=== PATIENT | male | born 1935 | race Caucasian/White ===

== ENCOUNTER 2016-09-16 12:22 | Inpatient (IN) | payer MEDICARE, OTHER ==
[2016-09-16 13:32] LABS: ABSOLUTE EOSINOPHILS # (AUTO) 0.1 10^3/uL (0.0-0.6); ABSOLUTE LYMPHOCYTES (AUTO) 1.2 10^3/uL (0.5-4.7); ABSOLUTE MONOCYTES (AUTO) 0.4 10^3/uL (0.1-1.4); ABSOLUTE NEUT (AUTO) 3.8 10^3/uL (1.7-8.2); BASOPHILS % (AUTO) 0.5 % (0-2); HEMATOCRIT 35.5 % (37.9-51.0); HEMOGLOBIN 11.7 g/dL (13.5-17.0); HGB HCT DIFFERENCE -0.4; LYMPHOCYTES % (AUTO) 21.6 % (13-45); MEAN CORPUSCULAR HEMOGLOBIN 30.5 pg (27.0-33.4); MEAN CORPUSCULAR HGB CONC 32.9 g/dL (32.0-36.0); MEAN CORPUSCULAR VOLUME 93 fl (80-97); MONOCYTES % (AUTO) 8.1 % (3-13); RED BLOOD COUNT 3.82 10^6/uL (4.35-5.55); RED CELL DISTRIBUTION WIDTH 14.8 % (11.5-14.0); SEGMENTED NEUTROPHILS % (AUTO) 67.8 % (42-78); WHITE BLOOD COUNT 5.6 10^3/uL (4.0-10.5)
[2016-09-16 13:44] LABS: PROTHROMBIN TIME 33.2 SEC (11.4-15.4)
[2016-09-16 13:53] LABS: ANION GAP 10 (5-19); BLOOD UREA NITROGEN 33 mg/dL (7-20); CALCIUM 9.7 mg/dL (8.4-10.2); CARBON DIOXIDE 32 mmol/L (22-30); CHLORIDE 98 mmol/L (98-107); CREATININE RESULT 1.58 mg/dL (0.52-1.25); GLUCOSE 176 mg/dL (75-110); SODIUM 139.5 mmol/L (137-145)
[2016-09-16] MEDS ORDERED: INSULIN ASPART 100 UNIT SQ PRN (15:35)
[2016-09-16] MEDS ORDERED: DEXTROSE 50%-WATER SYRINGE 12.5 GM/25 ML DOSE IV PRN (16:23)
[2016-09-16] MEDS ORDERED: DEXTROSE 50%-WATER SYRINGE 25 GM/50 ML DOSE IV PRN (16:23)
[2016-09-16] MEDS ORDERED: GLUCAGON,HUMAN RECOMB 1 MG INJ IM PRN ×2 (16:23→17:25)
[2016-09-16] MEDS ORDERED: DEXTROSE 40% GEL 15 GM TUBE PO PRN ×3 (16:23→17:25)
[2016-09-16] MEDS ORDERED: DEXTROSE 40% GEL 15 GM TUBE X 2 PO PRN (16:23)
[2016-09-16] MEDS ORDERED: ASPIRIN 81 MG TABLET, CHEWABLE PO ONE (17:00)
[2016-09-16] MEDS ORDERED: DEXTROSE 50%-WATER 25 GM/50 ML DISP.SYRIN IV PRN ×2 (17:25)
[2016-09-16] MEDS: ERTAPENEM SODIUM 1 GM in NORMAL SALINE 50 ML IV SCH (17:30)
--- NOTE | 2016-09-16 17:35 | PDOC H&P ---
History of Present Illness Admission Date/PCP: 09/16/16 12:22 Chela Trent Patient complains of: leg celluitis History of Present Illness: MARY MANDUJANO is a 81 year old male pt came today with c/o bilt leg swelling and pain pt was given clidamycin and also see foot doctor but still not work and foot doctor s/o put in hospital pt also have chronic chf/ckd/htn and dvt pt is on coumadin inr is 3 pt denied any fever no cp no sob Past Medical History Cardiac Medical History: Reports: Congestive Heart Failure, Coronary Artery Disease, DVT, Myocardial Infarction - 1995, Hyperlipidema, Hypertension, Pulmonary Embolism Pulmonary Medical History: Denies: Asthma, Tuberculosis Neurological Medical History: Denies: Seizures Endocrine Medical History: Reports: Diabetes Mellitus Type 2 Renal/ Medical History: Reports: Chronic Kidney Disease GI Medical History: Denies: Hepatitis Psychiatric Medical History: Reports: Depression Hematology: Denies: Anemia, Sickle Cell Disease Past Surgical History Past Surgical History: Reports: Coronary Artery Bypass Graft, Pacemaker - upper left chest Social History Smoking Status: Never Smoker Frequency of Alcohol Use: None Hx Recreational Drug Use: No Hx Prescription Drug Abuse: No Family History Family History: Reviewed & Not Pertinent Parental Family History Reviewed: Yes Children Family History Reviewed: Yes Sibling(s) Family History Reviewed.: Yes Medication/Allergy Home Medications: Allopurinol [Zyloprim 300 mg Tablet] 100 mg PO DAILY 11/05/11 Aspirin [Aspirin 81 mg Chewable Tablet] 81 mg PO DAILY 11/05/11 Docusate Sodium [Colace 100 mg Capsule] 200 mg PO QHS 11/05/11 Insulin Aspart [Novolog] 100 unit SQ PRN PRN 11/05/11 Levothyroxine Sodium [Synthroid 0.025 mg Tablet] 50 mcg PO DAILY 11/05/11 Metoprolol Succinate [Toprol Xl 25 mg Tab.sr] 100 mg PO DAILY 11/05/11 [place]-3/Dha/Epa/Fish Oil [Fish Oil Dr 500 mg Softgel] 1,000 mg PO BID 11/05/11 Omeprazole [Prilosec 20 mg Capsule] 20 mg PO DAILY 11/05/11 Sertraline HCl [Zoloft 50 mg Tablet] 50 mg PO DAILY 11/05/11 Simvastatin [Zocor 20 mg Tablet] 20 mg PO QHS 11/05/11 Sitagliptin Phosphate [Januvia 50 mg Tablet] 50 mg PO DAILY 11/05/11 Cetirizine HCl [Zyrtec 10 mg Chewable Tab] 10 mg PO QHS 10/12/12 Amiodarone HCl 100 mg PO DAILY 09/16/16 Fenofibrate Nanocrystallized [Tricor 145 mg Tablet] 145 mg PO DAILY 09/16/16 Furosemide [Lasix 20 mg Tablet] 80 mg PO BID 09/16/16 Insulin Glargine,Hum.rec.anlog [Lantus Solostar] 30 unit SQ BID 09/16/16 Losartan Potassium 50 mg PO DAILY 09/16/16 Warfarin Sodium [Coumadin] 4 mg PO QHS 09/16/16 Allergies/Adverse Reactions: No Known Allergies Allergy (Verified 09/30/14 12:05) Review of Systems Constitutional: ABSENT: chills, fever(s), headache(s), weight gain, weight loss Eyes: ABSENT: visual disturbances Ears: ABSENT: hearing changes Cardiovascular: ABSENT: chest pain, dyspnea on exertion, edema, orthropnea, palpitations Respiratory: ABSENT: cough, hemoptysis Gastrointestinal: ABSENT: abdominal pain, constipation, diarrhea, hematemesis, hematochezia, nausea, vomiting Genitourinary: ABSENT: dysuria, hematuria Musculoskeletal: ABSENT: joint swelling Integumentary: ABSENT: rash, wounds Neurological: ABSENT: abnormal gait, abnormal speech, confusion, dizziness, focal weakness, syncope Psychiatric: ABSENT: anxiety, depression, homidical ideation, suicidal ideation Endocrine: ABSENT: cold intolerance, heat intolerance, menstrual abnormalities, polydipsia, polyuria Hematologic/Lymphatic: ABSENT: easy bleeding, easy bruising, lymphadenopathy Physical Exam Vital Signs: Temp Pulse Resp BP Pulse Ox 97.8 F 64 19 133/54 H 97 09/16/16 15:34 09/16/16 15:34 09/16/16 15:34 09/16/16 15:34 09/16/16 15:34 Intake & Output 09/15/16 09/16/16 09/17/16 06:59 06:59 06:59 Weight 117.6 kg General appearance: PRESENT: no acute distress Head exam: PRESENT: normocephalic Eye exam: PRESENT: PERRLA Mouth exam: PRESENT: neck supple Neck exam: ABSENT: carotid bruit, full ROM, JVD, lymphadenopathy, meningismus, tenderness, thyromegaly, tracheal deviation, tracheostomy, other Respiratory exam: ABSENT: accessory muscle use, chest wall tenderness, clear to auscultation kavitha, crackles, decreased breath sounds, prolonged expiratory phas, rales, retraction, rhonchi, stridor, symmetrical, tachypnea, unlabored, wheezes , other Cardiovascular exam: PRESENT: +S1, +S2 GI/Abdominal exam: PRESENT: normal bowel sounds, soft. ABSENT: tenderness Extremities exam: PRESENT: pedal edema Additional comments: redness both leg Neurological exam: PRESENT: alert, awake, oriented to person, oriented to place , oriented to time, oriented to situation Psychiatric exam: PRESENT: normal mood Skin exam: PRESENT: normal color Results Laboratory Results: 09/16/16 13:15 09/16/16 13:15 09/16/16 09/16/16 13:15 13:15 WBC 5.6 RBC 3.82 L Hgb 11.7 L Hct 35.5 L MCV 93 MCH 30.5 MCHC 32.9 RDW 14.8 H Plt Count 292 Seg Neutrophils % 67.8 Lymphocytes % 21.6 Monocytes % 8.1 Eosinophils % 2.0 Basophils % 0.5 Absolute Neutrophils 3.8 Absolute Lymphocytes 1.2 Absolute Monocytes 0.4 Absolute Eosinophils 0.1 Absolute Basophils 0.0 Sodium 139.5 Potassium 4.0 Chloride 98 Carbon Dioxide 32 H Anion Gap 10 BUN 33 H Creatinine 1.58 H Est GFR ( Amer) 51 L Est GFR (Non-Af Amer) 42 L Glucose 176 H Calcium 9.7 Assessment & Plan - Diagnosis (1) Bilateral lower leg cellulitis Is this a current diagnosis for this admission?: YesPlan: pt failu out pt rx will start iv antibiotics (2) CHF (congestive heart failure) Qualifiers: Congestive heart failure type: combined Is this a current diagnosis for this admission?: YesPlan: cont lasix (3) CKD (chronic kidney disease) Qualifiers: Chronic kidney disease stage: stage 3 (moderate) Qualified Code(s): N18.3 - Chronic kidney disease, stage 3 (moderate) Is this a current diagnosis for this admission?: YesPlan: cont curr med (4) Hypertension Qualifiers: Hypertension type: essential hypertension Qualified Code(s): I10 - Essential (primary) hypertension Is this a current diagnosis for this admission?: YesPlan: stable (5) Pacemaker Is this a current diagnosis for this admission?: YesPlan: pt see [facility] (6) DVT (deep venous thrombosis) Qualifiers: Chronicity: unspecified Is this a current diagnosis for this admission?: YesPlan: on emt intermediate coumadin (7) Orthostatic hypotension Is this a current diagnosis for this admission?: YesPlan: fall precution (8) CAD (coronary artery disease) Qualifiers: Coronary Disease-Associated Artery/Lesion type: unspecified vessel or lesion type Is this a current diagnosis for this admission?: YesPlan: stable (9) Venous (peripheral) insufficiency Is this a current diagnosis for this admission?: YesPlan: will get doppler study - Time Time Spent: 30 to 50 Minutes Medications reviewed and adjusted accordingly: Yes Anticipated discharge: Home - Inpatient Certification Medical Necessity: Failure to Improve With Outpatient Therapy, Need Close Monitoring Due to Risk of Patient Decompensation, Need for IV Antibiotics Post Hospital Care: D/C Sap Hana Developer Documentation - Plan Summary Plan Summary: d/w pt and and agree above in pt iv medication and further doppler study
[2016-09-16] MEDS: OMEGA-3 ACID ETHYL ESTERS 1 GM CAPSULE PO SCH (17:41)
[2016-09-16] MEDS: FUROSEMIDE 80 MG TABLET PO SCH (17:41)
[2016-09-16] MEDS: OXYCODONE HCL IR 5 MG TABLET PO SCH (17:44)
[2016-09-16] MEDS: INSULIN LISPRO 100 UNIT/ML 3 ML VIAL SUBCUT PRN ×2 (17:48→21:33)
[2016-09-16] MEDS ORDERED: OMEGA PO SCH (18:00)
[2016-09-16] MEDS ORDERED: EPA PO SCH (18:00)
[2016-09-16] MEDS ORDERED: FUROSEMIDE 20 MG TABLET PO SCH (18:00)
[2016-09-16] MEDS ORDERED: DHA PO SCH (18:00)
[2016-09-16] MEDS ORDERED: FISH OIL PO SCH (18:00)
[2016-09-16] MEDS ORDERED: INSULIN GLARGINE,HUM.REC.ANLOG 300 UNIT/3 ML INSULN.PEN SUBCUT SCH ×2 (18:00)
[2016-09-16] MEDS ORDERED: LEVOTHYROXINE SODIUM 0.05 MG TABLET PO ONE (18:00)
[2016-09-16] MEDS: DOCUSATE SODIUM 100 MG CAPSULE PO SCH (21:22)
[2016-09-16] MEDS: SIMVASTATIN 10 MG TABLET PO SCH (21:22)
[2016-09-16] MEDS: CETIRIZINE 10 MG TABLET PO SCH (21:23)
[2016-09-16] MEDS: INSULIN GLARGINE,HUM.REC.ANLOG 300 UNIT/3 ML INSULN.PEN SUBCUT SCH (21:33)
[2016-09-16] MEDS ORDERED: WARFARIN SODIUM 4 MG PO SCH (22:00)
[2016-09-16] MEDS ORDERED: WARFARIN SODIUM 4 MG TABLET PO SCH (22:00)
[2016-09-16] MEDS ORDERED: (PENDING PHARMACY ID) (Cetirizine Hcl [Zyrtec 10 Mg Chewable Tab] 10 MG) PO SCH (22:00)
[2016-09-17 05:29] LABS: HEMATOCRIT 35.6 % (37.9-51.0); HEMOGLOBIN 11.8 g/dL (13.5-17.0); HGB HCT DIFFERENCE -0.2; MEAN CORPUSCULAR HEMOGLOBIN 30.5 pg (27.0-33.4); MEAN CORPUSCULAR HGB CONC 33.2 g/dL (32.0-36.0); MEAN CORPUSCULAR VOLUME 92 fl (80-97); RED BLOOD COUNT 3.88 10^6/uL (4.35-5.55); RED CELL DISTRIBUTION WIDTH 14.9 % (11.5-14.0); WHITE BLOOD COUNT 5.7 10^3/uL (4.0-10.5)
[2016-09-17] MEDS: LANSOPRAZOLE 15 MG TAB.RAP.DR PO SCH (05:44)
[2016-09-17 05:51] LABS: ANION GAP 18 (5-19); BLOOD UREA NITROGEN 34 mg/dL (7-20); CARBON DIOXIDE 25 mmol/L (22-30); CHLORIDE 98 mmol/L (98-107); CREATININE RESULT 1.51 mg/dL (0.52-1.25); GLUCOSE 182 mg/dL (75-110); POTASSIUM 4.2 mmol/L (3.6-5.0); SODIUM 140.8 mmol/L (137-145)
[2016-09-17] MEDS: INSULIN LISPRO 100 UNIT/ML 3 ML VIAL SUBCUT PRN ×4 (07:39→22:55)
[2016-09-17] MEDS: POLYETHYLENE GLYCOL 3350 POWDER 17 GM/1 PACKET PO SCH (07:41)
[2016-09-17] MEDS: OXYCODONE HCL IR 5 MG TABLET PO SCH ×3 (07:41→17:22)
--- NOTE | 2016-09-17 07:47 | PDOC PROGRESS REPORT ---
Subjective Progress Note for:: 09/17/16 Subjective:: pt is doing well no fever nocp doppler study still pending Physical Exam Vital Signs: Temp Pulse Resp BP Pulse Ox 97.8 F 60 20 145/56 H 95 09/17/16 03:50 09/17/16 07:00 09/17/16 03:50 09/17/16 03:50 09/17/16 03:50 Intake & Output 09/16/16 09/17/16 09/18/16 06:59 06:59 06:59 Intake Total 768 Output Total 1801 Balance -1033 Weight 117.5 kg General appearance: PRESENT: no acute distress Head exam: PRESENT: normocephalic Eye exam: PRESENT: PERRLA Mouth exam: PRESENT: neck supple Respiratory exam: PRESENT: clear to auscultation kavitha Cardiovascular exam: PRESENT: +S1, +S2 GI/Abdominal exam: PRESENT: normal bowel sounds, soft. ABSENT: tenderness Extremities exam: PRESENT: pedal edema Additional comments: mild redness on both leg' Neurological exam: PRESENT: alert, awake, oriented to person, oriented to place Skin exam: PRESENT: normal color Results Laboratory Results: 09/17/16 04:23 09/17/16 04:23 09/16/16 09/16/16 09/17/16 13:15 13:15 04:23 WBC 5.6 5.7 RBC 3.82 L 3.88 L Hgb 11.7 L 11.8 L Hct 35.5 L 35.6 L MCV 93 92 MCH 30.5 30.5 MCHC 32.9 33.2 RDW 14.8 H 14.9 H Plt Count 292 214 Seg Neutrophils % 67.8 Lymphocytes % 21.6 Monocytes % 8.1 Eosinophils % 2.0 Basophils % 0.5 Absolute Neutrophils 3.8 Absolute Lymphocytes 1.2 Absolute Monocytes 0.4 Absolute Eosinophils 0.1 Absolute Basophils 0.0 Sodium 139.5 Potassium 4.0 Chloride 98 Carbon Dioxide 32 H Anion Gap 10 BUN 33 H Creatinine 1.58 H Est GFR ( Amer) 51 L Est GFR (Non-Af Amer) 42 L Glucose 176 H Calcium 9.7 09/17/16 04:23 WBC RBC Hgb Hct MCV MCH MCHC RDW Plt Count Seg Neutrophils % Lymphocytes % Monocytes % Eosinophils % Basophils % Absolute Neutrophils Absolute Lymphocytes Absolute Monocytes Absolute Eosinophils Absolute Basophils Sodium 140.8 Potassium 4.2 Chloride 98 Carbon Dioxide 25 Anion Gap 18 BUN 34 H Creatinine 1.51 H Est GFR ( Amer) 54 L Est GFR (Non-Af Amer) 45 L Glucose 182 H Calcium 10.0 Assessment & Plan - Diagnosis (1) Bilateral lower leg cellulitis Is this a current diagnosis for this admission?: YesPlan: pt failu out pt rx will start iv antibiotics (2) CHF (congestive heart failure) Qualifiers: Congestive heart failure type: combined Is this a current diagnosis for this admission?: YesPlan: cont lasix (3) CKD (chronic kidney disease) Qualifiers: Chronic kidney disease stage: stage 3 (moderate) Qualified Code(s): N18.3 - Chronic kidney disease, stage 3 (moderate) Is this a current diagnosis for this admission?: YesPlan: cont curr med (4) Hypertension Qualifiers: Hypertension type: essential hypertension Qualified Code(s): I10 - Essential (primary) hypertension Is this a current diagnosis for this admission?: YesPlan: stable (5) Pacemaker Is this a current diagnosis for this admission?: YesPlan: pt see [facility] (6) DVT (deep venous thrombosis) Qualifiers: Chronicity: unspecified Is this a current diagnosis for this admission?: YesPlan: on senior living coumadin (7) Orthostatic hypotension Is this a current diagnosis for this admission?: YesPlan: fall precution (8) CAD (coronary artery disease) Qualifiers: Coronary Disease-Associated Artery/Lesion type: unspecified vessel or lesion type Is this a current diagnosis for this admission?: YesPlan: stable (9) Venous (peripheral) insufficiency Is this a current diagnosis for this admission?: Yes - Time Time Spent with patient: 15-24 minutes Medications reviewed and adjusted accordingly: Yes Anticipated discharge: Home Within: within 24 hours - Inpatient Certification Medical Necessity: Need for IV Antibiotics - Plan Summary Plan Summary: cont iv invanz
[2016-09-17] MEDS ORDERED: WARFARIN SODIUM 4 MG TABLET PO SCH (08:00)
[2016-09-17] MEDS ORDERED: METOLAZONE 2.5 MG TABLET PO ONE (08:30)
[2016-09-17] MEDS: INSULIN GLARGINE,HUM.REC.ANLOG 300 UNIT/3 ML INSULN.PEN SUBCUT SCH ×2 (09:02→22:55)
[2016-09-17] MEDS: FLUTICASONE NASAL SPRAY 50 MCG/SPRY 120 SPRAY/16 GM NASL SCH (09:03)
[2016-09-17] MEDS: ASPIRIN 81 MG TABLET, CHEWABLE PO SCH (09:08)
[2016-09-17] MEDS: FUROSEMIDE 80 MG TABLET PO SCH ×2 (09:08→17:21)
[2016-09-17] MEDS: AMIODARONE HCL 200 MG TABLET PO SCH (09:08)
[2016-09-17] MEDS: SITAGLIPTIN PHOSPHATE 50 MG TABLET PO SCH (09:09)
[2016-09-17] MEDS: SERTRALINE HCL 50 MG TABLET PO SCH (09:09)
[2016-09-17] MEDS: ALLOPURINOL 100 MG TABLET PO SCH (09:09)
[2016-09-17] MEDS: FENOFIBRATE NANOCRYSTALLIZED 145 MG TABLET PO SCH (09:09)
[2016-09-17] MEDS: LOSARTAN POTASSIUM 50 MG TABLET PO SCH (09:09)
[2016-09-17] MEDS: LEVOTHYROXINE SODIUM 0.05 MG TABLET PO SCH (09:09)
[2016-09-17] MEDS: CHOLECALCIFEROL (D3) 1,000 UNIT TABLET PO SCH (09:10)
[2016-09-17] MEDS: OMEGA-3 ACID ETHYL ESTERS 1 GM CAPSULE PO SCH ×2 (09:10→17:21)
[2016-09-17] MEDS: METOPROLOL SUCCINATE 50 MG TAB.SR.24H PO SCH (09:10)
[2016-09-17] MEDS ORDERED: (PENDING PHARMACY ID) (Amiodarone Hcl [Amiodarone Hcl] 100 MG) PO SCH (10:00)
[2016-09-17] MEDS ORDERED: METOPROLOL SUCCINATE 25 MG TAB.SR.24H PO SCH (10:00)
[2016-09-17] MEDS ORDERED: LEVOTHYROXINE SODIUM 0.025 MG TABLET PO SCH (10:00)
[2016-09-17] MEDS ORDERED: ALLOPURINOL 300 MG TABLET PO SCH (10:00)
[2016-09-17] MEDS ORDERED: (PENDING PHARMACY ID) (Omeprazole [Prilosec 20 Mg Capsule] 20 MG) PO SCH (10:00)
--- NOTE | 2016-09-17 12:44 | Physician Advisory Note ---
Physician Advisor ProgressNote .: Pursuant to the plan for Dann Brown, I have reviewed the medical record for this patient. Physician Advisor Statement: Please consider documentin. "Chronic ____[systolic &/or diastolic] CHF, with mod pulm HTN" - so coders won't have to query you later to clarify whether it's chronic or acute on chronic, .... (They can't assume you mean chronic anymore, when you don't specify, thanks to the 2017 coding guideline changes.) - ECHO 08/2014 showed LV EF "low nl", LV diastolic fn "nl", (+)mild conc LVH, mild-mod MR, mod inf-septal hypokinesis, mod pulm HTN. Thanks for your help! CK
[2016-09-17] MEDS: ERTAPENEM SODIUM 1 GM in NORMAL SALINE 50 ML IV SCH (17:21)
--- NOTE | 2016-09-17 17:36 | XCELERA REPORT ---
[address] [address] Lower Extremity Arterial Evaluation Name: MARY MANDUJANO Age: 81 yrs Gender: Male : 1935 Patient Status: Inpatient Patient Location: [id number]\S\301\S\A Study Date: 09/16/2016 02:20 PM Procedure: A color flow and duplex scan of the lower extremity arteries was performed bilaterally with velocity and waveform anaylsis. Reason For Study: Dx:PAD Ordering Physician: DANA TUTTLE Performed By: Cheyv Torres Measurements and Calculations Right Left PLANT MAINTENANCE MECHANIC PSV 160.6 181.0 cm/sec Prox PFA PSV -147.3 -150.4 cm/sec Prox SFA PSV -137.9 cm/sec Dist SFA PSV -116.3 -128.1 cm/sec Prox Pop A PSV 66.4 78.6 cm/sec Dist ARI PSV 10.8 30.6 cm/sec Dist MOLD BREAKER PSV 42.6 -61.6 cm/sec Dc Pedis PSV 14.1 45.4 cm/sec Right Side Arterial Evaluation Normal velocity, biphasic flow are present, from the Common Femoral artery down to the infrageniculate arteries. Monophasic, reduced flow in the Dorsalis Pedis. The ankle-brachial index is 0.52. Non compressible in the Posterior Tibial artery. 0-19 % stenosis is noted at the Common Femoral artery. With sequential changes. Left Side Arterial Evaluation Normal velocity, waveform and triphasic flow are present, in the Common Femoral artery. Biphasic in the Deep Femoral. Monophasic otherwise to the infrageniculate vessels. The ankle-brachial index is 0.97. 50-99 % stenosis is noted at the Femoral artery. Interpretation Summary Moderate hemodynamically significant lesions in the right lower extremity only, on duplex imaging, at rest. Severe hemodynamically significant lesions in the left lower extremity only, on duplex imaging, at rest. : DANA TUTTLE > Hawk Geller
[2016-09-17] MEDS: WARFARIN SODIUM 3 MG TABLET PO SCH (21:12)
[2016-09-17] MEDS: DOCUSATE SODIUM 100 MG CAPSULE PO SCH (21:12)
[2016-09-17] MEDS: CETIRIZINE 10 MG TABLET PO SCH (21:13)
[2016-09-17] MEDS: SIMVASTATIN 10 MG TABLET PO SCH (21:13)
[2016-09-18] MEDS: LANSOPRAZOLE 15 MG TAB.RAP.DR PO SCH (05:36)
[2016-09-18 06:33] LABS: HEMATOCRIT 36.9 % (37.9-51.0); HEMOGLOBIN 12.4 g/dL (13.5-17.0); HGB HCT DIFFERENCE 0.3; MEAN CORPUSCULAR HEMOGLOBIN 30.9 pg (27.0-33.4); MEAN CORPUSCULAR HGB CONC 33.7 g/dL (32.0-36.0); MEAN CORPUSCULAR VOLUME 92 fl (80-97); RED BLOOD COUNT 4.02 10^6/uL (4.35-5.55); RED CELL DISTRIBUTION WIDTH 14.8 % (11.5-14.0); WHITE BLOOD COUNT 5.1 10^3/uL (4.0-10.5)
[2016-09-18 06:40] LABS: PROTHROMBIN TIME 32.9 SEC (11.4-15.4)
[2016-09-18 06:46] LABS: ANION GAP 12 (5-19); BLOOD UREA NITROGEN 38 mg/dL (7-20); CALCIUM 10.7 mg/dL (8.4-10.2); CARBON DIOXIDE 32 mmol/L (22-30); CHLORIDE 96 mmol/L (98-107); CREATININE RESULT 1.72 mg/dL (0.52-1.25); GLUCOSE 134 mg/dL (75-110); POTASSIUM 4.3 mmol/L (3.6-5.0); SODIUM 140.4 mmol/L (137-145)
[2016-09-18] MEDS: POLYETHYLENE GLYCOL 3350 POWDER 17 GM/1 PACKET PO SCH (11:32)
[2016-09-18] MEDS: FUROSEMIDE 80 MG TABLET PO SCH ×2 (11:33→18:14)
[2016-09-18] MEDS: OMEGA-3 ACID ETHYL ESTERS 1 GM CAPSULE PO SCH ×2 (11:33→18:14)
[2016-09-18] MEDS: CHOLECALCIFEROL (D3) 1,000 UNIT TABLET PO SCH (11:33)
[2016-09-18] MEDS: OXYCODONE HCL IR 5 MG TABLET PO SCH ×3 (11:34→18:14)
[2016-09-18] MEDS: FENOFIBRATE NANOCRYSTALLIZED 145 MG TABLET PO SCH (11:37)
[2016-09-18] MEDS: METOPROLOL SUCCINATE 50 MG TAB.SR.24H PO SCH (11:37)
[2016-09-18] MEDS: ASPIRIN 81 MG TABLET, CHEWABLE PO SCH (11:38)
[2016-09-18] MEDS: ALLOPURINOL 100 MG TABLET PO SCH (11:38)
[2016-09-18] MEDS: LOSARTAN POTASSIUM 50 MG TABLET PO SCH (11:38)
[2016-09-18] MEDS: SERTRALINE HCL 50 MG TABLET PO SCH (11:38)
[2016-09-18] MEDS: SITAGLIPTIN PHOSPHATE 50 MG TABLET PO SCH (11:38)
[2016-09-18] MEDS: LEVOTHYROXINE SODIUM 0.05 MG TABLET PO SCH (11:38)
[2016-09-18] MEDS: FLUTICASONE NASAL SPRAY 50 MCG/SPRY 120 SPRAY/16 GM NASL SCH (11:49)
[2016-09-18] MEDS: AMIODARONE HCL 200 MG TABLET PO SCH (11:50)
[2016-09-18] MEDS: INSULIN GLARGINE,HUM.REC.ANLOG 300 UNIT/3 ML INSULN.PEN SUBCUT SCH ×2 (11:51→22:21)
--- NOTE | 2016-09-18 12:59 | PDOC PROGRESS REPORT ---
Subjective Progress Note for:: 09/18/16 Subjective:: pt is doing well pt u/s shows pad pt denied any fever nocp no sob Physical Exam Vital Signs: Temp Pulse Resp BP Pulse Ox 98.3 F 58 L 16 138/62 H 97 09/18/16 11:45 09/18/16 11:45 09/18/16 11:45 09/18/16 11:45 09/18/16 11:45 Intake & Output 09/17/16 09/18/16 09/19/16 06:59 06:59 06:59 Intake Total 768 1383 Output Total 1801 2150 Balance -1033 -767 Weight 117.5 kg 116.1 kg General appearance: PRESENT: no acute distress Head exam: PRESENT: normocephalic Eye exam: PRESENT: PERRLA Mouth exam: PRESENT: neck supple Neck exam: ABSENT: JVD Respiratory exam: PRESENT: clear to auscultation kavitha Cardiovascular exam: PRESENT: +S1, +S2 GI/Abdominal exam: PRESENT: normal bowel sounds, soft. ABSENT: tenderness Extremities exam: PRESENT: pedal edema Additional comments: redness all improving Neurological exam: PRESENT: alert, awake, oriented to person, oriented to place , oriented to time Psychiatric exam: PRESENT: normal mood Skin exam: PRESENT: normal color Results Laboratory Results: 09/18/16 05:33 09/18/16 05:33 09/18/16 09/18/16 05:33 05:33 WBC 5.1 RBC 4.02 L Hgb 12.4 L Hct 36.9 L MCV 92 MCH 30.9 MCHC 33.7 RDW 14.8 H Plt Count 255 Sodium 140.4 Potassium 4.3 Chloride 96 L Carbon Dioxide 32 H Anion Gap 12 BUN 38 H Creatinine 1.72 H Est GFR ( Amer) 47 L Est GFR (Non-Af Amer) 38 L Glucose 134 H Calcium 10.7 H Assessment & Plan - Diagnosis (1) Bilateral lower leg cellulitis Is this a current diagnosis for this admission?: YesPlan: pt failu out pt rx will start iv antibiotics (2) CHF (congestive heart failure) Qualifiers: Congestive heart failure type: combined Is this a current diagnosis for this admission?: YesPlan: cont lasix (3) CKD (chronic kidney disease) Qualifiers: Chronic kidney disease stage: stage 3 (moderate) Qualified Code(s): N18.3 - Chronic kidney disease, stage 3 (moderate) Is this a current diagnosis for this admission?: YesPlan: stable (4) Hypertension Qualifiers: Hypertension type: essential hypertension Qualified Code(s): I10 - Essential (primary) hypertension Is this a current diagnosis for this admission?: YesPlan: cont curr med (5) Pacemaker Is this a current diagnosis for this admission?: YesPlan: stable (6) DVT (deep venous thrombosis) Qualifiers: Chronicity: unspecified Is this a current diagnosis for this admission?: YesPlan: on terminal computer operator coumadin (7) Orthostatic hypotension Is this a current diagnosis for this admission?: YesPlan: fall precution (8) CAD (coronary artery disease) Qualifiers: Coronary Disease-Associated Artery/Lesion type: unspecified vessel or lesion type Is this a current diagnosis for this admission?: YesPlan: stable (9) Venous (peripheral) insufficiency Is this a current diagnosis for this admission?: YesPlan: will get doppler study - Time Time Spent with patient: 15-24 minutes Medications reviewed and adjusted accordingly: Yes Anticipated discharge: Home Within: within 24 hours - Inpatient Certification Medical Necessity: Need for IV Antibiotics Post Hospital Care: D/C Project Buyer Documentation - Plan Summary Plan Summary: pt need f/u out pt vasculer sx pt seen in past will cont curr med if remain stable will d/c in am check mg level today
[2016-09-18] MEDS: ERTAPENEM SODIUM 1 GM in NORMAL SALINE 50 ML IV SCH (18:13)
[2016-09-18] MEDS: INSULIN LISPRO 100 UNIT/ML 3 ML VIAL SUBCUT PRN (22:21)
[2016-09-18] MEDS: DOCUSATE SODIUM 100 MG CAPSULE PO SCH (22:21)
[2016-09-18] MEDS: SIMVASTATIN 10 MG TABLET PO SCH (22:21)
[2016-09-18] MEDS: CETIRIZINE 10 MG TABLET PO SCH (22:22)
[2016-09-18] MEDS: WARFARIN SODIUM 3 MG TABLET PO SCH (22:22)
[2016-09-19] MEDS: LANSOPRAZOLE 15 MG TAB.RAP.DR PO SCH (06:21)
[2016-09-19 06:36] LABS: HEMATOCRIT 37.3 % (37.9-51.0); HEMOGLOBIN 12.4 g/dL (13.5-17.0); HGB HCT DIFFERENCE -0.1; MEAN CORPUSCULAR HEMOGLOBIN 30.7 pg (27.0-33.4); MEAN CORPUSCULAR HGB CONC 33.2 g/dL (32.0-36.0); MEAN CORPUSCULAR VOLUME 92 fl (80-97); RED BLOOD COUNT 4.04 10^6/uL (4.35-5.55); RED CELL DISTRIBUTION WIDTH 14.8 % (11.5-14.0); WHITE BLOOD COUNT 5.3 10^3/uL (4.0-10.5)
[2016-09-19 06:41] LABS: PROTHROMBIN TIME 29.8 SEC (11.4-15.4)
[2016-09-19 07:02] LABS: ANION GAP 14 (5-19); BLOOD UREA NITROGEN 47 mg/dL (7-20); CALCIUM 10.2 mg/dL (8.4-10.2); CARBON DIOXIDE 33 mmol/L (22-30); CHLORIDE 95 mmol/L (98-107); CREATININE RESULT 1.68 mg/dL (0.52-1.25); GLUCOSE 66 mg/dL (75-110); POTASSIUM 3.4 mmol/L (3.6-5.0); SODIUM 141.5 mmol/L (137-145)
--- NOTE | 2016-09-19 09:03 | DISCHARGE SUMMARY E ---
Discharge Summary NAME: MARY MANDUJANO : 1935 AGE: 81Y ADMITTED: 09/16/2016 DISCHARGED: 09/19/2016 ADMISSION DIAGNOSES: 1. Bilateral leg cellulitis. 2. Congestive heart failure with the combined systolic and diastolic. 3. Chronic kidney disease. 4. Hypertension. 5. Pacemaker. 6. Deep vein thrombosis. 7. Orthostatic hypotension. 8. Coronary artery disease. 9. Venous insufficiency. 10. Peripheral vascular disease. DISCHARGE DIAGNOSES: 1. Bilateral leg cellulitis is all improving. 2. Congestive heart failure, combined, currently is all stable. Continue on Lasix. 3. Chronic kidney disease stage 3, currently stable. 4. Hypertension. 5. Pacemaker. 6. Deep vein thrombosis on chronic Coumadin. Therapeutic INR. 7. Orthostatic hypotension with fall precautions. 8. Coronary artery disease, currently sees Dr. Carrizales in cardiology. 9. Venous insufficiency. 10. Peripheral vascular disease. Needs to follow as outpatient vascular surgeons. PROCEDURES: None. COMPLICATIONS: None. DIAGNOSTICS: Lower extremity ultrasound performed which shows moderate *------* lesions in the right lower extremity and the severe *------* on the left extremity. DISCHARGE MEDICATIONS: 1. Cozaar 50 mg daily. 2. Amiodarone 100 mg daily. 3. Coumadin 3 mg nightly. The patient have monitoring check INR on Thursday. 4. Zoloft 50 mg daily. 5. Allopurinol 100 mg daily. 6. Toprol-XL 100 mg p.o. daily. 7. Colace 200 mg nightly daily. 8. MiraLax 17 g daily. 9. Flonase 1 spray daily. 10. Januvia 50 mg daily. 11. TriCor 145 mg p.o. daily. 12. Zocor 20 mg daily. 13. Lantus 30 units twice a day. 14. Humalog sliding scale. 15. Lasix 80 mg twice a day. 16. Aspirin 81 mg daily. 17. OxyIR p.r.n. for the pain 5 mg. 18. Prevacid 15 mg daily. 19. Potassium 40 mEq daily. 20. Zyrtec 10 mg daily. 21. Levothyroxine 0.05 mg daily. 22. Vitamin D 2000 units daily. 23. Keflex 500 mg t.i.d. for 7 days. MICROBIOLOGY: Blood cultures, no growth. LABORATORY: WBC 5.3, hemoglobin 12.4, platelets 254,000. INR 2.69. Sodium 141, potassium 3.1 (we replaced the potassium), BUN 47, creatinine 1.68. PHYSICAL EXAMINATION: VITAL SIGNS: Blood pressure 125/57, temperature 97.7, pulse 62, respirations 16, O2 saturation 98% on room air. GENERAL: The patient is alert, awake, and oriented x3. There was no any acute distress. HEAD AND NECK: Normocephalic. PERRLA. LUNGS: There is no wheezing, no rales, and no rhonchi. HEART: S1 and S2 is present. ABDOMEN: Soft. Bowel sounds are present. EXTREMITIES: Some mild edema with redness is much improved. NEUROLOGIC: No focal weaknesses. HOSPITAL COURSE: This is an 81-year-old male who basically has significant medical problems came to the office complaining of some lower extremity cellulitis which was put on the clindamycin, was much improved but the foot doctor suggested maybe some IV antibiotics. At this point, decided to admit in the hospital for IV antibiotics. The patient as put on IV Invanz and the patient's swelling was also reduced by giving some extra dose of Zaroxolyn. The patient otherwise responds very well with that. The patient's swelling is all goes down and the patient have no breathing issues. The patient tele monitor all reviewed and all stable. The patient's magnesium level and potassium is all corrected. The patient otherwise remained stable throughout the hospitalization. Discussed with the regarding the patient's current conditions and discussed with the patient. FOLLOWUP: The patient needs to follow in office in 1 week. Recheck the chem-7, magnesium and reassess the patient. The patient will make arrangements to see outpatient to meet vascular surgeons for further evaluation about the peripheral vascular disease. TIME SPENT: More than 30 minutes spent examining the patient, reviewing the records. DICTATING PHYSICIAN: DANA TUTTLE M.D. [id number] Y#: [id number] ID: [id number] JOB#: [id number] ACCT: [id number] cc:DANA TUTTLE M.D. >
[2016-09-19 09:44] VITALS: BP 150/59
[2016-09-19] MEDS: LOSARTAN POTASSIUM 50 MG TABLET PO SCH (09:53)
[2016-09-19] MEDS: OMEGA-3 ACID ETHYL ESTERS 1 GM CAPSULE PO SCH (09:53)
[2016-09-19] MEDS: SITAGLIPTIN PHOSPHATE 50 MG TABLET PO SCH (09:55)
[2016-09-19] MEDS: OXYCODONE HCL IR 5 MG TABLET PO SCH (09:55)
[2016-09-19] MEDS: METOPROLOL SUCCINATE 50 MG TAB.SR.24H PO SCH (09:55)
[2016-09-19] MEDS: SERTRALINE HCL 50 MG TABLET PO SCH (09:55)
[2016-09-19] MEDS: FUROSEMIDE 80 MG TABLET PO SCH (09:56)
[2016-09-19] MEDS: FENOFIBRATE NANOCRYSTALLIZED 145 MG TABLET PO SCH (09:56)
[2016-09-19] MEDS: LEVOTHYROXINE SODIUM 0.05 MG TABLET PO SCH (09:56)
[2016-09-19] MEDS: CHOLECALCIFEROL (D3) 1,000 UNIT TABLET PO SCH (09:57)
[2016-09-19] MEDS: AMIODARONE HCL 200 MG TABLET PO SCH (09:57)
[2016-09-19] MEDS: ASPIRIN 81 MG TABLET, CHEWABLE PO SCH (09:57)
[2016-09-19] MEDS: ALLOPURINOL 100 MG TABLET PO SCH (09:57)
[2016-09-19] MEDS: FLUTICASONE NASAL SPRAY 50 MCG/SPRY 120 SPRAY/16 GM NASL SCH (09:58)
[2016-09-19] MEDS ORDERED: POTASSIUM CHLORIDE 10 MEQ TABLET.SA PO SCH (10:00)
[2016-09-19] MEDS: POLYETHYLENE GLYCOL 3350 POWDER 17 GM/1 PACKET PO SCH (10:14)
== END 2016-09-19 11:09 | disposition home or self-care (01) | DRG 603 ==
LOC: 3N 12:22 → 4W 09-18 00:10
PROVIDERS: ADMIT Family Medicine; ATTEND Family Medicine
DX: L03.116 Cellulitis of left lower limb (principal); I13.0 Hypertensive heart and chronic kidney disease with heart failure and stage 1 through stage 4 chronic kidney disease, or unspecified chronic kidney disease; I50.40 Unspecified combined systolic (congestive) and diastolic (congestive) heart failure; L03.115 Cellulitis of right lower limb; E11.22 Type 2 diabetes mellitus with diabetic chronic kidney disease; N18.3 Chronic kidney disease, stage 3 (moderate); I25.10 Atherosclerotic heart disease of native coronary artery without angina pectoris; E78.5 Hyperlipidemia, unspecified; F32.9 Major depressive disorder, single episode, unspecified; I95.1 Orthostatic hypotension; I87.2 Venous insufficiency (chronic) (peripheral); I25.2 Old myocardial infarction; Z95.1 Presence of aortocoronary bypass graft; Z95.0 Presence of cardiac pacemaker; Z79.01 Long term (current) use of anticoagulants; Z79.82 Long term (current) use of aspirin; Z79.4 Long term (current) use of insulin; Z79.899 Other long term (current) drug therapy; Z86.711 Personal history of pulmonary embolism; Z86.718 Personal history of other venous thrombosis and embolism
CPT/HCPCS: 36415; 80048; 82962; 83735; 85025; 85027; 85610; 87040; 93925; J1335; J1815; J3490

== ENCOUNTER → 2016-10-21 | Outpatient (CLI) | payer MEDICARE, OTHER | LOC: RAD 09:25 | PROVIDERS: ATTEND Physician Assistant | DX: N50.819 Testicular pain, unspecified (principal); I86.1 Scrotal varices | CPT/HCPCS: 76870 ==

== ENCOUNTER 2016-10-23 10:03 | Emergency (ER) | payer MEDICARE, OTHER ==
--- NOTE | 2016-10-23 10:16 | ER Document Report ---
ED Medical Screen (RME) - General Chief Complaint: Back Pain Stated Complaint: BACK PAIN Notes: patient is a 81 year old male who fell on thursday. patient is dependent on a walker at home and was reaching for a blanket when he fell and landed on his back. able to walk but 5/5 pain in lower back. no UI/SI, saddle anesthesia patient is on warfarin for h/o DVT's, on amio and metoprolol for ? a fib. h/o CAD I have greeted and performed a rapid initial assessment of this patient. A comprehensive ED assessment and evaluation of the patient, analysis of test results and completion of the medical decision making process will be conducted by additional ED providers. TRAVEL OUTSIDE OF THE [place] IN LAST 30 DAYS: No - Related Data Allergies/Adverse Reactions: No Known Allergies Allergy (Verified 10/23/16 10:11) Past Medical History - Past Medical History Cardiac Medical History: Reports: Hx Congestive Heart Failure, Hx Coronary Artery Disease, Hx DVT, Hx Heart Attack - 1995, Hx Hypercholesterolemia, Hx Hypertension, Hx Pulmonary Embolism Pulmonary Medical History: Denies: Hx Asthma, Hx Tuberculosis Neurological Medical History: Denies: Hx Cerebrovascular Accident, Hx Seizures Endocrine Medical History: Reports: Hx Diabetes Mellitus Type 2 GI Medical History: Denies: Hx Hepatitis, Hx Ulcer Psychiatric Medical History: Reports: Hx Depression Infectious Medical History: Denies: Hx Hepatitis Past Surgical History: Reports: Hx Cardiac Surgery - open heart, pacer/defib, Hx Coronary Artery Bypass Graft, Hx Open Heart Surgery - cabg x 3, Hx Pacemaker - upper left chest - Immunizations Hx Diphtheria, Pertussis, Tetanus Vaccination: Yes - not UTD
[2016-10-23 10:57] LABS: ABSOLUTE BASOPHILS # (AUTO) 0.1 10^3/uL (0.0-0.2); ABSOLUTE LYMPHOCYTES (AUTO) 1.1 10^3/uL (0.5-4.7); ABSOLUTE MONOCYTES (AUTO) 0.6 10^3/uL (0.1-1.4); ABSOLUTE NEUT (AUTO) 15.1 10^3/uL (1.7-8.2); BASOPHILS % (AUTO) 0.8 % (0-2); EOSINOPHILS % (AUTO) 0.1 % (0-6); HEMATOCRIT 35.6 % (37.9-51.0); HEMOGLOBIN 11.5 g/dL (13.5-17.0); HGB HCT DIFFERENCE -1.1; LYMPHOCYTES % (AUTO) 6.3 % (13-45); MEAN CORPUSCULAR HEMOGLOBIN 29.8 pg (27.0-33.4); MEAN CORPUSCULAR HGB CONC 32.3 g/dL (32.0-36.0); MEAN CORPUSCULAR VOLUME 92 fl (80-97); MONOCYTES % (AUTO) 3.5 % (3-13); RED BLOOD COUNT 3.86 10^6/uL (4.35-5.55); RED CELL DISTRIBUTION WIDTH 15.1 % (11.5-14.0); SEGMENTED NEUTROPHILS % (AUTO) 89.3 % (42-78); WHITE BLOOD COUNT 16.9 10^3/uL (4.0-10.5)
[2016-10-23 10:58] LABS: PROTHROMBIN TIME 21.8 SEC (11.4-15.4)
--- NOTE | 2016-10-23 11:00 | ER Document Report ---
ED General - General Chief Complaint: Back Pain Stated Complaint: BACK PAIN Time seen by provider: 10:45 Mode of Arrival: Ambulatory Information source: Patient Notes: 81-year-old male lost balance and fell all using a walker 3 days ago landing on his right back on a coffee table. He had no loss of consciousness and has had no confusion or change in mental status since the fall. He has continued to be ambulatory with a walker but has had increasing pain in the right low back and right mid back since then. Patient had a recent admission with left looks to be cellulitis which was treated with 3 days of IV antibiotics by Dr. Tuttle followed by oral antibiotics family reports he's finished those but more recently has also been on antibiotics or believe Keflex for UTI. They say they were told that his UTI may not respond to oral antibiotics and he may need admission for IV antibiotics but they're waiting results of a repeat culture sample submitted yesterday to the office. Patient reports no fever, chills, cough, shortness of breath worsened baseline, nausea, vomiting, hematemesis, hematochezia, melena, chest pain, or abdominal pain. He denies dysuria, urgency , or frequency. He is on anticoagulation for DVT taking 4 mg of Coumadin every night and says he has not had recent changes in that dosage. Family reports they think cellulitis in his left leg has come back as they noted increased redness there for the past 3 days. Physical Exam: General: Alert, appears uncomfortable HEENT: Normocephalic. Atraumatic. PERRLA. Extraocular movements intact. Oropharynx clear. Neck: Supple. Non-tender. No bony deformities palpated Respiratory: No respiratory distress. Clear and equal breath sounds bilaterally. Cardiovascular: Slightly irregular no murmur PMI not displaced Abdominal: Normal Inspection. Soft, non-tender. No distension. Normal Bowel Sounds. Back: Diffusely tender to palpation on the right to the mid and low back. No contusion is present no bony deformities palpated. He is not tender along the thoracic or lumbar spine in the midline. No deformity or step off. Pelvis stable and nontender to palpation Extremities: Moves all four extremities. Upper extremities: Normal inspection. Non-tender. Normal color. Normal ROM. Normal temperature. Lower extremities: 3+ pitting edema from mid thigh down bilaterally. Right erythema noted from mid thigh to toes on the left. 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 Normal Mood. Skin: Warm. Dry. Normal color. TRAVEL OUTSIDE OF THE [place] IN LAST 30 DAYS: No - Related Data Allergies/Adverse Reactions: No Known Allergies Allergy (Verified 10/23/16 10:11) Past Medical History - Social History Smoking Status: Never Smoker Chew tobacco use (# tins/day): No Frequency of alcohol use: None Drug Abuse: None Family History: Reviewed & Not Pertinent Patient has suicidal ideation: No Patient has homicidal ideation: No - Past Medical History Cardiac Medical History: Reports: Hx Congestive Heart Failure, Hx Coronary Artery Disease, Hx DVT, Hx Heart Attack - 1995, Hx Hypercholesterolemia, Hx Hypertension, Hx Pulmonary Embolism Pulmonary Medical History: Denies: Hx Asthma, Hx Tuberculosis Neurological Medical History: Denies: Hx Cerebrovascular Accident, Hx Seizures Endocrine Medical History: Reports: Hx Diabetes Mellitus Type 2 Renal/ Medical History: Denies: Hx Peritoneal Dialysis GI Medical History: Denies: Hx Hepatitis, Hx Ulcer Psychiatric Medical History: Reports: Hx Depression Infectious Medical History: Denies: Hx Hepatitis Past Surgical History: Reports: Hx Cardiac Surgery - open heart, pacer/defib, Hx Coronary Artery Bypass Graft, Hx Open Heart Surgery - cabg x 3, Hx Pacemaker - upper left chest - Immunizations Hx Diphtheria, Pertussis, Tetanus Vaccination: Yes - not UTD Hx Pneumococcal Vaccination: 11/07/11 Review of Systems - Review of Systems Constitutional: denies: Chills, Fever EENT: denies: Ear pain, Throat pain Cardiovascular: denies: Chest pain, Syncope Respiratory: Short of breath. denies: Cough Gastrointestinal: denies: Abdominal pain, Diarrhea, Nausea, Vomiting, Blood in vomit, Black stools, Rectal bleeding Genitourinary: denies: Burning, Dysuria, Hematuria Musculoskeletal: See HPI Skin: See HPI Neurological/Psychological: See HPI Physical Exam - Vital signs Vitals: Temp Pulse Resp BP Pulse Ox 97.7 F 55 L 20 125/48 L 92 10/23/16 10:15 10/23/16 10:15 10/23/16 10:15 10/23/16 10:15 10/23/16 10:15 Course - Re-evaluation Re-evalutation: 10/23/16 13:55 Reevaluation of patient shows him to have developed no new complaints during his stay in emergency department. Patient has been able to get up to bedside commode with assistance. Believe the 12th rib fracture as well as a transverse process fractures of L1 to through the source of his back pain fluid collection noted is probably a small hematoma. His INR is mildly subtherapeutic and his hemoglobin is stable compared to his last admission so don't believe that acute blood loss is a component of his presentation. Urinalysis does not show evidence UTI now. He does appear to have a recurrent cellulitis to his left lower extremity and I discussed this with patient's physician Dr. Tuttle. He requests the patient be discharged on clindamycin 600 mg every 8 hours and follow with him on October 27. Patient reports aortic has oxycodone at home for pain and we will provide additional medication prescription for pain control. Patient and are agreeable to discharge and outpatient follow-up - Vital Signs Vital signs: Temp Pulse Resp BP Pulse Ox 97.7 F 55 L 18 116/55 L 94 10/23/16 10:15 10/23/16 10:15 10/23/16 12:00 10/23/16 11:02 10/23/16 12:00 10/23/16 13:55 - Laboratory Result Diagrams: 10/23/16 10:39 10/23/16 10:39 Laboratory results interpreted by me: 10/23/16 10/23/16 10/23/16 10:39 10:39 10:39 WBC 16.9 H RBC 3.86 L Hgb 11.5 L Hct 35.6 L RDW 15.1 H Seg Neutrophils % 89.3 H Lymphocytes % 6.3 L Absolute Neutrophils 15.1 H PT 21.8 H Sodium 135.6 L Chloride 96 L BUN 45 H Creatinine 2.14 H Est GFR ( Amer) 36 L Est GFR (Non-Af Amer) 30 L Glucose 243 H Ur Leukocyte Esterase 10/23/16 11:22 WBC RBC Hgb Hct RDW Seg Neutrophils % Lymphocytes % Absolute Neutrophils PT Sodium Chloride BUN Creatinine Est GFR ( Amer) Est GFR (Non-Af Amer) Glucose Ur Leukocyte Esterase TRACE H - Diagnostic Test Radiology reviewed: Image reviewed, Reports reviewed - EKG Interpretation by Me Additional EKG results interpreted by me: 10/23/16 11:01 EKG review, so shows electronic ventricular paced at 64 with occasional PVC no significant change compared to September 30 2014 Discharge - Discharge Clinical Impression: Cellulitis and abscess of leg Closed rib fracture Qualifiers: Encounter type: initial encounter Rib fracture type: single rib Laterality: right Qualified Code(s): S22.31XA - Fracture of one rib, right side, initial encounter for closed fracture Lumbar transverse process fracture Qualifiers: Encounter type: initial encounter Fracture type: closed Qualified Code(s): S32.008A - Other fracture of unspecified lumbar vertebra, initial encounter for closed fracture Condition: Stable Disposition: HOME, SELF-CARE Additional Instructions: Rib Injuries and Fractures You have been diagnosed as having either bruised or broken ribs. These two injuries are treated in the same way. It will usually take four to six weeks for these injured ribs to heal. Sometimes, rib belts or anesthetic injections of the chest wall help reduce the pain. If you are using a rib belt, you should cough or take a deep breath at least every hour or two to prevent lung complications. You should not engage in any strenuous physical activity until released by your physician. The usual rule is "if it hurts, don't do it." Rib fractures can lead to serious lung complications including lung collapse, hemorrhage, and pneumonia. You should call the physician or return at once if any of the following occur: (1) Fever or chills. (2) Persistent cough, coughing up blood, or shortness of breath. (3) Increasing pain. (4) Weakness, lightheadedness, or fainting. Cellulitis You have an infection of your skin and underlying soft tissues called cellulitis. This is due to bacteria, which can enter through any break in the skin, or even through an irritated hair follicle. Untreated, cellulitis will usually worsen. Antibiotics are required. Usually, warm packs or warm soaks, and elevation of the infected area are recommended. You should start getting better within 24 to 36 hours. Most infections respond quickly to the right medication. Follow-up care is important, however, to check for abscess (boil) formation, unsuspected foreign body, or resistant infection. If you develop fever, chills, or if the area of infection is becoming rapidly more swollen or painful, call the doctor at once. Prescriptions: Gabapentin 100 mg PO QHS PRN #10 capsule PRN Reason: For Pain Clindamycin HCl [Cleocin 300 mg Capsule] 600 mg PO Q8H #30 capsule Referrals: DANA TUTTLE MD [ACTIVE STAFF] - 10/27/16
[2016-10-23 11:11] LABS: ALANINE AMINOTRANSFERASE 21 U/L (21-72); ALBUMIN 4.1 g/dL (3.5-5.0); ALKALINE PHOSPHATASE 51 U/L (38-126); ANION GAP 14 (5-19); ASPARTATE AMINO TRANSFERASE 23 U/L (17-59); BLOOD UREA NITROGEN 45 mg/dL (7-20); CALCIUM 10.2 mg/dL (8.4-10.2); CARBON DIOXIDE 26 mmol/L (22-30); CHLORIDE 96 mmol/L (98-107); CREATININE RESULT 2.14 mg/dL (0.52-1.25); GLUCOSE 243 mg/dL (75-110); POTASSIUM 4.1 mmol/L (3.6-5.0); SODIUM 135.6 mmol/L (137-145); TOTAL PROTEIN 7.4 g/dL (6.3-8.2)
[2016-10-23 11:44] LABS: APPEARANCE,URINE SLIGHTLY-CLOUDY; BILIRUBIN,URINE NEGATIVE (NEGATIVE); GLUCOSE, URINE NEGATIVE (NEGATIVE); KETONES,URINE NEGATIVE (NEGATIVE); LEUKOCYTE ESTERASE,URINE TRACE (NEGATIVE); NITRITE,URINE NEGATIVE (NEGATIVE); PROTEIN,URINE NEGATIVE (NEGATIVE); URINE SPECIFIC GRAVITY 1.012; UROBILINOGEN,URINE NEGATIVE mg/dL (<2.0)
--- NOTE | 2016-10-23 13:18 | EKG REPORT ---
SEVERITY:- ABNORMAL ECG - VENTRICULAR-PACED COMPLEXES : Confirmed by: Tao Berg MD 23-Oct-2016 13:18:17
[2016-10-23 14:06] VITALS: BP 143/59
== END 2016-10-23 14:21 | disposition home or self-care (01) ==
LOC: ER 10:03
DX: S22.31XA Fracture of one rib, right side, initial encounter for closed fracture (principal); S32.008A Other fracture of unspecified lumbar vertebra, initial encounter for closed fracture; L03.116 Cellulitis of left lower limb; M54.9 Dorsalgia, unspecified; W01.190A Fall on same level from slipping, tripping and stumbling with subsequent striking against furniture, initial encounter; Y92.009 Unspecified place in unspecified non-institutional (private) residence as the place of occurrence of the external cause; Z86.718 Personal history of other venous thrombosis and embolism; Z79.01 Long term (current) use of anticoagulants; I50.9 Heart failure, unspecified; I11.0 Hypertensive heart disease with heart failure; E78.00 Pure hypercholesterolemia, unspecified; Z86.711 Personal history of pulmonary embolism; E11.9 Type 2 diabetes mellitus without complications; Z95.810 Presence of automatic (implantable) cardiac defibrillator; Z95.1 Presence of aortocoronary bypass graft
CPT/HCPCS: 36415; 71020; 74176; 80053; 81001; 85025; 85610; 87040; 87086; 93005; 93010; 99284

== ENCOUNTER → 2017-04-10 | Outpatient (CLI) | payer MEDICARE, OTHER ==
[2017-04-10 12:33] LABS: ABSOLUTE EOSINOPHILS # (AUTO) 0.1 10^3/uL (0.0-0.6); ABSOLUTE LYMPHOCYTES (AUTO) 0.7 10^3/uL (0.5-4.7); ABSOLUTE MONOCYTES (AUTO) 0.4 10^3/uL (0.1-1.4); ABSOLUTE NEUT (AUTO) 5.4 10^3/uL (1.7-8.2); BASOPHILS % (AUTO) 0.4 % (0-2); EOSINOPHILS % (AUTO) 1.6 % (0-6); HEMATOCRIT 32.5 % (37.9-51.0); HEMOGLOBIN 10.6 g/dL (13.5-17.0); HGB HCT DIFFERENCE -0.7; LYMPHOCYTES % (AUTO) 10.8 % (13-45); MEAN CORPUSCULAR HGB CONC 32.6 g/dL (32.0-36.0); MEAN CORPUSCULAR VOLUME 95 fl (80-97); MONOCYTES % (AUTO) 6.1 % (3-13); RED BLOOD COUNT 3.42 10^6/uL (4.35-5.55); RED CELL DISTRIBUTION WIDTH 15.8 % (11.5-14.0); SEGMENTED NEUTROPHILS % (AUTO) 81.1 % (42-78); WHITE BLOOD COUNT 6.6 10^3/uL (4.0-10.5)
[2017-04-10 13:01] LABS: ALANINE AMINOTRANSFERASE 19 U/L (21-72); ALBUMIN 3.8 g/dL (3.5-5.0); ALKALINE PHOSPHATASE 49 U/L (38-126); ANION GAP 13 (5-19); ASPARTATE AMINO TRANSFERASE 24 U/L (17-59); BILIRUBIN,DIRECT 0.4 mg/dL (0.0-0.4); BILIRUBIN,TOTAL 0.5 mg/dL (0.2-1.3); BLOOD UREA NITROGEN 53 mg/dL (7-20); CALCIUM 9.4 mg/dL (8.4-10.2); CARBON DIOXIDE 28 mmol/L (22-30); CHLORIDE 99 mmol/L (98-107); CREATININE RESULT 2.62 mg/dL (0.52-1.25); GLUCOSE 62 mg/dL (75-110); TOTAL PROTEIN 7.5 g/dL (6.3-8.2)
== END ==
LOC: OD 11:22
PROVIDERS: ATTEND Physician Assistant
DX: R82.99 Other abnormal findings in urine (principal); R39.11 Hesitancy of micturition
CPT/HCPCS: 36415; 80053; 84153; 85025

== ENCOUNTER → 2017-04-13 | Outpatient (CLI) | payer MEDICARE, OTHER ==
--- NOTE | 2017-04-13 15:01 | RADIOLOGY REPORT (SQ) ---
EXAM DESCRIPTION: CHEST PA/LATERAL COMPLETED DATE/TIME: 04/13/2017 11:29 am REASON FOR STUDY: HEART FAILURE, UNSPECIFIED I50.9 HEART FAILURE, UNSPECIFIED COMPARISON: 10/23/2016. NUMBER OF VIEWS: Two views. TECHNIQUE: Frontal and lateral radiographic views of the chest acquired. LIMITATIONS: None. FINDINGS: LUNGS AND PLEURA: No opacities, masses or pneumothorax. No pleural effusion. MEDIASTINUM AND HILAR STRUCTURES: No masses or contour abnormality. HEART AND VASCULAR STRUCTURES: Cardiac enlargement. Mild vascular congestion. BONES: No acute findings. HARDWARE: Defibrillator. Sternotomy wires and coronary bypass markers. OTHER: No other significant finding. IMPRESSION: STABLE APPEARANCE OF THE CHEST. CARDIAC ENLARGEMENT AND MILD VASCULAR CONGESTION. TECHNICAL DOCUMENTATION: JOB ID: [id number] [employer]- All Rights Reserved
== END ==
LOC: OD 11:09
PROVIDERS: ATTEND Physician Assistant
DX: I50.9 Heart failure, unspecified (principal)
CPT/HCPCS: 71020

== ENCOUNTER 2017-07-19 15:36 | Inpatient (IN) | payer MEDICARE, OTHER ==
--- NOTE | 2017-07-19 16:08 | ER Document Report ---
ED General - General Chief Complaint: Breathing Difficulty Stated Complaint: SHORTNESS OF BREATH Time Seen by Provider: 07/19/17 16:07 Notes: This is a 82-year-old male brought in by EMS for altered mental status and questionable shortness of breath. Patient has a history of diabetes. On insulin. Began sweating, not feeling well yesterday. Had breakfast this morning. Had lunch. Insulin was given. checked on him later and looked like he was having a hard time breathing. EMS arrived. Blood sugar was initially low in the 50s. Patient complaining of pain in the left leg. History of cellulitis of the left lower extremities. TRAVEL OUTSIDE OF THE [place] IN LAST 30 DAYS: No - HPI Onset: Just prior to arrival Onset/Duration: Sudden Severity: Moderate - Related Data Allergies/Adverse Reactions: No Known Allergies Allergy (Verified 07/19/17 16:39) Past Medical History - General Information source: Patient, Relative - Social History Smoking Status: Smoker,Current Status Unk Frequency of alcohol use: None Drug Abuse: None Lives with: Family Family History: Reviewed & Not Pertinent Patient has suicidal ideation: No Patient has homicidal ideation: No - Past Medical History Cardiac Medical History: Reports: Hx Congestive Heart Failure, Hx Coronary Artery Disease, Hx DVT, Hx Heart Attack - 1995, Hx Hypercholesterolemia, Hx Hypertension, Hx Pulmonary Embolism Pulmonary Medical History: Denies: Hx Asthma, Hx Tuberculosis Neurological Medical History: Denies: Hx Cerebrovascular Accident, Hx Seizures Endocrine Medical History: Reports: Hx Diabetes Mellitus Type 2 Renal/ Medical History: Reports: Hx Kidney Stones - right side, renal cysts. Denies: Hx Peritoneal Dialysis GI Medical History: Denies: Hx Hepatitis, Hx Ulcer Musculoskeltal Medical History: Reports Hx Arthritis - gout Psychiatric Medical History: Reports: Hx Depression Infectious Medical History: Denies: Hx Hepatitis Past Surgical History: Reports: Hx Cardiac Surgery - open heart, pacer/defib, Hx Coronary Artery Bypass Graft, Hx Open Heart Surgery - cabg x 3, Hx Pacemaker - upper left chest - Immunizations Hx Diphtheria, Pertussis, Tetanus Vaccination: Yes - not UTD Hx Pneumococcal Vaccination: 11/07/11 Review of Systems - Review of Systems Constitutional: Chills, Diaphoresis, Fever, Malaise EENT: No symptoms reported Cardiovascular: No symptoms reported Respiratory: Cough, Short of breath Gastrointestinal: No symptoms reported Genitourinary: No symptoms reported Male Genitourinary: No symptoms reported Musculoskeletal: No symptoms reported, Leg swelling Skin: No symptoms reported, Other - Chronic cellulitis left lower extremity Hematologic/Lymphatic: No symptoms reported Neurological/Psychological: No symptoms reported Physical Exam - Vital signs Vitals: Temp Pulse Resp BP Pulse Ox 101 F H 82 20 137/57 H 96 07/19/17 15:42 07/19/17 15:42 07/19/17 15:42 07/19/17 15:42 07/19/17 15:42 Interpretation: Normal - General General appearance: Appears well, Alert - HEENT Head: Normocephalic, Atraumatic Eyes: Normal Pupils: PERRL - Respiratory Respiratory status: No respiratory distress Chest status: Nontender Breath sounds: Decreased air movement, Wheezing Chest palpation: Normal - Cardiovascular Rhythm: Regular Heart sounds: Normal auscultation Murmur: No - Abdominal Inspection: Normal Distension: No distension Bowel sounds: Normal Tenderness: Nontender Organomegaly: No organomegaly - Back Back: Normal, Nontender - Extremities General upper extremity: Normal inspection, Nontender, Normal color, Normal ROM , Normal temperature. No: Edema General lower extremity: Normal inspection, Nontender, Edema, Normal color, Normal ROM, Normal temperature, Normal weight bearing, Other - Pitting edema noted to the bilateral lower extremities with the left greater than the right. Left lower extremity warm to the touch and red. No: Maria D's sign - Neurological Neuro grossly intact: Yes Cognition: Normal Orientation: AAOx4 Juan Luis Coma Scale Eye Opening: Spontaneous Juan Luis Coma Scale Verbal: Oriented Juan Luis Coma Scale Motor: Obeys Commands Juan Luis Coma Scale Total: 15 Speech: Normal Motor strength normal: LUE, RUE, LLE, RLE Sensory: Normal - Psychological Associated symptoms: Normal affect, Normal mood - Skin Skin Temperature: Warm - Cellulitic appearing left calf extending up to the popliteal fossa on the left. Anterior tib-fib red and swollen. Skin Moisture: Dry Skin Color: Normal Course - Re-evaluation Re-evalutation: 07/19/17 17:23 Patient with obvious hypoglycemic episode at home. Question is whether or not patient has something else going on with this respiratory distress. Does not look like he has swelling to the left calf but more likely this is cellulitis. Will order ultrasound to rule out DVT. Will get cardiac labs, EKG, blood cultures lactic, Accu-Chek and reassess. 07/19/17 18:39 Ultrasound ordered. Elevated lactic acid, left shift. Fever of 102. Antibiotics being started at this time. Consulted DR. Lawrence who will admit the patient at this time for cellulitis - Vital Signs Vital signs: Temp Pulse Resp BP Pulse Ox 101 F H 82 22 H 115/56 L 94 07/19/17 15:42 07/19/17 15:42 07/19/17 18:01 07/19/17 18:01 07/19/17 18:01 - Laboratory Result Diagrams: 07/19/17 16:25 07/19/17 16:25 Laboratory results interpreted by me: 07/19/17 07/19/17 07/19/17 16:25 16:25 16:25 RBC 4.09 L Hgb 12.2 L Hct 37.2 L RDW 17.2 H Seg Neuts % (Manual) 94 H Band Neutrophils % 2 L Lymphocytes % (Manual) 1 L Monocytes % (Manual) 2 L Abs Neuts (Manual) 9.2 H Abs Lymphs (Manual) 0.2 L BUN 46 H Creatinine 2.04 H Est GFR ( Amer) 38 L Est GFR (Non-Af Amer) 31 L Glucose 214 H Lactic Acid 2.8 H Creatine Kinase 46 L Urine Ascorbic Acid 07/19/17 16:25 RBC Hgb Hct RDW Seg Neuts % (Manual) Band Neutrophils % Lymphocytes % (Manual) Monocytes % (Manual) Abs Neuts (Manual) Abs Lymphs (Manual) BUN Creatinine Est GFR ( Amer) Est GFR (Non-Af Amer) Glucose Lactic Acid Creatine Kinase Urine Ascorbic Acid 40 H Discharge - Discharge Clinical Impression: Left leg cellulitis Diabetes Qualifiers: Diabetes mellitus type: type 2 Diabetes mellitus complication status: with hypoglycemia Diabetes mellitus complication detail: 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 Diabetes mellitus prison insulin use: with prison use Qualified Code(s): E11.649 - 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; Z79.4 - residential ( current) use of insulin; Z79.4 - intermodal dispatcher (current) use of insulin; Z79.4 - intermodal dispatcher (current) use of insulin; Z79.4 - intermodal dispatcher (current) use of insulin Condition: Good Disposition: ADMITTED INPATIENT Admitting [facility]
[2017-07-19] MEDS ORDERED: ALBUTEROL SULFATE 0.083% NEB 2.5 MG/3 ML AMPUL NEB ONE ×2 (17:22→19:09)
[2017-07-19 17:54] LABS: HEMATOCRIT 37.2 % (37.9-51.0); HEMOGLOBIN 12.2 g/dL (13.5-17.0); HGB HCT DIFFERENCE -0.6; MEAN CORPUSCULAR HEMOGLOBIN 29.9 pg (27.0-33.4); MEAN CORPUSCULAR HGB CONC 32.9 g/dL (32.0-36.0); MEAN CORPUSCULAR VOLUME 91 fl (80-97); RED BLOOD COUNT 4.09 10^6/uL (4.35-5.55); RED CELL DISTRIBUTION WIDTH 17.2 % (11.5-14.0); WHITE BLOOD COUNT 9.6 10^3/uL (4.0-10.5)
[2017-07-19 17:59] LABS: ALANINE AMINOTRANSFERASE 25 U/L (21-72); ALKALINE PHOSPHATASE 60 U/L (38-126); ANION GAP 16 (5-19); ASPARTATE AMINO TRANSFERASE 20 U/L (17-59); BILIRUBIN,DIRECT 0.4 mg/dL (0.0-0.4); BILIRUBIN,TOTAL 0.5 mg/dL (0.2-1.3); BLOOD UREA NITROGEN 46 mg/dL (7-20); CALCIUM 9.5 mg/dL (8.4-10.2); CARBON DIOXIDE 26 mmol/L (22-30); CHLORIDE 99 mmol/L (98-107); CREATINE KINASE 46 U/L (55-170); CREATININE RESULT 2.04 mg/dL (0.52-1.25); GLUCOSE 214 mg/dL (75-110); POTASSIUM 4.5 mmol/L (3.6-5.0); SODIUM 140.9 mmol/L (137-145); TOTAL PROTEIN 7.3 g/dL (6.3-8.2)
[2017-07-19 18:09] LABS: BAND NEUTROPHILS % (MANUAL) 2 % (3-5); BASOPHILS % (MANUAL) 0 % (0-2); EOSINOPHILS % (MANUAL) 0 % (0-6); LYMPHOCYTES % (MANUAL) 1 % (13-45); TOTAL CELLS COUNTED 100
[2017-07-19 18:10] LABS: APPEARANCE,URINE CLEAR; BILIRUBIN,URINE NEGATIVE (NEGATIVE); CREATINE KINASE MB 0.78 ng/mL (<4.55); GLUCOSE, URINE NEGATIVE (NEGATIVE); KETONES,URINE NEGATIVE (NEGATIVE); LEUKOCYTE ESTERASE,URINE NEGATIVE (NEGATIVE); NITRITE,URINE NEGATIVE (NEGATIVE); PROTEIN,URINE NEGATIVE (NEGATIVE); TROPONIN I 0.021 ng/mL; URINE SPECIFIC GRAVITY 1.011; UROBILINOGEN,URINE NEGATIVE mg/dL (<2.0)
[2017-07-19 18:11] LABS: ANISOCYTOSIS 1+; HYPOCHROMASIA SLIGHT
[2017-07-19] MEDS ORDERED: CEFTRIAXONE INJ 1000 MG VIAL IV ONE (18:41)
--- NOTE | 2017-07-19 18:42 | RADIOLOGY REPORT (SQ) ---
EXAM DESCRIPTION: CHEST SINGLE VIEW COMPLETED DATE/TIME: 07/19/2017 6:29 pm REASON FOR STUDY: sob COMPARISON: 04/13/2017 EXAM PARAMETERS: NUMBER OF VIEWS: One view. TECHNIQUE: Single frontal radiographic view of the chest acquired. RADIATION DOSE: NA LIMITATIONS: None. FINDINGS: LUNGS AND PLEURA: Chronic interstitial changes. MEDIASTINUM AND HILAR STRUCTURES: Stable. HEART AND VASCULAR STRUCTURES: Stable cardiomegaly appear BONES: No acute findings. HARDWARE: CABG. Defibrillator. OTHER: No other significant finding. IMPRESSION: NO ACUTE RADIOGRAPHIC FINDING IN THE CHEST. TECHNICAL DOCUMENTATION: JOB ID: [id number] [employer]- All Rights Reserved
[2017-07-19] MEDS ORDERED: CLINDAMYCIN PHOSPHATE 450 MG in DEXTROSE 5%-WATER 50 ML IV SCH ×2 (18:45→21:00)
[2017-07-19] MEDS ORDERED: FUROSEMIDE INJ/PF 20 MG/2 ML SDV IV ONE (19:09)
[2017-07-19 19:34] LABS: PARTIAL THROMBOPLASTIN TIME 38.8 SEC (23.5-35.8); PROTHROMBIN TIME 25.5 SEC (11.4-15.4)
--- NOTE | 2017-07-19 19:49 | RADIOLOGY REPORT (SQ) ---
EXAM DESCRIPTION: VENOUS UNILATERAL LOWER COMPLETED DATE/TIME: 07/19/2017 7:42 pm REASON FOR STUDY: pain left leg / Hx clots COMPARISON: Venous Doppler 09/10/2016 TECHNIQUE: Dynamic and static patterson scale and color images acquired of the left leg venous system. Se lected spectral images acquired with additional compression and augmentation maneuvers. The contralat eral common femoral vein and saphenofemoral junction were also imaged. Images stored on PACS. LIMITATIONS: None. FINDINGS: LEFT COMMON FEMORAL: Normal phasicity, compression and augmentation. No visualized echogenic material on g ray scale. No defects on color images. FEMORAL: Normal compression and augmentation. No visualized echogenic material on patterson scale. No defe cts on color images. POPLITEAL: Normal compression, augmentation. No visualized echogenic material on patterson scale. No defec ts on color images. CALF VESSELS: Normal compression, augmentation. No visualized echogenic material on patterson scale. No de fects on color images. GSV and SSV: Normal compression, augmentation. No visualized echogenic material on patterson scale. No def ects on color images. ANY DEEP VENOUS INSUFFICIENCY: Not evaluated. ANY EVIDENCE OF POPLITEAL CYST: No. OTHER: No other significant finding. RIGHT COMMON FEMORAL VEIN AND SAPHENOFEMORAL JUNCTION: Normal phasicity, compression and augmentation. No visualized echogenic material on patterson scale. No de fects on color images. IMPRESSION: NO EVIDENCE OF DVT OR SVT IN THE LEFT LEG. TECHNICAL DOCUMENTATION: JOB ID: [id number] [employer]- All Rights Reserved
--- NOTE | 2017-07-19 19:54 | EKG REPORT ---
SEVERITY:- ABNORMAL ECG - AFIB/FLUT AND V-PACED COMPLEXES NONSPECIFIC INTRAVENTRICULAR CONDUCTION DELAY : Confirmed by: Arvind Carrizales 19-Jul-2017 19:53:44
[2017-07-19] MEDS ORDERED: CLINDAMYCIN PHOSPHATE INJ 300 MG/2 ML SDV IV PRN (20:35)
[2017-07-19] MEDS ORDERED: INFLUENZA ADLT QUAD (36MOS+) 2017-18 VAC 0.5 ML SYR IM PRN (22:32)
[2017-07-19] MEDS ORDERED: DEXTROSE 50%-WATER SYRINGE 25 GM/50 ML DOSE IV PRN (23:51)
[2017-07-19] MEDS ORDERED: DEXTROSE 50%-WATER SYRINGE 12.5 GM/25 ML DOSE IV PRN (23:51)
[2017-07-19] MEDS ORDERED: GLUCAGON,HUMAN RECOMB 1 MG INJ IM PRN (23:51)
[2017-07-19] MEDS ORDERED: DEXTROSE 40% GEL 15 GM TUBE PO PRN (23:51)
[2017-07-19] MEDS ORDERED: DEXTROSE 40% GEL 15 GM TUBE X 2 PO PRN (23:51)
[2017-07-20] MEDS: ACETAMINOPHEN 325 MG TABLET PO PRN (02:56)
[2017-07-20] MEDS: CLINDAMYCIN 600 MG/D5W RTU 600 MG/50 ML RTUPB IV SCH ×4 (03:06→21:36)
[2017-07-20] MEDS ORDERED: LANSOPRAZOLE 15 MG TAB.RAP.DR PO SCH (06:00)
[2017-07-20] MEDS ORDERED: (PENDING PHARMACY ID) (Nitroglycerin [Nitrostat] 0.3 MG) SL PRN (06:14)
[2017-07-20] MEDS ORDERED: OXYCODONE-ACETAMINOPHEN 5-325 MG TABLET PO PRN (06:14)
[2017-07-20 07:51] LABS: ABSOLUTE LYMPHOCYTES (AUTO) 1.1 10^3/uL (0.5-4.7); ABSOLUTE MONOCYTES (AUTO) 0.4 10^3/uL (0.1-1.4); ABSOLUTE NEUT (AUTO) 10.3 10^3/uL (1.7-8.2); ALANINE AMINOTRANSFERASE 29 U/L (21-72); ALBUMIN 3.6 g/dL (3.5-5.0); ALKALINE PHOSPHATASE 53 U/L (38-126); ANION GAP 15 (5-19); ASPARTATE AMINO TRANSFERASE 17 U/L (17-59); BASOPHILS % (AUTO) 0.1 % (0-2); BILIRUBIN,DIRECT 0.4 mg/dL (0.0-0.4); BILIRUBIN,TOTAL 0.9 mg/dL (0.2-1.3); BLOOD UREA NITROGEN 48 mg/dL (7-20); CALCIUM 9.4 mg/dL (8.4-10.2); CARBON DIOXIDE 26 mmol/L (22-30); CHLORIDE 99 mmol/L (98-107); CREATININE RESULT 2.06 mg/dL (0.52-1.25); GLUCOSE 180 mg/dL (75-110); HEMATOCRIT 33.9 % (37.9-51.0); HEMOGLOBIN 11.2 g/dL (13.5-17.0); HGB HCT DIFFERENCE -0.3; LYMPHOCYTES % (AUTO) 9.5 % (13-45); MEAN CORPUSCULAR HEMOGLOBIN 29.7 pg (27.0-33.4); MEAN CORPUSCULAR HGB CONC 32.9 g/dL (32.0-36.0); MEAN CORPUSCULAR VOLUME 90 fl (80-97); MONOCYTES % (AUTO) 3.4 % (3-13); POTASSIUM 4.6 mmol/L (3.6-5.0); RED BLOOD COUNT 3.75 10^6/uL (4.35-5.55); RED CELL DISTRIBUTION WIDTH 16.9 % (11.5-14.0); SODIUM 139.8 mmol/L (137-145); TOTAL PROTEIN 6.6 g/dL (6.3-8.2); WHITE BLOOD COUNT 11.8 10^3/uL (4.0-10.5)
[2017-07-20 08:02] LABS: CREATINE KINASE MB 0.65 ng/mL (<4.55); TROPONIN I 0.033 ng/mL
[2017-07-20] MEDS: LANSOPRAZOLE 30 MG TAB.RAP.DR PO SCH (08:12)
[2017-07-20] MEDS: INSULIN LISPRO 100 UNIT/ML 3 ML VIAL SUBCUT PRN ×3 (08:12→22:45)
--- NOTE | 2017-07-20 09:41 | PDOC CONSULTATION ---
Consultation Consult Date: 07/20/17 Attending physician:: CECILIA TUTTLE Consult reason:: Cellulitis left lower extremity History of Present Illness Admission Date/PCP: 07/19/17 20:03 HI TUTTLE MD History of Present Illness: MARY MANDUJANO is a 82 year old male minutes of the medical service for acute septic episode likely secondary to left lower extremity cellulitis. Patient was admitted overnight for intravenous antibiotics, fluids. He states he feels better. According to the patient has a history of left lower extremity cellulitis on multiple occasions. Surgery was consulted for opinion regarding cellulitis management. Past Medical History Cardiac Medical History: Reports: Congestive Heart Failure, Coronary Artery Disease, DVT, Myocardial Infarction - 1995, Hyperlipidema, Hypertension, Pulmonary Embolism Pulmonary Medical History: Denies: Asthma, Tuberculosis Neurological Medical History: Denies: Seizures Endocrine Medical History: Reports: Diabetes Mellitus Type 2 GI Medical History: Denies: Hepatitis Musculoskeltal Medical History: Reports: Arthritis - gout Psychiatric Medical History: Reports: Depression Hematology: Reports: Anemia Denies: Sickle Cell Disease Past Surgical History Past Surgical History: Reports: Coronary Artery Bypass Graft, Pacemaker - upper left chest Social History Lives with: Family Smoking Status: Never Smoker Frequency of Alcohol Use: None Hx Recreational Drug Use: No Drugs: None Hx Prescription Drug Abuse: No - Advance Directive Resuscitation Status: Full Code Family History Family History: Reviewed & Not Pertinent Parental Family History Reviewed: Yes Children Family History Reviewed: Yes Sibling(s) Family History Reviewed.: Yes Medication/Allergy Home Medications: Docusate Sodium [Colace 100 mg Capsule] 200 mg PO QHS 11/05/11 Levothyroxine Sodium [Synthroid 0.025 mg Tablet] 75 mcg PO DAILY 11/05/11 Metoprolol Succinate [Toprol Xl 25 mg Tab.sr] 100 mg PO DAILY 11/05/11 Sertraline HCl [Zoloft 50 mg Tablet] 50 mg PO DAILY 11/05/11 Cetirizine HCl [Zyrtec 10 mg Chewable Tab] 10 mg PO QHS 10/12/12 Amiodarone HCl 200 mg PO DAILY 09/16/16 Furosemide [Lasix 20 mg Tablet] 80 mg PO BID 09/16/16 Insulin Glargine,Hum.rec.anlog [Lantus Solostar] 30 unit SQ BID 09/16/16 Losartan Potassium 50 mg PO DAILY 09/16/16 Allopurinol [Zyloprim 100 mg Tablet] 100 mg PO DAILY 07/19/17 Atorvastatin Calcium [Lipitor] 80 mg PO DAILY 07/19/17 Clopidogrel Bisulfate [Plavix] 75 mg PO DAILY 07/19/17 Fenofibrate Nanocrystallized [Tricor 145 mg Tablet] 145 mg PO DAILY 07/19/17 Hydralazine HCl [Apresoline 10 mg Tablet] 10 mg PO Q8H 07/19/17 Insulin Aspart [Novolog Insulin 100 Unit/1 ml 10 ml] 0 unit SUBCUT .SLD SCALE Isosorbide Dinitrate [Isordil Titradose 10 Mg Tablet] 10 mg PO Q8H 07/19/17 Nitroglycerin [Nitrostat] 0.3 mg SL PRN PRN 07/19/17 Oxycodone HCl/Acetaminophen [Oxycodone-Acetaminophen 5-325] 1 tab PO Q6HP PRN Pantoprazole Sodium [Protonix] 40 mg PO DAILY 07/19/17 Polyethylene Glycol 3350 [Miralax Powder 17 gm/Packet] 1 packet PO DAILY Tamsulosin HCl [Flomax] 0.4 mg PO QHS 07/19/17 Warfarin Sodium [Warfarin Sodium] 3 mg PO SUTHFRSA 07/19/17 Warfarin Sodium [Warfarin Sodium] 4 mg PO MOTUWE 07/19/17 Allergies/Adverse Reactions: No Known Allergies Allergy (Verified 07/19/17 16:39) Review of Systems Eyes: PRESENT: as per HPI Ears: PRESENT: as per HPI Nose, Mouth, and Throat: PRESENT: as per HPI Cardiovascular: PRESENT: as per HPI, edema Musculoskeletal: PRESENT: other - Area of edema lower extremities status post saphenous vein harvest left lower extremity Physical Exam Vital Signs: Temp Pulse Resp BP Pulse Ox 98.1 F 87 16 125/59 L 100 07/20/17 07:33 07/20/17 07:33 07/20/17 07:33 07/20/17 07:33 07/20/17 07:33 Intake & Output 07/19/17 07/20/17 07/21/17 06:59 06:59 06:59 Intake Total 860 Output Total 450 Balance 410 Weight 117.7 kg General appearance: PRESENT: mild distress Head exam: PRESENT: normocephalic Eye exam: PRESENT: EOMI Neck exam: PRESENT: full ROM Respiratory exam: PRESENT: wheezes Cardiovascular exam: PRESENT: RRR Pulses: PRESENT: other - Normal radial, femoral pulses by palpation; Doppler dorsalis pedis pulses bilaterally GI/Abdominal exam: PRESENT: soft Musculoskeletal exam: PRESENT: other - Lower extremities examined. Scar left inner thigh consistent with vein harvest site; scars around ankle consistent with previous surgery. Marked cellulitic changes from the toes left foot all the way up to the thigh laterally and medially there are no open wounds, foreign body, laceration, or patsy ulcers. Results Laboratory Results: 07/20/17 06:50 07/20/17 06:50 07/19/17 07/20/17 07/20/17 21:15 06:50 06:50 WBC 11.8 H RBC 3.75 L Hgb 11.2 L Hct 33.9 L MCV 90 MCH 29.7 MCHC 32.9 RDW 16.9 H Plt Count 134 L Seg Neutrophils % 87.0 H Lymphocytes % 9.5 L Monocytes % 3.4 Eosinophils % 0.0 Basophils % 0.1 Absolute Neutrophils 10.3 H Absolute Lymphocytes 1.1 Absolute Monocytes 0.4 Absolute Eosinophils 0.0 Absolute Basophils 0.0 Sodium 139.8 Potassium 4.6 Chloride 99 Carbon Dioxide 26 Anion Gap 15 BUN 48 H Creatinine 2.06 H Est GFR ( Amer) 38 L Est GFR (Non-Af Amer) 31 L Glucose 180 H Lactic Acid 2.3 H Calcium 9.4 Total Bilirubin 0.9 AST 17 ALT 29 Alkaline Phosphatase 53 Total Protein 6.6 Albumin 3.6 07/20/17 07/20/17 06:50 06:50 Creatine Kinase 53 L CK-MB (CK-2) 0.65 Troponin I 0.033 Impressions: Chest X-Ray 07/19/17 16:59 IMPRESSION: NO ACUTE RADIOGRAPHIC FINDING IN THE CHEST. Venous Doppler Study 07/19/17 17:19 IMPRESSION: NO EVIDENCE OF DVT OR SVT IN THE LEFT LEG. Assessment & Plan - Diagnosis (1) Left leg cellulitis Is this a current diagnosis for this admission?: Yes Plan: Depression is that of advanced cellulitis left lower extremity in patient with previous episodes of cellulitis, status post saphenous vein harvest left lower extremity, and ankle surgery. There is no immediate indication for surgical debridement, fasciotomy etc. Recommendations 1. Continue empiric antibiotic therapy 2. Active leg elevation; orders written. 3. Reconsult surgery if additional input required. - Time Time Spent: 50 to 70 Minutes Critical Time spent with patient: Less than 15 minutes Anticipated discharge: Home
[2017-07-20] MEDS ORDERED: METOPROLOL SUCCINATE 25 MG TAB.SR.24H PO SCH (10:00)
[2017-07-20] MEDS ORDERED: (PENDING PHARMACY ID) (Amiodarone Hcl [Amiodarone Hcl] 200 MG) PO SCH (10:00)
[2017-07-20] MEDS ORDERED: FUROSEMIDE 20 MG TABLET PO SCH (10:00)
[2017-07-20] MEDS ORDERED: LEVOTHYROXINE SODIUM 0.025 MG TABLET PO SCH (10:00)
[2017-07-20] MEDS ORDERED: FENOFIBRATE NANOCRYSTALLIZED 145 MG TABLET PO SCH (10:00)
[2017-07-20] MEDS ORDERED: INSULIN GLARGINE,HUM.REC.ANLOG 300 UNIT/3 ML INSULN.PEN SUBCUT SCH (10:00)
[2017-07-20] MEDS ORDERED: CEFTRIAXONE 1 GM/D5W RTU 1 GM/50 ML RTUPB IV SCH (10:00)
[2017-07-20] MEDS: INSULIN GLARGINE,HUM.REC.ANLOG 300 UNIT/3 ML INSULN.PEN SUBCUT SCH ×2 (10:02→17:33)
[2017-07-20] MEDS: POLYETHYLENE GLYCOL 3350 POWDER 17 GM/1 PACKET PO SCH (10:02)
[2017-07-20] MEDS: AMIODARONE HCL 200 MG TABLET PO SCH (10:03)
[2017-07-20] MEDS: LEVOTHYROXINE SODIUM 0.075 MG TABLET PO SCH (10:03)
[2017-07-20] MEDS: ATORVASTATIN CALCIUM 80 MG TABLET PO SCH (10:03)
[2017-07-20] MEDS: ALLOPURINOL 100 MG TABLET PO SCH (10:04)
[2017-07-20] MEDS: SERTRALINE HCL 50 MG TABLET PO SCH (10:04)
[2017-07-20] MEDS: LOSARTAN POTASSIUM 50 MG TABLET PO SCH (10:04)
[2017-07-20] MEDS: CLOPIDOGREL BISULFATE 75 MG TABLET PO SCH (10:04)
[2017-07-20] MEDS: METOPROLOL SUCCINATE 50 MG TAB.SR.24H PO SCH (10:05)
--- NOTE | 2017-07-20 10:21 | PDOC H&P ---
History of Present Illness Admission Date/PCP: 07/19/17 20:03 HI TUTTLE MD Patient complains of: Altered mental status History of Present Illness: This is a 82-year-old maleWith a significant history of the congestive heart failureIschemic cardiomyopathy status post defibrillatorStatus post [facility] and a peripheral vascular disease and a stage IV chronic kidney disease and multiple other complications and on chronic CoumadinCame to the emergency department with altered mental statusWith the shortness of the breath and the feverAnd the redness in the left lower extremitiesAnd patient was initially diagnosed with a left lower extremity cellulitisAnd probably chronic congestive heart failure and admitting in the IMCU for further evaluation and treatment Patient was started on IV clindamycin and also give IV Lasix Patient have aSignificant hospital admission in May[facility] in the [facility] patient's multiple other issues When I saw the patient patients does not look like any distressed but still complains of some short of breath patient's left lower extremity is very red and warm to touch Patient initial cardiac enzyme was all negative Patient's denied any chest pain Past Medical History Cardiac Medical History: Reports: Congestive Heart Failure, Coronary Artery Disease, DVT, Myocardial Infarction - 1995, Hyperlipidema, Hypertension, Pulmonary Embolism Pulmonary Medical History: Denies: Asthma, Tuberculosis Neurological Medical History: Denies: Seizures Endocrine Medical History: Reports: Diabetes Mellitus Type 2 GI Medical History: Reports: Gastroesophageal Reflux Disease Denies: Hepatitis Musculoskeltal Medical History: Reports: Arthritis - gout Psychiatric Medical History: Reports: Depression Hematology: Reports: Anemia Denies: Sickle Cell Disease Past Surgical History Past Surgical History: Reports: Coronary Artery Bypass Graft, Coronary Stent, Pacemaker - upper left chest, Vascular Surgery Social History Lives with: Family Smoking Status: Never Smoker Frequency of Alcohol Use: None Hx Recreational Drug Use: No Drugs: None Hx Prescription Drug Abuse: No - Advance Directive Resuscitation Status: Full Code Family History Family History: Reviewed & Not Pertinent Parental Family History Reviewed: Yes Children Family History Reviewed: Yes Sibling(s) Family History Reviewed.: Yes Medication/Allergy Home Medications: Docusate Sodium [Colace 100 mg Capsule] 200 mg PO QHS 11/05/11 Levothyroxine Sodium [Synthroid 0.025 mg Tablet] 75 mcg PO DAILY 11/05/11 Metoprolol Succinate [Toprol Xl 25 mg Tab.sr] 100 mg PO DAILY 11/05/11 Sertraline HCl [Zoloft 50 mg Tablet] 50 mg PO DAILY 11/05/11 Cetirizine HCl [Zyrtec 10 mg Chewable Tab] 10 mg PO QHS 10/12/12 Amiodarone HCl 200 mg PO DAILY 09/16/16 Furosemide [Lasix 20 mg Tablet] 80 mg PO BID 09/16/16 Insulin Glargine,Hum.rec.anlog [Lantus Solostar] 30 unit SQ BID 09/16/16 Losartan Potassium 50 mg PO DAILY 09/16/16 Allopurinol [Zyloprim 100 mg Tablet] 100 mg PO DAILY 07/19/17 Atorvastatin Calcium [Lipitor] 80 mg PO DAILY 07/19/17 Clopidogrel Bisulfate [Plavix] 75 mg PO DAILY 07/19/17 Fenofibrate Nanocrystallized [Tricor 145 mg Tablet] 145 mg PO DAILY 07/19/17 Hydralazine HCl [Apresoline 10 mg Tablet] 10 mg PO Q8H 07/19/17 Insulin Aspart [Novolog Insulin 100 Unit/1 ml 10 ml] 0 unit SUBCUT .SLD SCALE Isosorbide Dinitrate [Isordil Titradose 10 Mg Tablet] 10 mg PO Q8H 07/19/17 Nitroglycerin [Nitrostat] 0.3 mg SL PRN PRN 07/19/17 Oxycodone HCl/Acetaminophen [Oxycodone-Acetaminophen 5-325] 1 tab PO Q6HP PRN Pantoprazole Sodium [Protonix] 40 mg PO DAILY 07/19/17 Polyethylene Glycol 3350 [Miralax Powder 17 gm/Packet] 1 packet PO DAILY Tamsulosin HCl [Flomax] 0.4 mg PO QHS 07/19/17 Warfarin Sodium [Warfarin Sodium] 3 mg PO SUTHFRSA 07/19/17 Warfarin Sodium [Warfarin Sodium] 4 mg PO MOTUWE 07/19/17 Allergies/Adverse Reactions: No Known Allergies Allergy (Verified 07/19/17 16:39) Review of Systems Constitutional: PRESENT: fatigue, weakness. ABSENT: chills, fever(s), headache( s), weight gain, weight loss Eyes: ABSENT: visual disturbances Ears: ABSENT: hearing changes Cardiovascular: PRESENT: dyspnea on exertion. ABSENT: chest pain, edema, orthropnea, palpitations Respiratory: ABSENT: cough, hemoptysis Gastrointestinal: ABSENT: abdominal pain, constipation, diarrhea, hematemesis, hematochezia, nausea, vomiting Genitourinary: ABSENT: dysuria, hematuria Musculoskeletal: ABSENT: joint swelling Integumentary: ABSENT: rash, wounds Neurological: ABSENT: abnormal gait, abnormal speech, confusion, dizziness, focal weakness, syncope Psychiatric: ABSENT: anxiety, depression, homidical ideation, suicidal ideation Endocrine: ABSENT: cold intolerance, heat intolerance, menstrual abnormalities, polydipsia, polyuria Hematologic/Lymphatic: ABSENT: easy bleeding, easy bruising, lymphadenopathy Physical Exam Vital Signs: Temp Pulse Resp BP Pulse Ox 98.1 F 87 16 125/59 L 100 07/20/17 07:33 07/20/17 07:33 07/20/17 07:33 07/20/17 07:33 07/20/17 07:33 Intake & Output 07/19/17 07/20/17 07/21/17 06:59 06:59 06:59 Intake Total 860 Output Total 450 Balance 410 Weight 117.7 kg General appearance: PRESENT: no acute distress, well-developed, well-nourished Head exam: PRESENT: atraumatic, normocephalic Eye exam: PRESENT: conjunctiva pink, EOMI, PERRLA. ABSENT: scleral icterus Ear exam: PRESENT: normal external ear exam Mouth exam: PRESENT: moist, tongue midline Neck exam: PRESENT: full ROM. ABSENT: carotid bruit, JVD, lymphadenopathy, thyromegaly Respiratory exam: PRESENT: clear to auscultation kavitha Cardiovascular exam: PRESENT: RRR. ABSENT: diastolic murmur, rubs, systolic murmur Pulses: PRESENT: normal dorsalis pedis pul, +2 pedal pulses bilateral Vascular exam: PRESENT: normal capillary refill GI/Abdominal exam: PRESENT: normal bowel sounds, soft. ABSENT: distended, guarding, mass, organolmegaly, rebound, tenderness Rectal exam: PRESENT: deferred Extremities exam: PRESENT: pedal edema Additional comments: Left lower extremity significant redness and warm to touch with the peripheral pulses very faint Neurological exam: PRESENT: alert, awake, oriented to person, oriented to place , oriented to time, oriented to situation, CN II-XII grossly intact. ABSENT: motor sensory deficit Psychiatric exam: PRESENT: appropriate affect, normal mood. ABSENT: homicidal ideation, suicidal ideation Skin exam: PRESENT: dry, intact, warm. ABSENT: cyanosis, rash Results Laboratory Results: 07/20/17 06:50 07/20/17 06:50 07/19/17 07/20/17 07/20/17 21:15 06:50 06:50 WBC 11.8 H RBC 3.75 L Hgb 11.2 L Hct 33.9 L MCV 90 MCH 29.7 MCHC 32.9 RDW 16.9 H Plt Count 134 L Seg Neutrophils % 87.0 H Lymphocytes % 9.5 L Monocytes % 3.4 Eosinophils % 0.0 Basophils % 0.1 Absolute Neutrophils 10.3 H Absolute Lymphocytes 1.1 Absolute Monocytes 0.4 Absolute Eosinophils 0.0 Absolute Basophils 0.0 Sodium 139.8 Potassium 4.6 Chloride 99 Carbon Dioxide 26 Anion Gap 15 BUN 48 H Creatinine 2.06 H Est GFR ( Amer) 38 L Est GFR (Non-Af Amer) 31 L Glucose 180 H Lactic Acid 2.3 H Calcium 9.4 Total Bilirubin 0.9 AST 17 ALT 29 Alkaline Phosphatase 53 Total Protein 6.6 Albumin 3.6 07/20/17 07/20/17 06:50 06:50 Creatine Kinase 53 L CK-MB (CK-2) 0.65 Troponin I 0.033 Impressions: Chest X-Ray 07/19/17 16:59 IMPRESSION: NO ACUTE RADIOGRAPHIC FINDING IN THE CHEST. Venous Doppler Study 07/19/17 17:19 IMPRESSION: NO EVIDENCE OF DVT OR SVT IN THE LEFT LEG. Assessment & Plan - Diagnosis (1) Left leg cellulitis Is this a current diagnosis for this admission?: Yes Plan: Start the patient on IV clindamycin and consult the general surgery with the significant underlying peripheral vascular disease (2) CAD (coronary artery disease) Qualifiers: Coronary Disease-Associated Artery/Lesion type: unspecified vessel or lesion type Is this a current diagnosis for this admission?: Yes Plan: With do the serial cardiac enzyme with the patient have a significant ischemic cardiomyopathy and a significant cardiac history of consult the cardiology for further evaluations (3) CHF (congestive heart failure) Qualifiers: Congestive heart failure type: combined Is this a current diagnosis for this admission?: Yes Plan: Start the patient on IV Lasix (4) CKD (chronic kidney disease) Qualifiers: Chronic kidney disease stage: stage 3 (moderate) Qualified Code(s): N18.3 - Chronic kidney disease, stage 3 (moderate) Is this a current diagnosis for this admission?: Yes Plan: Consult to Dr. Wright (5) DVT (deep venous thrombosis) Qualifiers: Chronicity: unspecified Is this a current diagnosis for this admission?: Yes Plan: Patient ultrasound was negative on the left side patient already on chronic Coumadin with INR therapeutic 2.19 (6) Hypertension Qualifiers: Hypertension type: essential hypertension Qualified Code(s): I10 - Essential (primary) hypertension Is this a current diagnosis for this admission?: Yes Plan: Continues to current medications (7) Hypoglycemia Is this a current diagnosis for this admission?: Yes Plan: Continues to monitor (8) Pacemaker Is this a current diagnosis for this admission?: Yes Plan: Consult the cardiology for further evaluations (10) Diabetes Qualifiers: Diabetes mellitus type: type 2 Diabetes mellitus complication status: with hypoglycemia Diabetes mellitus complication detail: 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 Diabetes mellitus penitentiary insulin use: with penitentiary use Qualified Code(s): E11.649 - 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; 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; Z79.4 - [facility] (current) use of insulin; Z79.4 - [facility] (current) use of insulin; Z79.4 - [facility] (current) use of insulin Is this a current diagnosis for this admission?: Yes Plan: We will put the patient on a sliding scale and adjust the insulin with the onset of the hypoglycemia - Time Time Spent: 50 to 70 Minutes Medications reviewed and adjusted accordingly: Yes Anticipated discharge: SNF Within: Other - Inpatient Certification Medical Necessity: Need Close Monitoring Due to Risk of Patient Decompensation, Need for IV Antibiotics Post Hospital Care: D/C Prototype Fabricator Documentation - Plan Summary Plan Summary: Very extensive discussed with the patient and the start the patient on IV antibiotic consider general surgery and consult the cardiology
[2017-07-20] MEDS ORDERED: METOPROLOL SUCCINATE 50 MG TAB.SR.24H PO ONE (10:30)
[2017-07-20] MEDS ORDERED: FUROSEMIDE INJ/PF 40 MG/4 ML SDV IV SCH (14:00)
[2017-07-20 14:01] LABS: CREATINE KINASE MB 0.85 ng/mL (<4.55); TROPONIN I 0.018 ng/mL
[2017-07-20] MEDS: ISOSORBIDE DINITRATE 10 MG TABLET PO SCH ×2 (14:12→21:39)
[2017-07-20] MEDS: FUROSEMIDE INJ/PF 100 MG/10 ML SDV IV SCH ×2 (14:12→21:35)
[2017-07-20] MEDS: HYDRALAZINE HCL 10 MG TABLET PO SCH ×2 (14:12→21:39)
--- NOTE | 2017-07-20 16:28 | RADIOLOGY REPORT (SQ) ---
EXAM DESCRIPTION: CT CHEST WITHOUT COMPLETED DATE/TIME: 07/20/2017 3:03 pm REASON FOR STUDY: sob COMPARISON: CT abdomen pelvis 08/28/2008 Chest films 11/23/2014, 04/13/2017, 07/19/2017 TECHNIQUE: CT scan performed of the chest without intravenous contrast. Images reviewed with lung, soft tissue and bone windows. Reconstructed coronal and sagittal MPR images reviewed. All images st ored on PACS. All CT scanners at this facility use dose modulation, iterative reconstruction, and/or weight based d osing when appropriate to reduce radiation dose to as low as reasonably achievable (ALARA). [facility]: Dose Right [facility]: CareDose [facility]: Dose Right [facility]: Teradose 4D [facility]: [employer] Technologies RADIATION DOSE: Up-to-date CT equipment and radiation dose reduction techniques were employed. CTDIv ol: 14.8 mGy. DLP: 547 mGy-cm. mGy. LIMITATIONS: No IV contrast FINDINGS: LUNGS AND PLEURA: Minimal dependent atelectasis in the right lower lobe. No fluffy alveol ar infiltrates worrisome for edema or pneumonia. No pleural effusion. No pneumothorax. No enlarged airspaces worrisome for obstructive disease. Airway is patent. HILAR AND MEDIASTINAL STRUCTURES: No identified masses or abnormal nodes. No obvious aneurysm. HEART AND VASCULAR STRUCTURES: No aneurysm. No pericardial effusion. Very heavy grayling coronary art regla calcifications. Left-sided pacemaker/defibrillator. 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 UPPER ABDOMEN: Tiny stones in the gallbladder. There are venous collaterals over the anterior abdomi nal wall of uncertain etiology. THYROID AND OTHER SOFT TISSUES: No masses. No adenopathy. BONES: Osteoporotic. Minimal upper endplate chronic appearing T12 compression HARDWARE: None in the chest. OTHER: No other significant findings. IMPRESSION: Right basilar atelectasis. 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 and left pacemaker/defibrillator TECHNICAL DOCUMENTATION: JOB ID: [id number] Quality ID # [id number]: Final reports with documentation of one or more dose reduction techniques (e.g., Au tomated exposure control, adjustment of the mA and/or kV according to patient size, use of iterative reconstruction technique) 2010 [email or web address]- All Rights Reserved
--- NOTE | 2017-07-20 18:23 | PDOC CONSULTATION ---
Consultation Consult Date: 07/20/17 Attending physician:: DANA TUTTLE Consult reason:: I was asked by Dr. Tuttle to see the patient due to some worsening of kidney function. History of Present Illness Admission Date/PCP: 07/19/17 20:03 HI TUTTLE MD History of Present Illness: This is a 82-year-old maleWith a significant history of the congestive heart failure, Ischemic cardiomyopathy status post defibrillator placement, status post recent angioplasty was done at the [facility] last month, chronic DVT, peripheral vascular disease and a stage IV chronic kidney disease and multiple other complications and on chronic Coumadin who came to the emergency department with altered mental status, shortness of the breath, fever and redness in the left lower extremities. Patient was initially diagnosed with a left lower extremity cellulitis, probably chronic congestive heart failure. Patient was started on IV clindamycin and also give IV Lasix. [facility]. 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 I saw him in my office last month with stable kidney function, with BUN of 38, creatinine of 1.68 EGFR of 38 which is at his baseline kidney function. At that time there was some increase in lower extremity swelling so he was seen by his fitness plan coordinator Dr. Tuttle prior to seeing me and his diuretics was increased. He told me at the time that his Lasix was increased to 160 mg in the morning + 80 mg at noon and another 80 mg in the afternoon. When I saw him during that time his leg swelling has improved with that regimen. He also does not have any erythema on his bilateral legs. Currently the patient said his breathing is fine almost baseline. He said yesterday he has some persistent cough without any sputum production. He also claims that his left lower extremity was just noted to be as red as it is now since yesterday. He tells me he is eating good and is drinking fluids. I actually saw his tray and he almost finished the whole plate. Currently he denies any chest pains. He seems to be hemodynamically stable. When the patient came in he had a BUN of 46 creatinine of 2.04 and estimated GFR of 31. Today he has a BUN of 48, creatinine of 2.06 and estimated GFR of 31. He seems to be making appropriate amount of urine output. He does not have any other complaints with regards to urination. Past Medical History Cardiac Medical History: Reports: Atrial Fibrillation, CHF-Systolic, Coronary Artery Disease, DVT, Hyperlipidemia, Hypertension-primary, Myocardial Infarction - 1995, Pulmonary Embolism Endocrine Medical History: Reports: Diabetes Mellitus Type 2 Complications of Diabetes: Reports: Nephropathy, Retinopathy Renal/ Medical History: Reports: Chronic Kidney Disease Stage III, Proteinuria , Secondary Hyperparathyroidism, Other - Horseshoe kidney, bilateral renal cysts GI Medical History: Reports: Gastroesophageal Reflux Disease Musculoskeltal Medical History: Reports: Arthritis - gout, Gout, Other - Closed fracture of her rib and lumbar vertebrae Psychiatric Medical History: Reports: Depression Hematology Medical History: Reports Anemia of Chronic Kidney Disease Past Surgical History Past Surgical History: Reports: Coronary Artery Bypass Graft - 3, Coronary Stent, Internal Defibrillator, Pacemaker - upper left chest, Vascular Surgery, Other - Bone graft in the left ankle, surgery of elbow fracture Social History Information Source: Office Lives with: Spouse/Significant other Smoking Status: Never Smoker Frequency of Alcohol Use: None Hx Recreational Drug Use: No Drugs: None Hx Prescription Drug Abuse: No - Advance Directive Resuscitation Status: Full Code Family History Family History: CAD - Brother, DM - Brother, Hypertension - Mother Parental Family History Reviewed: Yes Children Family History Reviewed: Unknown Sibling(s) Family History Reviewed.: Yes Medication/Allergy Home Medications: Docusate Sodium [Colace 100 mg Capsule] 200 mg PO QHS 11/05/11 Levothyroxine Sodium [Synthroid 0.025 mg Tablet] 75 mcg PO DAILY 11/05/11 Metoprolol Succinate [Toprol Xl 25 mg Tab.sr] 100 mg PO DAILY 11/05/11 Sertraline HCl [Zoloft 50 mg Tablet] 50 mg PO DAILY 11/05/11 Cetirizine HCl [Zyrtec 10 mg Chewable Tab] 10 mg PO QHS 10/12/12 Amiodarone HCl 200 mg PO DAILY 09/16/16 Furosemide [Lasix 20 mg Tablet] 80 mg PO BID 09/16/16 Insulin Glargine,Hum.rec.anlog [Lantus Solostar] 30 unit SQ BID 09/16/16 Losartan Potassium 50 mg PO DAILY 09/16/16 Allopurinol [Zyloprim 100 mg Tablet] 100 mg PO DAILY 07/19/17 Atorvastatin Calcium [Lipitor] 80 mg PO DAILY 07/19/17 Clopidogrel Bisulfate [Plavix] 75 mg PO DAILY 07/19/17 Fenofibrate Nanocrystallized [Tricor 145 mg Tablet] 145 mg PO DAILY 07/19/17 Hydralazine HCl [Apresoline 10 mg Tablet] 10 mg PO Q8H 07/19/17 Insulin Aspart [Novolog Insulin 100 Unit/1 ml 10 ml] 0 unit SUBCUT .SLD SCALE Isosorbide Dinitrate [Isordil Titradose 10 Mg Tablet] 10 mg PO Q8H 07/19/17 Nitroglycerin [Nitrostat] 0.3 mg SL PRN PRN 07/19/17 Oxycodone HCl/Acetaminophen [Oxycodone-Acetaminophen 5-325] 1 tab PO Q6HP PRN Pantoprazole Sodium [Protonix] 40 mg PO DAILY 07/19/17 Polyethylene Glycol 3350 [Miralax Powder 17 gm/Packet] 1 packet PO DAILY Tamsulosin HCl [Flomax] 0.4 mg PO QHS 07/19/17 Warfarin Sodium [Warfarin Sodium] 3 mg PO SUTHFRSA 07/19/17 Warfarin Sodium [Warfarin Sodium] 4 mg PO MOTUWE 07/19/17 Allergies/Adverse Reactions: No Known Allergies Allergy (Verified 07/19/17 16:39) Review of Systems All systems: reviewed and no additional remarkable complaints except as stated Review of Systems: Constitutional: ABSENT: chills, fatigue, fever(s), headache(s), weight gain, weight loss Eyes: ABSENT: visual disturbances Ears: ABSENT: hearing changes Cardiovascular: ABSENT: chest pain, orthropnea, palpitations; admits shortness of breath but improved today, chronic lower extremity edema Respiratory: ABSENT: Hemoptysis; admits some dry cough yesterday Gastrointestinal: ABSENT: abdominal pain, constipation, diarrhea, hematemesis, hematochezia, nausea, vomiting Genitourinary: ABSENT: dysuria, hematuria Musculoskeletal: ABSENT: joint swelling Integumentary: ABSENT: rash, wounds; admits erythema and warmth on the left lower extremity Neurological: ABSENT: abnormal gait, abnormal speech, confusion, dizziness, focal weakness, numbness, syncope Psychiatric: ABSENT: anxiety, depression Endocrine: ABSENT: cold intolerance, heat intolerance, polydipsia, polyuria Hematologic/Lymphatic: ABSENT: easy bleeding, easy bruising, lymphadenopathy Physical Exam Vital Signs: Temp Pulse Resp BP Pulse Ox 98.1 F 90 18 136/60 H 100 07/20/17 11:57 07/20/17 14:00 07/20/17 11:57 07/20/17 11:57 07/20/17 12:31 Intake & Output 07/19/17 07/20/17 07/21/17 06:59 06:59 06:59 Intake Total 860 651 Output Total 450 700 Balance 410 -49 Weight 117.7 kg Exam: General appearance: no acute distress, cooperative, well-developed, well- nourished Head exam: PRESENT: atraumatic, normocephalic Eye exam: PRESENT: Conjunctiva [place], EOMI, PERRLA. ABSENT: conjunctival injection, scleral icterus Mouth exam: PRESENT: moist, neck supple, tongue midline Neck exam: PRESENT: full ROM. ABSENT: carotid bruit, JVD, lymphadenopathy, thyromegaly Respiratory exam: PRESENT: Diminished to auscultation bilaterally. ABSENT: rales, rhonchi, stridor, wheezes Cardiovascular exam: PRESENT: RRR, +S1, +S2. ABSENT: systolic murmur Pulses: PRESENT: normal radial pulses, normal dorsalis pedis pulses GI/Abdominal exam: PRESENT: normal bowel sounds, soft. Obese ABSENT: guarding, mass, tenderness Rectal exam: deferred Extremities exam: PRESENT: full ROM. Grade 1 bilateral pitting pedal edema, left lower extremity is beefy red and warm to touch from mid thigh up to the foot Musculoskeletal: PRESENT: full ROM. ABSENT: deformity Neurological exam: PRESENT: alert, Awake, Oriented to person, Oriented to place , Oriented to time, reflexes normal, CN II-XII grossly intact. ABSENT: motor sensory deficit Psychiatric exam: PRESENT: appropriate affect, normal mood. ABSENT: homicidal ideation, suicidal ideation Skin exam: PRESENT: intact, dry, warm. ABSENT: rash Results Laboratory Results: 07/20/17 06:50 07/20/17 06:50 07/19/17 07/20/17 07/20/17 21:15 06:50 06:50 WBC 11.8 H RBC 3.75 L Hgb 11.2 L Hct 33.9 L MCV 90 MCH 29.7 MCHC 32.9 RDW 16.9 H Plt Count 134 L Seg Neutrophils % 87.0 H Lymphocytes % 9.5 L Monocytes % 3.4 Eosinophils % 0.0 Basophils % 0.1 Absolute Neutrophils 10.3 H Absolute Lymphocytes 1.1 Absolute Monocytes 0.4 Absolute Eosinophils 0.0 Absolute Basophils 0.0 Sodium 139.8 Potassium 4.6 Chloride 99 Carbon Dioxide 26 Anion Gap 15 BUN 48 H Creatinine 2.06 H Est GFR ( Amer) 38 L Est GFR (Non-Af Amer) 31 L Glucose 180 H Lactic Acid 2.3 H Calcium 9.4 Total Bilirubin 0.9 AST 17 ALT 29 Alkaline Phosphatase 53 Total Protein 6.6 Albumin 3.6 07/20/17 07/20/17 07/20/17 06:50 06:50 13:10 Creatine Kinase 53 L 54 L CK-MB (CK-2) 0.65 Troponin I 0.033 07/20/17 13:10 Creatine Kinase CK-MB (CK-2) 0.85 Troponin I 0.018 Impressions: Chest X-Ray 07/19/17 16:59 IMPRESSION: NO ACUTE RADIOGRAPHIC FINDING IN THE CHEST. Venous Doppler Study 07/19/17 17:19 IMPRESSION: NO EVIDENCE OF DVT OR SVT IN THE LEFT LEG. Chest CT 07/20/17 00:00 IMPRESSION: Right basilar atelectasis. 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 and left pacemaker/defibrillator Assessment & Plan - Diagnosis (1) Acute renal failure superimposed on stage 3 chronic kidney disease Is this a current diagnosis for this admission?: Yes Plan: No acute worsening of kidney function could be due to some prerenal factors including recent increase in diuretics as an outpatient as well as concurrent infection due to the left lower extremity cellulitis. Patient is currently nonoliguric and kidney function has been stable since yesterday. There are no other associated electrolyte abnormalities at this time. There is no indication for any renal replacement therapy nor other further workup at this time. Continue to monitor kidney function and electrolytes. Continue current dose of Lasix which is actually a lower dose compared to outpatient. (2) Left leg cellulitis Is this a current diagnosis for this admission?: Yes Plan: On IV antibiotics. (3) CAD (coronary artery disease) Qualifiers: Coronary Disease-Associated Artery/Lesion type: unspecified vessel or lesion type Is this a current diagnosis for this admission?: Yes Plan: Patient with known ischemic cardiomyopathy with pacemaker/defibrillator. Currently I do not think the patient is in acute exacerbation of congestive heart failure. (4) Hypertension Qualifiers: Hypertension type: essential hypertension Qualified Code(s): I10 - Essential (primary) hypertension Is this a current diagnosis for this admission?: Yes Plan: Controlled on current regimen. (5) Diabetes Qualifiers: Diabetes mellitus type: type 2 Diabetes mellitus complication status: with hypoglycemia Diabetes mellitus complication detail: 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 Diabetes mellitus long term care pharmacist insulin use: with [facility] use Qualified Code(s): E11.649 - 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; Z79.4 - penitentiary ( current) use of insulin; Z79.4 - penitentiary (current) use of insulin; Z79.4 - penitentiary (current) use of insulin; Z79.4 - long term care pharmacist (current) use of insulin Is this a current diagnosis for this admission?: Yes - Notes Notes: Thank you very much for this consultation. I will follow the patient with you. - Time Time Spent: 50 to 70 Minutes
[2017-07-20 21:15] LABS: CREATINE KINASE MB 0.8 ng/mL (<4.55); TROPONIN I 0.028 ng/mL
[2017-07-20] MEDS: CEFEPIME 1 GM/D5W RTU 1 GM/50 ML RTUPB IV SCH (21:37)
[2017-07-20] MEDS: WARFARIN SODIUM 4 MG TABLET PO SCH (21:38)
[2017-07-20] MEDS: CETIRIZINE 10 MG TABLET PO SCH (21:38)
[2017-07-20] MEDS: TAMSULOSIN HCL 0.4 MG CAP.SR.24H PO SCH (21:38)
[2017-07-20] MEDS: DOCUSATE SODIUM 100 MG CAPSULE PO SCH (21:38)
[2017-07-20] MEDS ORDERED: (PENDING PHARMACY ID) (Cetirizine Hcl [Zyrtec 10 Mg Chewable Tab] 10 MG) PO SCH (22:00)
[2017-07-21] MEDS: HYDRALAZINE HCL 10 MG TABLET PO SCH ×3 (05:17→21:09)
[2017-07-21] MEDS: CLINDAMYCIN 600 MG/D5W RTU 600 MG/50 ML RTUPB IV SCH ×3 (05:17→21:08)
[2017-07-21] MEDS: FUROSEMIDE INJ/PF 100 MG/10 ML SDV IV SCH ×3 (05:18→21:08)
[2017-07-21] MEDS: INSULIN LISPRO 100 UNIT/ML 3 ML VIAL SUBCUT PRN ×4 (05:51→21:15)
[2017-07-21 06:30] LABS: ABSOLUTE LYMPHOCYTES (AUTO) 1.1 10^3/uL (0.5-4.7); ABSOLUTE MONOCYTES (AUTO) 0.5 10^3/uL (0.1-1.4); ABSOLUTE NEUT (AUTO) 8.9 10^3/uL (1.7-8.2); BASOPHILS % (AUTO) 0.4 % (0-2); EOSINOPHILS % (AUTO) 0.4 % (0-6); HEMATOCRIT 33.6 % (37.9-51.0); HEMOGLOBIN 11.3 g/dL (13.5-17.0); HGB HCT DIFFERENCE 0.3; LYMPHOCYTES % (AUTO) 10.8 % (13-45); MEAN CORPUSCULAR HEMOGLOBIN 30.2 pg (27.0-33.4); MEAN CORPUSCULAR HGB CONC 33.6 g/dL (32.0-36.0); MEAN CORPUSCULAR VOLUME 90 fl (80-97); MONOCYTES % (AUTO) 4.4 % (3-13); RED BLOOD COUNT 3.74 10^6/uL (4.35-5.55); RED CELL DISTRIBUTION WIDTH 16.9 % (11.5-14.0); WHITE BLOOD COUNT 10.6 10^3/uL (4.0-10.5)
[2017-07-21 06:47] LABS: ANION GAP 12 (5-19); BLOOD UREA NITROGEN 46 mg/dL (7-20); CALCIUM 9.7 mg/dL (8.4-10.2); CARBON DIOXIDE 28 mmol/L (22-30); CHLORIDE 100 mmol/L (98-107); CREATININE RESULT 1.79 mg/dL (0.52-1.25); GLUCOSE 245 mg/dL (75-110); PROTHROMBIN TIME 25.2 SEC (11.4-15.4); SODIUM 140.1 mmol/L (137-145)
--- NOTE | 2017-07-21 08:59 | PDOC PROGRESS REPORT ---
Subjective Progress Note for:: 07/21/17 Subjective:: Patient is currently doing much better Patient's denied any chest pain denied any shortness of the breath Patient's otherwise denied any other symptoms and no fever overnight Patient seen by Dr. Driscoll and Dr. Wright Physical Exam Vital Signs: Temp Pulse Resp BP Pulse Ox 98.2 F 94 22 H 119/68 96 07/21/17 07:30 07/21/17 07:30 07/21/17 07:30 07/21/17 07:30 07/21/17 07:30 Intake & Output 07/20/17 07/21/17 07/22/17 06:59 06:59 06:59 Intake Total 860 1817 Output Total 450 2725 Balance 410 -908 Weight 117.7 kg 115.7 kg General appearance: PRESENT: no acute distress, well-developed, well-nourished Head exam: PRESENT: atraumatic, normocephalic Eye exam: PRESENT: conjunctiva pink, EOMI, PERRLA. ABSENT: scleral icterus Ear exam: PRESENT: normal external ear exam Mouth exam: PRESENT: moist, tongue midline Neck exam: PRESENT: full ROM. ABSENT: carotid bruit, JVD, lymphadenopathy, thyromegaly Respiratory exam: PRESENT: clear to auscultation kavitha Cardiovascular exam: PRESENT: RRR. ABSENT: diastolic murmur, rubs, systolic murmur Pulses: PRESENT: normal dorsalis pedis pul, +2 pedal pulses bilateral Vascular exam: PRESENT: normal capillary refill GI/Abdominal exam: PRESENT: normal bowel sounds, soft. ABSENT: distended, guarding, mass, organolmegaly, rebound, tenderness Rectal exam: PRESENT: deferred Additional comments: Left lower extremity there is a redness is present but is improving compared to yesterday and warm to touch Neurological exam: PRESENT: alert, awake, oriented to person, oriented to place , oriented to time, oriented to situation, CN II-XII grossly intact. ABSENT: motor sensory deficit Psychiatric exam: PRESENT: appropriate affect, normal mood. ABSENT: homicidal ideation, suicidal ideation Skin exam: PRESENT: dry, intact, warm. ABSENT: cyanosis, rash Results Laboratory Results: 07/21/17 06:15 07/21/17 06:15 07/21/17 07/21/17 06:15 06:15 WBC 10.6 H RBC 3.74 L Hgb 11.3 L Hct 33.6 L MCV 90 MCH 30.2 MCHC 33.6 RDW 16.9 H Plt Count 138 L Seg Neutrophils % 84.0 H Lymphocytes % 10.8 L Monocytes % 4.4 Eosinophils % 0.4 Basophils % 0.4 Absolute Neutrophils 8.9 H Absolute Lymphocytes 1.1 Absolute Monocytes 0.5 Absolute Eosinophils 0.0 Absolute Basophils 0.0 Sodium 140.1 Potassium 4.0 Chloride 100 Carbon Dioxide 28 Anion Gap 12 BUN 46 H Creatinine 1.79 H Est GFR ( Amer) 44 L Est GFR (Non-Af Amer) 37 L Glucose 245 H Calcium 9.7 07/20/17 07/20/17 07/20/17 06:50 06:50 13:10 Creatine Kinase 53 L 54 L CK-MB (CK-2) 0.65 Troponin I 0.033 07/20/17 07/20/17 07/20/17 13:10 20:22 20:22 Creatine Kinase 58 CK-MB (CK-2) 0.85 0.80 Troponin I 0.018 0.028 Impressions: Chest X-Ray 07/19/17 16:59 IMPRESSION: NO ACUTE RADIOGRAPHIC FINDING IN THE CHEST. Venous Doppler Study 07/19/17 17:19 IMPRESSION: NO EVIDENCE OF DVT OR SVT IN THE LEFT LEG. Chest CT 07/20/17 00:00 IMPRESSION: Right basilar atelectasis. 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 and left pacemaker/defibrillator Assessment & Plan - Diagnosis (1) Left leg cellulitis Is this a current diagnosis for this admission?: Yes Plan: Continuous IV antibiotic (2) CAD (coronary artery disease) Qualifiers: Coronary Disease-Associated Artery/Lesion type: unspecified vessel or lesion type Is this a current diagnosis for this admission?: Yes Plan: Continues to current medications follow with the cardiology (3) CHF (congestive heart failure) Qualifiers: Congestive heart failure type: combined Is this a current diagnosis for this admission?: Yes Plan: Continues to IV Lasix for another 24 hours and will switch to the p.o. Lasix (4) CKD (chronic kidney disease) Qualifiers: Chronic kidney disease stage: stage 3 (moderate) Qualified Code(s): N18.3 - Chronic kidney disease, stage 3 (moderate) Is this a current diagnosis for this admission?: Yes Plan: Currently stable's no need for any renal replacement therapy per the nephrology (5) DVT (deep venous thrombosis) Qualifiers: Chronicity: unspecified Is this a current diagnosis for this admission?: Yes Plan: Bill on Coumadin INR is 2.19 (6) Hypertension Qualifiers: Hypertension type: essential hypertension Qualified Code(s): I10 - Essential (primary) hypertension Is this a current diagnosis for this admission?: Yes Plan: Continues to current medications (7) Hypoglycemia Is this a current diagnosis for this admission?: Yes Plan: Currently all resolved (8) Pacemaker Is this a current diagnosis for this admission?: Yes Plan: Consult the cardiology for further evaluations (10) Diabetes Qualifiers: Diabetes mellitus type: type 2 Diabetes mellitus complication status: with hypoglycemia Diabetes mellitus complication detail: 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 Diabetes mellitus terminal operations supervisor insulin use: with residential use Qualified Code(s): E11.649 - 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; Z79.4 - rodent exterminator ( current) use of insulin; Z79.4 - correction (current) use of insulin; Z79.4 - rodent exterminator (current) use of insulin; Z79.4 - correction (current) use of insulin Is this a current diagnosis for this admission?: Yes Plan: We will put the patient on a sliding scale and adjust the insulin with the onset of the hypoglycemia - Time Time Spent with patient: 15-24 minutes Medications reviewed and adjusted accordingly: Yes Anticipated discharge: Home Within: Other - Inpatient Certification Medical Necessity: Need Close Monitoring Due to Risk of Patient Decompensation, Need for IV Antibiotics Post Hospital Care: D/C Water Supply Technician Documentation - Plan Summary Plan Summary: Continues to IV antibiotic at the physical therapy evaluations
[2017-07-21] MEDS: SERTRALINE HCL 50 MG TABLET PO SCH (10:10)
[2017-07-21] MEDS: INSULIN GLARGINE,HUM.REC.ANLOG 300 UNIT/3 ML INSULN.PEN SUBCUT SCH ×2 (10:10→17:52)
[2017-07-21] MEDS: LOSARTAN POTASSIUM 50 MG TABLET PO SCH (10:11)
[2017-07-21] MEDS: ATORVASTATIN CALCIUM 80 MG TABLET PO SCH (10:11)
[2017-07-21] MEDS: METOPROLOL SUCCINATE 50 MG TAB.SR.24H PO SCH (10:11)
[2017-07-21] MEDS: ISOSORBIDE MONONITRATE 60 MG TAB.ER.24H PO SCH (10:12)
[2017-07-21] MEDS: CLOPIDOGREL BISULFATE 75 MG TABLET PO SCH (10:12)
[2017-07-21] MEDS: LEVOTHYROXINE SODIUM 0.075 MG TABLET PO SCH (10:15)
[2017-07-21] MEDS: POLYETHYLENE GLYCOL 3350 POWDER 17 GM/1 PACKET PO SCH (10:15)
[2017-07-21] MEDS: CEFEPIME 1 GM/D5W RTU 1 GM/50 ML RTUPB IV SCH ×2 (10:15→21:08)
[2017-07-21] MEDS: AMIODARONE HCL 200 MG TABLET PO SCH (10:15)
[2017-07-21] MEDS: ALLOPURINOL 100 MG TABLET PO SCH (10:18)
[2017-07-21] MEDS: LANSOPRAZOLE 30 MG TAB.RAP.DR PO SCH (10:19)
--- NOTE | 2017-07-21 10:56 | PDOC PROGRESS REPORT ---
Subjective Progress Note for:: 07/21/17 Subjective:: Patient seems to be doing better with gradual improvement. Pt is denying any chest arm or neck discomfort. Patient denying any PND, orthopnea. Patient denied any sustained palpitations, dizziness, syncope, near syncope. Patient denying any fever chills. Patient denying any other significant discomfort. Cellulitis of the left lower leg seems stable. Patient is maintaining sinus rhythm with intermittent paced ventricular beats.. Review of systems: Rest review of systems negative. Medications: Medications have been reviewed. Physical Exam Vital Signs: Temp Pulse Resp BP Pulse Ox 98.2 F 94 22 H 119/68 96 07/21/17 07:30 07/21/17 07:30 07/21/17 07:30 07/21/17 07:30 07/21/17 07:30 Intake & Output 07/20/17 07/21/17 07/22/17 06:59 06:59 06:59 Intake Total 860 1817 Output Total 450 2725 Balance 410 -908 Weight 117.7 kg 115.7 kg Exam: GENERAL: well-nourished and in no acute distress. Alert and oriented x3 HEAD: Atraumatic, normocephalic. EYES: Pupils equal round and reactive to light, extraocular movements intact, sclera anicteric, conjunctiva are normal. ENT: TMs normal, nares patent, oropharynx clear without exudates. Moist mucous membranes. No oral ulcerations or bleeding gums noted NECK: supple without lymphadenopathy. Trachea is central. No cervical or axillary lymphadenopathy noted. Carotids are 2+, JVD WNL LUNGS: Respiration seems nonlabored, no significant accessory muscle action noted. Breath sounds clear to auscultation bilaterally and equal noted. No wheezes rales or rhonchi noted. No significant dullness noted on percussion. CHEST: Palpation of the chest wall shows no significant chest wall tenderness. No other significant abnormalities noted. HEART: Peck RN CARDIOVASCULAR ICU, No PSH, 1/6 [place] aortic area, 1/6 c[place]ato systolic murmur mitral area, no rubs, no gallops. ABDOMEN: Soft, no significant tenderness appreciated, normoactive bowel sounds. No guarding, no rebound. No rigidity noted . No masses appreciated. EXTREMITIES: Pedal pulses are 1-2+, no calf tenderness noted. No clubbing or cyanosis. 1-2+ + pedal edema noted, cellulitic changes noted left lower legs. NEUROLOGICAL: Focused neurological exam showed no significant neurologic deficit. Normal speech, no focal weakness appreciated. PSYCH: Normal mood, normal affect. Judgment and insight within normal limits. SKIN: No significant ecchymosis, significant cellulitic changes noted in the left lower extremity. MUSCULOSKELETAL EXAM: No significant joint swelling noted. Results Laboratory Results: 07/21/17 06:15 07/21/17 06:15 07/21/17 07/21/17 06:15 06:15 WBC 10.6 H RBC 3.74 L Hgb 11.3 L Hct 33.6 L MCV 90 MCH 30.2 MCHC 33.6 RDW 16.9 H Plt Count 138 L Seg Neutrophils % 84.0 H Lymphocytes % 10.8 L Monocytes % 4.4 Eosinophils % 0.4 Basophils % 0.4 Absolute Neutrophils 8.9 H Absolute Lymphocytes 1.1 Absolute Monocytes 0.5 Absolute Eosinophils 0.0 Absolute Basophils 0.0 Sodium 140.1 Potassium 4.0 Chloride 100 Carbon Dioxide 28 Anion Gap 12 BUN 46 H Creatinine 1.79 H Est GFR ( Amer) 44 L Est GFR (Non-Af Amer) 37 L Glucose 245 H Calcium 9.7 07/20/17 07/20/17 07/20/17 06:50 06:50 13:10 Creatine Kinase 53 L 54 L CK-MB (CK-2) 0.65 Troponin I 0.033 07/20/17 07/20/17 07/20/17 13:10 20:22 20:22 Creatine Kinase 58 CK-MB (CK-2) 0.85 0.80 Troponin I 0.018 0.028 EKG Comments: Telemetry strips reviewed showed sinus rhythm with intermittent ventricular paced beats. Impressions: Chest X-Ray 07/19/17 16:59 IMPRESSION: NO ACUTE RADIOGRAPHIC FINDING IN THE CHEST. Venous Doppler Study 07/19/17 17:19 IMPRESSION: NO EVIDENCE OF DVT OR SVT IN THE LEFT LEG. Chest CT 07/20/17 00:00 IMPRESSION: Right basilar atelectasis. 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 and left pacemaker/defibrillator Assessment & Plan - Diagnosis (1) Left leg cellulitis Is this a current diagnosis for this admission?: Yes (3) CAD (coronary artery disease) Qualifiers: Coronary Disease-Associated Artery/Lesion type: unspecified vessel or lesion type Is this a current diagnosis for this admission?: Yes (4) CHF (congestive heart failure) Qualifiers: Congestive heart failure type: combined Is this a current diagnosis for this admission?: Yes (5) CKD (chronic kidney disease) Qualifiers: Chronic kidney disease stage: stage 3 (moderate) Qualified Code(s): N18.3 - Chronic kidney disease, stage 3 (moderate) Is this a current diagnosis for this admission?: Yes (6) Hypertension Qualifiers: Hypertension type: essential hypertension Qualified Code(s): I10 - Essential (primary) hypertension Is this a current diagnosis for this admission?: Yes (7) Atrial fibrillation Qualifiers: Atrial fibrillation type: persistent Qualified Code(s): I48.1 - Persistent atrial fibrillation Is this a current diagnosis for this admission?: Yes - Notes Notes: Left lower extremity cellulitis: This is being expertly managed by hospitalist. Did order a 2D echo to make sure there is no carditis. Coronary artery disease: Patient status post stent placement and also has history of CABG. Currently seems stable. Recommend continuing antiplatelet, beta-linn, TYLER inhibitor/ARB therapy as needed. CHF: Currently seems well compensated. Patient does have some lower extremity edema but possibly related to cellulitis and venous insufficiency rather than CHF. Would recommend continuing some baseline diuretics. Chronic kidney disease: Patient has some acute on chronic kidney disease with some deterioration in renal functions. Currently being followed by grounds foreman. Hypertension: Currently stable. Blood pressure goal 140/90 or less but could even be lower if tolerated. Atrial fibrillation: Continue with rate control and chronic anticoagulation strategy. - Time Time with patient: 15-25 minutes - CODE STATUS was discussed, patient remains DNR. Surrogate decision-maker unchanged. Multiple medical problems were addressed. More than 50% of the time spent coordinating care, discussing management plans with involved caregivers. Management plans discussed with involved personnels. Medical decision making was of moderate to high complexity , patient's has multiple comorbidities. Medications reviewed and adjusted accordingly: Yes
--- NOTE | 2017-07-21 17:30 | PDOC PROGRESS REPORT ---
Subjective Progress Note for:: 07/21/17 Subjective:: Patient is doing fine and tells me that he feels better. His legs seems to be very slowly improving in terms of erythema. He is otherwise hemodynamically and clinically stable. Physical Exam Vital Signs: Temp Pulse Resp BP Pulse Ox 97.7 F 103 H 22 H 122/64 99 07/21/17 11:55 07/21/17 14:52 07/21/17 11:55 07/21/17 14:52 07/21/17 11:55 Intake & Output 07/20/17 07/21/17 07/22/17 06:59 06:59 06:59 Intake Total 860 1817 474 Output Total 450 2725 475 Balance 410 908 -1 Weight 117.7 kg 115.7 kg Exam: General appearance: PRESENT: no acute distress, cooperative, well-developed, well-nourished Head exam: PRESENT: atraumatic, normocephalic Eye exam: PRESENT: conjunctiva slightly pale, PERRLA. ABSENT: scleral icterus Neck exam: ABSENT: JVD Respiratory exam: PRESENT: Diminished breath sounds. ABSENT: crackles, rales, rhonchi, unlabored, wheezes Cardiovascular exam: PRESENT: Irregularly irregular rate rhythm -+S1, +S2. ABSENT: diastolic murmur, systolic murmur GI/Abdominal exam: PRESENT: normal bowel sounds, soft. ABSENT: guarding, mass, tenderness Extremities exam: Grade 1 bilateral lower extremity edema Neurological exam: PRESENT: alert, awake, oriented to person, place and time. Skin exam: PRESENT: dry, warm, left lower extremity cellulitis associated with erythema with slight improvement around the left thigh but still very warm to touch and beefy red in appearance Results Laboratory Results: 07/21/17 06:15 07/21/17 06:15 07/21/17 07/21/17 06:15 06:15 WBC 10.6 H RBC 3.74 L Hgb 11.3 L Hct 33.6 L MCV 90 MCH 30.2 MCHC 33.6 RDW 16.9 H Plt Count 138 L Seg Neutrophils % 84.0 H Lymphocytes % 10.8 L Monocytes % 4.4 Eosinophils % 0.4 Basophils % 0.4 Absolute Neutrophils 8.9 H Absolute Lymphocytes 1.1 Absolute Monocytes 0.5 Absolute Eosinophils 0.0 Absolute Basophils 0.0 Sodium 140.1 Potassium 4.0 Chloride 100 Carbon Dioxide 28 Anion Gap 12 BUN 46 H Creatinine 1.79 H Est GFR ( Amer) 44 L Est GFR (Non-Af Amer) 37 L Glucose 245 H Calcium 9.7 07/20/17 07/20/17 07/20/17 06:50 06:50 13:10 Creatine Kinase 53 L 54 L CK-MB (CK-2) 0.65 Troponin I 0.033 07/20/17 07/20/17 07/20/17 13:10 20:22 20:22 Creatine Kinase 58 CK-MB (CK-2) 0.85 0.80 Troponin I 0.018 0.028 Impressions: Chest X-Ray 07/19/17 16:59 IMPRESSION: NO ACUTE RADIOGRAPHIC FINDING IN THE CHEST. Venous Doppler Study 07/19/17 17:19 IMPRESSION: NO EVIDENCE OF DVT OR SVT IN THE LEFT LEG. Chest CT 07/20/17 00:00 IMPRESSION: Right basilar atelectasis. 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 and left pacemaker/defibrillator Assessment & Plan - Diagnosis (1) Acute renal failure superimposed on stage 3 chronic kidney disease Is this a current diagnosis for this admission?: Yes Plan: Aacute worsening of kidney function could be due to some prerenal factors including recent increase in diuretics as an outpatient as well as concurrent infection due to the left lower extremity cellulitis. Patient is currently nonoliguric and kidney function has been stable since yesterday. There are no other associated electrolyte abnormalities at this time. There is no indication for any renal replacement therapy nor other further workup at this time. Continue to monitor kidney function and electrolytes. Continue current dose of Lasix which is actually a lower dose compared to outpatient. Patient's kidney function is improved and is currently at baseline with current management. Continue current treatment. (2) Left leg cellulitis Is this a current diagnosis for this admission?: Yes Plan: On IV antibiotics. (3) CAD (coronary artery disease) Qualifiers: Coronary Disease-Associated Artery/Lesion type: unspecified vessel or lesion type Is this a current diagnosis for this admission?: Yes Plan: Patient with known ischemic cardiomyopathy with pacemaker/defibrillator. Currently I do not think the patient is in acute exacerbation of congestive heart failure. (4) Hypertension Qualifiers: Hypertension type: essential hypertension Qualified Code(s): I10 - Essential (primary) hypertension Is this a current diagnosis for this admission?: Yes Plan: Controlled on current regimen. (5) Diabetes Qualifiers: Diabetes mellitus type: type 2 Diabetes mellitus complication status: with hypoglycemia Diabetes mellitus complication detail: 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 Diabetes mellitus moth exterminator insulin use: with moth exterminator use Qualified Code(s): E11.649 - 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; Z79.4 - correction ( current) use of insulin; Z79.4 - correction (current) use of insulin; Z79.4 - correction (current) use of insulin; Z79.4 - termite control servicer (current) use of insulin Is this a current diagnosis for this admission?: Yes - Notes Notes: We will sign off for now. Please call me if I can be of further help. - Time Time with patient: 15-25 minutes
[2017-07-21] MEDS: CETIRIZINE 10 MG TABLET PO SCH (21:09)
[2017-07-21] MEDS: WARFARIN SODIUM 4 MG TABLET PO SCH (21:09)
[2017-07-21] MEDS: TAMSULOSIN HCL 0.4 MG CAP.SR.24H PO SCH (21:09)
[2017-07-21] MEDS: DOCUSATE SODIUM 100 MG CAPSULE PO SCH (21:09)
[2017-07-22] MEDS: CLINDAMYCIN 600 MG/D5W RTU 600 MG/50 ML RTUPB IV SCH ×3 (05:08→23:12)
[2017-07-22] MEDS: HYDRALAZINE HCL 10 MG TABLET PO SCH ×3 (05:09→22:19)
[2017-07-22] MEDS: FUROSEMIDE INJ/PF 100 MG/10 ML SDV IV SCH ×3 (05:09→22:18)
[2017-07-22] MEDS: INSULIN LISPRO 100 UNIT/ML 3 ML VIAL SUBCUT PRN ×3 (06:21→21:56)
[2017-07-22 07:01] LABS: PROTHROMBIN TIME 23.9 SEC (11.4-15.4)
[2017-07-22] MEDS: CEFEPIME 1 GM/D5W RTU 1 GM/50 ML RTUPB IV SCH ×2 (09:41→22:17)
--- NOTE | 2017-07-22 09:41 | XCELERA REPORT ---
[address] [address] Transthoracic Echocardiogram Report Name: MARY MANDUJANO Age: 82 yrs Gender: Male : 1935 Patient Status: Inpatient Patient Location: [address] [place], [place] [address] Study Date: 07/21/2017 02:50 PM Height: 74 in Weight: 255 lb BSA: 2.4 m2 Procedure: A complete two-dimensional transthoracic echocardiogram was performed (2D, M-mode, spectral and color flow Doppler). The study was technically difficult with many images being suboptimal in quality. Reason For Study: CAD, Eval valves, endocarditis Ordering Physician: ARVIND CHRISTIE Performed By: Estela Jefferson Interpretation Summary LV EF is approx 40% The study was technically difficult with many images being suboptimal in quality. Left ventricular systolic function is moderately reduced. There is mild concentric left ventricular hypertrophy. The left ventricle is grossly normal size. LV diastolic function could not be adequately assessed. There is mild to moderate global hypokinesis of the left ventricle. Regional wall motion abnormalities cannot be excluded due to limited visualization. The right ventricle is mildly dilated. The right ventricular systolic function is mildly reduced. There is a mild amount of mitral regurgitation There is no mitral valve stenosis. There is mild mitral leaflet calcification. There is mild to moderate mitral annular calcification. No aortic regurgitation is present. There is no aortic valve stenosis There is a trace to mild amount of tricuspid regurgitation There is mild to moderate pulmonary hypertension by echo Right ventricular systolic pressure is estimated to be elevated at 40- 50mmHg. There is no pericardial effusion. No definite vegetations noted but if clinical suspicion is high, then consider ADRIANA and multiple blood cultures. MMode/2D Measurements & Calculations RVDd: 4.5 cm LVIDd: 4.9 cm FS: 20.7 % Ao root diam: 3.1 cm IVSd: 1.1 cm LVIDs: 3.9 cm EDV(Teich): 113.7 ml LVPWd: 1.1 cm ESV(Teich): 65.9 ml Ao root area: 7.7 cm2 EF(Teich): 42.0 % LA dimension: 5.2 cm Doppler Measurements & Calculations MV E max maritza: MV P1/2t max maritza: Ao V2 max: LV V1 max P.9 cm/sec 125.9 cm/sec 106.8 cm/sec 2.2 mmHg MV A max maritza: MV P1/2t: 62.3 msec Ao max PG: LV V1 max: 47.9 cm/sec 4.6 mmHg 74.5 cm/sec MV E/A: 2.6 MVA(P1/2t): 3.5 cm2 MV dec slope: 591.6 cm/sec2 MV dec time: 0.21 sec PA V2 max: TR max maritza: 71.6 cm/sec 309.5 cm/sec PA max P.0 mmHgTR max P.3 mmHg Left Ventricle The left ventricle is grossly normal size. There is mild concentric left ventricular hypertrophy. Left ventricular systolic function is moderately reduced. LV EF is approx 40%. LV diastolic function could not be adequately assessed. There is mild to moderate global hypokinesis of the left ventricle. Regional wall motion abnormalities cannot be excluded due to limited visualization. Right Ventricle The right ventricle is mildly dilated. There is normal right ventricular wall thickness. The right ventricular systolic function is mildly reduced. Atria The right atrium is mild to moderately dilated. The left atrium is moderately dilated. Interarterial septum not well visualized and not well dopplered. Cannot comment on ASD/PFO presence. Mitral Valve There is mild mitral leaflet calcification. There is mild to moderate mitral annular calcification. There is no mitral valve stenosis. There is a mild amount of mitral regurgitation. Aortic Valve The aortic valve is grossly normal. There is no aortic valve stenosis. No aortic regurgitation is present. Tricuspid Valve The tricuspid valve is not well visualized, but is grossly normal. There is no tricuspid stenosis. There is a trace to mild amount of tricuspid regurgitation. There is mild to moderate pulmonary hypertension by echo. Right ventricular systolic pressure is estimated to be elevated at 40- 50mmHg. Pulmonic Valve The pulmonic valve is not well visualized. Great Vessels The aortic root is not well visualized. The inferior vena cava was not well visualized. Effusions There is no pericardial effusion. Incidental Findings No definite vegetations noted but if clinical suspicion is high, then consider ADRIANA and multiple blood cultures. : ARVIND CHRISTIE > Arvind Christie
[2017-07-22] MEDS: SERTRALINE HCL 50 MG TABLET PO SCH (09:42)
[2017-07-22] MEDS: ATORVASTATIN CALCIUM 80 MG TABLET PO SCH (09:42)
[2017-07-22] MEDS: ISOSORBIDE MONONITRATE 60 MG TAB.ER.24H PO SCH (09:42)
[2017-07-22] MEDS: LANSOPRAZOLE 30 MG TAB.RAP.DR PO SCH (09:42)
[2017-07-22] MEDS: ALLOPURINOL 100 MG TABLET PO SCH (09:42)
[2017-07-22] MEDS: LOSARTAN POTASSIUM 50 MG TABLET PO SCH (09:43)
[2017-07-22] MEDS: LEVOTHYROXINE SODIUM 0.075 MG TABLET PO SCH (09:43)
[2017-07-22] MEDS: METOPROLOL SUCCINATE 50 MG TAB.SR.24H PO SCH (09:43)
[2017-07-22] MEDS: AMIODARONE HCL 200 MG TABLET PO SCH (09:44)
[2017-07-22] MEDS: CLOPIDOGREL BISULFATE 75 MG TABLET PO SCH (09:44)
[2017-07-22] MEDS: INSULIN GLARGINE,HUM.REC.ANLOG 300 UNIT/3 ML INSULN.PEN SUBCUT SCH ×2 (09:45→17:27)
[2017-07-22] MEDS: POLYETHYLENE GLYCOL 3350 POWDER 17 GM/1 PACKET PO SCH (09:51)
--- NOTE | 2017-07-22 16:11 | PDOC PROGRESS REPORT ---
Subjective Progress Note for:: 07/22/17 Subjective:: Patient is currently doing much betterPatient's denied any overnight any fever Patient's denied any chest pain denied any shortness of the breath Patients walk with the physical therapy yesterday Physical Exam Vital Signs: Temp Pulse Resp BP Pulse Ox 97.7 F 96 18 118/62 100 07/22/17 12:17 07/22/17 14:00 07/22/17 12:17 07/22/17 12:17 07/22/17 12:17 Intake & Output 07/21/17 07/22/17 07/23/17 06:59 06:59 06:59 Intake Total 1817 2602 Output Total 2725 1950 Balance -908 652 Weight 115.7 kg 116.3 kg General appearance: PRESENT: no acute distress, well-developed, well-nourished Head exam: PRESENT: atraumatic, normocephalic Eye exam: PRESENT: conjunctiva pink, EOMI, PERRLA. ABSENT: scleral icterus Ear exam: PRESENT: normal external ear exam Mouth exam: PRESENT: moist, tongue midline Neck exam: PRESENT: full ROM. ABSENT: carotid bruit, JVD, lymphadenopathy, thyromegaly Respiratory exam: PRESENT: clear to auscultation kavitha Cardiovascular exam: PRESENT: RRR. ABSENT: diastolic murmur, rubs, systolic murmur Pulses: PRESENT: normal dorsalis pedis pul, +2 pedal pulses bilateral Vascular exam: PRESENT: normal capillary refill GI/Abdominal exam: PRESENT: normal bowel sounds, soft. ABSENT: distended, guarding, mass, organolmegaly, rebound, tenderness Rectal exam: PRESENT: deferred Extremities exam: PRESENT: pedal edema Additional comments: Left lower extremity the redness is still present but is all improving Musculoskeletal exam: PRESENT: ambulatory Neurological exam: PRESENT: alert, awake, oriented to person, oriented to place , oriented to time, oriented to situation, CN II-XII grossly intact. ABSENT: motor sensory deficit Psychiatric exam: PRESENT: appropriate affect, normal mood. ABSENT: homicidal ideation, suicidal ideation Skin exam: PRESENT: dry, intact, warm. ABSENT: cyanosis, rash Results Laboratory Results: 07/21/17 06:15 07/21/17 06:15 07/20/17 07/20/17 07/20/17 06:50 06:50 13:10 Creatine Kinase 53 L 54 L CK-MB (CK-2) 0.65 Troponin I 0.033 07/20/17 07/20/17 07/20/17 13:10 20:22 20:22 Creatine Kinase 58 CK-MB (CK-2) 0.85 0.80 Troponin I 0.018 0.028 Impressions: Chest X-Ray 07/19/17 16:59 IMPRESSION: NO ACUTE RADIOGRAPHIC FINDING IN THE CHEST. Venous Doppler Study 07/19/17 17:19 IMPRESSION: NO EVIDENCE OF DVT OR SVT IN THE LEFT LEG. Chest CT 07/20/17 00:00 IMPRESSION: Right basilar atelectasis. 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 and left pacemaker/defibrillator Assessment & Plan - Diagnosis (1) Left leg cellulitis Is this a current diagnosis for this admission?: Yes Plan: Continuous IV antibiotic (2) CAD (coronary artery disease) Qualifiers: Coronary Disease-Associated Artery/Lesion type: unspecified vessel or lesion type Is this a current diagnosis for this admission?: Yes Plan: Continues to current medications follow with the cardiology (3) CHF (congestive heart failure) Qualifiers: Congestive heart failure type: combined Is this a current diagnosis for this admission?: Yes Plan: Continues to IV Lasix for another 24 hours and will switch to the p.o. Lasix (4) CKD (chronic kidney disease) Qualifiers: Chronic kidney disease stage: stage 3 (moderate) Qualified Code(s): N18.3 - Chronic kidney disease, stage 3 (moderate) Is this a current diagnosis for this admission?: Yes Plan: Currently stable's no need for any renal replacement therapy per the nephrology (5) DVT (deep venous thrombosis) Qualifiers: Chronicity: unspecified Is this a current diagnosis for this admission?: Yes Plan: Bill on Coumadin INR is 2.19 (6) Hypertension Qualifiers: Hypertension type: essential hypertension Qualified Code(s): I10 - Essential (primary) hypertension Is this a current diagnosis for this admission?: Yes Plan: Continues to current medications (7) Hypoglycemia Is this a current diagnosis for this admission?: Yes Plan: Currently all resolved (8) Pacemaker Is this a current diagnosis for this admission?: Yes Plan: Consult the cardiology for further evaluations (10) Diabetes Qualifiers: Diabetes mellitus type: type 2 Diabetes mellitus complication status: with hypoglycemia Diabetes mellitus complication detail: 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 Diabetes mellitus joint terminal attack controller insulin use: with residential use Qualified Code(s): E11.649 - 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; Z79.4 - watermaster ( current) use of insulin; Z79.4 - watermaster (current) use of insulin; Z79.4 - watermaster (current) use of insulin; Z79.4 - watermaster (current) use of insulin Is this a current diagnosis for this admission?: Yes Plan: We will put the patient on a sliding scale and adjust the insulin with the onset of the hypoglycemia - Time Time Spent with patient: 15-24 minutes Medications reviewed and adjusted accordingly: Yes Anticipated discharge: Home Within: Other - Inpatient Certification Medical Necessity: Need Close Monitoring Due to Risk of Patient Decompensation, Need for IV Antibiotics Post Hospital Care: D/C Computer Artist Documentation - Plan Summary Plan Summary: Continues to IV antibiotic
--- NOTE | 2017-07-22 18:41 | PDOC PROGRESS REPORT ---
Subjective Progress Note for:: 07/22/17 Subjective:: Patient seems to be doing better with gradual improvement. Pt is denying any chest arm or neck discomfort. Patient denying any PND, orthopnea. Patient denied any sustained palpitations, dizziness, syncope, near syncope. Patient denying any fever chills. Patient denying any other significant discomfort. Cellulitis of the left lower leg seems stable. Patient is maintaining sinus rhythm with intermittent paced ventricular beats.. Review of systems: Rest review of systems negative. Medications: Medications have been reviewed. Physical Exam Vital Signs: Temp Pulse Resp BP Pulse Ox 97.7 F 96 18 118/62 100 07/22/17 12:17 07/22/17 14:00 07/22/17 12:17 07/22/17 12:17 07/22/17 12:17 Intake & Output 07/21/17 07/22/17 07/23/17 06:59 06:59 06:59 Intake Total 1817 2602 210 Output Total 2725 1950 Balance -908 652 210 Weight 115.7 kg 116.3 kg Exam: GENERAL: well-nourished and in no acute distress. Alert and oriented x3 HEAD: Atraumatic, normocephalic. EYES: Pupils equal round and reactive to light, extraocular movements intact, sclera anicteric, conjunctiva are normal. ENT: TMs normal, nares patent, oropharynx clear without exudates. Moist mucous membranes. No oral ulcerations or bleeding gums noted NECK: supple without lymphadenopathy. Trachea is central. No cervical or axillary lymphadenopathy noted. Carotids are 2+, JVD WNL LUNGS: Respiration seems nonlabored, no significant accessory muscle action noted. Breath sounds clear to auscultation bilaterally and equal noted. No wheezes rales or rhonchi noted. No significant dullness noted on percussion. CHEST: Palpation of the chest wall shows no significant chest wall tenderness. No other significant abnormalities noted. Defibrillator noted on the left side chest. HEART: [place] CPR INSTRUCTOR, No PSH, 1/6 [place] aortic area, 1/6 [place] systolic murmur mitral area, no rubs, no gallops. ABDOMEN: Soft, no significant tenderness appreciated, normoactive bowel sounds. No guarding, no rebound. No rigidity noted . No masses appreciated. EXTREMITIES: Pedal pulses are 1-2+, no calf tenderness noted. No clubbing or cyanosis.trace to 1+ pedal edema noted NEUROLOGICAL: Focused neurological exam showed no significant neurologic deficit. Normal speech, no focal weakness appreciated. PSYCH: Normal mood, normal affect. Judgment and insight within normal limits. SKIN: No significant ecchymosis, cellulitis noted left lower extremity now improved. Involves predominantly lower leg below the knee. MUSCULOSKELETAL EXAM: No significant joint swelling noted. Results Laboratory Results: 07/21/17 06:15 07/21/17 06:15 07/20/17 07/20/17 07/20/17 06:50 06:50 13:10 Creatine Kinase 53 L 54 L CK-MB (CK-2) 0.65 Troponin I 0.033 07/20/17 07/20/17 07/20/17 13:10 20:22 20:22 Creatine Kinase 58 CK-MB (CK-2) 0.85 0.80 Troponin I 0.018 0.028 Impressions: Chest X-Ray 07/19/17 16:59 IMPRESSION: NO ACUTE RADIOGRAPHIC FINDING IN THE CHEST. Venous Doppler Study 07/19/17 17:19 IMPRESSION: NO EVIDENCE OF DVT OR SVT IN THE LEFT LEG. Chest CT 07/20/17 00:00 IMPRESSION: Right basilar atelectasis. 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 and left pacemaker/defibrillator Assessment & Plan - Diagnosis (1) Left leg cellulitis Is this a current diagnosis for this admission?: Yes (3) CAD (coronary artery disease) Qualifiers: Coronary Disease-Associated Artery/Lesion type: unspecified vessel or lesion type Is this a current diagnosis for this admission?: Yes (4) CHF (congestive heart failure) Qualifiers: Congestive heart failure type: combined Is this a current diagnosis for this admission?: Yes (5) CKD (chronic kidney disease) Qualifiers: Chronic kidney disease stage: stage 3 (moderate) Qualified Code(s): N18.3 - Chronic kidney disease, stage 3 (moderate) Is this a current diagnosis for this admission?: Yes (6) Hypertension Qualifiers: Hypertension type: essential hypertension Qualified Code(s): I10 - Essential (primary) hypertension Is this a current diagnosis for this admission?: Yes - Notes Notes: 2D echo results discussed with the patient. No evidence of vegetation noted. Patient feeling improved. Cellulitis: Improving. 2D echo results showed mildly depressed LVEF. No evidence of endocarditis noted. Cardiac defibrillator in situ: No recent defibrillator discharges. No signs of infection at defibrillator site. Coronary artery disease: Clinically stable. Continue with current management plans. CHF: Currently stable. Patient seems compensated. Chronic kidney disease: Stable. Hypertension: Reasonably well-controlled. Patient medications reviewed. Patient seems to be on a stable cardiac regimen. Continue with it. Will continue to follow. - Time Time with patient: 15-25 minutes - CODE STATUS was discussed, patient remains full code. Surrogate decision-maker patient's and son. Multiple medical problems were addressed. More than 50% of the time spent coordinating care, discussing management plans with involved caregivers. Management plans discussed with involved personnels. Medical decision making was of moderate to high complexity, patient's has multiple comorbidities.
[2017-07-22] MEDS: WARFARIN SODIUM 4 MG TABLET PO SCH (22:17)
[2017-07-22] MEDS: TAMSULOSIN HCL 0.4 MG CAP.SR.24H PO SCH (22:18)
[2017-07-22] MEDS: CETIRIZINE 10 MG TABLET PO SCH (22:19)
[2017-07-22] MEDS: DOCUSATE SODIUM 100 MG CAPSULE PO SCH (22:19)
[2017-07-22] MEDS: ACETAMINOPHEN 325 MG TABLET PO PRN (23:50)
[2017-07-23] MEDS: CLINDAMYCIN 600 MG/D5W RTU 600 MG/50 ML RTUPB IV SCH ×3 (05:39→21:34)
[2017-07-23] MEDS: FUROSEMIDE INJ/PF 100 MG/10 ML SDV IV SCH (05:40)
[2017-07-23] MEDS: LANSOPRAZOLE 30 MG TAB.RAP.DR PO SCH (05:40)
[2017-07-23] MEDS: HYDRALAZINE HCL 10 MG TABLET PO SCH ×3 (05:40→21:35)
[2017-07-23] MEDS ORDERED: (PENDING PHARMACY ID) (Warfarin Sodium 3 MG) PO SCH (06:14)
[2017-07-23 07:09] LABS: PROTHROMBIN TIME 24.4 SEC (11.4-15.4)
[2017-07-23] MEDS: LEVOTHYROXINE SODIUM 0.075 MG TABLET PO SCH (07:51)
--- NOTE | 2017-07-23 08:06 | PDOC PROGRESS REPORT ---
Subjective Progress Note for:: 07/23/17 Subjective:: Patient is currently doing well No fever overnight Patient's denied any chest pain denied any shortness of the breath he does walk with the physical therapy Physical Exam Vital Signs: Temp Pulse Resp BP Pulse Ox 98.5 F 98 18 101/54 L 100 07/23/17 03:54 07/23/17 07:00 07/23/17 03:54 07/23/17 03:54 07/23/17 03:54 Intake & Output 07/22/17 07/23/17 07/24/17 06:59 06:59 06:59 Intake Total 2602 2319 Output Total 1950 1775 Balance 652 544 Weight 116.3 kg 115.1 kg General appearance: PRESENT: no acute distress, well-developed, well-nourished Head exam: PRESENT: atraumatic, normocephalic Eye exam: PRESENT: conjunctiva pink, EOMI, PERRLA. ABSENT: scleral icterus Ear exam: PRESENT: normal external ear exam Mouth exam: PRESENT: moist, tongue midline Neck exam: PRESENT: full ROM. ABSENT: carotid bruit, JVD, lymphadenopathy, thyromegaly Respiratory exam: PRESENT: clear to auscultation kavitha Cardiovascular exam: PRESENT: RRR. ABSENT: diastolic murmur, rubs, systolic murmur Pulses: PRESENT: normal dorsalis pedis pul, +2 pedal pulses bilateral Vascular exam: PRESENT: normal capillary refill GI/Abdominal exam: PRESENT: normal bowel sounds, soft. ABSENT: distended, guarding, mass, organolmegaly, rebound, tenderness Rectal exam: PRESENT: deferred Extremities exam: PRESENT: pedal edema Additional comments: Left lower extremity still redness is present Neurological exam: PRESENT: alert, awake, oriented to person, oriented to place , oriented to time, oriented to situation, CN II-XII grossly intact. ABSENT: motor sensory deficit Psychiatric exam: PRESENT: appropriate affect, normal mood. ABSENT: homicidal ideation, suicidal ideation Skin exam: PRESENT: dry, intact, warm. ABSENT: cyanosis, rash Results Laboratory Results: 07/21/17 06:15 07/21/17 06:15 07/20/17 07/20/17 07/20/17 06:50 06:50 13:10 Creatine Kinase 53 L 54 L CK-MB (CK-2) 0.65 Troponin I 0.033 07/20/17 07/20/17 07/20/17 13:10 20:22 20:22 Creatine Kinase 58 CK-MB (CK-2) 0.85 0.80 Troponin I 0.018 0.028 Impressions: Chest X-Ray 07/19/17 16:59 IMPRESSION: NO ACUTE RADIOGRAPHIC FINDING IN THE CHEST. Venous Doppler Study 07/19/17 17:19 IMPRESSION: NO EVIDENCE OF DVT OR SVT IN THE LEFT LEG. Chest CT 07/20/17 00:00 IMPRESSION: Right basilar atelectasis. 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 and left pacemaker/defibrillator Assessment & Plan - Diagnosis (1) Left leg cellulitis Is this a current diagnosis for this admission?: Yes Plan: [place] IV antibiotic (2) CAD (coronary artery disease) Qualifiers: Coronary Disease-Associated Artery/Lesion type: unspecified vessel or lesion type Is this a current diagnosis for this admission?: Yes Plan: Continues to current medications follow with the cardiology (3) CHF (congestive heart failure) Qualifiers: Congestive heart failure type: combined Is this a current diagnosis for this admission?: Yes Plan: Switch to the p.o. Lasix (4) CKD (chronic kidney disease) Qualifiers: Chronic kidney disease stage: stage 3 (moderate) Qualified Code(s): N18.3 - Chronic kidney disease, stage 3 (moderate) Is this a current diagnosis for this admission?: Yes Plan: Currently stable's no need for any renal replacement therapy per the nephrology (5) DVT (deep venous thrombosis) Qualifiers: Chronicity: unspecified Is this a current diagnosis for this admission?: Yes Plan: Bill on Coumadin INR is 2.19 (6) Hypertension Qualifiers: Hypertension type: essential hypertension Qualified Code(s): I10 - Essential (primary) hypertension Is this a current diagnosis for this admission?: Yes Plan: Continues to current medications (7) Hypoglycemia Is this a current diagnosis for this admission?: Yes Plan: Currently all resolved (8) Pacemaker Is this a current diagnosis for this admission?: Yes Plan: Consult the cardiology for further evaluations (10) Diabetes Qualifiers: Diabetes mellitus type: type 2 Diabetes mellitus complication status: with hypoglycemia Diabetes mellitus complication detail: 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 Diabetes mellitus truck terminal manager insulin use: with truck terminal manager use Qualified Code(s): E11.649 - 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; Z79.4 - tank terminal gauger ( current) use of insulin; Z79.4 - tank terminal gauger (current) use of insulin; Z79.4 - intermediate (current) use of insulin; Z79.4 - tank terminal gauger (current) use of insulin Is this a current diagnosis for this admission?: Yes Plan: We will put the patient on a sliding scale and adjust the insulin with the onset of the hypoglycemia - Time Time Spent with patient: 15-24 minutes Medications reviewed and adjusted accordingly: Yes Anticipated discharge: Home Within: Other - Inpatient Certification Medical Necessity: Need Close Monitoring Due to Risk of Patient Decompensation, Need for IV Antibiotics Post Hospital Care: D/C Personal Trainer Documentation - Plan Summary Plan Summary: Continues to current medications
[2017-07-23] MEDS ORDERED: INFLUENZA ADLT QUAD (36MOS+) 2017-18 VAC 0.5 ML SYR IM PRN (08:30)
[2017-07-23] MEDS ORDERED: OXYCODONE-ACETAMINOPHEN 5-325 MG TABLET PO PRN (08:30)
--- NOTE | 2017-07-23 10:05 | PDOC PROGRESS REPORT ---
Subjective Progress Note for:: 07/23/17 Subjective:: Patient seems to be doing better with gradual improvement. Pt is denying any chest arm or neck discomfort. Patient denying any PND, orthopnea. Patient denied any sustained palpitations, dizziness, syncope, near syncope. Patient denying any fever chills. Patient denying any other significant discomfort. Cellulitis seems improved. Results of 2D echo shared with the patient and his family, and son in the room. Patient is atrial fibrillation with intermittent ventricular paced beats.. Review of systems: Rest review of systems negative. Medications: Medications have been reviewed. Physical Exam Vital Signs: Temp Pulse Resp BP Pulse Ox 97.6 F 91 16 91/51 L 100 07/23/17 07:40 07/23/17 07:40 07/23/17 07:40 07/23/17 07:40 07/23/17 07:40 Intake & Output 07/22/17 07/23/17 07/24/17 06:59 06:59 06:59 Intake Total 2602 2319 Output Total 1950 1775 Balance 652 544 Weight 116.3 kg 115.1 kg Exam: GENERAL: well-nourished and in no acute distress. Alert and oriented x3 HEAD: Atraumatic, normocephalic. EYES: Pupils equal round and reactive to light, extraocular movements intact, sclera anicteric, conjunctiva are normal. ENT: TMs normal, nares patent, oropharynx clear without exudates. Moist mucous membranes. No oral ulcerations or bleeding gums noted NECK: supple without lymphadenopathy. Trachea is central. No cervical or axillary lymphadenopathy noted. Carotids are 2+, JVD WNL LUNGS: Respiration seems nonlabored, no significant accessory muscle action noted. Breath sounds clear to auscultation bilaterally and equal noted. No wheezes rales or rhonchi noted. No significant dullness noted on percussion. CHEST: Palpation of the chest wall shows no significant chest wall tenderness. No other significant abnormalities noted. 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 ABDOMEN: Soft, no significant tenderness appreciated, normoactive bowel sounds. No guarding, no rebound. No rigidity noted . No masses appreciated. EXTREMITIES: Pedal pulses are 1-2+, no calf tenderness noted. No clubbing or cyanosis. Cellulitis findings noted left lower extremity. However this is improved. 1-2+ edema noted bilaterally. NEUROLOGICAL: Focused neurological exam showed no significant neurologic deficit. Normal speech, no focal weakness appreciated. PSYCH: Normal mood, normal affect. Judgment and insight within normal limits. SKIN: No significant ecchymosis, cellulitic rash noted left lower extremity.. MUSCULOSKELETAL EXAM: No significant joint swelling noted. Results Laboratory Results: 07/21/17 06:15 07/21/17 06:15 07/20/17 07/20/17 07/20/17 06:50 06:50 13:10 Creatine Kinase 53 L 54 L CK-MB (CK-2) 0.65 Troponin I 0.033 07/20/17 07/20/17 07/20/17 13:10 20:22 20:22 Creatine Kinase 58 CK-MB (CK-2) 0.85 0.80 Troponin I 0.018 0.028 Impressions: Venous Doppler Study 07/19/17 17:19 IMPRESSION: NO EVIDENCE OF DVT OR SVT IN THE LEFT LEG. Chest CT 07/20/17 00:00 IMPRESSION: Right basilar atelectasis. 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 and left pacemaker/defibrillator Assessment & Plan - Diagnosis (1) Left leg cellulitis Is this a current diagnosis for this admission?: Yes (3) CAD (coronary artery disease) Qualifiers: Coronary Disease-Associated Artery/Lesion type: unspecified vessel or lesion type Is this a current diagnosis for this admission?: Yes (4) CHF (congestive heart failure) Qualifiers: Congestive heart failure type: combined Is this a current diagnosis for this admission?: Yes (5) CKD (chronic kidney disease) Qualifiers: Chronic kidney disease stage: stage 3 (moderate) Qualified Code(s): N18.3 - Chronic kidney disease, stage 3 (moderate) Is this a current diagnosis for this admission?: Yes (6) Hypertension Qualifiers: Hypertension type: essential hypertension Qualified Code(s): I10 - Essential (primary) hypertension Is this a current diagnosis for this admission?: Yes (7) Atrial fibrillation Qualifiers: Atrial fibrillation type: unspecified Qualified Code(s): I48.91 - Unspecified atrial fibrillation Is this a current diagnosis for this admission?: Yes - Notes Notes: Cellulitis: Improving gradually. Patient would need continued antibiotics. Defibrillator: Functioning normally. Pacing function assessed. Atrial fibrillation: Patient noted to be in atrial fibrillation. Review of rhythm strip shows intermittent sinus rhythm but it is predominantly atrial fibrillation. Continue chronic anticoagulation. Rate seems well controlled. Coronary artery disease: Symptomatically stable. CHF: Patient seems euvolemic. Continue current regimen. Hypertension: Blood pressure under satisfactory control. Patient has shown significant improvement. He has noted improved diabetes control and general improvement. - Time Time with patient: 15-25 minutes - CODE STATUS was discussed, patient remains DNR. Surrogate decision-maker unchanged. Multiple medical problems were addressed. More than 50% of the time spent coordinating care, discussing management plans with involved caregivers. Management plans discussed with involved personnels. Medical decision making was of moderate to high complexity , patient's has multiple comorbidities. Medications reviewed and adjusted accordingly: Yes
[2017-07-23] MEDS: INSULIN GLARGINE,HUM.REC.ANLOG 300 UNIT/3 ML INSULN.PEN SUBCUT SCH ×2 (10:54→17:01)
--- NOTE | 2017-07-23 10:54 | RADIOLOGY REPORT (SQ) ---
EXAM DESCRIPTION: CHEST PA/LAT COMPLETED DATE/TIME: 07/23/2017 9:23 am REASON FOR STUDY: chf COMPARISON: Two-view chest 10/23/2016, AP chest 11/05/2011 EXAM PARAMETERS: NUMBER OF VIEWS: two views TECHNIQUE: Digital Frontal and Lateral radiographic views of the chest acquired. RADIATION DOSE: NA LIMITATIONS: none FINDINGS: LUNGS AND PLEURA: Minimal bandlike atelectasis in the right posterior costophrenic sulcus. No fluffy alveolar infiltrates worrisome for edema or pneumonia. No pleural effusion. No pneumothor ax. MEDIASTINUM AND HILAR STRUCTURES: No masses or contour abnormalities. HEART AND VASCULAR STRUCTURES: No cardiomegaly. 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 BONES: No acute findings. HARDWARE: Left-sided dual lead pacemaker OTHER: No other significant finding. IMPRESSION: Minimal bandlike right basilar atelectasis TECHNICAL DOCUMENTATION: JOB ID: [id number] [employer]- All Rights Reserved
[2017-07-23] MEDS: ALLOPURINOL 100 MG TABLET PO SCH (10:57)
[2017-07-23] MEDS: ISOSORBIDE MONONITRATE 60 MG TAB.ER.24H PO SCH (10:58)
[2017-07-23] MEDS: SERTRALINE HCL 50 MG TABLET PO SCH (10:58)
[2017-07-23] MEDS: METOPROLOL SUCCINATE 50 MG TAB.SR.24H PO SCH (10:58)
[2017-07-23] MEDS: ATORVASTATIN CALCIUM 80 MG TABLET PO SCH (10:59)
[2017-07-23] MEDS: CLOPIDOGREL BISULFATE 75 MG TABLET PO SCH (10:59)
[2017-07-23] MEDS: CEFEPIME 1 GM/D5W RTU 1 GM/50 ML RTUPB IV SCH ×2 (11:02→21:34)
[2017-07-23] MEDS: FUROSEMIDE 80 MG TABLET PO SCH ×2 (11:04→17:01)
[2017-07-23] MEDS: AMIODARONE HCL 200 MG TABLET PO SCH (11:04)
[2017-07-23] MEDS: LOSARTAN POTASSIUM 50 MG TABLET PO SCH (11:05)
[2017-07-23] MEDS: POLYETHYLENE GLYCOL 3350 POWDER 17 GM/1 PACKET PO SCH (11:06)
[2017-07-23] MEDS: INSULIN LISPRO 100 UNIT/ML 3 ML VIAL SUBCUT PRN ×3 (11:13→21:56)
[2017-07-23] MEDS: CETIRIZINE 10 MG TABLET PO SCH (21:35)
[2017-07-23] MEDS: ACETAMINOPHEN 325 MG TABLET PO PRN (21:39)
[2017-07-23] MEDS: TAMSULOSIN HCL 0.4 MG CAP.SR.24H PO SCH (21:39)
[2017-07-23] MEDS: WARFARIN SODIUM 3 MG TABLET PO SCH (21:39)
[2017-07-23] MEDS: DOCUSATE SODIUM 100 MG CAPSULE PO SCH (21:40)
[2017-07-24] MEDS: CLINDAMYCIN 600 MG/D5W RTU 600 MG/50 ML RTUPB IV SCH ×3 (05:18→21:56)
[2017-07-24] MEDS: LANSOPRAZOLE 30 MG TAB.RAP.DR PO SCH (05:19)
[2017-07-24] MEDS: HYDRALAZINE HCL 10 MG TABLET PO SCH ×3 (05:19→21:55)
[2017-07-24 06:13] LABS: ABSOLUTE EOSINOPHILS # (AUTO) 0.2 10^3/uL (0.0-0.6); ABSOLUTE LYMPHOCYTES (AUTO) 1.3 10^3/uL (0.5-4.7); ABSOLUTE MONOCYTES (AUTO) 0.5 10^3/uL (0.1-1.4); BASOPHILS % (AUTO) 0.3 % (0-2); EOSINOPHILS % (AUTO) 3.1 % (0-6); HEMATOCRIT 32.1 % (37.9-51.0); HEMOGLOBIN 10.8 g/dL (13.5-17.0); HGB HCT DIFFERENCE 0.3; LYMPHOCYTES % (AUTO) 21.5 % (13-45); MEAN CORPUSCULAR HEMOGLOBIN 30.1 pg (27.0-33.4); MEAN CORPUSCULAR HGB CONC 33.8 g/dL (32.0-36.0); MEAN CORPUSCULAR VOLUME 89 fl (80-97); RED CELL DISTRIBUTION WIDTH 16.9 % (11.5-14.0); SEGMENTED NEUTROPHILS % (AUTO) 66.1 % (42-78); WHITE BLOOD COUNT 6.1 10^3/uL (4.0-10.5)
[2017-07-24 06:31] LABS: ANION GAP 11 (5-19); BLOOD UREA NITROGEN 42 mg/dL (7-20); CALCIUM 9.5 mg/dL (8.4-10.2); CARBON DIOXIDE 31 mmol/L (22-30); CHLORIDE 99 mmol/L (98-107); CREATININE RESULT 1.52 mg/dL (0.52-1.25); GLUCOSE 107 mg/dL (75-110); SODIUM 140.5 mmol/L (137-145)
[2017-07-24] MEDS: LEVOTHYROXINE SODIUM 0.075 MG TABLET PO SCH (09:11)
[2017-07-24] MEDS: CLOPIDOGREL BISULFATE 75 MG TABLET PO SCH (09:12)
[2017-07-24] MEDS: LOSARTAN POTASSIUM 50 MG TABLET PO SCH (09:12)
[2017-07-24] MEDS: FUROSEMIDE 80 MG TABLET PO SCH ×2 (09:12→17:10)
[2017-07-24] MEDS: ALLOPURINOL 100 MG TABLET PO SCH (09:12)
[2017-07-24] MEDS: METOPROLOL SUCCINATE 50 MG TAB.SR.24H PO SCH (09:13)
[2017-07-24] MEDS: ISOSORBIDE MONONITRATE 60 MG TAB.ER.24H PO SCH (09:13)
[2017-07-24] MEDS: AMIODARONE HCL 200 MG TABLET PO SCH (09:13)
[2017-07-24] MEDS: ATORVASTATIN CALCIUM 80 MG TABLET PO SCH (09:14)
[2017-07-24] MEDS: SERTRALINE HCL 50 MG TABLET PO SCH (09:14)
[2017-07-24] MEDS: INSULIN GLARGINE,HUM.REC.ANLOG 300 UNIT/3 ML INSULN.PEN SUBCUT SCH ×2 (09:17→17:10)
[2017-07-24] MEDS: POLYETHYLENE GLYCOL 3350 POWDER 17 GM/1 PACKET PO SCH (09:19)
[2017-07-24] MEDS: INSULIN LISPRO 100 UNIT/ML 3 ML VIAL SUBCUT PRN ×3 (12:06→22:40)
--- NOTE | 2017-07-24 13:22 | PDOC PROGRESS REPORT ---
Subjective Progress Note for:: 07/24/17 Subjective:: Patient is currently doing much better Since denied any chest pain denied any shortness of the breath Patient, no fever overnight Physical Exam Vital Signs: Temp Pulse Resp BP Pulse Ox 98.1 F 88 18 125/73 100 07/24/17 11:56 07/24/17 11:56 07/24/17 11:56 07/24/17 11:56 07/24/17 11:56 Intake & Output 07/23/17 07/24/17 07/25/17 06:59 06:59 06:59 Intake Total 2319 1808 600 Output Total 1775 2155 600 Balance 544 -347 0 Weight 115.1 kg 115.2 kg General appearance: PRESENT: no acute distress, well-developed, well-nourished Head exam: PRESENT: atraumatic, normocephalic Eye exam: PRESENT: conjunctiva pink, EOMI, PERRLA. ABSENT: scleral icterus Ear exam: PRESENT: normal external ear exam Mouth exam: PRESENT: moist, tongue midline Neck exam: PRESENT: full ROM. ABSENT: carotid bruit, JVD, lymphadenopathy, thyromegaly Respiratory exam: PRESENT: clear to auscultation kavitha Cardiovascular exam: PRESENT: RRR. ABSENT: diastolic murmur, rubs, systolic murmur Pulses: PRESENT: normal dorsalis pedis pul, +2 pedal pulses bilateral Vascular exam: PRESENT: normal capillary refill GI/Abdominal exam: PRESENT: normal bowel sounds, soft. ABSENT: distended, guarding, mass, organolmegaly, rebound, tenderness Rectal exam: PRESENT: deferred Extremities exam: PRESENT: pedal edema Additional comments: Left lower extremity redness is much improved Neurological exam: PRESENT: alert, awake, oriented to person, oriented to place , oriented to time, oriented to situation, CN II-XII grossly intact. ABSENT: motor sensory deficit Psychiatric exam: PRESENT: appropriate affect, normal mood. ABSENT: homicidal ideation, suicidal ideation Skin exam: PRESENT: dry, intact, warm. ABSENT: cyanosis, rash Results Laboratory Results: 07/24/17 05:04 07/24/17 05:04 07/24/17 07/24/17 05:04 05:04 WBC 6.1 RBC 3.60 L Hgb 10.8 L Hct 32.1 L MCV 89 MCH 30.1 MCHC 33.8 RDW 16.9 H Plt Count 180 Seg Neutrophils % 66.1 Lymphocytes % 21.5 Monocytes % 9.0 Eosinophils % 3.1 Basophils % 0.3 Absolute Neutrophils 4.0 Absolute Lymphocytes 1.3 Absolute Monocytes 0.5 Absolute Eosinophils 0.2 Absolute Basophils 0.0 Sodium 140.5 Potassium 4.0 Chloride 99 Carbon Dioxide 31 H Anion Gap 11 BUN 42 H Creatinine 1.52 H Est GFR ( Amer) 54 L Est GFR (Non-Af Amer) 44 L Glucose 107 Calcium 9.5 07/20/17 07/20/17 07/20/17 06:50 06:50 13:10 Creatine Kinase 53 L 54 L CK-MB (CK-2) 0.65 Troponin I 0.033 07/20/17 07/20/17 07/20/17 13:10 20:22 20:22 Creatine Kinase 58 CK-MB (CK-2) 0.85 0.80 Troponin I 0.018 0.028 Impressions: Venous Doppler Study 07/19/17 17:19 IMPRESSION: NO EVIDENCE OF DVT OR SVT IN THE LEFT LEG. Chest CT 07/20/17 00:00 IMPRESSION: Right basilar atelectasis. 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 and left pacemaker/defibrillator Chest X-Ray 07/23/17 00:00 IMPRESSION: Minimal bandlike right basilar atelectasis Assessment & Plan - Diagnosis (1) Left leg cellulitis Is this a current diagnosis for this admission?: Yes Plan: Continues to IV clindamycin's and possible discharge in a Thursday for remained stable with p.o. antibiotic (2) CAD (coronary artery disease) Qualifiers: Coronary Disease-Associated Artery/Lesion type: unspecified vessel or lesion type Is this a current diagnosis for this admission?: Yes Plan: Continues to current medications follow with the cardiology (3) CHF (congestive heart failure) Qualifiers: Congestive heart failure type: combined Is this a current diagnosis for this admission?: Yes Plan: Continues to p.o. Lasix (4) CKD (chronic kidney disease) Qualifiers: Chronic kidney disease stage: stage 3 (moderate) Qualified Code(s): N18.3 - Chronic kidney disease, stage 3 (moderate) Is this a current diagnosis for this admission?: Yes Plan: Currently stable's no need for any renal replacement therapy per the nephrology (5) DVT (deep venous thrombosis) Qualifiers: Chronicity: unspecified Is this a current diagnosis for this admission?: Yes Plan: Bill on Coumadin INR is 2.19 (6) Hypertension Qualifiers: Hypertension type: essential hypertension Qualified Code(s): I10 - Essential (primary) hypertension Is this a current diagnosis for this admission?: Yes Plan: Continues to current medications (7) Hypoglycemia Is this a current diagnosis for this admission?: Yes Plan: Currently all resolved (8) Pacemaker Is this a current diagnosis for this admission?: Yes Plan: Consult the cardiology for further evaluations (10) Diabetes Qualifiers: Diabetes mellitus type: type 2 Diabetes mellitus complication status: with hypoglycemia Diabetes mellitus complication detail: 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 Diabetes mellitus [facility] insulin use: with manager long term care use Qualified Code(s): E11.649 - 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; Z79.4 - jail ( current) use of insulin; Z79.4 - jail (current) use of insulin; Z79.4 - watermaster (current) use of insulin; Z79.4 - jail (current) use of insulin Is this a current diagnosis for this admission?: Yes Plan: We will put the patient on a sliding scale and adjust the insulin with the onset of the hypoglycemia - Time Time Spent with patient: 15-24 minutes Medications reviewed and adjusted accordingly: Yes Anticipated discharge: Home Within: Other - Inpatient Certification Medical Necessity: Need Close Monitoring Due to Risk of Patient Decompensation Post Hospital Care: D/C Crime Investigator Special Agent Documentation - Plan Summary Plan Summary: Plan to continues to current medications hopefully patients remain stable discharge on a Thursday with p.o. antibiotic
--- NOTE | 2017-07-24 19:09 | PDOC PROGRESS REPORT ---
Subjective Progress Note for:: 07/24/17 Subjective:: Patient seems to be doing better with gradual improvement. Pt is denying any chest arm or neck discomfort. Patient denying any PND, orthopnea. Patient denied any sustained palpitations, dizziness, syncope, near syncope. Patient denying any fever chills. Patient denying any other significant discomfort. Cellulitis seems improved. Results of 2D echo shared with the patient and his family, and son in the room. Patient is atrial fibrillation with intermittent ventricular paced beats.. Review of systems: Rest review of systems negative. Medications: Medications have been reviewed. Physical Exam Vital Signs: Temp Pulse Resp BP Pulse Ox 98.2 F 87 20 115/59 L 100 07/24/17 15:52 07/24/17 15:52 07/24/17 15:52 07/24/17 15:52 07/24/17 15:52 Intake & Output 07/23/17 07/24/17 07/25/17 06:59 06:59 06:59 Intake Total 2319 1808 1290 Output Total 1775 2155 1000 Balance 544 -347 290 Weight 115.1 kg 115.2 kg Exam: GENERAL: well-nourished and in no acute distress. Alert and oriented x3 HEAD: Atraumatic, normocephalic. EYES: Pupils equal round and reactive to light, extraocular movements intact, sclera anicteric, conjunctiva are normal. ENT: TMs normal, nares patent, oropharynx clear without exudates. Moist mucous membranes. No oral ulcerations or bleeding gums noted NECK: supple without lymphadenopathy. Trachea is central. No cervical or axillary lymphadenopathy noted. Carotids are 2+, JVD WNL LUNGS: Respiration seems nonlabored, no significant accessory muscle action noted. Breath sounds clear to auscultation bilaterally and equal noted. No wheezes rales or rhonchi noted. No significant dullness noted on percussion. CHEST: Palpation of the chest wall shows no significant chest wall tenderness. No other significant abnormalities noted. 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 ABDOMEN: Soft, no significant tenderness appreciated, normoactive bowel sounds. No guarding, no rebound. No rigidity noted . No masses appreciated. EXTREMITIES: Pedal pulses are 1-2+, no calf tenderness noted. No clubbing or cyanosis. 1+ pedal edema noted. Cellulitis changes noted below the knee on the left lower leg. NEUROLOGICAL: Focused neurological exam showed no significant neurologic deficit. Normal speech, no focal weakness appreciated. PSYCH: Normal mood, normal affect. Judgment and insight within normal limits. SKIN: No significant ecchymosis, ulcerations or signs of pruritus noted. MUSCULOSKELETAL EXAM: No significant joint swelling noted. Results Laboratory Results: 07/24/17 05:04 07/24/17 05:04 07/24/17 07/24/17 05:04 05:04 WBC 6.1 RBC 3.60 L Hgb 10.8 L Hct 32.1 L MCV 89 MCH 30.1 MCHC 33.8 RDW 16.9 H Plt Count 180 Seg Neutrophils % 66.1 Lymphocytes % 21.5 Monocytes % 9.0 Eosinophils % 3.1 Basophils % 0.3 Absolute Neutrophils 4.0 Absolute Lymphocytes 1.3 Absolute Monocytes 0.5 Absolute Eosinophils 0.2 Absolute Basophils 0.0 Sodium 140.5 Potassium 4.0 Chloride 99 Carbon Dioxide 31 H Anion Gap 11 BUN 42 H Creatinine 1.52 H Est GFR ( Amer) 54 L Est GFR (Non-Af Amer) 44 L Glucose 107 Calcium 9.5 07/20/17 07/20/17 07/20/17 06:50 06:50 13:10 Creatine Kinase 53 L 54 L CK-MB (CK-2) 0.65 Troponin I 0.033 07/20/17 07/20/17 07/20/17 13:10 20:22 20:22 Creatine Kinase 58 CK-MB (CK-2) 0.85 0.80 Troponin I 0.018 0.028 EKG Comments: Underlying atrial fibrillation with ventricular paced beats. Impressions: Venous Doppler Study 07/19/17 17:19 IMPRESSION: NO EVIDENCE OF DVT OR SVT IN THE LEFT LEG. Chest CT 07/20/17 00:00 IMPRESSION: Right basilar atelectasis. 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 and left pacemaker/defibrillator Chest X-Ray 07/23/17 00:00 IMPRESSION: Minimal bandlike right basilar atelectasis Assessment & Plan - Diagnosis (1) Left leg cellulitis Is this a current diagnosis for this admission?: Yes (3) CAD (coronary artery disease) Qualifiers: Coronary Disease-Associated Artery/Lesion type: unspecified vessel or lesion type Is this a current diagnosis for this admission?: Yes (4) CHF (congestive heart failure) Qualifiers: Congestive heart failure type: combined Is this a current diagnosis for this admission?: Yes (5) CKD (chronic kidney disease) Qualifiers: Chronic kidney disease stage: stage 3 (moderate) Qualified Code(s): N18.3 - Chronic kidney disease, stage 3 (moderate) Is this a current diagnosis for this admission?: Yes (6) Hypertension Qualifiers: Hypertension type: essential hypertension Qualified Code(s): I10 - Essential (primary) hypertension Is this a current diagnosis for this admission?: Yes (7) Atrial fibrillation Qualifiers: Atrial fibrillation type: unspecified Qualified Code(s): I48.91 - Unspecified atrial fibrillation Is this a current diagnosis for this admission?: Yes - Notes Notes: Cellulitis: Improving gradually. Patient would need continued antibiotics. Defibrillator: Functioning normally. Pacing function assessed. Atrial fibrillation: Patient noted to be in atrial fibrillation. Review of rhythm strip shows intermittent sinus rhythm but it is predominantly atrial fibrillation. Continue chronic anticoagulation. Rate seems well controlled. Coronary artery disease: Symptomatically stable. CHF: Patient seems euvolemic. Continue current regimen. Hypertension: Blood pressure under satisfactory control. Patient has shown significant improvement. He has noted improved diabetes control and general improvement. - Time Time with patient: 15-25 minutes - CODE STATUS : was discussed, patient remains DO NOT RESUSCITATE. Surrogate decision-maker unchanged. Multiple medical problems were addressed. More than 50% of the time spent coordinating care, discussing management plans with involved caregivers. Management plans discussed with involved personnels. Medical decision making was of moderate to high complexity, patient's has multiple comorbidities.
[2017-07-24] MEDS: CETIRIZINE 10 MG TABLET PO SCH (21:55)
[2017-07-24] MEDS: TAMSULOSIN HCL 0.4 MG CAP.SR.24H PO SCH (21:56)
[2017-07-24] MEDS: DOCUSATE SODIUM 100 MG CAPSULE PO SCH (21:56)
[2017-07-24] MEDS: WARFARIN SODIUM 3 MG TABLET PO SCH (21:56)
[2017-07-25] MEDS: CLINDAMYCIN 600 MG/D5W RTU 600 MG/50 ML RTUPB IV SCH ×3 (05:16→21:30)
[2017-07-25] MEDS: LANSOPRAZOLE 30 MG TAB.RAP.DR PO SCH (05:16)
[2017-07-25] MEDS: HYDRALAZINE HCL 10 MG TABLET PO SCH ×3 (05:16→21:29)
[2017-07-25] MEDS: LEVOTHYROXINE SODIUM 0.075 MG TABLET PO SCH (08:03)
[2017-07-25 08:12] LABS: ABSOLUTE EOSINOPHILS # (AUTO) 0.2 10^3/uL (0.0-0.6); ABSOLUTE LYMPHOCYTES (AUTO) 1.1 10^3/uL (0.5-4.7); ABSOLUTE MONOCYTES (AUTO) 0.6 10^3/uL (0.1-1.4); ABSOLUTE NEUT (AUTO) 4.4 10^3/uL (1.7-8.2); BASOPHILS % (AUTO) 0.4 % (0-2); EOSINOPHILS % (AUTO) 2.6 % (0-6); HEMATOCRIT 32.5 % (37.9-51.0); HEMOGLOBIN 10.8 g/dL (13.5-17.0); HGB HCT DIFFERENCE -0.1; LYMPHOCYTES % (AUTO) 17.3 % (13-45); MEAN CORPUSCULAR HEMOGLOBIN 29.7 pg (27.0-33.4); MEAN CORPUSCULAR HGB CONC 33.2 g/dL (32.0-36.0); MEAN CORPUSCULAR VOLUME 90 fl (80-97); MONOCYTES % (AUTO) 8.9 % (3-13); RED BLOOD COUNT 3.63 10^6/uL (4.35-5.55); RED CELL DISTRIBUTION WIDTH 16.7 % (11.5-14.0); SEGMENTED NEUTROPHILS % (AUTO) 70.8 % (42-78); WHITE BLOOD COUNT 6.2 10^3/uL (4.0-10.5)
[2017-07-25 08:20] LABS: PROTHROMBIN TIME 24.8 SEC (11.4-15.4)
[2017-07-25 08:42] LABS: ANION GAP 10 (5-19); BLOOD UREA NITROGEN 37 mg/dL (7-20); CALCIUM 9.5 mg/dL (8.4-10.2); CARBON DIOXIDE 31 mmol/L (22-30); CHLORIDE 100 mmol/L (98-107); CREATININE RESULT 1.47 mg/dL (0.52-1.25); GLUCOSE 141 mg/dL (75-110); POTASSIUM 3.8 mmol/L (3.6-5.0); SODIUM 141.1 mmol/L (137-145)
[2017-07-25] MEDS: INSULIN GLARGINE,HUM.REC.ANLOG 300 UNIT/3 ML INSULN.PEN SUBCUT SCH ×2 (09:01→17:10)
[2017-07-25] MEDS: POLYETHYLENE GLYCOL 3350 POWDER 17 GM/1 PACKET PO SCH (09:02)
[2017-07-25] MEDS: ISOSORBIDE MONONITRATE 60 MG TAB.ER.24H PO SCH (09:02)
[2017-07-25] MEDS: ALLOPURINOL 100 MG TABLET PO SCH (09:02)
[2017-07-25] MEDS: ATORVASTATIN CALCIUM 80 MG TABLET PO SCH (09:02)
[2017-07-25] MEDS: SERTRALINE HCL 50 MG TABLET PO SCH (09:03)
[2017-07-25] MEDS: CLOPIDOGREL BISULFATE 75 MG TABLET PO SCH (09:03)
[2017-07-25] MEDS: FUROSEMIDE 80 MG TABLET PO SCH ×2 (09:04→17:10)
[2017-07-25] MEDS: AMIODARONE HCL 200 MG TABLET PO SCH (09:04)
[2017-07-25] MEDS: LOSARTAN POTASSIUM 50 MG TABLET PO SCH (09:04)
[2017-07-25] MEDS: METOPROLOL SUCCINATE 50 MG TAB.SR.24H PO SCH (09:04)
[2017-07-25] MEDS: INSULIN LISPRO 100 UNIT/ML 3 ML VIAL SUBCUT PRN ×3 (11:30→22:30)
--- NOTE | 2017-07-25 14:40 | PDOC PROGRESS REPORT ---
Subjective Progress Note for:: 07/25/17 Subjective:: Patient was seen by the bedside, he was admitted for the management of cellulitis of the left leg, he has no new complaints today. Physical Exam Vital Signs: Temp Pulse Resp BP Pulse Ox 98.0 F 102 H 17 124/68 98 07/25/17 11:59 07/25/17 14:00 07/25/17 11:59 07/25/17 11:59 07/25/17 11:59 Intake & Output 07/24/17 07/25/17 07/26/17 06:59 06:59 06:59 Intake Total 1808 1860 475 Output Total 2155 1650 100 Balance -347 210 375 Weight 115.2 kg 113.6 kg General appearance: PRESENT: no acute distress, well-developed, well-nourished Head exam: PRESENT: atraumatic, normocephalic Eye exam: PRESENT: conjunctiva pink, EOMI, PERRLA Ear exam: PRESENT: normal external ear exam Mouth exam: PRESENT: moist, tongue midline Neck exam: PRESENT: full ROM Respiratory exam: PRESENT: clear to auscultation kavitha Cardiovascular exam: PRESENT: RRR, +S1, +S2 Pulses: PRESENT: normal dorsalis pedis pul, +2 pedal pulses bilateral Vascular exam: PRESENT: normal capillary refill GI/Abdominal exam: PRESENT: normal bowel sounds, soft Rectal exam: PRESENT: deferred Extremities exam: PRESENT: other - Redness and swelling of the left leg Neurological exam: PRESENT: alert Psychiatric exam: PRESENT: appropriate affect, normal mood Skin exam: PRESENT: dry, intact, warm Results Laboratory Results: 07/25/17 07:29 07/25/17 07:29 07/25/17 07/25/17 07:29 07:29 WBC 6.2 RBC 3.63 L Hgb 10.8 L Hct 32.5 L MCV 90 MCH 29.7 MCHC 33.2 RDW 16.7 H Plt Count 218 Seg Neutrophils % 70.8 Lymphocytes % 17.3 Monocytes % 8.9 Eosinophils % 2.6 Basophils % 0.4 Absolute Neutrophils 4.4 Absolute Lymphocytes 1.1 Absolute Monocytes 0.6 Absolute Eosinophils 0.2 Absolute Basophils 0.0 Sodium 141.1 Potassium 3.8 Chloride 100 Carbon Dioxide 31 H Anion Gap 10 BUN 37 H Creatinine 1.47 H Est GFR ( Amer) 56 L Est GFR (Non-Af Amer) 46 L Glucose 141 H Calcium 9.5 07/20/17 07/20/17 07/20/17 06:50 06:50 13:10 Creatine Kinase 53 L 54 L CK-MB (CK-2) 0.65 Troponin I 0.033 07/20/17 07/20/17 07/20/17 13:10 20:22 20:22 Creatine Kinase 58 CK-MB (CK-2) 0.85 0.80 Troponin I 0.018 0.028 Impressions: Venous Doppler Study 07/19/17 17:19 IMPRESSION: NO EVIDENCE OF DVT OR SVT IN THE LEFT LEG. Chest CT 07/20/17 00:00 IMPRESSION: Right basilar atelectasis. 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 and left pacemaker/defibrillator Chest X-Ray 07/23/17 00:00 IMPRESSION: Minimal bandlike right basilar atelectasis Assessment & Plan - Diagnosis (1) Atrial fibrillation Qualifiers: Atrial fibrillation type: unspecified Qualified Code(s): I48.91 - Unspecified atrial fibrillation Is this a current diagnosis for this admission?: Yes (2) Left leg cellulitis Is this a current diagnosis for this admission?: Yes Plan: Continue IV antibiotic (3) CAD (coronary artery disease) Qualifiers: Coronary Disease-Associated Artery/Lesion type: unspecified vessel or lesion type Is this a current diagnosis for this admission?: Yes (4) Hypertension Qualifiers: Hypertension type: essential hypertension Qualified Code(s): I10 - Essential (primary) hypertension Is this a current diagnosis for this admission?: Yes
[2017-07-25] MEDS: DOCUSATE SODIUM 100 MG CAPSULE PO SCH (21:28)
[2017-07-25] MEDS: WARFARIN SODIUM 3 MG TABLET PO SCH (21:29)
[2017-07-25] MEDS: TAMSULOSIN HCL 0.4 MG CAP.SR.24H PO SCH (21:29)
[2017-07-25] MEDS: CETIRIZINE 10 MG TABLET PO SCH (21:29)
[2017-07-26] MEDS: HYDRALAZINE HCL 10 MG TABLET PO SCH ×3 (05:11→21:59)
[2017-07-26] MEDS: CLINDAMYCIN 600 MG/D5W RTU 600 MG/50 ML RTUPB IV SCH ×3 (05:11→21:59)
[2017-07-26] MEDS: LANSOPRAZOLE 30 MG TAB.RAP.DR PO SCH (05:11)
[2017-07-26 05:47] LABS: ANION GAP 11 (5-19); BLOOD UREA NITROGEN 38 mg/dL (7-20); CALCIUM 9.4 mg/dL (8.4-10.2); CARBON DIOXIDE 31 mmol/L (22-30); CHLORIDE 100 mmol/L (98-107); CREATININE RESULT 1.51 mg/dL (0.52-1.25); GLUCOSE 165 mg/dL (75-110); POTASSIUM 4.1 mmol/L (3.6-5.0); SODIUM 141.8 mmol/L (137-145)
[2017-07-26] MEDS: INSULIN LISPRO 100 UNIT/ML 3 ML VIAL SUBCUT PRN ×4 (07:59→22:01)
[2017-07-26] MEDS: LEVOTHYROXINE SODIUM 0.075 MG TABLET PO SCH (07:59)
[2017-07-26] MEDS: AMIODARONE HCL 200 MG TABLET PO SCH (09:19)
[2017-07-26] MEDS: INSULIN GLARGINE,HUM.REC.ANLOG 300 UNIT/3 ML INSULN.PEN SUBCUT SCH ×2 (09:19→17:10)
[2017-07-26] MEDS: ISOSORBIDE MONONITRATE 60 MG TAB.ER.24H PO SCH (09:20)
[2017-07-26] MEDS: SERTRALINE HCL 50 MG TABLET PO SCH (09:20)
[2017-07-26] MEDS: ALLOPURINOL 100 MG TABLET PO SCH (09:20)
[2017-07-26] MEDS: METOPROLOL SUCCINATE 50 MG TAB.SR.24H PO SCH (09:20)
[2017-07-26] MEDS: ATORVASTATIN CALCIUM 80 MG TABLET PO SCH (09:20)
[2017-07-26] MEDS: FUROSEMIDE 80 MG TABLET PO SCH ×2 (09:21→17:11)
[2017-07-26] MEDS: LOSARTAN POTASSIUM 50 MG TABLET PO SCH (09:21)
[2017-07-26] MEDS: CLOPIDOGREL BISULFATE 75 MG TABLET PO SCH (09:21)
[2017-07-26] MEDS: POLYETHYLENE GLYCOL 3350 POWDER 17 GM/1 PACKET PO SCH (09:25)
[2017-07-26] MEDS ORDERED: IPRATROPIUM/ALBUTEROL 0.5-2.5 MG/3 ML AMPUL NEB PRN (13:35)
--- NOTE | 2017-07-26 13:51 | PDOC PROGRESS REPORT ---
Subjective Progress Note for:: 07/26/17 Subjective:: Patient seems to be doing better with gradual improvement. Pt is denying any chest arm or neck discomfort. Patient denying any PND, orthopnea. Patient denied any sustained palpitations, dizziness, syncope, near syncope. Patient denying any fever chills. Patient denying any other significant discomfort. Cellulitis seems improved. Discussed with patient's that patient has been stable for several days from cardiac standpoint. Also asked questions about whether patient has sleep apnea syndrome. Patient strongly believes that patient has sleep apnea syndrome as he gives history of snoring, daytime fatigue and sleepiness. Patient is atrial fibrillation with intermittent ventricular paced beats.. Review of systems: Rest review of systems negative. Medications: Medications have been reviewed. Physical Exam Vital Signs: Temp Pulse Resp BP Pulse Ox 98.4 F 96 18 128/72 H 97 07/26/17 11:13 07/26/17 11:13 07/26/17 11:13 07/26/17 11:13 07/26/17 11:13 Intake & Output 07/25/17 07/26/17 07/27/17 06:59 06:59 06:59 Intake Total 1860 1865 318 Output Total 1650 1150 400 Balance 210 715 -82 Weight 113.6 kg 114.2 kg Exam: GENERAL: well-nourished and in no acute distress. Alert and oriented x3 HEAD: Atraumatic, normocephalic. EYES: Pupils equal round and reactive to light, extraocular movements intact, sclera anicteric, conjunctiva are normal. ENT: TMs normal, nares patent, oropharynx clear without exudates. Moist mucous membranes. No oral ulcerations or bleeding gums noted NECK: supple without lymphadenopathy. Trachea is central. No cervical or axillary lymphadenopathy noted. Carotids are 2+, JVD WNL LUNGS: Respiration seems nonlabored, no significant accessory muscle action noted. Breath sounds clear to auscultation bilaterally and equal noted. No wheezes rales or rhonchi noted. No significant dullness noted on percussion. CHEST: Palpation of the chest wall shows no significant chest wall tenderness. No other significant abnormalities noted. HEART: [place] [employer], No PSH, 1/6 [place] aortic area, 1/6 [place] systolic murmur mitral area, no rubs, no gallops. ABDOMEN: Soft, no significant tenderness appreciated, normoactive bowel sounds. No guarding, no rebound. No rigidity noted . No masses appreciated. EXTREMITIES: Pedal pulses are 1-2+, no calf tenderness noted. No clubbing or cyanosis.trace to 1+ pedal edema noted NEUROLOGICAL: Focused neurological exam showed no significant neurologic deficit. Normal speech, no focal weakness appreciated. PSYCH: Normal mood, normal affect. Judgment and insight within normal limits. SKIN: No significant ecchymosis, cellulitic rash noted in the left lower extremity below the knee.. MUSCULOSKELETAL EXAM: No significant joint swelling noted. Results Laboratory Results: 07/25/17 07:29 07/26/17 05:01 07/26/17 05:01 Sodium 141.8 Potassium 4.1 Chloride 100 Carbon Dioxide 31 H Anion Gap 11 BUN 38 H Creatinine 1.51 H Est GFR ( Amer) 54 L Est GFR (Non-Af Amer) 45 L Glucose 165 H Calcium 9.4 07/20/17 07/20/17 07/20/17 06:50 06:50 13:10 Creatine Kinase 53 L 54 L CK-MB (CK-2) 0.65 Troponin I 0.033 07/20/17 07/20/17 07/20/17 13:10 20:22 20:22 Creatine Kinase 58 CK-MB (CK-2) 0.85 0.80 Troponin I 0.018 0.028 Impressions: Venous Doppler Study 07/19/17 17:19 IMPRESSION: NO EVIDENCE OF DVT OR SVT IN THE LEFT LEG. Chest CT 07/20/17 00:00 IMPRESSION: Right basilar atelectasis. 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 and left pacemaker/defibrillator Chest X-Ray 07/23/17 00:00 IMPRESSION: Minimal bandlike right basilar atelectasis Assessment & Plan - Diagnosis (1) Left leg cellulitis Is this a current diagnosis for this admission?: Yes (3) CAD (coronary artery disease) Qualifiers: Coronary Disease-Associated Artery/Lesion type: unspecified vessel or lesion type Is this a current diagnosis for this admission?: Yes (4) CHF (congestive heart failure) Qualifiers: Congestive heart failure type: combined Is this a current diagnosis for this admission?: Yes (5) CKD (chronic kidney disease) Qualifiers: Chronic kidney disease stage: stage 3 (moderate) Qualified Code(s): N18.3 - Chronic kidney disease, stage 3 (moderate) Is this a current diagnosis for this admission?: Yes (6) Hypertension Qualifiers: Hypertension type: essential hypertension Qualified Code(s): I10 - Essential (primary) hypertension Is this a current diagnosis for this admission?: Yes (7) Atrial fibrillation Qualifiers: Atrial fibrillation type: unspecified Qualified Code(s): I48.91 - Unspecified atrial fibrillation Is this a current diagnosis for this admission?: Yes (8) Sleep disorder Is this a current diagnosis for this admission?: Yes - Notes Notes: Cellulitis: Improving gradually. Patient would need continued antibiotics. Defibrillator: Functioning normally. Pacing function assessed. Atrial fibrillation: Patient noted to be in atrial fibrillation. Review of rhythm strip shows intermittent sinus rhythm but it is predominantly atrial fibrillation. Continue chronic anticoagulation. Rate seems well controlled. Coronary artery disease: Symptomatically stable. CHF: Patient seems euvolemic. Continue current regimen. Hypertension: Blood pressure under satisfactory control. Sleep disorder/sleep apnea syndrome: This is strongly suspected based on patient 's history of patient snoring, daytime fatigue and sleepiness. Have recommended that even though he is over the age of 81, he is a good candidate to benefit from sleep apnea treatment is noted to be present. They were encouraged to make an appointment. Patient has shown significant improvement. He has noted improved diabetes control and general improvement. Will sign off. Please reconsult if needed. - Time Time with patient: 15-25 minutes - CODE STATUS : was discussed, patient remains DO NOT RESUSCITATE. Surrogate decision-maker unchanged. Multiple medical problems were addressed. More than 50% of the time spent coordinating care, discussing management plans with involved caregivers. Management plans discussed with involved personnels. Medical decision making was of moderate to high complexity, patient's has multiple comorbidities. Medications reviewed and adjusted accordingly: Yes
--- NOTE | 2017-07-26 14:56 | PDOC PROGRESS REPORT ---
Subjective Progress Note for:: 07/26/17 Subjective:: Patient was seen by the bedside, he was admitted for the management of cellulitis of the left leg, he has no new complaints today. Physical Exam Vital Signs: Temp Pulse Resp BP Pulse Ox 98.4 F 82 16 128/72 H 100 07/26/17 11:13 07/26/17 14:20 07/26/17 14:20 07/26/17 11:13 07/26/17 14:20 Intake & Output 07/25/17 07/26/17 07/27/17 06:59 06:59 06:59 Intake Total 1860 1865 318 Output Total 1650 1150 400 Balance 210 715 -82 Weight 113.6 kg 114.2 kg General appearance: PRESENT: no acute distress Eye exam: PRESENT: PERRLA Neck exam: PRESENT: full ROM Respiratory exam: PRESENT: clear to auscultation kavitha Cardiovascular exam: PRESENT: RRR, +S1, +S2 Vascular exam: PRESENT: normal capillary refill GI/Abdominal exam: PRESENT: normal bowel sounds, soft Rectal exam: PRESENT: deferred Neurological exam: PRESENT: alert Skin exam: PRESENT: dry, intact, warm Results Laboratory Results: 07/25/17 07:29 07/26/17 05:01 07/26/17 05:01 Sodium 141.8 Potassium 4.1 Chloride 100 Carbon Dioxide 31 H Anion Gap 11 BUN 38 H Creatinine 1.51 H Est GFR ( Amer) 54 L Est GFR (Non-Af Amer) 45 L Glucose 165 H Calcium 9.4 07/20/17 07/20/17 07/20/17 06:50 06:50 13:10 Creatine Kinase 53 L 54 L CK-MB (CK-2) 0.65 Troponin I 0.033 07/20/17 07/20/17 07/20/17 13:10 20:22 20:22 Creatine Kinase 58 CK-MB (CK-2) 0.85 0.80 Troponin I 0.018 0.028 Impressions: Venous Doppler Study 07/19/17 17:19 IMPRESSION: NO EVIDENCE OF DVT OR SVT IN THE LEFT LEG. Chest CT 07/20/17 00:00 IMPRESSION: Right basilar atelectasis. 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 and left pacemaker/defibrillator Chest X-Ray 07/23/17 00:00 IMPRESSION: Minimal bandlike right basilar atelectasis Assessment & Plan - Diagnosis (1) Atrial fibrillation Qualifiers: Atrial fibrillation type: unspecified Qualified Code(s): I48.91 - Unspecified atrial fibrillation Is this a current diagnosis for this admission?: Yes (2) Left leg cellulitis Is this a current diagnosis for this admission?: Yes (3) CAD (coronary artery disease) Qualifiers: Coronary Disease-Associated Artery/Lesion type: unspecified vessel or lesion type Is this a current diagnosis for this admission?: Yes (4) Hypertension Qualifiers: Hypertension type: essential hypertension Qualified Code(s): I10 - Essential (primary) hypertension Is this a current diagnosis for this admission?: Yes
[2017-07-26] MEDS: WARFARIN SODIUM 3 MG TABLET PO SCH (21:59)
[2017-07-26] MEDS: DOCUSATE SODIUM 100 MG CAPSULE PO SCH (21:59)
[2017-07-26] MEDS: TAMSULOSIN HCL 0.4 MG CAP.SR.24H PO SCH (21:59)
[2017-07-26] MEDS: CETIRIZINE 10 MG TABLET PO SCH (21:59)
[2017-07-27] MEDS: CLINDAMYCIN 600 MG/D5W RTU 600 MG/50 ML RTUPB IV SCH (05:43)
[2017-07-27] MEDS: LANSOPRAZOLE 30 MG TAB.RAP.DR PO SCH (05:44)
[2017-07-27] MEDS: HYDRALAZINE HCL 10 MG TABLET PO SCH (05:44)
[2017-07-27] MEDS: LEVOTHYROXINE SODIUM 0.075 MG TABLET PO SCH (07:53)
[2017-07-27] MEDS: OXYCODONE-ACETAMINOPHEN 5-325 MG TABLET PO PRN ×2 (08:15→12:09)
[2017-07-27] MEDS: SERTRALINE HCL 50 MG TABLET PO SCH (09:37)
[2017-07-27] MEDS: POLYETHYLENE GLYCOL 3350 POWDER 17 GM/1 PACKET PO SCH (09:37)
[2017-07-27] MEDS: CLOPIDOGREL BISULFATE 75 MG TABLET PO SCH (09:37)
[2017-07-27] MEDS: LOSARTAN POTASSIUM 50 MG TABLET PO SCH (09:37)
[2017-07-27] MEDS: ISOSORBIDE MONONITRATE 60 MG TAB.ER.24H PO SCH (09:38)
[2017-07-27] MEDS: AMIODARONE HCL 200 MG TABLET PO SCH (09:38)
[2017-07-27] MEDS: ATORVASTATIN CALCIUM 80 MG TABLET PO SCH (09:38)
[2017-07-27] MEDS: FUROSEMIDE 80 MG TABLET PO SCH (09:38)
[2017-07-27] MEDS: METOPROLOL SUCCINATE 50 MG TAB.SR.24H PO SCH (09:39)
[2017-07-27] MEDS: ALLOPURINOL 100 MG TABLET PO SCH (09:39)
[2017-07-27] MEDS: INSULIN GLARGINE,HUM.REC.ANLOG 300 UNIT/3 ML INSULN.PEN SUBCUT SCH (09:40)
[2017-07-27 12:16] VITALS: BP 136/70
[2017-07-27] MEDS ORDERED: METOPROLOL TARTRATE 25 MG TABLET PO ONE (13:00)
--- NOTE | 2017-07-27 15:58 | PDOC DISCHARGE SUMMARY ---
General - Admit/Disc Date/PCP Admission Date/Primary Care Provider: 07/19/17 20:03 HI TUTTLE MD Discharge Date: 07/27/17 - Discharge Diagnosis (1) Left leg cellulitis Is this a current diagnosis for this admission?: Yes Summary: Currently all improving continues to clindamycin's p.o. (2) CAD (coronary artery disease) Is this a current diagnosis for this admission?: Yes Summary: Currently all stable continues to follow with the [place] cardiology (3) CHF (congestive heart failure) Is this a current diagnosis for this admission?: Yes Summary: Continues to Lasix as before currently all stable (4) CKD (chronic kidney disease) Is this a current diagnosis for this admission?: Yes Summary: Since creatinine is 1.5 rangeSince follow-up outpatients Dr. Wright (5) DVT (deep venous thrombosis) Is this a current diagnosis for this admission?: Yes Summary: Continues the CoumadinAnd recheck the PT/INR in 2 days patient also have a home machine (6) Hypertension Is this a current diagnosis for this admission?: Yes Summary: Currently all stable (7) Hypoglycemia Is this a current diagnosis for this admission?: Yes Summary: Currently all resolved (8) Pacemaker Is this a current diagnosis for this admission?: Yes Summary: Currently all stable and patient's follow-up outpatients cardiology (9) Venous (peripheral) insufficiency Summary: Continues follow with the general surgery (10) Diabetes Is this a current diagnosis for this admission?: Yes Summary: Currently all stable (11) Atrial fibrillation Is this a current diagnosis for this admission?: Yes Summary: Continues to Coumadin and increase the metoprolol 100 mg in the morning and 50 mg at night discussed with the cardiology - Additional Information Resuscitation Status: Full Code Discharge Diet: Cardiac, Diabetic Discharge Activity: Activity As Tolerated, Balance Activity w/Rest, Weigh Daily Home Medications: Docusate Sodium [Colace 100 mg Capsule] 200 mg PO QHS 11/05/11 Levothyroxine Sodium [Synthroid 0.025 mg Tablet] 75 mcg PO DAILY 11/05/11 Metoprolol Succinate [Toprol Xl 25 mg Tab.sr] 100 mg PO DAILY 11/05/11 Sertraline HCl [Zoloft 50 mg Tablet] 50 mg PO DAILY 11/05/11 Cetirizine HCl [Zyrtec 10 mg Chewable Tab] 10 mg PO QHS 10/12/12 Amiodarone HCl 200 mg PO DAILY 09/16/16 Furosemide [Lasix 20 mg Tablet] 80 mg PO BID 09/16/16 Insulin Glargine,Hum.rec.anlog [Lantus Solostar] 30 unit SQ BID 09/16/16 Losartan Potassium 50 mg PO DAILY 09/16/16 Allopurinol [Zyloprim 100 mg Tablet] 100 mg PO DAILY 07/19/17 Atorvastatin Calcium [Lipitor] 80 mg PO DAILY 07/19/17 Clopidogrel Bisulfate [Plavix] 75 mg PO DAILY 07/19/17 Fenofibrate Nanocrystallized [Tricor 145 mg Tablet] 145 mg PO DAILY 07/19/17 Hydralazine HCl [Apresoline 10 mg Tablet] 10 mg PO Q8H 07/19/17 Insulin Aspart [Novolog Insulin (Aspart) 100 unit/mL] 0 unit SUBCUT .SLD SCALE 07/19/17 Isosorbide Dinitrate [Isordil Titradose 10 mg Tablet] 10 mg PO Q8H 07/19/17 Nitroglycerin [Nitrostat] 0.3 mg SL PRN PRN 07/19/17 Oxycodone HCl/Acetaminophen [Oxycodone-Acetaminophen 5-325] 1 tab PO Q6HP PRN Pantoprazole Sodium [Protonix] 40 mg PO DAILY 07/19/17 Polyethylene Glycol 3350 [Miralax Powder 17 gm/Packet] 1 packet PO DAILY Tamsulosin HCl [Flomax] 0.4 mg PO QHS 07/19/17 Warfarin Sodium 3 mg PO SUTHFRSA 07/19/17 Warfarin Sodium 4 mg PO MOTUWE 07/19/17 Clindamycin HCl [Cleocin 300 mg Capsule] 600 mg PO Q8 #21 cap 07/27/17 History of Present Illness History of Present Illness: This is a 82-year-old maleWith a significant history of the congestive heart failureIschemic cardiomyopathy status post defibrillatorStatus post recent angi[facility] monthAnd chronic DVT and a peripheral vascular disease and a stage IV chronic kidney disease and multiple other complications and on chronic CoumadinCame to the emergency department with altered mental statusWith the shortness of the breath and the feverAnd the redness in the left lower extremitiesAnd patient was initially diagnosed with a left lower extremity cellulitisAnd probably chronic congestive heart failure and admitting in the IMCU for further evaluation and treatment Patient was started on IV clindamycin and also give IV Lasix Patient have aSignificant hospital admission in MayAnd June in the [facility] patient's multiple other issues When I saw the patient patients does not look like any distressed but still complains of some short of breath patient's left lower extremity is very red and warm to touch Patient initial cardiac enzyme was all negative Patient's denied any chest pain Hospital Course Hospital Course: This is a 82-year-old male with a significant medical problem as above came to the emergency department with a fever chills and not shortness of the breath and the diagnosis with the left lower extremity cellulitis and chronic congestive heart failure Patient was started on IV clindamycin and also start on IV Lasix Since seen by general surgery for the cellulitis and suggest no need for surgical interventions Patient seen by the cardiology and suggested continues current medications Patient also seen by nephrology who was all stable Patient also seen by the physical therapy and doing fair Patient's otherwise switched to the all the p.o. medications and patient's cellulitis is also improving patient's white count is also normal and patients remain afebrile Patient's metoprolol was increased due to the A. fib Is already in a continues Coumadin and INR is therapeutic Discussed with the and the daughter regarding the patient's current conditions patients do not want to go to the rehab and patient expressed to go home discharge the patient home with the home health and physical therapy Physical Exam Vital Signs: Temp Pulse Resp BP Pulse Ox 98.0 F 91 18 136/70 H 96 07/27/17 11:38 07/27/17 11:38 07/27/17 11:38 07/27/17 11:38 07/27/17 11:38 Intake & Output 07/26/17 07/27/17 07/28/17 06:59 06:59 06:59 Intake Total 1865 2221 600 Output Total 1150 1600 950 Balance 715 621 -350 Weight 114.2 kg 113.4 kg General appearance: PRESENT: no acute distress, well-developed, well-nourished Head exam: PRESENT: atraumatic, normocephalic Eye exam: PRESENT: conjunctiva pink, EOMI, PERRLA. ABSENT: scleral icterus Ear exam: PRESENT: normal external ear exam Mouth exam: PRESENT: moist, tongue midline Neck exam: PRESENT: full ROM. ABSENT: carotid bruit, JVD, lymphadenopathy, thyromegaly Respiratory exam: PRESENT: clear to auscultation kavitha Cardiovascular exam: PRESENT: RRR. ABSENT: diastolic murmur, rubs, systolic murmur Pulses: PRESENT: normal dorsalis pedis pul, +2 pedal pulses bilateral Vascular exam: PRESENT: normal capillary refill GI/Abdominal exam: PRESENT: normal bowel sounds, soft. ABSENT: distended, guarding, mass, organolmegaly, rebound, tenderness Rectal exam: PRESENT: deferred Extremities exam: PRESENT: pedal edema Additional comments: Left lower extremity mild redness is present but is much improving Neurological exam: PRESENT: alert, awake, oriented to person, oriented to place , oriented to time, oriented to situation, CN II-XII grossly intact. ABSENT: motor sensory deficit Psychiatric exam: PRESENT: appropriate affect, normal mood. ABSENT: homicidal ideation, suicidal ideation Skin exam: PRESENT: dry, intact, warm. ABSENT: cyanosis, rash Results Laboratory Results: 07/25/17 07:29 07/26/17 05:01 07/20/17 07/20/17 07/20/17 06:50 06:50 13:10 Creatine Kinase 53 L 54 L CK-MB (CK-2) 0.65 Troponin I 0.033 07/20/17 07/20/17 07/20/17 13:10 20:22 20:22 Creatine Kinase 58 CK-MB (CK-2) 0.85 0.80 Troponin I 0.018 0.028 Impressions: Venous Doppler Study 07/19/17 17:19 IMPRESSION: NO EVIDENCE OF DVT OR SVT IN THE LEFT LEG. Chest CT 07/20/17 00:00 IMPRESSION: Right basilar atelectasis. 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 and left pacemaker/defibrillator Chest X-Ray 07/23/17 00:00 IMPRESSION: Minimal bandlike right basilar atelectasis Plan Time Spent: Greater than 30 Minutes - Patient is discharged home with the stable conditions with the p.o. antibiotic Will repeat the INR in 2 days patient usually check at [place] Following a one-week we will repeat the CBC and Chem-7
== END 2017-07-27 13:39 | disposition home health service (06) | DRG 603 ==
LOC: ER 15:36 → EH 20:03 → 3W 21:40
PROVIDERS: ADMIT Family Medicine; ATTEND Family Medicine
PROC: 3E0F73Z Introduction of Anti-inflammatory into Respiratory Tract, Via Natural or Artificial Opening (ICD-10-PCS; principal; 2017-07-26)
PROC: 3E0234Z Introduction of Serum, Toxoid and Vaccine into Muscle, Percutaneous Approach (ICD-10-PCS; 2017-07-27)
DX: L03.116 Cellulitis of left lower limb (principal); I13.0 Hypertensive heart and chronic kidney disease with heart failure and stage 1 through stage 4 chronic kidney disease, or unspecified chronic kidney disease; N18.4 Chronic kidney disease, stage 4 (severe); I82.509 Chronic embolism and thrombosis of unspecified deep veins of unspecified lower extremity; Q61.02 Congenital multiple renal cysts; N25.81 Secondary hyperparathyroidism of renal origin; I50.42 Chronic combined systolic (congestive) and diastolic (congestive) heart failure; I48.1 Persistent atrial fibrillation; N17.9 Acute kidney failure, unspecified; Z66 Do not resuscitate; I25.10 Atherosclerotic heart disease of native coronary artery without angina pectoris; E11.649 Type 2 diabetes mellitus 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; I25.5 Ischemic cardiomyopathy; E11.22 Type 2 diabetes mellitus with diabetic chronic kidney disease; E78.5 Hyperlipidemia, unspecified; E11.319 Type 2 diabetes mellitus with unspecified diabetic retinopathy without macular edema; K21.9 Gastro-esophageal reflux disease without esophagitis; F32.9 Major depressive disorder, single episode, unspecified; D63.1 Anemia in chronic kidney disease; E11.51 Type 2 diabetes mellitus with diabetic peripheral angiopathy without gangrene; G47.30 Sleep apnea, unspecified; F17.210 Nicotine dependence, cigarettes, uncomplicated; I25.2 Old myocardial infarction; Q63.1 Lobulated, fused and horseshoe kidney; Z23 Encounter for immunization; Z95.0 Presence of cardiac pacemaker; Z86.718 Personal history of other venous thrombosis and embolism; Z79.01 Long term (current) use of anticoagulants; Z79.4 Long term (current) use of insulin; Z79.899 Other long term (current) drug therapy; Z95.1 Presence of aortocoronary bypass graft; Z86.711 Personal history of pulmonary embolism; Z95.5 Presence of coronary angioplasty implant and graft; Z82.49 Family history of ischemic heart disease and other diseases of the circulatory system; Z83.3 Family history of diabetes mellitus
CPT/HCPCS: 36415; 71010; 71020; 71250; 80048; 80053; 81001; 82550; 82553; 82962; 83605; 83880; 84484; 85025; 85610; 85730; 87040; 87086; 90686; 93005; 93010; 93306; 93971; 94640; 96365; 99285; G8978-GP; G8979-GP; J0692; J0696; J1815; J1940; J3490; J7620

== ENCOUNTER 2017-09-16 14:50 | Inpatient (IN) | payer MEDICARE, OTHER ==
--- NOTE | 2017-09-16 15:07 | ER Document Report ---
ED General - General Stated Complaint: WEAKNESS Time Seen by Provider: 09/16/17 14:57 Notes: 82-year-old male with CHF presents with 2 days of weakness and syncopal episodes. He has been hypotensive and fainting multiple times in the last 48 hours. He has also been coughing more than usual. Baseline shortness of breath and leg swelling he says is unchanged. Seen at primary care doctor. Syncopized in the office. EMS found him with a blood pressure in the 80s and when he sat him up he fainted. He has a pacemaker. TRAVEL OUTSIDE OF THE [place] IN LAST 30 DAYS: No - Related Data Allergies/Adverse Reactions: nystatin Adverse Reaction (Verified 09/16/17 16:18) Home Medications: Current Home Medications Albuterol Sulfate [Proair HFA] 2 puff IH Q6 09/16/17 [History] Atorvastatin Calcium [Lipitor 80 mg Tablet] 80 mg PO QHS 09/16/17 [History] Benzonatate [Tessalon Perle 100 mg Capsule] 100 mg PO TID 09/16/17 [History] Cephalexin Monohydrate [Keflex 500 mg Capsule] 500 mg PO TID 09/16/17 [History] Clopidogrel Bisulfate [Plavix 75 mg Tablet] 75 mg PO DAILY 09/16/17 [History] Docusate Sodium [Colace] 200 mg PO DAILYP PRN 09/16/17 [History] Fenofibrate Nanocrystallized [Tricor 145 mg Tablet] 145 mg PO DAILY 09/16/17 [ History] Furosemide [Lasix 80 mg Tablet] 80 mg PO Q8 09/16/17 [History] Hydralazine HCl [Apresoline 10 mg Tablet] 10 mg PO Q8 09/16/17 [History] Levothyroxine Sodium [Synthroid 0.088 mg Tablet] 88 mcg PO DAILY 09/16/17 [ History] Metoprolol Succinate [Toprol Xl 50 mg Tab.sr] 50 mg PO DAILY 09/16/17 [History] Oxycodone HCl/Acetaminophen [Percocet 5-325 mg Tablet] 1 tab PO TIDP PRN [History] Pantoprazole Sodium [Protonix] 40 mg PO DAILY 09/16/17 [History] Polyethylene Glycol 3350 [Miralax Powder 17 gm/Packet] 1 packet PO DAILY [History] Tamsulosin HCl [Flomax 0.4 mg Cap.sr] 0.4 mg PO DAILY 09/16/17 [History] Past Medical History - Social History Smoking Status: Never Smoker Family History: Reviewed & Not Pertinent - Past Medical History Cardiac Medical History: Reports: Hx Atrial Fibrillation, Hx Congestive Heart Failure, Hx Coronary Artery Disease, Hx DVT, Hx Heart Attack - 1995, Hx Hypercholesterolemia, Hx Hypertension, Hx Pulmonary Embolism Pulmonary Medical History: Denies: Hx Asthma, Hx Tuberculosis Neurological Medical History: Denies: Hx Cerebrovascular Accident, Hx Seizures Endocrine Medical History: Reports: Hx Diabetes Mellitus Type 2 Renal/ Medical History: Reports: Hx Kidney Stones - right side, renal cysts. Denies: Hx Peritoneal Dialysis GI Medical History: Reports: Hx Gastroesophageal Reflux Disease. Denies: Hx Hepatitis, Hx Ulcer Musculoskeltal Medical History: Reports Hx Arthritis - gout, Reports Hx Gout Psychiatric Medical History: Reports: Hx Depression Infectious Medical History: Denies: Hx Hepatitis Past Surgical History: Reports: Hx Cardiac Surgery - open heart, pacer/defib, Hx Coronary Artery Bypass Graft - 3, Hx Coronary Stent, Hx Internal Defibrillator, Hx Open Heart Surgery - cabg x 3, Hx Pacemaker - upper left chest , Hx Vascular Surgery, Other - Bone graft in the left ankle, surgery of elbow fracture - Immunizations Hx Diphtheria, Pertussis, Tetanus Vaccination: Yes - not UTD Hx Pneumococcal Vaccination: 11/07/11 Review of Systems - Review of Systems Notes: REVIEW OF SYSTEMS GEN: Denies fever, chills, weight loss ENT: Denies sore throat, nasal discharge, ear pain EYES: Denies blurry vision, eye pain, discharge CV: Denies chest pain, palpitations, edema RESP: Cough baseline shortness of breath GI: Denies abdominal pain, nausea, vomiting, diarrhea MSK: Denies joint pain, positive leg edema SKIN: Denies rash, skin lesions LYMPH: Denies swollen glands/lymph nodes NEURO: Denies headache, focal weakness or numbness, dizziness PSYCH: Denies depression, suicidal or homicidal ideation PHYSICAL EXAMINATION General: N slightly ill Head: Atraumatic, normocephalic ENT: Mouth normal, oropharynx moist, no exudates or tonsillar enlargement Eyes: Conjunctiva normal, pupils equal, lids normal Neck: No JVD, supple, no guarding CVS: Normal rate, regular rhythm, no murmurs Resp: Bilateral basilar rhonchi. Slightly increased respiratory rate. Y GI: Nondistended, soft, no tenderness to palpation, no rebound or guarding Ext: No deformities, chronic bilateral leg edema, marked erythema of the right leg up to the thigh normal range of motion in upper and lower ext Back: No CVA or midline TTP Skin: No rash, warm Lymphatic: No lymphadeopathy noted Neuro: Awake, alert. Face symmetric. GCS 15. Physical Exam - Vital signs Vitals: Temp Pulse Resp BP Pulse Ox 98.5 F 85 21 H 106/65 97 09/16/17 15:38 09/16/17 15:38 09/16/17 15:38 09/16/17 15:38 09/16/17 15:38 Course - Re-evaluation Re-evalutation: 09/16/17 15:06 82-year-old male presents with cough shortness of breath, syncope and hypotension. Differential includes dehydration, systolic heart failure/cardiogenic shock, sepsis, electrolyte abnormalities. Plan: Septic workup EKG, close reassessment 09/16/17 19:06 Patient's chest x-ray is clear. He has a significant cellulitis on exam. Pacemaker was interrogated and shows atrial tachycardia. He still quite dizzy but looks slightly better. Spoke with Dr. Tuttle who will admit him. He is hemodynamically stable. - Vital Signs Vital signs: Temp Pulse Resp BP Pulse Ox 98.5 F 85 21 H 118/64 98 09/16/17 15:38 09/16/17 15:38 09/16/17 18:01 09/16/17 18:01 09/16/17 18:01 - Laboratory Result Diagrams: 09/16/17 15:25 09/16/17 15:25 Laboratory results interpreted by me: 09/16/17 09/16/17 09/16/17 15:25 15:25 15:25 RBC 3.94 L Hgb 11.6 L Hct 35.5 L RDW 17.3 H Seg Neutrophils % 84.9 H Lymphocytes % 10.1 L BUN 49 H Creatinine 2.24 H Est GFR ( Amer) 34 L Est GFR (Non-Af Amer) 28 L Glucose 70 L Urine Ascorbic Acid 40 H - Diagnostic Test Radiology reviewed: Image reviewed, Reports reviewed - EKG Interpretation by Me EKG shows normal: QRS Complexes - Paced rhythm Reagan/QRS: LBBB When compared to previous EKG there are: No significant change Discharge - Discharge Referrals: DANA TUTTLE MD [Primary Care Provider] - Follow up as needed
--- NOTE | 2017-09-16 16:07 | RADIOLOGY REPORT (SQ) ---
EXAM DESCRIPTION: CHEST SINGLE VIEW COMPLETED DATE/TIME: 09/16/2017 3:50 pm REASON FOR STUDY: sob, chf, ?pna COMPARISON: 09/16/2017 EXAM PARAMETERS: NUMBER OF VIEWS: One view. TECHNIQUE: Single frontal radiographic view of the chest acquired. RADIATION DOSE: NA LIMITATIONS: None. FINDINGS: LUNGS AND PLEURA: No opacities, masses or pneumothorax. No pleural effusion. MEDIASTINUM AND HILAR STRUCTURES: No masses. Contour normal. HEART AND VASCULAR STRUCTURES: Cardiac silhouette remains enlarged. BONES: No acute findings. HARDWARE: Patient is status post median sternotomy with coronary bypass surgery. AICD device is unch anged in position. OTHER: No other significant finding. IMPRESSION: No significant interval change. No acute changes. Other findings as noted above. TECHNICAL DOCUMENTATION: JOB ID: [id number] [employer]- All Rights Reserved
[2017-09-16 16:10] LABS: ABSOLUTE LYMPHOCYTES (AUTO) 0.8 10^3/uL (0.5-4.7); ABSOLUTE MONOCYTES (AUTO) 0.4 10^3/uL (0.1-1.4); ABSOLUTE NEUT (AUTO) 6.7 10^3/uL (1.7-8.2); BASOPHILS % (AUTO) 0.1 % (0-2); HEMATOCRIT 35.5 % (37.9-51.0); HEMOGLOBIN 11.6 g/dL (13.5-17.0); LYMPHOCYTES % (AUTO) 10.1 % (13-45); MEAN CORPUSCULAR HEMOGLOBIN 29.4 pg (27.0-33.4); MEAN CORPUSCULAR HGB CONC 32.6 g/dL (32.0-36.0); MEAN CORPUSCULAR VOLUME 90 fl (80-97); MONOCYTES % (AUTO) 4.9 % (3-13); PLATELET COUNT 153 10^3/uL (150-450); RED BLOOD COUNT 3.94 10^6/uL (4.35-5.55); RED CELL DISTRIBUTION WIDTH 17.3 % (11.5-14.0); SEGMENTED NEUTROPHILS % (AUTO) 84.9 % (42-78); TOTAL CELLS COUNTED % (AUTO) 100 %; WHITE BLOOD COUNT 7.9 10^3/uL (4.0-10.5)
[2017-09-16 16:17] LABS: APPEARANCE,URINE CLEAR; BILIRUBIN,URINE NEGATIVE (NEGATIVE); COLOR,URINE YELLOW; GLUCOSE, URINE NEGATIVE (NEGATIVE); KETONES,URINE NEGATIVE (NEGATIVE); LEUKOCYTE ESTERASE,URINE NEGATIVE (NEGATIVE); NITRITE,URINE NEGATIVE (NEGATIVE); PROTEIN,URINE NEGATIVE (NEGATIVE); UROBILINOGEN,URINE NEGATIVE mg/dL (<2.0)
[2017-09-16 16:22] LABS: ANION GAP 15 (5-19); BLOOD UREA NITROGEN 49 mg/dL (7-20); CALCIUM 9.5 mg/dL (8.4-10.2); CARBON DIOXIDE 28 mmol/L (22-30); CHLORIDE 98 mmol/L (98-107); GLUCOSE 70 mg/dL (75-110); POTASSIUM 3.6 mmol/L (3.6-5.0); SODIUM 140.5 mmol/L (137-145)
[2017-09-16] MEDS ORDERED: CLINDAMYCIN PHOSPHATE INJ 300 MG/2 ML SDV IV ONE ×2 (17:58→19:00)
[2017-09-16] MEDS ORDERED: ACETAMINOPHEN 325 MG TABLET PO PRN (18:45)
[2017-09-16] MEDS ORDERED: LEVALBUTEROL HCL NEB 0.63 MG/3 ML AMPUL NEB PRN (18:45)
[2017-09-16] MEDS ORDERED: DEXTROSE 40% GEL 15 GM TUBE PO PRN ×2 (18:50)
[2017-09-16] MEDS ORDERED: GLUCAGON,HUMAN RECOMB 1 MG INJ IM PRN (18:50)
[2017-09-16] MEDS ORDERED: DEXTROSE 50%-WATER 25 GM/50 ML DISP.SYRIN IV PRN ×2 (18:50)
--- NOTE | 2017-09-16 19:04 | EKG REPORT ---
SEVERITY:- ABNORMAL ECG - AFIB/FLUT AND V-PACED COMPLEXES : Confirmed by: Arvind Carrizales 16-Sep-2017 19:03:02
--- NOTE | 2017-09-16 19:15 | PDOC H&P ---
History of Present Illness Admission Date/PCP: DANA TUTTLE MD Patient complains of: Syncopal episode History of Present Illness: MARY MANDUJANO is a 82 year old male This is a 82-year-old male with a significant history of ischemic cardiomyopathy biventricular congestive heart failure status post ICD placementAnd history of the chronic atrial fibrillation'sHistory of the chronic kidney disease on a chronic DVTWith multiple other comorbidity came to the office today with the flulike symptoms and initial influenza a test and B test was all negative in the office . Patient was giving the Keflex and order the chest x-rayChest x-ray was negative for any acute findingBut when the patient's pickup the prescriptions the pharmacy was closed and patient have a passing out episode in patients went home and another passing out episodeAnd called EMS and suggest to come to the hospital Patient's blood pressure was lower and emergency department patient's blood pressure was 110 range and patient was otherwise doing well patient initial workup is all stable including the pacemaker interrogations was all stable Patient have ongoing problem with the bilateral lower extremity with chronic venous insufficiency recently admitted for the cellulitis Patient also see a [facility] and recently seen and suggest all stable Patient's denied any chest pain denied any shortness of the breath Patients all sepsis workup was all negative and the patient initial cardiac workup is all stable and decided to admit for the syncopal episode and possible cellulitis Discussed with the family also about the plan Past Medical History Cardiac Medical History: Reports: Atrial Fibrillation, Congestive Heart Failure , Coronary Artery Disease, DVT, Myocardial Infarction - 1995, Hyperlipidema, Hypertension, Pulmonary Embolism Pulmonary Medical History: Denies: Asthma, Tuberculosis Neurological Medical History: Denies: Seizures Endocrine Medical History: Reports: Diabetes Mellitus Type 2 Renal/ Medical History: Reports: Chronic Kidney Disease GI Medical History: Reports: Gastroesophageal Reflux Disease Denies: Hepatitis Musculoskeltal Medical History: Reports: Arthritis - gout, Gout Psychiatric Medical History: Reports: Depression Hematology: Reports: Anemia Denies: Sickle Cell Disease Past Surgical History Past Surgical History: Reports: Coronary Artery Bypass Graft - 3, Coronary Stent, Internal Defibrillator, Pacemaker - upper left chest, Vascular Surgery, Other - Bone graft in the left ankle, surgery of elbow fracture Social History Smoking Status: Unknown if Ever Smoked Frequency of Alcohol Use: None Hx Recreational Drug Use: No Drugs: None Hx Prescription Drug Abuse: No Family History Family History: Reviewed & Not Pertinent Parental Family History Reviewed: Yes Children Family History Reviewed: Yes Sibling(s) Family History Reviewed.: Yes Medication/Allergy Allergies/Adverse Reactions: nystatin Adverse Reaction (Verified 09/16/17 16:18) Review of Systems Constitutional: PRESENT: fatigue, weakness. ABSENT: chills, fever(s), headache( s), weight gain, weight loss Eyes: ABSENT: visual disturbances Ears: ABSENT: hearing changes Cardiovascular: PRESENT: dyspnea on exertion. ABSENT: chest pain, edema, orthropnea, palpitations Respiratory: ABSENT: cough, hemoptysis Gastrointestinal: ABSENT: abdominal pain, constipation, diarrhea, hematemesis, hematochezia, nausea, vomiting Genitourinary: ABSENT: dysuria, hematuria Musculoskeletal: ABSENT: joint swelling Integumentary: ABSENT: rash, wounds Neurological: ABSENT: abnormal gait, abnormal speech, confusion, dizziness, focal weakness, syncope Psychiatric: ABSENT: anxiety, depression, homidical ideation, suicidal ideation Endocrine: ABSENT: cold intolerance, heat intolerance, menstrual abnormalities, polydipsia, polyuria Hematologic/Lymphatic: ABSENT: easy bleeding, easy bruising, lymphadenopathy Physical Exam Vital Signs: Temp Pulse Resp BP Pulse Ox 98.5 F 85 21 H 118/64 98 09/16/17 15:38 09/16/17 15:38 09/16/17 18:01 09/16/17 18:01 09/16/17 18:01 Intake & Output 09/15/17 09/16/17 09/17/17 06:59 06:59 06:59 Weight 117.48 kg General appearance: PRESENT: no acute distress, well-developed, well-nourished Head exam: PRESENT: atraumatic, normocephalic Eye exam: PRESENT: conjunctiva pink, EOMI, PERRLA. ABSENT: scleral icterus Ear exam: PRESENT: normal external ear exam Mouth exam: PRESENT: dry mucosa, moist, tongue midline Neck exam: PRESENT: full ROM. ABSENT: carotid bruit, JVD, lymphadenopathy, thyromegaly Cardiovascular exam: PRESENT: RRR. ABSENT: diastolic murmur, rubs, systolic murmur Pulses: PRESENT: normal dorsalis pedis pul, +2 pedal pulses bilateral Vascular exam: PRESENT: normal capillary refill GI/Abdominal exam: PRESENT: normal bowel sounds, soft. ABSENT: distended, guarding, mass, organolmegaly, rebound, tenderness Rectal exam: PRESENT: deferred Extremities exam: PRESENT: pedal edema Additional comments: On the left lower extremity some mild redness is presentAnd patient have a chronic venous insufficiency in the both leg and a chronic swelling Neurological exam: PRESENT: alert, awake, oriented to person, oriented to place , oriented to time, oriented to situation, CN II-XII grossly intact. ABSENT: motor sensory deficit Psychiatric exam: PRESENT: appropriate affect, normal mood. ABSENT: homicidal ideation, suicidal ideation Skin exam: PRESENT: dry, intact, warm. ABSENT: cyanosis, rash Results Laboratory Results: 09/16/17 15:25 09/16/17 15:25 09/16/17 09/16/17 09/16/17 15:25 15:25 15:25 WBC 7.9 RBC 3.94 L Hgb 11.6 L Hct 35.5 L MCV 90 MCH 29.4 MCHC 32.6 RDW 17.3 H Plt Count 153 Seg Neutrophils % 84.9 H Lymphocytes % 10.1 L Monocytes % 4.9 Eosinophils % 0.0 Basophils % 0.1 Absolute Neutrophils 6.7 Absolute Lymphocytes 0.8 Absolute Monocytes 0.4 Absolute Eosinophils 0.0 Absolute Basophils 0.0 Sodium 140.5 Potassium 3.6 Chloride 98 Carbon Dioxide 28 Anion Gap 15 BUN 49 H Creatinine 2.24 H Est GFR ( Amer) 34 L Est GFR (Non-Af Amer) 28 L Glucose 70 L Calcium 9.5 Urine Color YELLOW Urine Appearance CLEAR Urine pH 6.0 Ur Specific [place] 1.010 Urine Protein NEGATIVE Urine Glucose (UA) NEGATIVE Urine Ketones NEGATIVE Urine Blood NEGATIVE Urine Nitrite NEGATIVE Ur Leukocyte Esterase NEGATIVE Urine WBC (Auto) 0 Urine RBC (Auto) 2 09/16/17 16:25 Troponin I 0.059 Impressions: Chest X-Ray 09/16/17 15:03 IMPRESSION: No significant interval change. No acute changes. Other findings as noted above. Assessment & Plan - Diagnosis (1) Syncopal episodes Qualifiers: Syncope type: unspecified Qualified Code(s): R55 - Syncope and collapse Is this a current diagnosis for this admission?: Yes Plan: We will admit the patient in IMCU rule out the acute coronary syndromes consult the cardiology for further evaluations and also get the CT of the head (2) Atrial fibrillation Qualifiers: Atrial fibrillation type: chronic Qualified Code(s): I48.2 - Chronic atrial fibrillation Is this a current diagnosis for this admission?: Yes Plan: Currently on the Coumadin and rate under control (3) CAD (coronary artery disease) Qualifiers: Coronary Disease-Associated Artery/Lesion type: unspecified vessel or lesion type Is this a current diagnosis for this admission?: Yes Plan: Consult the cardiology initial workup is all stable (4) CHF (congestive heart failure) Qualifiers: Congestive heart failure type: combined Is this a current diagnosis for this admission?: Yes Plan: Continues to current medications (5) CKD (chronic kidney disease) Qualifiers: Chronic kidney disease stage: stage 3 (moderate) Qualified Code(s): N18.3 - Chronic kidney disease, stage 3 (moderate) Is this a current diagnosis for this admission?: Yes Plan: Currently all stable (7) DVT (deep venous thrombosis) Qualifiers: Chronicity: unspecified Is this a current diagnosis for this admission?: Yes Plan: We will check the PT/INR todayContinues to Coumadin (8) Diabetes Qualifiers: Diabetes mellitus type: type 2 Diabetes mellitus complication status: with hypoglycemia Diabetes mellitus complication detail: 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 Diabetes mellitus shelter insulin use: with shelter use Qualified Code(s): E11.649 - 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; Z79.4 - long-term ( current) use of insulin; 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; Z79.4 - long-term (current) use of insulin; 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 Is this a current diagnosis for this admission?: Yes Plan: Continues to sliding scales and continues to current insulin (9) Hypertension Qualifiers: Hypertension type: essential hypertension Qualified Code(s): I10 - Essential (primary) hypertension Is this a current diagnosis for this admission?: Yes Plan: Currently all stable (10) Left leg cellulitis Is this a current diagnosis for this admission?: Yes Plan: This is most likely a chronic start the patient on IV Invanz until the all cultures back (11) Orthostatic hypotension Is this a current diagnosis for this admission?: Yes Plan: Very extensive workup was done in the past will get the fall precautions (12) Sleep disorder Is this a current diagnosis for this admission?: Yes Plan: Continues use a CPAP - Time Time Spent: 30 to 50 Minutes Critical Time spent with patient: 15-24 minutes Anticipated discharge: Home Within: Other - Inpatient Certification Medical Necessity: Significant Comorbidiites Make Outpatient Treatment Too Risky , Need for IV Antibiotics Post Hospital Care: 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
[2017-09-16] MEDS ORDERED: OXYCODONE-ACETAMINOPHEN 5-325 MG TABLET PO PRN (19:16)
[2017-09-16 19:40] LABS: INTERNATIONAL RATION (INR) 2.09; PROTHROMBIN TIME 24.6 SEC (11.4-15.4)
--- NOTE | 2017-09-16 21:39 | RADIOLOGY REPORT (SQ) ---
EXAM DESCRIPTION: CT HEAD WITHOUT COMPLETED DATE/TIME: 09/16/2017 9:28 pm REASON FOR STUDY: syncopal episode COMPARISON: 08/25/2014 TECHNIQUE: Axial images acquired through the brain without intravenous contrast. Images reviewed wi th bone, brain and subdural windows. Images stored on PACS. All CT scanners at this facility use dose modulation, iterative reconstruction, and/or weight based d osing when appropriate to reduce radiation dose to as low as reasonably achievable (ALARA). [facility]: Dose Right [facility]: CareDose [facility]: Dose Right [facility]: Teradose 4D [facility]: Smart [employer] RADIATION DOSE: CT Rad equipment meets quality standard of care and radiation dose reduction techniq ues were employed. CTDIvol: 55.3 mGy. DLP: 996 mGy-cm.mGy. LIMITATIONS: None. FINDINGS: VENTRICLES: Prominent. CEREBRUM: No masses. No hemorrhage. No midline shift. Areas of low density in the white matter mos t likely due to chronic micro-vascular ischemic change. No evidence for acute infarction. CEREBELLUM: No masses. No hemorrhage. No alteration of density. No evidence for acute infarction. EXTRAAXIAL SPACES: Age-related involutional change. No fluid collections. No masses. ORBITS AND GLOBE: No intra- or extraconal masses. Normal contour of globe without masses. CALVARIUM: No fracture. PARANASAL SINUSES: No fluid or mucosal thickening. SOFT TISSUES: No mass or hematoma. OTHER: No other significant finding. . IMPRESSION: CHRONIC CHANGES OF ATROPHY AND MICROVASCULAR ISCHEMIA. NO ACUTE PROCESS. EVIDENCE OF ACUTE STROKE: NO. TECHNICAL DOCUMENTATION: JOB ID: [id number] Quality ID # [id number]: Final reports with documentation of one or more dose reduction techniques (e.g., Au tomated exposure control, adjustment of the mA and/or kV according to patient size, use of iterative reconstruction technique) 2010 [employer]- All Rights Reserved
[2017-09-16 22:50] LABS: CREATINE KINASE MB 1.17 ng/mL (<4.55); TROPONIN I 0.06 ng/mL
[2017-09-16] MEDS: ATORVASTATIN CALCIUM 80 MG TABLET PO SCH (23:00)
[2017-09-16] MEDS: FUROSEMIDE 80 MG TABLET PO SCH (23:00)
[2017-09-16] MEDS ORDERED: FUROSEMIDE 80 MG TABLET ONE (23:01)
[2017-09-17] MEDS: ALBUTEROL SULFATE HFA (90 MCG/PUFF) 8 GM MDI (1 MDI/ER DISP) IH SCH ×4 (00:45→18:26)
[2017-09-17 04:19] LABS: ABSOLUTE BASOPHILS # (AUTO) 0.1 10^3/uL (0.0-0.2); ABSOLUTE LYMPHOCYTES (AUTO) 1.1 10^3/uL (0.5-4.7); ABSOLUTE MONOCYTES (AUTO) 0.4 10^3/uL (0.1-1.4); ABSOLUTE NEUT (AUTO) 9.3 10^3/uL (1.7-8.2); BASOPHILS % (AUTO) 0.6 % (0-2); EOSINOPHILS % (AUTO) 0.1 % (0-6); HEMATOCRIT 34.5 % (37.9-51.0); HEMOGLOBIN 11.5 g/dL (13.5-17.0); MEAN CORPUSCULAR HEMOGLOBIN 29.8 pg (27.0-33.4); MEAN CORPUSCULAR HGB CONC 33.2 g/dL (32.0-36.0); MEAN CORPUSCULAR VOLUME 90 fl (80-97); MONOCYTES % (AUTO) 3.3 % (3-13); PLATELET COUNT 146 10^3/uL (150-450); RED BLOOD COUNT 3.85 10^6/uL (4.35-5.55); RED CELL DISTRIBUTION WIDTH 17.2 % (11.5-14.0); TOTAL CELLS COUNTED % (AUTO) 100 %; WHITE BLOOD COUNT 10.8 10^3/uL (4.0-10.5)
[2017-09-17 04:31] LABS: INTERNATIONAL RATION (INR) 2.47
[2017-09-17 04:44] LABS: ANION GAP 13 (5-19); BLOOD UREA NITROGEN 48 mg/dL (7-20); CALCIUM 9.6 mg/dL (8.4-10.2); CARBON DIOXIDE 29 mmol/L (22-30); CHLORIDE 101 mmol/L (98-107); CREATINE KINASE 176 U/L (55-170); GLUCOSE 88 mg/dL (75-110); POTASSIUM 3.3 mmol/L (3.6-5.0); SODIUM 142.8 mmol/L (137-145)
[2017-09-17 05:01] LABS: CREATINE KINASE MB 1.28 ng/mL (<4.55); TROPONIN I 0.069 ng/mL
[2017-09-17] MEDS ORDERED: POTASSIUM CHLORIDE 10 MEQ TABLET.SA PO ONE (07:48)
[2017-09-17] MEDS ORDERED: FUROSEMIDE 80 MG TABLET PO ONE (08:15)
[2017-09-17] MEDS: FUROSEMIDE 80 MG TABLET PO SCH (08:35)
[2017-09-17] MEDS: DOCUSATE SODIUM 100 MG CAPSULE PO SCH ×2 (09:22→18:27)
[2017-09-17] MEDS: LEVOTHYROXINE SODIUM 0.088 MG TABLET PO SCH (09:22)
[2017-09-17] MEDS: CLOPIDOGREL BISULFATE 75 MG TABLET PO SCH (09:22)
[2017-09-17] MEDS: TAMSULOSIN HCL 0.4 MG CAP.SR.24H PO SCH (09:23)
[2017-09-17] MEDS: POLYETHYLENE GLYCOL 3350 POWDER 17 GM/1 PACKET PO SCH (09:23)
[2017-09-17] MEDS: ERTAPENEM SODIUM 1 GM in NORMAL SALINE 50 ML IV SCH (09:26)
[2017-09-17] MEDS: METOPROLOL SUCCINATE 50 MG TAB.SR.24H PO SCH (09:27)
[2017-09-17 11:13] LABS: CREATINE KINASE MB 1.76 ng/mL (<4.55); TROPONIN I 0.066 ng/mL
--- NOTE | 2017-09-17 11:15 | PDOC PROGRESS REPORT ---
Subjective Progress Note for:: 09/17/17 Subjective:: he is currently doing fair Denied any chest pain denied any shortness of the breath No fever overnight Reason For Visit: SYNCOPAL EPISODE Physical Exam Vital Signs: Temp Pulse Resp BP Pulse Ox 97.4 F 85 25 H 128/67 H 97 09/17/17 02:00 09/16/17 15:38 09/17/17 08:32 09/17/17 08:32 09/17/17 08:32 General appearance: PRESENT: no acute distress, well-developed, well-nourished Head exam: PRESENT: atraumatic, normocephalic Eye exam: PRESENT: conjunctiva pink, EOMI, PERRLA. ABSENT: scleral icterus Ear exam: PRESENT: normal external ear exam Mouth exam: PRESENT: moist, tongue midline Neck exam: PRESENT: full ROM. ABSENT: carotid bruit, JVD, lymphadenopathy, thyromegaly Respiratory exam: PRESENT: clear to auscultation kavitha Cardiovascular exam: PRESENT: RRR. ABSENT: diastolic murmur, rubs, systolic murmur Pulses: PRESENT: normal dorsalis pedis pul, +2 pedal pulses bilateral Vascular exam: PRESENT: normal capillary refill GI/Abdominal exam: PRESENT: normal bowel sounds, soft. ABSENT: distended, guarding, mass, organolmegaly, rebound, tenderness Rectal exam: PRESENT: deferred Extremities exam: PRESENT: pedal edema Additional comments: Left lower extremity mild redness is present and chronic venous insufficiency of the bilateral lower extremity Neurological exam: PRESENT: alert, awake, oriented to person, oriented to place , oriented to time, oriented to situation, CN II-XII grossly intact. ABSENT: motor sensory deficit Psychiatric exam: PRESENT: appropriate affect, normal mood. ABSENT: homicidal ideation, suicidal ideation Skin exam: PRESENT: dry, intact, warm. ABSENT: cyanosis, rash Results Laboratory Results: 09/17/17 04:10 09/17/17 04:10 09/17/17 09/17/17 04:10 04:10 WBC 10.8 H RBC 3.85 L Hgb 11.5 L Hct 34.5 L MCV 90 MCH 29.8 MCHC 33.2 RDW 17.2 H Plt Count 146 L Seg Neutrophils % 86.0 H Lymphocytes % 10.0 L Monocytes % 3.3 Eosinophils % 0.1 Basophils % 0.6 Absolute Neutrophils 9.3 H Absolute Lymphocytes 1.1 Absolute Monocytes 0.4 Absolute Eosinophils 0.0 Absolute Basophils 0.1 Sodium 142.8 Potassium 3.3 L Chloride 101 Carbon Dioxide 29 Anion Gap 13 BUN 48 H Creatinine 2.00 H Est GFR ( Amer) 39 L Est GFR (Non-Af Amer) 32 L Glucose 88 Calcium 9.6 09/16/17 09/16/17 09/17/17 22:10 22:10 04:10 Creatine Kinase 148 CK-MB (CK-2) 1.17 1.28 Troponin I 0.060 0.069 09/17/17 09/17/17 04:10 10:25 Creatine Kinase 176 H 197 H CK-MB (CK-2) Troponin I Impressions: Head CT 09/16/17 00:00 IMPRESSION: CHRONIC CHANGES OF ATROPHY AND MICROVASCULAR ISCHEMIA. NO ACUTE PROCESS. EVIDENCE OF ACUTE STROKE: NO. Chest X-Ray 09/16/17 15:03 IMPRESSION: No significant interval change. No acute changes. Other findings as noted above. Assessment & Plan - Diagnosis (1) Syncopal episodes Qualifiers: Syncope type: unspecified Qualified Code(s): R55 - Syncope and collapse Is this a current diagnosis for this admission?: Yes Plan: CT head was negative and cardiac enzymes all stable placement pacemaker interrogation is all stable will wait for the cardiology evaluations (2) Atrial fibrillation Qualifiers: Atrial fibrillation type: chronic Qualified Code(s): I48.2 - Chronic atrial fibrillation Is this a current diagnosis for this admission?: Yes Plan: Currently on the Coumadin and rate under control (3) CAD (coronary artery disease) Qualifiers: Coronary Disease-Associated Artery/Lesion type: unspecified vessel or lesion type Is this a current diagnosis for this admission?: Yes Plan: Consult the cardiology initial workup is all stable (4) CHF (congestive heart failure) Qualifiers: Congestive heart failure type: combined Is this a current diagnosis for this admission?: Yes Plan: Continues to current medications (5) CKD (chronic kidney disease) Qualifiers: Chronic kidney disease stage: stage 3 (moderate) Qualified Code(s): N18.3 - Chronic kidney disease, stage 3 (moderate) Is this a current diagnosis for this admission?: Yes Plan: Currently all stable (7) DVT (deep venous thrombosis) Qualifiers: Chronicity: unspecified Is this a current diagnosis for this admission?: Yes Plan: We will check the PT/INR todayContinues to Coumadin (8) Diabetes Qualifiers: Diabetes mellitus type: type 2 Diabetes mellitus complication status: with hypoglycemia Diabetes mellitus complication detail: 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 Diabetes mellitus halfway insulin use: with enroute controller use Qualified Code(s): E11.649 - 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; Z79.4 - specialty finishing utility person ( current) use of insulin; Z79.4 - prison (current) use of insulin; Z79.4 - specialty finishing utility person (current) use of insulin; Z79.4 - prison (current) use of insulin Is this a current diagnosis for this admission?: Yes Plan: Continues to sliding scales and continues to current insulin (9) Hypertension Qualifiers: Hypertension type: essential hypertension Qualified Code(s): I10 - Essential (primary) hypertension Is this a current diagnosis for this admission?: Yes Plan: Currently all stable (10) Left leg cellulitis Is this a current diagnosis for this admission?: Yes Plan: This is most likely a chronic start the patient on IV Invanz until the all cultures back (11) Orthostatic hypotension Is this a current diagnosis for this admission?: Yes Plan: Very extensive workup was done in the past will get the fall precautions (12) Sleep disorder Is this a current diagnosis for this admission?: Yes Plan: Continues use a CPAP - Time Time Spent with patient: 15-24 minutes Medications reviewed and adjusted accordingly: Yes Anticipated discharge: Home Within: Other - Inpatient Certification Medical Necessity: Need Close Monitoring Due to Risk of Patient Decompensation, Need for IV Antibiotics Post Hospital Care: D/C Facility Engineer Documentation - Plan Summary Plan Summary: continue to current medications
[2017-09-17] MEDS ORDERED: FUROSEMIDE INJ/PF 40 MG/4 ML SDV IV SCH (12:00)
--- NOTE | 2017-09-17 12:17 | RADIOLOGY REPORT (SQ) ---
EXAM DESCRIPTION: CHEST SINGLE VIEW COMPLETED DATE/TIME: 09/17/2017 12:07 pm REASON FOR STUDY: sob/whezzing COMPARISON: 09/16/2017 EXAM PARAMETERS: NUMBER OF VIEWS: One view. TECHNIQUE: Single frontal radiographic view of the chest acquired. RADIATION DOSE: NA LIMITATIONS: None. FINDINGS: LUNGS AND PLEURA: No opacities, masses or pneumothorax. No pleural effusion. MEDIASTINUM AND HILAR STRUCTURES: No masses. Contour normal. HEART AND VASCULAR STRUCTURES: Cardiac silhouette remains enlarged. BONES: No acute findings. HARDWARE: Patient is status post median sternotomy. AICD device is unchanged in position OTHER: No other significant finding. IMPRESSION: No significant interval change. No acute findings. Other findings as noted above TECHNICAL DOCUMENTATION: JOB ID: [id number] [employer]- All Rights Reserved
[2017-09-17] MEDS: INSULIN LISPRO 100 UNIT/ML 3 ML VIAL SUBCUT PRN ×2 (12:32→22:32)
[2017-09-17] MEDS: CLINDAMYCIN 300 MG/D5W RTU 300 MG/50 ML RTUPB IV SCH ×2 (14:18→21:24)
[2017-09-17] MEDS: FUROSEMIDE INJ/PF 40 MG/4 ML SDV IV SCH ×2 (14:23→21:24)
[2017-09-17] MEDS: IPRATROPIUM/ALBUTEROL 0.5-2.5 MG/3 ML AMPUL NEB SCH ×2 (14:32→19:27)
[2017-09-17] MEDS: ATORVASTATIN CALCIUM 80 MG TABLET PO SCH (21:24)
[2017-09-17] MEDS ORDERED: WARFARIN SODIUM 3 MG TABLET PO SCH (22:00)
[2017-09-18] MEDS: ALBUTEROL SULFATE HFA (90 MCG/PUFF) 8 GM MDI (1 MDI/ER DISP) IH SCH ×4 (00:26→17:59)
[2017-09-18] MEDS: CLINDAMYCIN 300 MG/D5W RTU 300 MG/50 ML RTUPB IV SCH ×3 (05:27→21:24)
[2017-09-18] MEDS: FUROSEMIDE INJ/PF 40 MG/4 ML SDV IV SCH ×3 (05:27→21:24)
[2017-09-18 06:53] LABS: ABSOLUTE LYMPHOCYTES (AUTO) 1.2 10^3/uL (0.5-4.7); ABSOLUTE MONOCYTES (AUTO) 0.4 10^3/uL (0.1-1.4); ABSOLUTE NEUT (AUTO) 9.3 10^3/uL (1.7-8.2); BASOPHILS % (AUTO) 0.1 % (0-2); HEMATOCRIT 34.4 % (37.9-51.0); HEMOGLOBIN 11.2 g/dL (13.5-17.0); LYMPHOCYTES % (AUTO) 10.8 % (13-45); MEAN CORPUSCULAR HEMOGLOBIN 29.2 pg (27.0-33.4); MEAN CORPUSCULAR HGB CONC 32.4 g/dL (32.0-36.0); MEAN CORPUSCULAR VOLUME 90 fl (80-97); MONOCYTES % (AUTO) 3.5 % (3-13); PLATELET COUNT 156 10^3/uL (150-450); RED BLOOD COUNT 3.82 10^6/uL (4.35-5.55); RED CELL DISTRIBUTION WIDTH 17.3 % (11.5-14.0); SEGMENTED NEUTROPHILS % (AUTO) 85.6 % (42-78); TOTAL CELLS COUNTED % (AUTO) 100 %; WHITE BLOOD COUNT 10.9 10^3/uL (4.0-10.5)
[2017-09-18 06:59] LABS: INTERNATIONAL RATION (INR) 2.74; PROTHROMBIN TIME 30.4 SEC (11.4-15.4)
[2017-09-18 07:19] LABS: ANION GAP 12 (5-19); BLOOD UREA NITROGEN 37 mg/dL (7-20); CALCIUM 9.8 mg/dL (8.4-10.2); CARBON DIOXIDE 28 mmol/L (22-30); CHLORIDE 103 mmol/L (98-107); GLUCOSE 215 mg/dL (75-110); POTASSIUM 3.7 mmol/L (3.6-5.0); SODIUM 142.5 mmol/L (137-145)
[2017-09-18] MEDS: IPRATROPIUM/ALBUTEROL 0.5-2.5 MG/3 ML AMPUL NEB SCH (07:39)
[2017-09-18 08:26] LABS: APPEARANCE,URINE CLEAR; BILIRUBIN,URINE NEGATIVE (NEGATIVE); COLOR,URINE YELLOW; GLUCOSE, URINE 150 mg/dL (NEGATIVE); KETONES,URINE NEGATIVE (NEGATIVE); LEUKOCYTE ESTERASE,URINE NEGATIVE (NEGATIVE); NITRITE,URINE NEGATIVE (NEGATIVE); PROTEIN,URINE NEGATIVE (NEGATIVE); URINE SPECIFIC GRAVITY 1.009; UROBILINOGEN,URINE NEGATIVE mg/dL (<2.0)
[2017-09-18 08:36] LABS: ADD MANUAL MICROSCOPIC YES
[2017-09-18] MEDS: INSULIN LISPRO 100 UNIT/ML 3 ML VIAL SUBCUT PRN ×3 (10:05→21:45)
[2017-09-18] MEDS: LEVOTHYROXINE SODIUM 0.088 MG TABLET PO SCH (10:05)
[2017-09-18] MEDS: DOCUSATE SODIUM 100 MG CAPSULE PO SCH ×2 (10:05→17:59)
[2017-09-18] MEDS: TAMSULOSIN HCL 0.4 MG CAP.SR.24H PO SCH (10:06)
[2017-09-18] MEDS: CLOPIDOGREL BISULFATE 75 MG TABLET PO SCH (10:06)
[2017-09-18] MEDS: METOPROLOL SUCCINATE 50 MG TAB.SR.24H PO SCH (10:06)
[2017-09-18] MEDS: POLYETHYLENE GLYCOL 3350 POWDER 17 GM/1 PACKET PO SCH (10:06)
[2017-09-18] MEDS: ERTAPENEM SODIUM 1 GM in NORMAL SALINE 50 ML IV SCH (10:07)
--- NOTE | 2017-09-18 10:29 | PDOC PROGRESS REPORT ---
Subjective Progress Note for:: 09/18/17 Subjective:: Patient is still complaining of short of breath and a mild wheezing Patient's denied any chest pain denied any fever Recent INR is 2.74 Since seen by the cardiology Dr. Mays as per discussed with him Reason For Visit: SYNCOPAL EPISODE Physical Exam Vital Signs: Temp Pulse Resp BP Pulse Ox 97.5 F 58 L 22 H 132/72 H 100 09/18/17 08:00 09/18/17 08:00 09/18/17 08:00 09/18/17 08:00 09/18/17 08:00 Intake & Output 09/17/17 09/18/17 09/19/17 06:59 06:59 06:59 Intake Total 1240 Output Total 1700 Balance -460 Weight 117.4 kg General appearance: PRESENT: no acute distress, well-developed, well-nourished Head exam: PRESENT: atraumatic, normocephalic Eye exam: PRESENT: conjunctiva pink, EOMI, PERRLA. ABSENT: scleral icterus Ear exam: PRESENT: normal external ear exam Mouth exam: PRESENT: moist, tongue midline Neck exam: PRESENT: full ROM. ABSENT: carotid bruit, JVD, lymphadenopathy, thyromegaly Respiratory exam: PRESENT: decreased breath sounds Cardiovascular exam: PRESENT: RRR. ABSENT: diastolic murmur, rubs, systolic murmur Pulses: PRESENT: normal dorsalis pedis pul, +2 pedal pulses bilateral Vascular exam: PRESENT: normal capillary refill GI/Abdominal exam: PRESENT: normal bowel sounds, soft. ABSENT: distended, guarding, mass, organolmegaly, rebound, tenderness Rectal exam: PRESENT: deferred Extremities exam: PRESENT: pedal edema Additional comments: Left lower extremity redness is present Neurological exam: PRESENT: alert, awake, oriented to person, oriented to place , oriented to time, oriented to situation, CN II-XII grossly intact. ABSENT: motor sensory deficit Psychiatric exam: PRESENT: appropriate affect, normal mood. ABSENT: homicidal ideation, suicidal ideation Skin exam: PRESENT: dry, intact, warm. ABSENT: cyanosis, rash Results Laboratory Results: 09/18/17 06:08 09/18/17 06:08 09/18/17 09/18/17 09/18/17 06:08 06:08 08:00 WBC 10.9 H RBC 3.82 L Hgb 11.2 L Hct 34.4 L MCV 90 MCH 29.2 MCHC 32.4 RDW 17.3 H Plt Count 156 Seg Neutrophils % 85.6 H Lymphocytes % 10.8 L Monocytes % 3.5 Eosinophils % 0.0 Basophils % 0.1 Absolute Neutrophils 9.3 H Absolute Lymphocytes 1.2 Absolute Monocytes 0.4 Absolute Eosinophils 0.0 Absolute Basophils 0.0 Sodium 142.5 Potassium 3.7 Chloride 103 Carbon Dioxide 28 Anion Gap 12 BUN 37 H Creatinine 1.41 H Est GFR ( Amer) 58 L Est GFR (Non-Af Amer) 48 L Glucose 215 H Calcium 9.8 Urine Color YELLOW Urine Appearance CLEAR Urine pH 5.0 Ur Specific Roberts 1.009 Urine Protein NEGATIVE Urine Glucose (UA) 150 H Urine Ketones NEGATIVE Urine Blood SMALL H Urine Nitrite NEGATIVE Ur Leukocyte Esterase NEGATIVE Ur Squamous Epith Cells FEW 09/16/17 09/16/17 09/17/17 22:10 22:10 04:10 Creatine Kinase 148 CK-MB (CK-2) 1.17 1.28 Troponin I 0.060 0.069 NT-Pro-B Natriuret Pep 09/17/17 09/17/17 09/17/17 04:10 10:25 10:25 Creatine Kinase 176 H 197 H CK-MB (CK-2) 1.76 Troponin I 0.066 NT-Pro-B Natriuret Pep 09/18/17 06:08 Creatine Kinase CK-MB (CK-2) Troponin I NT-Pro-B Natriuret Pep 6720 H Impressions: Head CT 09/16/17 00:00 IMPRESSION: CHRONIC CHANGES OF ATROPHY AND MICROVASCULAR ISCHEMIA. NO ACUTE PROCESS. EVIDENCE OF ACUTE STROKE: NO. Chest X-Ray 09/17/17 00:00 IMPRESSION: No significant interval change. No acute findings. Other findings as noted above Assessment & Plan - Diagnosis (1) Syncopal episodes Qualifiers: Syncope type: unspecified Qualified Code(s): R55 - Syncope and collapse Is this a current diagnosis for this admission?: Yes Plan: Follow with cardiology check orthostatic blood pressures (2) Atrial fibrillation Qualifiers: Atrial fibrillation type: chronic Qualified Code(s): I48.2 - Chronic atrial fibrillation Is this a current diagnosis for this admission?: Yes Plan: Currently on Coumadin and rate under control we will change the DuoNeb to Xopenex nebulizer (3) CAD (coronary artery disease) Qualifiers: Coronary Disease-Associated Artery/Lesion type: unspecified vessel or lesion type Is this a current diagnosis for this admission?: Yes Plan: Consult the cardiology initial workup is all stable (4) CHF (congestive heart failure) Qualifiers: Congestive heart failure type: combined Is this a current diagnosis for this admission?: Yes Plan: Will increase the Lasix 60 mg IV q. [address] discussed with the Dr. Mays about the patient's current symptoms (5) CKD (chronic kidney disease) Qualifiers: Chronic kidney disease stage: stage 3 (moderate) Qualified Code(s): N18.3 - Chronic kidney disease, stage 3 (moderate) Is this a current diagnosis for this admission?: Yes Plan: Currently all stable (6) Cardiac defibrillator in situ Plan: Currently follow with cardiology (7) DVT (deep venous thrombosis) Qualifiers: Chronicity: unspecified Is this a current diagnosis for this admission?: Yes Plan: We will check the PT/INR todayContinues to Coumadin (8) Diabetes Qualifiers: Diabetes mellitus type: type 2 Diabetes mellitus complication status: with hypoglycemia Diabetes mellitus complication detail: 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 Diabetes mellitus ocean transportation intermediary insulin use: with custodial use Qualified Code(s): E11.649 - 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; Z79.4 - residential ( current) use of insulin; Z79.4 - residential (current) use of insulin; Z79.4 - watermelon inspector (current) use of insulin; Z79.4 - residential (current) use of insulin Is this a current diagnosis for this admission?: Yes Plan: Continues to sliding scales and continues to current insulin (9) Hypertension Qualifiers: Hypertension type: essential hypertension Qualified Code(s): I10 - Essential (primary) hypertension Is this a current diagnosis for this admission?: Yes Plan: Currently all stable (10) Left leg cellulitis Is this a current diagnosis for this admission?: Yes Plan: This is most likely a chronic start the patient on IV Invanz until the all cultures back (11) Orthostatic hypotension Is this a current diagnosis for this admission?: Yes Plan: Very extensive workup was done in the past will get the fall precautions (12) Sleep disorder Is this a current diagnosis for this admission?: Yes Plan: Uses CPAP machine at night (13) Shortness of breath Is this a current diagnosis for this admission?: Yes Plan: With the multifactorial according to the cardiology possible COPD will continues to Xopenex nebulizer get the ABG and the chest x-ray and consult the pulmonary - Time Time Spent with patient: 15-24 minutes Medications reviewed and adjusted accordingly: Yes Anticipated discharge: Other Within: Other - Inpatient Certification Medical Necessity: Need Close Monitoring Due to Risk of Patient Decompensation, Need for IV Antibiotics Post Hospital Care: D/C Supply Chain Technician Documentation - Plan Summary Plan Summary: Continues to current medication as able see other MD orders discussed with the regarding the patient's current conditions
[2017-09-18 10:32] LABS: ARTERIAL BLOOD FIO2 2L; ARTERIAL BLOOD H2CO3 1.38 mmol/L (1.05-1.35); ARTERIAL BLOOD HCO3 27.3 mmol/L (20-26); ARTERIAL BLOOD O2 SATURATION 95.9 % (94-98); ARTERIAL BLOOD PCO2 45.9 mmHg (35-45); ARTERIAL BLOOD PH 7.39 (7.35-7.45); ARTERIAL BLOOD PO2 81.7 mmHg (80-100); ARTERIAL BLOOD TOTAL CO2 28.8 mmol/L (23-27)
--- NOTE | 2017-09-18 11:33 | RADIOLOGY REPORT (SQ) ---
EXAM DESCRIPTION: CHEST SINGLE VIEW COMPLETED DATE/TIME: 09/18/2017 11:19 am REASON FOR STUDY: sob COMPARISON: AP chest 09/17/2017, 09/16/2017 Two-view chest 10/23/2016 EXAM PARAMETERS: NUMBER OF VIEWS: One view. TECHNIQUE: Single frontal radiographic view of the chest acquired. RADIATION DOSE: NA LIMITATIONS: None. FINDINGS: LUNGS AND PLEURA: No opacities, masses or pneumothorax. No pleural effusion. MEDIASTINUM AND HILAR STRUCTURES: No masses. Contour normal. HEART AND VASCULAR STRUCTURES: Stable mild cardiomegaly. Post sternotomy and CABG BONES: No acute findings. HARDWARE: Left-sided pacemaker/defibrillator OTHER: No other significant finding. IMPRESSION: Stable cardiomegaly. 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 Pacemaker/defibrillator. No acute changes TECHNICAL DOCUMENTATION: JOB ID: [id number] [employer]- All Rights Reserved
[2017-09-18] MEDS ORDERED: FUROSEMIDE INJ/PF 40 MG/4 ML SDV IV SCH (12:00)
[2017-09-18] MEDS: LEVALBUTEROL HCL NEB 0.63 MG/3 ML AMPUL NEB SCH ×4 (12:22→23:43)
[2017-09-18] MEDS ORDERED: TIOTROPIUM BROMIDE DPI 5 CAP/KIT (18 MCG/CAP) IH ONE (13:00)
--- NOTE | 2017-09-18 13:26 | PDOC CONSULTATION ---
Consultation Consult Date: 09/18/17 Attending physician:: DANA TUTTLE Consult reason:: Dyspnea History of Present Illness Admission Date/PCP: 09/16/17 21:25 DANA TUTTLE MD History of Present Illness: MARY MANDUJANO is a 82 year old male This is a 82-year-old male with a presentation to the emergency department complaining of shortness of breath was initially given an antibiotic and sent home however he returned again shortness of breath with weakness. Her spouse she states that he has had fevers and chills and a cough productive of yellow phlegm but denies any hemoptysis PPD status is unknown. No history of chronic lung disease as a child or adolescent. No exposure to passive smoke as a child. He served 21 years [employer] is exposed large amounts of passive smoke there. 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 He has never smoked. He has 1 dog. No recent travel. No reported angina-like chest pain sleeps 1-2 pillows occasional PND rare nocturnal cough but chronic edema. Spouse complains of snoring restless sleep nocturia 456 times a night unrestful sleep and excessive daytime somnolence. Significant history of ischemic cardiomyopathy biventricular congestive heart failure status post ICD placementAnd history of the chronic atrial fibrillation'sHistory of the chronic kidney disease on a chronic DVT with multiple other comorbidity. He recently admitted for the cellulitis Past Medical History Cardiac Medical History: Reports: Atrial Fibrillation, Congestive Heart Failure , Coronary Artery Disease, DVT, Myocardial Infarction - 1995, Hyperlipidema, Hypertension, Pulmonary Embolism Pulmonary Medical History: Reports: Sleep Apnea Denies: Asthma, Tuberculosis EENT Medical History: Reports: Cataracts Denies: Ears, Nose Neurological Medical History: Denies: Multiple Sclerosis Endocrine Medical History: Reports: Diabetes Mellitus Type 2 Renal/ Medical History: Reports: Chronic Kidney Disease Denies: Nephrolithiasis Malignancy Medical History: Reports: None GI Medical History: Reports: Gastroesophageal Reflux Disease Denies: Cirrhosis, Crohn's Disease, Hepatitis, Ulcerative Colitis Musculoskeltal Medical History: Reports: Arthritis - gout, Gout Skin Medical History: Denies: Psoriasis Psychiatric Medical History: Reports: Depression Traumatic Medical History: Denies: Traumatic Brain Injury Hematology: Reports: Anemia Denies: Sickle Cell Disease Infectious Medical History: Denies: Hepatitis B, Hepatitis C Past Surgical History Past Surgical History: Reports: Coronary Artery Bypass Graft - 3, Coronary Stent, Internal Defibrillator, Pacemaker - upper left chest, Vascular Surgery, Other - Bone graft in the left ankle, surgery of elbow fracture Social History Information Source: Relative, [facility] Records 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 Smoking Status: Never Smoker Passive smoke exposure as: Adult Frequency of Alcohol Use: None Hx Recreational Drug Use: No Drugs: None Hx Prescription Drug Abuse: No Do you have pets?: Yes Have you had any respiratory illnesses as a child?: No Have you been exposed to any sick contacts recently?: No Have you had any recent respiratory illnesses?: Yes Have you travelled outside of [place] in the past 12 months?: No Family History Family History: CAD, COPD, Hypertension, Malignancy Parental Family History Reviewed: Yes Children Family History Reviewed: Yes Sibling(s) Family History Reviewed.: Yes Medication/Allergy Home Medications: Albuterol Sulfate [Proair HFA] 2 puff IH Q6 09/16/17 Atorvastatin Calcium [Lipitor 80 mg Tablet] 80 mg PO QHS 09/16/17 Benzonatate [Tessalon Perle 100 mg Capsule] 100 mg PO TID 09/16/17 Cephalexin Monohydrate [Keflex 500 mg Capsule] 500 mg PO TID 09/16/17 Clopidogrel Bisulfate [Plavix 75 mg Tablet] 75 mg PO DAILY 09/16/17 Docusate Sodium [Colace] 200 mg PO DAILYP PRN 09/16/17 Fenofibrate Nanocrystallized [Tricor 145 mg Tablet] 145 mg PO DAILY 09/16/17 Furosemide [Lasix 80 mg Tablet] 80 mg PO Q8 09/16/17 Hydralazine HCl [Apresoline 10 mg Tablet] 10 mg PO Q8 09/16/17 Levothyroxine Sodium [Synthroid 0.088 mg Tablet] 88 mcg PO DAILY 09/16/17 Metoprolol Succinate [Toprol Xl 50 mg Tab.sr] 50 mg PO DAILY 09/16/17 Oxycodone HCl/Acetaminophen [Percocet 5-325 mg Tablet] 1 tab PO TIDP PRN Pantoprazole Sodium [Protonix] 40 mg PO DAILY 09/16/17 Polyethylene Glycol 3350 [Miralax Powder 17 gm/Packet] 1 packet PO DAILY Tamsulosin HCl [Flomax 0.4 mg Cap.sr] 0.4 mg PO DAILY 09/16/17 Allergies/Adverse Reactions: nystatin Adverse Reaction (Verified 09/16/17 16:18) Review of Systems Constitutional: PRESENT: chills, fever(s). ABSENT: anorexia, fatigue, night sweats, weight gain, weight loss Eyes: ABSENT: visual disturbances Ears: ABSENT: hearing changes Nose, Mouth, and Throat: ABSENT: mouth pain Respiratory: PRESENT: dyspnea. ABSENT: hemoptysis Gastrointestinal: PRESENT: constipation. ABSENT: abdominal pain, bloating, coffee ground emesis, diarrhea, hematemesis, hematochezia, melena, nausea, vomiting Genitourinary: PRESENT: nocturia. ABSENT: difficulty urinating, dysuria, hematuria Musculoskeletal: ABSENT: deformity Integumentary: ABSENT: pruritus, rash Neurological: ABSENT: abnormal gait, confusion, focal weakness, lack of coordination, memory loss Psychiatric: ABSENT: hallucinations, homidical ideation, suicidal ideation Endocrine: ABSENT: cold intolerance, heat intolerance, menstrual abnormalities Hematologic/Lymphatic: ABSENT: easy bruising Physical Exam Vital Signs: Temp Pulse Resp BP Pulse Ox 99.1 F 70 18 120/63 99 09/18/17 12:00 09/18/17 12:22 09/18/17 12:22 09/18/17 12:00 09/18/17 12:00 Intake & Output 09/17/17 09/18/17 09/19/17 06:59 06:59 06:59 Intake Total 1240 Output Total 1700 Balance -460 Weight 117.4 kg General appearance: PRESENT: no acute distress, cooperative, disheveled, obese, well-developed. ABSENT: mild distress, morbidly obese, severe distress, thin Head exam: PRESENT: atraumatic, normocephalic Eye exam: PRESENT: conjunctiva pale, EOMI. ABSENT: conjunctival injection, conjunctiva pink, nystagmus, periorbital swelling, scleral icterus Mouth exam: PRESENT: dry mucosa, neck supple, tongue midline. ABSENT: laceration, moist Neck exam: ABSENT: carotid bruit, JVD, lymphadenopathy, thyromegaly, tracheal deviation, tracheostomy Respiratory exam: PRESENT: decreased breath sounds, prolonged expiratory phas, rhonchi, symmetrical, unlabored, wheezes. ABSENT: accessory muscle use, chest wall tenderness, clear to auscultation kavitha, crackles, rales, retraction, stridor , tachypnea Cardiovascular exam: PRESENT: RRR, +S1, +S2 Pulses: PRESENT: normal radial pulses GI/Abdominal exam: PRESENT: normal bowel sounds, soft. ABSENT: distended, guarding, mass, organolmegaly, rebound, tenderness Extremities exam: PRESENT: +2 edema. ABSENT: clubbing Musculoskeletal exam: ABSENT: ambulatory, deformity, dislocation, full ROM Neurological exam: PRESENT: awake Psychiatric exam: PRESENT: flat affect Skin exam: PRESENT: dry, warm, other - bilat venous stasis dx and cellulitis Results Laboratory Results: 09/18/17 06:08 09/18/17 06:08 09/18/17 09/18/17 09/18/17 06:08 06:08 06:08 WBC 10.9 H RBC 3.82 L Hgb 11.2 L Hct 34.4 L MCV 90 MCH 29.2 MCHC 32.4 RDW 17.3 H Plt Count 156 Seg Neutrophils % 85.6 H Lymphocytes % 10.8 L Monocytes % 3.5 Eosinophils % 0.0 Basophils % 0.1 Absolute Neutrophils 9.3 H Absolute Lymphocytes 1.2 Absolute Monocytes 0.4 Absolute Eosinophils 0.0 Absolute Basophils 0.0 Carbonic Acid HCO3/H2CO3 Ratio ABG pH ABG pCO2 ABG pO2 ABG HCO3 ABG O2 Saturation ABG Base Excess FiO2 Sodium 142.5 Potassium 3.7 Chloride 103 Carbon Dioxide 28 Anion Gap 12 BUN 37 H Creatinine 1.41 H Est GFR ( Amer) 58 L Est GFR (Non-Af Amer) 48 L Glucose 215 H Calcium 9.8 Magnesium 2.4 H Urine Color Urine Appearance Urine pH Ur Specific [place] Urine Protein Urine Glucose (UA) Urine Ketones Urine Blood Urine Nitrite Ur Leukocyte Esterase Ur Squamous Epith Cells Stool Occult Blood 09/18/17 09/18/17 09/18/17 08:00 10:15 10:55 WBC RBC Hgb Hct MCV MCH MCHC RDW Plt Count Seg Neutrophils % Lymphocytes % Monocytes % Eosinophils % Basophils % Absolute Neutrophils Absolute Lymphocytes Absolute Monocytes Absolute Eosinophils Absolute Basophils Carbonic Acid 1.38 H HCO3/H2CO3 Ratio 19:1 ABG pH 7.39 ABG pCO2 45.9 H ABG pO2 81.7 ABG HCO3 27.3 H ABG O2 Saturation 95.9 ABG Base Excess 2.0 FiO2 2L Sodium Potassium Chloride Carbon Dioxide Anion Gap BUN Creatinine Est GFR ( Amer) Est GFR (Non-Af Amer) Glucose Calcium Magnesium Urine Color YELLOW Urine Appearance CLEAR Urine pH 5.0 Ur Specific [place] 1.009 Urine Protein NEGATIVE Urine Glucose (UA) 150 H Urine Ketones NEGATIVE Urine Blood SMALL H Urine Nitrite NEGATIVE Ur Leukocyte Esterase NEGATIVE Ur Squamous Epith Cells FEW Stool Occult Blood NEGATIVE 09/16/17 09/16/17 09/17/17 22:10 22:10 04:10 Creatine Kinase 148 CK-MB (CK-2) 1.17 1.28 Troponin I 0.060 0.069 NT-Pro-B Natriuret Pep 09/17/17 09/17/17 09/17/17 04:10 10:25 10:25 Creatine Kinase 176 H 197 H CK-MB (CK-2) 1.76 Troponin I 0.066 NT-Pro-B Natriuret Pep 09/18/17 06:08 Creatine Kinase CK-MB (CK-2) Troponin I NT-Pro-B Natriuret Pep 6720 H Impressions: Head CT 09/16/17 00:00 IMPRESSION: CHRONIC CHANGES OF ATROPHY AND MICROVASCULAR ISCHEMIA. NO ACUTE PROCESS. EVIDENCE OF ACUTE STROKE: NO. Chest X-Ray 09/18/17 00:00 IMPRESSION: Stable cardiomegaly. 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 Pacemaker/ defibrillator. No acute changes Assessment & Plan - Diagnosis (1) Sleep disorder Is this a current diagnosis for this admission?: Yes (2) Shortness of breath Is this a current diagnosis for this admission?: Yes Plan: bedside spirometry LAMA (3) Syncopal episodes Qualifiers: Syncope type: unspecified Qualified Code(s): R55 - Syncope and collapse Is this a current diagnosis for this admission?: Yes Plan: recurrent (4) Atrial fibrillation Qualifiers: Atrial fibrillation type: persistent Qualified Code(s): I48.1 - Persistent atrial fibrillation Is this a current diagnosis for this admission?: Yes Plan: ventricular response ok (5) Bilateral lower leg cellulitis Is this a current diagnosis for this admission?: Yes Plan: chronic (6) Cardiac defibrillator in situ Is this a current diagnosis for this admission?: Yes (7) Hypertension Qualifiers: Hypertension type: essential hypertension Qualified Code(s): I10 - Essential (primary) hypertension Is this a current diagnosis for this admission?: Yes Plan: stable
[2017-09-18] MEDS: ATORVASTATIN CALCIUM 80 MG TABLET PO SCH (21:24)
[2017-09-19] MEDS: ALBUTEROL SULFATE HFA (90 MCG/PUFF) 8 GM MDI (1 MDI/ER DISP) IH SCH ×5 (01:14→23:55)
[2017-09-19] MEDS: LEVALBUTEROL HCL NEB 0.63 MG/3 ML AMPUL NEB SCH ×5 (04:42→20:38)
[2017-09-19 05:07] LABS: ABSOLUTE EOSINOPHILS # (AUTO) 0.1 10^3/uL (0.0-0.6); ABSOLUTE MONOCYTES (AUTO) 0.4 10^3/uL (0.1-1.4); ABSOLUTE NEUT (AUTO) 6.8 10^3/uL (1.7-8.2); BASOPHILS % (AUTO) 0.1 % (0-2); EOSINOPHILS % (AUTO) 0.6 % (0-6); HEMATOCRIT 33.4 % (37.9-51.0); HEMOGLOBIN 10.9 g/dL (13.5-17.0); LYMPHOCYTES % (AUTO) 12.3 % (13-45); MEAN CORPUSCULAR HEMOGLOBIN 29.5 pg (27.0-33.4); MEAN CORPUSCULAR HGB CONC 32.7 g/dL (32.0-36.0); MEAN CORPUSCULAR VOLUME 90 fl (80-97); MONOCYTES % (AUTO) 5.1 % (3-13); PLATELET COUNT 186 10^3/uL (150-450); RED CELL DISTRIBUTION WIDTH 17.5 % (11.5-14.0); SEGMENTED NEUTROPHILS % (AUTO) 81.9 % (42-78); TOTAL CELLS COUNTED % (AUTO) 100 %; WHITE BLOOD COUNT 8.2 10^3/uL (4.0-10.5)
[2017-09-19 05:13] LABS: PROTHROMBIN TIME 33.4 SEC (11.4-15.4)
[2017-09-19 05:22] LABS: ANION GAP 11 (5-19); BLOOD UREA NITROGEN 32 mg/dL (7-20); CALCIUM 9.7 mg/dL (8.4-10.2); CARBON DIOXIDE 29 mmol/L (22-30); CHLORIDE 100 mmol/L (98-107); GLUCOSE 293 mg/dL (75-110); POTASSIUM 3.4 mmol/L (3.6-5.0); SODIUM 139.8 mmol/L (137-145)
[2017-09-19] MEDS: FUROSEMIDE INJ/PF 40 MG/4 ML SDV IV SCH ×3 (05:34→22:12)
[2017-09-19] MEDS: CLINDAMYCIN 300 MG/D5W RTU 300 MG/50 ML RTUPB IV SCH (05:35)
[2017-09-19] MEDS: LEVOTHYROXINE SODIUM 0.088 MG TABLET PO SCH (05:35)
[2017-09-19] MEDS: INSULIN LISPRO 100 UNIT/ML 3 ML VIAL SUBCUT PRN ×4 (08:16→22:21)
[2017-09-19] MEDS: ERTAPENEM SODIUM 1 GM in NORMAL SALINE 50 ML IV SCH (09:37)
[2017-09-19] MEDS: CLOPIDOGREL BISULFATE 75 MG TABLET PO SCH (09:37)
[2017-09-19] MEDS: METOPROLOL SUCCINATE 50 MG TAB.SR.24H PO SCH (09:37)
[2017-09-19] MEDS: POLYETHYLENE GLYCOL 3350 POWDER 17 GM/1 PACKET PO SCH (09:37)
[2017-09-19] MEDS: TAMSULOSIN HCL 0.4 MG CAP.SR.24H PO SCH (09:37)
[2017-09-19] MEDS: DOCUSATE SODIUM 100 MG CAPSULE PO SCH ×2 (09:37→18:23)
--- NOTE | 2017-09-19 12:08 | PDOC PROGRESS REPORT ---
Subjective Progress Note for:: 09/19/17 Subjective:: This is a 82-year-old male currently doing fair Having some shortness of the breath and audible wheezing Any chest pain no fever Reason For Visit: SYNCOPAL EPISODE Physical Exam Vital Signs: Temp Pulse Resp BP Pulse Ox 98.0 F 101 H 22 H 154/74 H 100 09/19/17 08:00 09/19/17 08:00 09/19/17 08:00 09/19/17 08:00 09/19/17 08:00 Intake & Output 09/18/17 09/19/17 09/20/17 06:59 06:59 06:59 Intake Total 1240 1760 Output Total 1700 2400 Balance -460 -640 Weight 117.4 kg 113.2 kg General appearance: PRESENT: no acute distress, well-developed, well-nourished Head exam: PRESENT: atraumatic, normocephalic Eye exam: PRESENT: conjunctiva pink, EOMI, PERRLA. ABSENT: scleral icterus Ear exam: PRESENT: normal external ear exam Mouth exam: PRESENT: moist, tongue midline Neck exam: PRESENT: full ROM. ABSENT: carotid bruit, JVD, lymphadenopathy, thyromegaly Respiratory exam: PRESENT: wheezes Cardiovascular exam: PRESENT: RRR. ABSENT: diastolic murmur, rubs, systolic murmur Pulses: PRESENT: normal dorsalis pedis pul, +2 pedal pulses bilateral Vascular exam: PRESENT: normal capillary refill GI/Abdominal exam: PRESENT: normal bowel sounds, soft. ABSENT: distended, guarding, mass, organolmegaly, rebound, tenderness Rectal exam: PRESENT: deferred Extremities exam: PRESENT: pedal edema Additional comments: Left leg still redness Neurological exam: PRESENT: alert, awake, oriented to person, oriented to place , oriented to time, oriented to situation, CN II-XII grossly intact. ABSENT: motor sensory deficit Psychiatric exam: PRESENT: appropriate affect, normal mood. ABSENT: homicidal ideation, suicidal ideation Skin exam: PRESENT: dry, intact, warm. ABSENT: cyanosis, rash Results Laboratory Results: 09/19/17 04:30 09/19/17 04:30 09/19/17 09/19/17 04:30 04:30 WBC 8.2 RBC 3.70 L Hgb 10.9 L Hct 33.4 L MCV 90 MCH 29.5 MCHC 32.7 RDW 17.5 H Plt Count 186 Seg Neutrophils % 81.9 H Lymphocytes % 12.3 L Monocytes % 5.1 Eosinophils % 0.6 Basophils % 0.1 Absolute Neutrophils 6.8 Absolute Lymphocytes 1.0 Absolute Monocytes 0.4 Absolute Eosinophils 0.1 Absolute Basophils 0.0 Sodium 139.8 Potassium 3.4 L Chloride 100 Carbon Dioxide 29 Anion Gap 11 BUN 32 H Creatinine 1.30 H Est GFR ( Amer) > 60 Est GFR (Non-Af Amer) 53 L Glucose 293 H Calcium 9.7 09/16/17 09/16/17 09/17/17 22:10 22:10 04:10 Creatine Kinase 148 CK-MB (CK-2) 1.17 1.28 Troponin I 0.060 0.069 NT-Pro-B Natriuret Pep 09/17/17 09/17/17 09/17/17 04:10 10:25 10:25 Creatine Kinase 176 H 197 H CK-MB (CK-2) 1.76 Troponin I 0.066 NT-Pro-B Natriuret Pep 09/18/17 06:08 Creatine Kinase CK-MB (CK-2) Troponin I NT-Pro-B Natriuret Pep 6720 H Impressions: Head CT 09/16/17 00:00 IMPRESSION: CHRONIC CHANGES OF ATROPHY AND MICROVASCULAR ISCHEMIA. NO ACUTE PROCESS. EVIDENCE OF ACUTE STROKE: NO. Chest X-Ray 09/18/17 00:00 IMPRESSION: Stable cardiomegaly. 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 Pacemaker/ defibrillator. No acute changes Assessment & Plan - Diagnosis (1) Syncopal episodes Qualifiers: Syncope type: unspecified Qualified Code(s): R55 - Syncope and collapse Is this a current diagnosis for this admission?: Yes Plan: Follow with cardiology check orthostatic blood pressures (2) Atrial fibrillation Qualifiers: Atrial fibrillation type: chronic Qualified Code(s): I48.2 - Chronic atrial fibrillation Is this a current diagnosis for this admission?: Yes Plan: Currently on Coumadin and rate under control we will change the DuoNeb to Xopenex nebulizer (3) CAD (coronary artery disease) Qualifiers: Coronary Disease-Associated Artery/Lesion type: unspecified vessel or lesion type Is this a current diagnosis for this admission?: Yes Plan: Consult the cardiology initial workup is all stable (4) CHF (congestive heart failure) Qualifiers: Congestive heart failure type: combined Is this a current diagnosis for this admission?: Yes Plan: Will increase the Lasix 60 mg IV q. [address] discussed with the Dr[address] Mays about the patient's current symptoms (5) CKD (chronic kidney disease) Qualifiers: Chronic kidney disease stage: stage 3 (moderate) Qualified Code(s): N18.3 - Chronic kidney disease, stage 3 (moderate) Is this a current diagnosis for this admission?: Yes Plan: Currently all stable (6) Cardiac defibrillator in situ Is this a current diagnosis for this admission?: Yes Plan: Currently follow with cardiology (7) DVT (deep venous thrombosis) Qualifiers: Chronicity: unspecified Is this a current diagnosis for this admission?: Yes Plan: We will check the PT/INR todayContinues to Coumadin (8) Diabetes Qualifiers: Diabetes mellitus type: type 2 Diabetes mellitus complication status: with hypoglycemia Diabetes mellitus complication detail: 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: with marine oil terminal superintendent use Qualified Code(s): E11.649 - 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; 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; Z79.4 - residential (current) use of insulin; Z79.4 - residential (current) use of insulin; Z79.4 - moth exterminator (current) use of insulin Is this a current diagnosis for this admission?: Yes Plan: Continues to sliding scales and continues to current insulin (9) Hypertension Qualifiers: Hypertension type: essential hypertension Qualified Code(s): I10 - Essential (primary) hypertension Is this a current diagnosis for this admission?: Yes Plan: Currently all stable (10) Left leg cellulitis Is this a current diagnosis for this admission?: Yes Plan: on IV antibiotic (11) Orthostatic hypotension Is this a current diagnosis for this admission?: Yes Plan: Very extensive workup was done in the past will get the fall precautions (12) Sleep disorder Is this a current diagnosis for this admission?: Yes Plan: Uses CPAP machine at night (13) Shortness of breath Is this a current diagnosis for this admission?: Yes Plan: We will start the patient on IV steroid - Time Time Spent with patient: 15-24 minutes Medications reviewed and adjusted accordingly: Yes Anticipated discharge: Other Within: Other - Inpatient Certification Medical Necessity: Need Close Monitoring Due to Risk of Patient Decompensation, Need for IV Antibiotics, Other - Plan Summary Plan Summary: Discussed with the patient and the family on the bedside and discussed with the safety and health consultant
[2017-09-19] MEDS ORDERED: METHYLPREDNISOLONE INJ 40 MG/1 ML SDV IV SCH (14:00)
--- NOTE | 2017-09-19 14:53 | CONSULTATION REPORT E ---
Consultation Report NAME: MARY MANDUJANO : 1935 AGE: 82Y DATE: 09/17/2017 ROOM: 534 A TO: CHUCK STRONG M.D. FROM: MARIKA TUTTLE M.D. Requesting Physician REASON FOR CONSULTATION: Syncopal episodes and chronic leg edema with cellulitis of the left lower extremity; this is chronic. HISTORY OF PRESENT ILLNESS: The patient is not a very good historian. As per notes, he went to his primary care physician's office, Dr. Tuttle, with flu-like symptoms. His influenza A and B were negative. Subsequently, the patient was given a prescription for Keflex, but he could not get it, since the pharmacy was closed. At home he had a syncopal episode, and subsequently he had a few more syncopal episodes. There was no firing of the AICD. He denies any chest pain. His shortness of breath is slightly more than the usual. He has chronic venous insufficiency of the lower extremities and has developed cellulitis of the left lower extremity. The left lower extremity is much more swollen than the right. He also had a history of ischemic cardiomyopathy with biventricular failure, both right and left heart systolic failure. He also has an AICD. He has a longstanding history of orthostatic hypotension. He denies any fever, chills, or cough. There is no chest pain. The patient has a longstanding history of syncope, thought to be secondary to orthostatic hypotension. 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 Although the chart states that the patient's blood pressure was low, it has not gone below 100 systolic. I do not see any postural blood pressures. I have asked the nurse to do postural blood pressures with the patient sitting, supine, and standing. PAST MEDICAL HISTORY: Positive for 1. History of chronic atrial fibrillation. 2. Congestive heart failure. 3. Biventricular systolic heart failure, right and left. 4. He also has ischemic cardiomyopathy with an LV ejection fraction of 42-45% in the early part of 2008. 5. History of coronary artery disease with coronary artery bypass graft surgery. 6. He has a past history of myocardial infarctions. 7. He used to be on midodrine, which had been tapered off. 8. He is mostly wheelchair bound. 9. He has a history of cardiomyopathy with an LV ejection fraction of 42 to 45% in early part of 2008. 10. He has a history of ventricular tachycardia, status post AICD placement, with no recent firing of it. 11. He has a history of COPD. 12. He also has a history of seizure disorder with no recent symptoms. 13. He has known chronic orthostatic hypotension. 14. He also has a history of left leg DVT and chronic atrial fibrillation and hence is on Coumadin. 15. He has a history of diabetes mellitus type 2, insulin requiring. 16. The patient has chronic kidney disease, stage 3. 17. Hypothyroidism, and is on replacement. PAST SURGICAL HISTORY: Positive for: 1. Coronary artery bypass graft surgery. 2. Ankle surgery. 3. Elbow surgery. 4. AICD placement. 5. He had his AICD battery replaced in 01/2011. ALLERGIES: NYSTATIN. MEDICATIONS: Include: 1. Tylenol 650 mg p.o. q. 4 hours p.r.n. 2. Albuterol sulfate (Ventolin) 2 puffs inhalation q. 6 hours. 3. 80 mg p.o. at bedtime. 4. Plavix 75 mg p.o. daily. 5. He is on hypoglycemic precautions with glucose 40% gel, 15 grams and 30 grams respectively, for hypoglycemia. 6. He is on dextrose 50%, 12.5 grams IV and 25 grams IV p.r.n. hypoglycemia. 7. Colace 100 mg p.o. b.i.d. 8. He did receive Lasix 80 mg IV x1 this morning, and he is on Lasix 40 mg IV q. 8 hours. 9. Glucagon human recombinant 1 mg for hypoglycemia p.r.n. 10. He is on Accu-Cheks a.c. t.i.d. and at bedtime with sliding-scale insulin coverage. 11. He is on ipratropium/albuterol sulfate 3 mL nebulizer q. 6 hours while awake. 12. Clindamycin 300 mg IV q. 8 hours. 13. Invanz 1 gram IV daily. 14. Levothyroxine 0.88 mg p.o. daily. 15. Metoprolol succinate (Toprol XL) 50 mg p.o. daily. 16. Oxycodone/acetaminophen 1 tablet p.o. t.i.d. p.r.n. 17. Polyethylene glycol 17 grams p.o. daily. 18. Potassium 40 mg p.o. x1 this morning. 19. Tamsulosin (Flomax) 0.4 mg p.o. daily. 20. Coumadin 3 mg p.o. at bedtime. FAMILY HISTORY: Positive for a history of myocardial infarction in the patient's mother. SOCIAL HISTORY: He is a nonsmoker. There is no history of ETOH abuse. He denies any recreational drug abuse. DISPOSITION: THE PATIENT IS A DO NOT RESUSCITATE. His and his friend are his surrogate healthcare decision makers. REVIEW OF SYSTEMS: CONSTITUTIONAL: Complains of generalized fatigue and weakness and flu-like symptoms with body aches. HEAD: No history of dizziness. History of syncopal episodes as mentioned earlier, most likely due to chronic orthostatic hypotension. EYES: No history of amblyopia or diplopia. No history of amaurosis fugax. EARS: No history of hearing loss. No tinnitus. No history of recurrent ear infections. NOSE: No history of hay fever. No history of nosebleeds. No history of nasal polyps. MOUTH: No history of altered taste sensation. No ulcers in the mouth. No bleeding from gums. THROAT: No history of odynophagia or dysphagia. No history of recurrent sore throats. SKIN: He has cellulitis of the left lower extremity and chronic venous stasis changes in both legs. He has no petechiae or ecchymosis. There is no psoriasis or skin cancer. NECK: Denies any goiter. No history of painful swelling in the neck. No history of symptoms of arthritis of the cervical spine. LUNGS: History of COPD. States that he is a little more short of breath with exertion than usual but has no cough or sputum production. No history of hemoptysis. No history of asthma. No history of sleep apnea. He has flu-like symptoms, he says. *------* related. CARDIAC: History of ischemic cardiomyopathy with history of congestive heart failure, both right and left systolic heart failure, which is chronic. He has chronic venous insufficiency of his legs. He has chronic cellulitis of his left lower extremity. He has a history of orthostatic hypotension. He has a past history of myocardial infarction. He has a history of coronary artery disease with history of coronary artery bypass graft surgery. He has no recent anginal symptoms. He had a history syncope due to orthostatic hypotension. He has chronic leg swelling, as mentioned earlier. Also, he has been having cellulitis of the left lower extremity for some time he says. He denied any recent firing of his AICD. He has a history of chronic atrial fibrillation, and he is on Coumadin for that. His heart rate is controlled. GASTROINTESTINAL: No history of cirrhosis. No history of GI bleed. No history of fatty food intolerance. No history of abdominal pain. No history of altered bowel movements. MUSCULOSKELETAL: Denies arthritis or collagen vascular disease. RENAL: History of chronic kidney disease, stage 3. No symptoms of urinary tract infection or hematuria, pyuria, or dysuria. ENDOCRINE: History of diabetes mellitus type 2, insulin-dependent. Also history of diabetic nephropathy and history of hypothyroidism, on replacement. CENTRAL NERVOUS SYSTEM: He has a remote history of seizures. No history of headaches or migraines. No history of TIA or CVA. The patient is mostly wheelchair bound. PSYCHIATRIC: No history of anxiety or depression. No history of suicidal or homicidal ideation. VASCULAR: No history of calf or buttock claudication. History of chronic venous insufficiency and chronic leg swelling. Maybe is a part of his right heart failure also. He has chronic cellulitis of the left lower extremity. He has had cellulitis of his right lower extremity before. He has a past history of left leg DVT; he is on Coumadin. HEMATOLOGIC: No history of bleeding diathesis or clotting disorders. PHYSICAL EXAMINATION: VITAL SIGNS: Temperature 98 degrees Fahrenheit. His O2 sats are 98% on 2 L with a respiratory rate of 21. His heart rate is 101 beats per minute. His blood pressure is 130/60, but this is supine. I have asked the nurse to get standing and supine blood pressure, which will be available later. GENERAL: The patient is mildly obese. He looks chronically ill. HEAD: Atraumatic, normocephalic. EYES: Pupils are equal, round, and regular, reactive to light and accommodation. Extraocular movements are normal. There is no conjunctival pallor. There is no scleral icterus. EARS: Tympanic membranes are intact. External auditory canals are clear. NOSE: Patent nares. He has no nosebleeds. There is no inflammation of the nasal mucous membrane. MOUTH: Mucous membranes of the mouth are moist. Tongue is moist. There are no ulcers. There is no bleeding from the gums. THROAT: There is no redness of the oropharynx. There are no exudates. SKIN: There is redness of the left lower extremity with chronic venous stasis dermatitis. NECK: Supple. There is mild JVD present. Carotids are equal. There is no carotid bruit. There is no lymphadenopathy. There is no goiter. Trachea is central. LUNGS: Show diminished air entry, prolonged expiration, without any rhonchi, rales, or wheezing. He has no chest-wall tenderness. HEART: S1 and S2 are heard. There is variable S1 present. There is no S3 gallop. There is no S4 gallop. There is a systolic murmur in the left sternal border and the apex. There is no rub. ABDOMEN: Soft, nontender. There is no hepatosplenomegaly. Bowel sounds are well heard. There are no tender areas or masses. There is no rebound, guarding, or rigidity. EXTREMITIES: Femorals are diminished. There are no femoral bruits. Leg pulses are difficult to palpate due to edema. He has edema of his lower extremities, left lower extremity more than right. There is a little cellulitis in the left lower extremity. There is no cyanosis or clubbing. There is no calf tenderness. CENTRAL NERVOUS SYSTEM: The patient is conscious, awake, alert, oriented x3, with no focal deficits. PSYCHIATRIC: The patient's judgement and insight are intact. His affect is normal. DIAGNOSTIC STUDIES: The patient's EKG shows atrial fibrillation with a ventricular-paced rhythm. His chest x-ray done on 09/16/2017 shows no acute changes. His chest x-ray today shows no acute findings. Other findings as noted above. There is evidence of coronary artery bypass graft surgery and AICD device, unchanged in position. His head CT shows chronic changes of atrophy and microvascular ischemia. No acute process. There is no evidence of acute stroke. The patient's sodium is 142.8, potassium is low at 3.3, chloride is 101, CO2 is 29. The patient's BUN is 48, creatinine is 2.00, and his GFR is 32 mL, which is chronic kidney disease stage 3. His glucose is 88. His calcium is 9.6. His CPK is 176 and 197. His CPK-MB is 1.76. His troponin-I is 0.066. His ProTime is 28. His INR is 2.47. The patient's white count is 10,800, hemoglobin is 11.5, hematocrit is 34.5, and his platelet count is 172,000. Later, around 10:30 p.m., the patient had postural blood pressure checked by the nurse, and his lying down blood pressure was 120/64, and his standing blood pressure was 99/61. I asked the nurse if the patient had any symptoms. IMPRESSION: 1. Syncope, most likely secondary to orthostatic hypotension, since the patient does show orthostatic blood pressure changes, but need to interrogate his pacemaker to make sure that there is no firing of his pacemaker, since he has a history of chronic atrial fibrillation and ventricular tachycardia. 2. History of orthostatic hypotension. 3. Remote past history of hypertension. 4. History of coronary artery disease. History of coronary artery bypass graft surgery. History of VT. No anginal symptoms. 5. Ischemic cardiomyopathy. At present, clinically the patient does not show any heart failure. 6. Past history of DVT in the left leg, on no Coumadin. No recurrence. No history of pulmonary embolism. 7. Chronic atrial fibrillation. Patient on Coumadin. 8. COPD. Seems to be stable. 9. Gastroesophageal reflux disease. 10. Chronic kidney disease, stage 3. 11. History of enlarged prostate. 12. History of ventricular tachycardia. 13. AICD placement. 14. Cardiomyopathy with a past history of ejection fraction of 40-45%. I do not know what the current LV ejection fraction is. Would recommend a repeat echo to assess the patient's LV ejection fraction. 15. Diabetes mellitus, insulin requiring. 16. Hypothyroidism. Patient on replacement. 17. History of seizure disorder with no recent recurrence. 18. Hypokalemia. 19. Chronic lower extremity swelling, left more than right, with evidence of evidence of cellulitis of the left lower extremity. Continue antibiotics. RECOMMENDATION: Continue present treatment. In view of the patient's renal function being bad and his cardiomyopathy, midodrine may not be that safe a drug. Will need to interrogate the AICD to see if there is any firing of the AICD. I believe there are no other treatment options. The patient has been given replacement potassium. The patient will continue his current medications and antibiotics. Note, the patient was seen at 4:00 p.m., and 50 minutes were spent on the patient, including reviewing his old records, with 50% of the time spent in direct patient care. His medications have been reviewed and discussed with Dr. Marika Tuttle. The patient will need orthostatic changes. Would be very cautious in giving the patient Lasix, since the blood pressure is already low. As mentioned earlier, his medications have been reviewed. Would also recommend that the patient have an AIC check to see if the AICD has fired. Would also recommend repeat an echocardiogram on patient. Note, medical decision making was of high complexity, in view of the patient's recurrent syncopal episodes, the patient's diabetes, chronic kidney disease, coronary artery disease, and hypothyroidism with multiple syncopal episodes. These are orthostatic hypotension. Discussed with Dr. Tuttle. DICTATING PHYSICIAN: CHUCK STRONG M.D. [id number] PHY#: [id number] ID: [id number] JOB#: [id number] ACCT: [id number] cc:CHUCK STRONG M.D. >
[2017-09-19] MEDS: CLINDAMYCIN 600 MG/D5W RTU 600 MG/50 ML RTUPB IV SCH ×2 (14:58→22:12)
[2017-09-19] MEDS: ATORVASTATIN CALCIUM 80 MG TABLET PO SCH (22:12)
[2017-09-19] MEDS: METHYLPREDNISOLONE INJ 40 MG/1 ML SDV IV SCH (22:12)
[2017-09-20] MEDS: LEVALBUTEROL HCL NEB 0.63 MG/3 ML AMPUL NEB SCH ×6 (01:04→20:35)
[2017-09-20 04:52] LABS: ABSOLUTE LYMPHOCYTES (AUTO) 0.3 10^3/uL (0.5-4.7); ABSOLUTE MONOCYTES (AUTO) 0.1 10^3/uL (0.1-1.4); ABSOLUTE NEUT (AUTO) 5.2 10^3/uL (1.7-8.2); BASOPHILS % (AUTO) 0.1 % (0-2); EOSINOPHILS % (AUTO) 0.2 % (0-6); HEMATOCRIT 35.5 % (37.9-51.0); HEMOGLOBIN 11.6 g/dL (13.5-17.0); LYMPHOCYTES % (AUTO) 5.2 % (13-45); MEAN CORPUSCULAR HEMOGLOBIN 29.1 pg (27.0-33.4); MEAN CORPUSCULAR HGB CONC 32.7 g/dL (32.0-36.0); MEAN CORPUSCULAR VOLUME 89 fl (80-97); MONOCYTES % (AUTO) 1.6 % (3-13); PLATELET COUNT 213 10^3/uL (150-450); SEGMENTED NEUTROPHILS % (AUTO) 92.9 % (42-78); TOTAL CELLS COUNTED % (AUTO) 100 %; WHITE BLOOD COUNT 5.6 10^3/uL (4.0-10.5)
[2017-09-20 05:06] LABS: ANION GAP 12 (5-19); BLOOD UREA NITROGEN 28 mg/dL (7-20); CALCIUM 10.2 mg/dL (8.4-10.2); CARBON DIOXIDE 28 mmol/L (22-30); CHLORIDE 101 mmol/L (98-107); GLUCOSE 319 mg/dL (75-110); POTASSIUM 4.1 mmol/L (3.6-5.0)
[2017-09-20 05:26] LABS: INTERNATIONAL RATION (INR) 2.71; PROTHROMBIN TIME 30.1 SEC (11.4-15.4)
[2017-09-20] MEDS: ALBUTEROL SULFATE HFA (90 MCG/PUFF) 8 GM MDI (1 MDI/ER DISP) IH SCH ×3 (05:32→17:48)
[2017-09-20] MEDS: LEVOTHYROXINE SODIUM 0.088 MG TABLET PO SCH (05:32)
[2017-09-20] MEDS: CLINDAMYCIN 600 MG/D5W RTU 600 MG/50 ML RTUPB IV SCH ×3 (05:33→22:12)
[2017-09-20] MEDS: FUROSEMIDE INJ/PF 40 MG/4 ML SDV IV SCH ×3 (05:33→22:12)
[2017-09-20] MEDS ORDERED: LEVALBUTEROL HCL NEB 0.63 MG/3 ML AMPUL NEB ONE (08:09)
[2017-09-20] MEDS: METHYLPREDNISOLONE INJ 40 MG/1 ML SDV IV SCH (10:12)
[2017-09-20] MEDS: METOPROLOL SUCCINATE 50 MG TAB.SR.24H PO SCH (10:13)
[2017-09-20] MEDS: LEVOFLOXACIN 500 MG TABLET PO SCH (10:13)
[2017-09-20] MEDS: ERTAPENEM SODIUM 1 GM in NORMAL SALINE 50 ML IV SCH (10:13)
[2017-09-20] MEDS: TAMSULOSIN HCL 0.4 MG CAP.SR.24H PO SCH (10:13)
[2017-09-20] MEDS: CLOPIDOGREL BISULFATE 75 MG TABLET PO SCH (10:13)
[2017-09-20] MEDS: POLYETHYLENE GLYCOL 3350 POWDER 17 GM/1 PACKET PO SCH (10:19)
[2017-09-20] MEDS: DOCUSATE SODIUM 100 MG CAPSULE PO SCH ×2 (10:19→17:15)
[2017-09-20] MEDS: INSULIN LISPRO 100 UNIT/ML 3 ML VIAL SUBCUT PRN ×2 (12:23→15:33)
[2017-09-20] MEDS ORDERED: METOPROLOL TARTRATE PF/INJ 5 MG/5 ML SDV IV ONE ×2 (13:13→14:38)
[2017-09-20] MEDS ORDERED: INSULIN GLARGINE,HUM.REC.ANLOG 1,000 UNIT/10 ML UNIT SUBCUT ONE ×2 (17:30→18:22)
--- NOTE | 2017-09-20 21:13 | PROGRESS NOTE E ---
Progress Note NAME: MARY MANDUJANO : 1935 AGE: 82Y DATE: 09/20/2017 ROOM: 534 SUBJECTIVE: The patient is apparently doing fair. The patient after starting the steroid feeling much better, but the patient's blood sugar go up. Other than that no chest pain, not short of breath. The patient's heart is still *------* to fluctuate today. The patient is having no fever. OBJECTIVE: VITAL SIGNS: Currently stable. GENERAL: The patient is alert, awake, oriented, in no acute distress. HEAD AND NECK: Normocephalic. PERRLA. LUNGS: No wheezing, no rales. HEART: S1, S2 is present. ABDOMEN: Soft. Bowel sounds present. EXTREMITIES: On the left lower extremity there was redness, the swelling present is also markedly improved. ASSESSMENT: 1. LEFT LOWER LEG CELLULITIS. 2. COPD WITH A BRONCHITIS. 3. TYPE 2 DIABETES MELLITUS. 4. CHRONIC COMBINED CONGESTIVE HEART FAILURE. 5. ATRIAL FIBRILLATION, HOWEVER HAS A PACEMAKER. 6. CHRONIC KIDNEY DISEASE. 7. HYPERTENSION. PLAN: At this point continue the current medications, continue the IV Lasix. We will reduce the steroid due to the elevated blood sugar and continue respiratory treatments. The patient's INR is 2.74, continue to hold the Coumadin today. I hope the patient continues to be improved. TIME SPENT: More than 45 minutes spent examining the patient, reviewing the records. DICTATING PHYSICIAN: DANA TUTTLE M.D. [id number] PHY#: [id number] ID: [id number] JOB#: [id number] ACCT: [id number] cc: >
[2017-09-20] MEDS: ATORVASTATIN CALCIUM 80 MG TABLET PO SCH (22:12)
[2017-09-21] MEDS: LEVALBUTEROL HCL NEB 0.63 MG/3 ML AMPUL NEB SCH ×7 (00:07→23:32)
[2017-09-21] MEDS: ALBUTEROL SULFATE HFA (90 MCG/PUFF) 8 GM MDI (1 MDI/ER DISP) IH SCH ×2 (00:51→05:29)
[2017-09-21] MEDS: INSULIN LISPRO 100 UNIT/ML 3 ML VIAL SUBCUT PRN ×5 (00:52→22:49)
[2017-09-21 04:53] LABS: ABSOLUTE LYMPHOCYTES (AUTO) 0.8 10^3/uL (0.5-4.7); ABSOLUTE MONOCYTES (AUTO) 0.5 10^3/uL (0.1-1.4); ABSOLUTE NEUT (AUTO) 7.4 10^3/uL (1.7-8.2); BASOPHILS % (AUTO) 0.1 % (0-2); EOSINOPHILS % (AUTO) 0.1 % (0-6); HEMATOCRIT 35.1 % (37.9-51.0); HEMOGLOBIN 11.5 g/dL (13.5-17.0); LYMPHOCYTES % (AUTO) 9.5 % (13-45); MEAN CORPUSCULAR HEMOGLOBIN 29.5 pg (27.0-33.4); MEAN CORPUSCULAR HGB CONC 32.7 g/dL (32.0-36.0); MEAN CORPUSCULAR VOLUME 90 fl (80-97); MONOCYTES % (AUTO) 5.6 % (3-13); PLATELET COUNT 276 10^3/uL (150-450); RED BLOOD COUNT 3.88 10^6/uL (4.35-5.55); RED CELL DISTRIBUTION WIDTH 17.4 % (11.5-14.0); SEGMENTED NEUTROPHILS % (AUTO) 84.7 % (42-78); TOTAL CELLS COUNTED % (AUTO) 100 %; WHITE BLOOD COUNT 8.7 10^3/uL (4.0-10.5)
[2017-09-21 04:57] LABS: INTERNATIONAL RATION (INR) 2.86; PROTHROMBIN TIME 31.4 SEC (11.4-15.4)
[2017-09-21 05:17] LABS: ANION GAP 15 (5-19); BLOOD UREA NITROGEN 34 mg/dL (7-20); CALCIUM 10.3 mg/dL (8.4-10.2); CARBON DIOXIDE 31 mmol/L (22-30); CHLORIDE 96 mmol/L (98-107); GLUCOSE 282 mg/dL (75-110); POTASSIUM 3.7 mmol/L (3.6-5.0); SODIUM 141.5 mmol/L (137-145)
[2017-09-21] MEDS: LEVOTHYROXINE SODIUM 0.088 MG TABLET PO SCH (05:29)
[2017-09-21] MEDS: CLINDAMYCIN 600 MG/D5W RTU 600 MG/50 ML RTUPB IV SCH ×3 (05:29→22:49)
[2017-09-21] MEDS: FUROSEMIDE INJ/PF 40 MG/4 ML SDV IV SCH (05:30)
[2017-09-21] MEDS: DOCUSATE SODIUM 100 MG CAPSULE PO SCH ×2 (09:31→17:04)
[2017-09-21] MEDS: CLOPIDOGREL BISULFATE 75 MG TABLET PO SCH (09:31)
[2017-09-21] MEDS: LEVOFLOXACIN 500 MG TABLET PO SCH (09:31)
[2017-09-21] MEDS: METOPROLOL SUCCINATE 50 MG TAB.SR.24H PO SCH ×2 (09:32→10:29)
[2017-09-21] MEDS: TAMSULOSIN HCL 0.4 MG CAP.SR.24H PO SCH ×2 (09:32→09:43)
[2017-09-21] MEDS: POLYETHYLENE GLYCOL 3350 POWDER 17 GM/1 PACKET PO SCH (09:33)
[2017-09-21] MEDS: ERTAPENEM SODIUM 1 GM in NORMAL SALINE 50 ML IV SCH (09:36)
[2017-09-21] MEDS ORDERED: METHYLPREDNISOLONE INJ 40 MG/1 ML SDV IV SCH (10:00)
[2017-09-21] MEDS ORDERED: INSULIN GLARGINE,HUM.REC.ANLOG 1,000 UNIT/10 ML UNIT SUBCUT SCH (10:00)
[2017-09-21] MEDS ORDERED: ACETAMINOPHEN 325 MG TABLET PO PRN (10:00)
--- NOTE | 2017-09-21 11:08 | PDOC PROGRESS REPORT ---
Subjective Progress Note for:: 09/21/17 Subjective:: Patient is feeling much better She is denied any chest pain denied any shortness of the breath Reason For Visit: SYNCOPAL EPISODE Physical Exam Vital Signs: Temp Pulse Resp BP Pulse Ox 98.3 F 110 H 18 122/82 97 09/21/17 08:06 09/21/17 08:45 09/21/17 08:45 09/21/17 08:06 09/21/17 08:45 Intake & Output 09/20/17 09/21/17 09/22/17 06:59 06:59 06:59 Intake Total 2310 460 Output Total 2860 550 Balance -550 -90 Weight 113.2 kg 115 kg General appearance: PRESENT: no acute distress, well-developed, well-nourished Head exam: PRESENT: atraumatic, normocephalic Eye exam: PRESENT: conjunctiva pink, EOMI, PERRLA. ABSENT: scleral icterus Ear exam: PRESENT: normal external ear exam Mouth exam: PRESENT: moist, tongue midline Neck exam: PRESENT: full ROM. ABSENT: carotid bruit, JVD, lymphadenopathy, thyromegaly Respiratory exam: PRESENT: clear to auscultation kavitha Cardiovascular exam: PRESENT: RRR. ABSENT: diastolic murmur, rubs, systolic murmur Pulses: PRESENT: normal dorsalis pedis pul, +2 pedal pulses bilateral Vascular exam: PRESENT: normal capillary refill GI/Abdominal exam: PRESENT: normal bowel sounds, soft. ABSENT: distended, guarding, mass, organolmegaly, rebound, tenderness Rectal exam: PRESENT: deferred Extremities exam: PRESENT: pedal edema Additional comments: Left lower extremities cellulitis is also improving Neurological exam: PRESENT: alert, awake, oriented to person, oriented to place , oriented to time, oriented to situation, CN II-XII grossly intact. ABSENT: motor sensory deficit Psychiatric exam: PRESENT: appropriate affect, normal mood. ABSENT: homicidal ideation, suicidal ideation Skin exam: PRESENT: dry, intact, warm. ABSENT: cyanosis, rash Results Laboratory Results: 09/21/17 04:03 09/21/17 04:03 09/20/17 09/21/17 09/21/17 04:05 04:03 04:03 WBC 8.7 RBC 3.88 L Hgb 11.5 L Hct 35.1 L MCV 90 MCH 29.5 MCHC 32.7 RDW 17.4 H Plt Count 276 Seg Neutrophils % 84.7 H Lymphocytes % 9.5 L Monocytes % 5.6 Eosinophils % 0.1 Basophils % 0.1 Absolute Neutrophils 7.4 Absolute Lymphocytes 0.8 Absolute Monocytes 0.5 Absolute Eosinophils 0.0 Absolute Basophils 0.0 Sodium 141.5 Potassium 3.7 Chloride 96 L Carbon Dioxide 31 H Anion Gap 15 BUN 34 H Creatinine 1.25 Est GFR ( Amer) > 60 Est GFR (Non-Af Amer) 55 L Glucose 282 H Calcium 10.3 H Magnesium 2.3 09/16/17 09/16/17 09/17/17 22:10 22:10 04:10 Creatine Kinase 148 CK-MB (CK-2) 1.17 1.28 Troponin I 0.060 0.069 NT-Pro-B Natriuret Pep 09/17/17 09/17/17 09/17/17 04:10 10:25 10:25 Creatine Kinase 176 H 197 H CK-MB (CK-2) 1.76 Troponin I 0.066 NT-Pro-B Natriuret Pep 09/18/17 06:08 Creatine Kinase CK-MB (CK-2) Troponin I NT-Pro-B Natriuret Pep 6720 H Impressions: Head CT 09/16/17 00:00 IMPRESSION: CHRONIC CHANGES OF ATROPHY AND MICROVASCULAR ISCHEMIA. NO ACUTE PROCESS. EVIDENCE OF ACUTE STROKE: NO. Chest X-Ray 09/18/17 00:00 IMPRESSION: Stable cardiomegaly. 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 Pacemaker/ defibrillator. No acute changes Assessment & Plan - Diagnosis (1) Syncopal episodes Qualifiers: Syncope type: unspecified Qualified Code(s): R55 - Syncope and collapse Is this a current diagnosis for this admission?: Yes Plan: Most likely from orthostatic hypotension's currently all stable (2) Atrial fibrillation Qualifiers: Atrial fibrillation type: chronic Qualified Code(s): I48.2 - Chronic atrial fibrillation Is this a current diagnosis for this admission?: Yes Plan: Currently on Coumadin and rate under control we will change the DuoNeb to Xopenex nebulizer (3) CAD (coronary artery disease) Qualifiers: Coronary Disease-Associated Artery/Lesion type: unspecified vessel or lesion type Is this a current diagnosis for this admission?: Yes Plan: Consult the cardiology initial workup is all stable (4) CHF (congestive heart failure) Qualifiers: Congestive heart failure type: combined Is this a current diagnosis for this admission?: Yes Plan: Will increase the Lasix 60 mg IV q. [address] Dr. Mays about the patient's current symptoms (5) CKD (chronic kidney disease) Qualifiers: Chronic kidney disease stage: stage 3 (moderate) Qualified Code(s): N18.3 - Chronic kidney disease, stage 3 (moderate) Is this a current diagnosis for this admission?: Yes Plan: Currently all stable (6) Cardiac defibrillator in situ Is this a current diagnosis for this admission?: Yes Plan: Currently follow with cardiology (7) DVT (deep venous thrombosis) Qualifiers: Chronicity: unspecified Is this a current diagnosis for this admission?: Yes Plan: We will check the PT/INR todayContinues to Coumadin (8) Diabetes Qualifiers: Diabetes mellitus type: type 2 Diabetes mellitus complication status: with hypoglycemia Diabetes mellitus complication detail: 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 Diabetes mellitus manager long term care insulin use: with manager long term care use Qualified Code(s): E11.649 - 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; Z79.4 - long term care administrator ( current) use of insulin; Z79.4 - long term care administrator (current) use of insulin; Z79.4 - long term care administrator (current) use of insulin; Z79.4 - longterm (current) use of insulin Is this a current diagnosis for this admission?: Yes Plan: Continues to sliding scales and continues to current insulin (9) Hypertension Qualifiers: Hypertension type: essential hypertension Qualified Code(s): I10 - Essential (primary) hypertension Is this a current diagnosis for this admission?: Yes Plan: Currently all stable (10) Left leg cellulitis Is this a current diagnosis for this admission?: Yes Plan: on IV antibiotic (11) Orthostatic hypotension Is this a current diagnosis for this admission?: Yes Plan: Very extensive workup was done in the past will get the fall precautions (12) Sleep disorder Is this a current diagnosis for this admission?: Yes Plan: Uses CPAP machine at night (13) Shortness of breath Is this a current diagnosis for this admission?: Yes - Time Time Spent with patient: 15-24 minutes Medications reviewed and adjusted accordingly: Yes Anticipated discharge: Home Within: Other - Inpatient Certification Medical Necessity: Need Close Monitoring Due to Risk of Patient Decompensation, Need for IV Antibiotics Post Hospital Care: D/C Consular Officer Documentation - Plan Summary Plan Summary: Patient is currently doing well will switch to the p.o. antibiotic
[2017-09-21] MEDS ORDERED: ALBUTEROL SULFATE HFA (90 MCG/PUFF) 200 PUFF/8.5 GM MDI IH SCH (12:00)
[2017-09-21] MEDS: FUROSEMIDE INJ/PF 100 MG/10 ML SDV IV SCH ×2 (13:52→22:49)
--- NOTE | 2017-09-21 14:42 | RADIOLOGY REPORT (SQ) ---
EXAM DESCRIPTION: CHEST PA/LAT COMPLETED DATE/TIME: 09/21/2017 1:40 pm REASON FOR STUDY: sob/chf COMPARISON: CT chest 07/20/2017 Chest films 07/23/2017, 09/16/2017, 09/17/2017, 09/18/2017 EXAM PARAMETERS: NUMBER OF VIEWS: two views TECHNIQUE: Digital Frontal and Lateral radiographic views of the chest acquired. RADIATION DOSE: NA LIMITATIONS: Motion artifact on the lateral film FINDINGS: LUNGS AND PLEURA: No opacities, masses or pneumothorax. No pleural effusion. MEDIASTINUM AND HILAR STRUCTURES: No masses or contour abnormalities. HEART AND VASCULAR STRUCTURES: Mild cardiomegaly. Old sternotomy and CABG BONES: No acute findings. HARDWARE: Left-sided pacemaker/defibrillator. Holter monitor leads are present on patient OTHER: No other significant finding. IMPRESSION: No acute infiltrates. No pleural effusions. Mild cardiomegaly, old sternotomy and CABG, left-sided pacemaker/defibrillator TECHNICAL DOCUMENTATION: JOB ID: [id number] [employer]- All Rights Reserved
[2017-09-21 16:44] LABS: APPEARANCE,URINE CLEAR; BILIRUBIN,URINE NEGATIVE (NEGATIVE); COLOR,URINE YELLOW; GLUCOSE, URINE 150 mg/dL (NEGATIVE); KETONES,URINE NEGATIVE (NEGATIVE); LEUKOCYTE ESTERASE,URINE NEGATIVE (NEGATIVE); NITRITE,URINE NEGATIVE (NEGATIVE); PROTEIN,URINE NEGATIVE (NEGATIVE); URINE SPECIFIC GRAVITY 1.009; UROBILINOGEN,URINE NEGATIVE mg/dL (<2.0)
[2017-09-21] MEDS: ATORVASTATIN CALCIUM 80 MG TABLET PO SCH (22:49)
[2017-09-22] MEDS: LEVALBUTEROL HCL NEB 0.63 MG/3 ML AMPUL NEB SCH ×5 (04:42→21:44)
[2017-09-22] MEDS: LEVOTHYROXINE SODIUM 0.088 MG TABLET PO SCH (05:54)
[2017-09-22] MEDS: CLINDAMYCIN 600 MG/D5W RTU 600 MG/50 ML RTUPB IV SCH (05:54)
[2017-09-22] MEDS: FUROSEMIDE INJ/PF 100 MG/10 ML SDV IV SCH (05:54)
[2017-09-22] MEDS ORDERED: WARFARIN SODIUM 3 MG TABLET PO SCH (08:30)
[2017-09-22 08:32] LABS: ANION GAP 14 (5-19); BLOOD UREA NITROGEN 33 mg/dL (7-20); CALCIUM 10.3 mg/dL (8.4-10.2); CARBON DIOXIDE 34 mmol/L (22-30); CHLORIDE 96 mmol/L (98-107); GLUCOSE 245 mg/dL (75-110); POTASSIUM 3.8 mmol/L (3.6-5.0); SODIUM 143.5 mmol/L (137-145)
[2017-09-22] MEDS: TAMSULOSIN HCL 0.4 MG CAP.SR.24H PO SCH (11:04)
[2017-09-22] MEDS: CLOPIDOGREL BISULFATE 75 MG TABLET PO SCH (11:04)
[2017-09-22] MEDS: LEVOFLOXACIN 500 MG TABLET PO SCH (11:04)
[2017-09-22] MEDS: METOPROLOL SUCCINATE 50 MG TAB.SR.24H PO SCH (11:04)
[2017-09-22] MEDS: INSULIN GLARGINE,HUM.REC.ANLOG 300 UNIT/3 ML INSULN.PEN SUBCUT SCH (11:05)
[2017-09-22] MEDS: ERTAPENEM SODIUM 1 GM in NORMAL SALINE 50 ML IV SCH (11:06)
[2017-09-22] MEDS: POLYETHYLENE GLYCOL 3350 POWDER 17 GM/1 PACKET PO SCH (11:08)
[2017-09-22] MEDS: DOCUSATE SODIUM 100 MG CAPSULE PO SCH ×2 (11:08→13:49)
[2017-09-22] MEDS: INSULIN LISPRO 100 UNIT/ML 3 ML VIAL SUBCUT PRN ×3 (12:19→22:08)
--- NOTE | 2017-09-22 12:52 | PDOC PROGRESS REPORT ---
Subjective Progress Note for:: 09/22/17 Subjective:: Patient is currently doing wellShe is denied any chest pain denied any shortness of the breath Reason For Visit: SYNCOPAL EPISODE Physical Exam Vital Signs: Temp Pulse Resp BP Pulse Ox 97.5 F 92 20 138/88 H 98 09/22/17 08:08 09/22/17 08:48 09/22/17 08:48 09/22/17 08:08 09/22/17 08:48 Intake & Output 09/21/17 09/22/17 09/23/17 06:59 06:59 06:59 Intake Total 460 610 Output Total 550 1500 Balance -90 -890 Weight 115 kg 115 kg General appearance: PRESENT: no acute distress, well-developed, well-nourished Head exam: PRESENT: atraumatic, normocephalic Eye exam: PRESENT: conjunctiva pink, EOMI, PERRLA. ABSENT: scleral icterus Ear exam: PRESENT: normal external ear exam Mouth exam: PRESENT: moist, tongue midline Neck exam: PRESENT: full ROM. ABSENT: carotid bruit, JVD, lymphadenopathy, thyromegaly Respiratory exam: PRESENT: clear to auscultation kavitha Cardiovascular exam: PRESENT: RRR. ABSENT: diastolic murmur, rubs, systolic murmur Pulses: PRESENT: normal dorsalis pedis pul, +2 pedal pulses bilateral Vascular exam: PRESENT: normal capillary refill GI/Abdominal exam: PRESENT: normal bowel sounds, soft. ABSENT: distended, guarding, mass, organolmegaly, rebound, tenderness Rectal exam: PRESENT: deferred Extremities exam: PRESENT: pedal edema Additional comments: Left lower extremity redness is pretty much all resolving Neurological exam: PRESENT: alert, awake, oriented to person, oriented to place , oriented to time, oriented to situation, CN II-XII grossly intact. ABSENT: motor sensory deficit Psychiatric exam: PRESENT: appropriate affect, normal mood. ABSENT: homicidal ideation, suicidal ideation Skin exam: PRESENT: dry, intact, warm. ABSENT: cyanosis, rash Results Laboratory Results: 09/21/17 04:03 09/22/17 08:04 09/21/17 09/21/17 09/22/17 15:43 15:43 06:28 Sodium Cancelled Potassium Cancelled Chloride Cancelled Carbon Dioxide Cancelled Anion Gap Cancelled BUN Cancelled Creatinine Cancelled Est GFR ( Amer) Cancelled Est GFR (Non-Af Amer) Cancelled Glucose Cancelled Calcium Cancelled Urine Color YELLOW Urine Appearance CLEAR Urine pH 6.0 Ur Specific [place] 1.009 Urine Protein NEGATIVE Urine Glucose (UA) 150 H Urine Ketones NEGATIVE Urine Blood SMALL H Urine Nitrite NEGATIVE Ur Leukocyte Esterase NEGATIVE Urine WBC (Auto) 0 Urine RBC (Auto) 2 Stool Occult Blood NEGATIVE 09/22/17 08:04 Sodium 143.5 Potassium 3.8 Chloride 96 L Carbon Dioxide 34 H Anion Gap 14 BUN 33 H Creatinine 1.40 H Est GFR ( Amer) 59 L Est GFR (Non-Af Amer) 49 L Glucose 245 H Calcium 10.3 H Urine Color Urine Appearance Urine pH Ur Specific [place] Urine Protein Urine Glucose (UA) Urine Ketones Urine Blood Urine Nitrite Ur Leukocyte Esterase Urine WBC (Auto) Urine RBC (Auto) Stool Occult Blood 09/16/17 09/16/17 09/17/17 22:10 22:10 04:10 Creatine Kinase 148 CK-MB (CK-2) 1.17 1.28 Troponin I 0.060 0.069 NT-Pro-B Natriuret Pep 09/17/17 09/17/17 09/17/17 04:10 10:25 10:25 Creatine Kinase 176 H 197 H CK-MB (CK-2) 1.76 Troponin I 0.066 NT-Pro-B Natriuret Pep 09/18/17 06:08 Creatine Kinase CK-MB (CK-2) Troponin I NT-Pro-B Natriuret Pep 6720 H Impressions: Head CT 09/16/17 00:00 IMPRESSION: CHRONIC CHANGES OF ATROPHY AND MICROVASCULAR ISCHEMIA. NO ACUTE PROCESS. EVIDENCE OF ACUTE STROKE: NO. Chest X-Ray 09/21/17 00:00 IMPRESSION: No acute infiltrates. No pleural effusions. Mild cardiomegaly, old sternotomy and CABG, left-sided pacemaker/defibrillator Assessment & Plan - Diagnosis (1) Syncopal episodes Qualifiers: Syncope type: unspecified Qualified Code(s): R55 - Syncope and collapse Is this a current diagnosis for this admission?: Yes Plan: Most likely from orthostatic hypotension's currently all stable (2) Atrial fibrillation Qualifiers: Atrial fibrillation type: chronic Qualified Code(s): I48.2 - Chronic atrial fibrillation Is this a current diagnosis for this admission?: Yes Plan: Currently on Coumadin and rate under control we will change the DuoNeb to Xopenex nebulizer (3) CAD (coronary artery disease) Qualifiers: Coronary Disease-Associated Artery/Lesion type: unspecified vessel or lesion type Is this a current diagnosis for this admission?: Yes Plan: Consult the cardiology initial workup is all stable (4) CHF (congestive heart failure) Qualifiers: Congestive heart failure type: combined Is this a current diagnosis for this admission?: Yes Plan: Will increase the Lasix 60 mg IV q. [address] discussed with the Dr. Mays about the patient's current symptoms (5) CKD (chronic kidney disease) Qualifiers: Chronic kidney disease stage: stage 3 (moderate) Qualified Code(s): N18.3 - Chronic kidney disease, stage 3 (moderate) Is this a current diagnosis for this admission?: Yes Plan: Currently all stable (6) Cardiac defibrillator in situ Is this a current diagnosis for this admission?: Yes Plan: Currently follow with cardiology (7) DVT (deep venous thrombosis) Qualifiers: Chronicity: unspecified Is this a current diagnosis for this admission?: Yes Plan: We will check the PT/INR todayContinues to Coumadin (8) Diabetes Qualifiers: Diabetes mellitus type: type 2 Diabetes mellitus complication status: with hypoglycemia Diabetes mellitus complication detail: 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 Diabetes mellitus care home insulin use: with care home use Qualified Code(s): E11.649 - 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; Z79.4 - correction ( current) use of insulin; Z79.4 - buttermaker helper (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) 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 of insulin; Z79.4 - buttermaker helper (current) use of insulin; Z79.4 - buttermaker helper (current) use of insulin Is this a current diagnosis for this admission?: Yes Plan: Continues to sliding scales and continues to current insulin (9) Hypertension Qualifiers: Hypertension type: essential hypertension Qualified Code(s): I10 - Essential (primary) hypertension Is this a current diagnosis for this admission?: Yes Plan: Currently all stable (10) Left leg cellulitis Is this a current diagnosis for this admission?: Yes Plan: Patient's discharge home with oral clindamycin's (11) Orthostatic hypotension Is this a current diagnosis for this admission?: Yes Plan: Very extensive workup was done in the past will get the fall precautions (12) Sleep disorder Is this a current diagnosis for this admission?: Yes Plan: Uses CPAP (13) Shortness of breath Is this a current diagnosis for this admission?: Yes Plan: We will start the patient on IV steroid - Time Time Spent with patient: 15-24 minutes Medications reviewed and adjusted accordingly: Yes Anticipated discharge: Home, Home with Homehealth Within: Other - Inpatient Certification Medical Necessity: Need Close Monitoring Due to Risk of Patient Decompensation Post Hospital Care: D/C [place] Documentation - Plan Summary Plan Summary: Will DC the IV Lasix start on the p.o. LasixConsider DC the all IV antibiotic start the p.o. clindamycin'sThe patient's remain stable discharge home tomorrow
[2017-09-22] MEDS: FUROSEMIDE 80 MG TABLET PO SCH ×2 (13:17→21:56)
[2017-09-22] MEDS: CLINDAMYCIN HCL 150 MG CAPSULE PO SCH ×2 (13:18→21:56)
--- NOTE | 2017-09-22 13:41 | PDOC PROGRESS REPORT ---
Subjective Progress Note for:: 09/22/17 Subjective:: Patient seems to be doing better with gradual improvement. Pt is denying any chest arm or neck discomfort. Patient denying any PND, orthopnea. Patient denied any sustained palpitations, dizziness, syncope, near syncope. Patient denying any fever chills. Patient denying any other significant discomfort. Patient is maintaining atrial fibrillation with controlled ventricular response with occasional ventricular paced beats.. Review of systems: Rest review of systems negative. Medications: Medications have been reviewed. Reason For Visit: SYNCOPAL EPISODE Physical Exam Vital Signs: Temp Pulse Resp BP Pulse Ox 97.5 F 106 H 20 138/88 H 99 09/22/17 08:08 09/22/17 12:53 09/22/17 12:53 09/22/17 08:08 09/22/17 12:53 Intake & Output 09/21/17 09/22/17 09/23/17 06:59 06:59 06:59 Intake Total 460 610 Output Total 550 1500 Balance -90 -890 Weight 115 kg 115 kg Exam: GENERAL: well-nourished and in no acute distress. Alert and oriented x3 HEAD: Atraumatic, normocephalic. EYES: Pupils equal round and reactive to light, extraocular movements intact, sclera anicteric, conjunctiva are normal. ENT: TMs normal, nares patent, oropharynx clear without exudates. Moist mucous membranes. No oral ulcerations or bleeding gums noted NECK: supple without lymphadenopathy. Trachea is central. No cervical or axillary lymphadenopathy noted. Carotids are 2+, JVD WNL LUNGS: Respiration seems nonlabored, no significant accessory muscle action noted. Breath sounds clear to auscultation bilaterally and equal noted. No wheezes rales or rhonchi noted. No significant dullness noted on percussion. CHEST: Palpation of the chest wall shows no significant chest wall tenderness. No other significant abnormalities noted. HEART: [place] [employer], No PSH, 1/6 [place] aortic area, 1/6 [place] systolic murmur mitral area, no rubs, no gallops. ABDOMEN: Soft, no significant tenderness appreciated, normoactive bowel sounds. No guarding, no rebound. No rigidity noted . No masses appreciated. EXTREMITIES: Pedal pulses are 1-2+, no calf tenderness noted. No clubbing or cyanosis.1+ pedal edema noted NEUROLOGICAL: Focused neurological exam showed no significant neurologic deficit. Normal speech, no focal weakness appreciated. PSYCH: Normal mood, normal affect. Judgment and insight within normal limits. SKIN: No significant ecchymosis, ulcerations or signs of pruritus noted. Chronic dermatitis changes noted both lower legs. MUSCULOSKELETAL EXAM: No significant joint swelling noted. Results Laboratory Results: 09/21/17 04:03 09/22/17 08:04 09/21/17 09/21/17 09/22/17 15:43 15:43 06:28 Sodium Cancelled Potassium Cancelled Chloride Cancelled Carbon Dioxide Cancelled Anion Gap Cancelled BUN Cancelled Creatinine Cancelled Est GFR ( Amer) Cancelled Est GFR (Non-Af Amer) Cancelled Glucose Cancelled Calcium Cancelled Urine Color YELLOW Urine Appearance CLEAR Urine pH 6.0 Ur Specific [place] 1.009 Urine Protein NEGATIVE Urine Glucose (UA) 150 H Urine Ketones NEGATIVE Urine Blood SMALL H Urine Nitrite NEGATIVE Ur Leukocyte Esterase NEGATIVE Urine WBC (Auto) 0 Urine RBC (Auto) 2 Stool Occult Blood NEGATIVE 09/22/17 08:04 Sodium 143.5 Potassium 3.8 Chloride 96 L Carbon Dioxide 34 H Anion Gap 14 BUN 33 H Creatinine 1.40 H Est GFR ( Amer) 59 L Est GFR (Non-Af Amer) 49 L Glucose 245 H Calcium 10.3 H Urine Color Urine Appearance Urine pH Ur Specific [place] Urine Protein Urine Glucose (UA) Urine Ketones Urine Blood Urine Nitrite Ur Leukocyte Esterase Urine WBC (Auto) Urine RBC (Auto) Stool Occult Blood 09/16/17 09/16/17 09/17/17 22:10 22:10 04:10 Creatine Kinase 148 CK-MB (CK-2) 1.17 1.28 Troponin I 0.060 0.069 NT-Pro-B Natriuret Pep 09/17/17 09/17/17 09/17/17 04:10 10:25 10:25 Creatine Kinase 176 H 197 H CK-MB (CK-2) 1.76 Troponin I 0.066 NT-Pro-B Natriuret Pep 09/18/17 06:08 Creatine Kinase CK-MB (CK-2) Troponin I NT-Pro-B Natriuret Pep 6720 H EKG Comments: Shows atrial fibrillation with controlled ventricular response. No sustained tachycardia or bradycardia arrhythmias noted. Impressions: Head CT 09/16/17 00:00 IMPRESSION: CHRONIC CHANGES OF ATROPHY AND MICROVASCULAR ISCHEMIA. NO ACUTE PROCESS. EVIDENCE OF ACUTE STROKE: NO. Chest X-Ray 09/21/17 00:00 IMPRESSION: No acute infiltrates. No pleural effusions. Mild cardiomegaly, old sternotomy and CABG, left-sided pacemaker/defibrillator Assessment & Plan - Diagnosis (1) Syncopal episodes Qualifiers: Syncope type: unspecified Qualified Code(s): R55 - Syncope and collapse Is this a current diagnosis for this admission?: Yes (2) Atrial fibrillation Qualifiers: Atrial fibrillation type: chronic Qualified Code(s): I48.2 - Chronic atrial fibrillation Is this a current diagnosis for this admission?: Yes (3) CHF (congestive heart failure) Qualifiers: Congestive heart failure type: combined Is this a current diagnosis for this admission?: Yes (4) CKD (chronic kidney disease) Qualifiers: Chronic kidney disease stage: stage 3 (moderate) Qualified Code(s): N18.3 - Chronic kidney disease, stage 3 (moderate) Is this a current diagnosis for this admission?: Yes (5) Cardiac defibrillator in situ Is this a current diagnosis for this admission?: Yes (6) Hypertension Qualifiers: Hypertension type: essential hypertension Qualified Code(s): I10 - Essential (primary) hypertension Is this a current diagnosis for this admission?: Yes (7) Sleep disorder Is this a current diagnosis for this admission?: Yes (8) Venous (peripheral) insufficiency Is this a current diagnosis for this admission?: No (9) CAD (coronary artery disease) Qualifiers: Coronary Disease-Associated Artery/Lesion type: unspecified vessel or lesion type [place] vs. transplanted heart: [place] heart Associated angina: angina presence unspecified Qualified Code(s): I25.10 - Atherosclerotic heart disease of [place] coronary artery without angina pectoris Is this a current diagnosis for this admission?: Yes - Notes Notes: Patient seemed generally stable. Agree that syncopal spell could well be from orthostasis, general debility etc. Believe patient will benefit from a event monitor as an outpatient, possible tilt table also be performed. Patient will benefit from evaluation and treatment of sleep apnea if noted to have in view of cardiomyopathy. As regards hypertension, blood pressure seems reasonably well controlled. 4 atrial fibrillation continue with chronic anticoagulation and rate control. Patient will need regular cardiology follow-up. I will be happy to provide that this patient agrees to follow-up with me. - Time Time with patient: Greater than 35 minutes - CODE STATUS : was discussed, patient remains DO NOT RESUSCITATE. Surrogate decision-maker unchanged. Multiple medical problems were addressed. More than 50% of the time spent coordinating care, discussing management plans with involved caregivers. Management plans discussed with involved personnels. Medical decision making was of moderate to high complexity, patient's has multiple comorbidities. Medications reviewed and adjusted accordingly: Yes
[2017-09-22] MEDS: ATORVASTATIN CALCIUM 80 MG TABLET PO SCH (21:57)
[2017-09-22] MEDS ORDERED: WARFARIN SODIUM 2 MG TABLET PO SCH (22:00)
[2017-09-23] MEDS: LEVALBUTEROL HCL NEB 0.63 MG/3 ML AMPUL NEB SCH ×4 (00:38→12:15)
[2017-09-23] MEDS: CLINDAMYCIN HCL 150 MG CAPSULE PO SCH ×2 (05:38→13:18)
[2017-09-23] MEDS: LEVOTHYROXINE SODIUM 0.088 MG TABLET PO SCH (05:38)
[2017-09-23] MEDS: FUROSEMIDE 80 MG TABLET PO SCH (05:38)
[2017-09-23 07:06] LABS: INTERNATIONAL RATION (INR) 2.55; PROTHROMBIN TIME 28.7 SEC (11.4-15.4)
[2017-09-23 07:21] LABS: ANION GAP 13 (5-19); BLOOD UREA NITROGEN 34 mg/dL (7-20); CALCIUM 10.3 mg/dL (8.4-10.2); CARBON DIOXIDE 32 mmol/L (22-30); CHLORIDE 98 mmol/L (98-107); GLUCOSE 279 mg/dL (75-110); POTASSIUM 4.1 mmol/L (3.6-5.0); SODIUM 142.8 mmol/L (137-145)
--- NOTE | 2017-09-23 09:05 | PDOC DISCHARGE SUMMARY ---
General - Admit/Disc Date/PCP Admission Date/Primary Care Provider: 09/16/17 21:25 DANA TUTTLE MD Discharge Date: 09/23/17 - Discharge Diagnosis (1) Syncopal episodes Is this a current diagnosis for this admission?: Yes Summary: Patient's current all workup is negative most likely related to the orthostatic hypotension's (2) Atrial fibrillation Is this a current diagnosis for this admission?: Yes Summary: Currently on Coumadin with INR is 2.5 on discharge (3) CAD (coronary artery disease) Is this a current diagnosis for this admission?: Yes Summary: Currently stable seen by the cardiology and patient also see a cardiology at [place] and discussed with the cardiology here and is okay to discharge a cardiac standpoint (4) CHF (congestive heart failure) Is this a current diagnosis for this admission?: Yes Summary: Continues to Lasix and patient also see a CHF clinic in the [place] (5) CKD (chronic kidney disease) Is this a current diagnosis for this admission?: Yes Summary: Currently stable (6) Cardiac defibrillator in situ Is this a current diagnosis for this admission?: Yes Summary: Follow-up with [place] (7) DVT (deep venous thrombosis) Is this a current diagnosis for this admission?: Yes Summary: Chronic Coumadin (8) Diabetes Is this a current diagnosis for this admission?: Yes Summary: Continues to current home medications with insulin (9) Hypertension Is this a current diagnosis for this admission?: Yes Summary: Currently well controlled (10) Left leg cellulitis Is this a current diagnosis for this admission?: Yes Summary: Currently stable continues to clindamycin's (11) Orthostatic hypotension Is this a current diagnosis for this admission?: Yes Summary: Fall precautions (12) Sleep disorder Is this a current diagnosis for this admission?: Yes Summary: Patients does not have a CPAP machine at home need a sleep study patient used oxygen at nighttime (13) Shortness of breath Is this a current diagnosis for this admission?: Yes Summary: Is likely underlying COPD with the history of the amiodarone use need a pulmonary function test and outpatient follow-up with the pulmonary will continues to DuoNeb nebulizer - Additional Information Discharge Diet: Diabetic Prescriptions: Clindamycin HCl 300 mg PO Q6 #28 capsule Ipratropium/Albuterol Sulfate [Duoneb 3 ml Ampul] 3 ml NEB RTQ6HP PRN #120 vial.neb PRN Reason: Lactobacillus Acidophilus [Probiotic Gold Acidophilus] 1 each PO BID #20 capsule Nebulizer [Nebulizer Machine] 1 each ASDIR PRN #1 kit PRN Reason: Home Medications: Albuterol Sulfate [Proair HFA] 2 puff IH Q6 09/16/17 Atorvastatin Calcium [Lipitor 80 mg Tablet] 80 mg PO QHS 09/16/17 Benzonatate [Tessalon Perle 100 mg Capsule] 100 mg PO TID 09/16/17 Clopidogrel Bisulfate [Plavix 75 mg Tablet] 75 mg PO DAILY 09/16/17 Docusate Sodium [Colace] 200 mg PO DAILYP PRN 09/16/17 Fenofibrate Nanocrystallized [Tricor 145 mg Tablet] 145 mg PO DAILY 09/16/17 Furosemide [Lasix 80 mg Tablet] 80 mg PO Q8 09/16/17 Hydralazine HCl [Apresoline 10 mg Tablet] 10 mg PO Q8 09/16/17 Levothyroxine Sodium [Synthroid 0.088 mg Tablet] 88 mcg PO DAILY 09/16/17 Metoprolol Succinate [Toprol Xl 50 mg Tab.sr] 50 mg PO DAILY 09/16/17 Oxycodone HCl/Acetaminophen [Percocet 5-325 mg Tablet] 1 tab PO TIDP PRN Pantoprazole Sodium [Protonix] 40 mg PO DAILY 09/16/17 Polyethylene Glycol 3350 [Miralax Powder 17 gm/Packet] 1 packet PO DAILY Tamsulosin HCl [Flomax 0.4 mg Cap.sr] 0.4 mg PO DAILY 09/16/17 Clindamycin HCl 300 mg PO Q6 #28 capsule 09/22/17 Lactobacillus Acidophilus [Probiotic Gold Acidophilus] 1 each PO BID #20 capsule 09/22/17 Ipratropium/Albuterol Sulfate [Duoneb 3 ml Ampul] 3 ml NEB RTQ6HP PRN #120 vial.neb 09/23/17 Nebulizer [Nebulizer Machine] 1 each ASDIR PRN #1 kit 09/23/17 History of Present Illness History of Present Illness: MARY MANDUJANO is a 82 year old male This is a 82-year-old male with a significant history of ischemic cardiomyopathy biventricular congestive heart failure status post ICD placementAnd history of the chronic atrial fibrillation'sHistory of the chronic kidney disease on a chronic DVTWith multiple other comorbidity came to the office today with the flulike symptoms and initial influenza a test and B test was all negative in the office . Patient was giving the Keflex and order the chest x-rayChest x-ray was negative for any acute findingBut when the patient's pickup the prescriptions the pharmacy was closed and patient have a passing out episode in patients went home and another passing out episodeAnd called EMS and suggest to come to the hospital Patient's blood pressure was lower and emergency department patient's blood pressure was 110 range and patient was otherwise doing well patient initial workup is all stable including the pacemaker interrogations was all stable Patient have ongoing problem with the bilateral lower extremity with chronic venous insufficiency recently admitted for the cellulitis Patient also see a [place] cardiology and recently seen and suggest all stable Patient's denied any chest pain denied any shortness of the breath Patients all sepsis workup was all negative and the patient initial cardiac workup is all stable and decided to admit for the syncopal episode and possible cellulitis Discussed with the family also about the plan Hospital Course Hospital Course: This 82-year-old male with a significant medical problem as above Came to the emergency department with a complaint of shortness of the breath and syncopal episodeWith the some respiratory disordersPatient admitting in the hospital for further evaluations Patient also underwent for the pulmonary evaluations and start the patient on DuoNeb nebulizer which helped the patient's for the wheezing Patient's otherwise seen by cardiology and pretty much all stable Patient also have ongoing chronic left leg cellulitis was treated with the IV antibiotic Since chest x-ray was all stable Since back to the baseline's with all the multiple comorbidity Discussed with the patient's and the son regarding the patient's current conditions with multiple medical issues patient's discharge home with the home health and physical therapy Check the Coumadin in the 1 week Follow with the cardiology and pulmonary as outpatient Physical Exam Vital Signs: Temp Pulse Resp BP Pulse Ox 97.5 F 83 16 149/92 H 97 09/22/17 23:47 09/23/17 07:00 09/23/17 04:07 09/22/17 23:47 09/23/17 04:07 Intake & Output 09/22/17 09/23/17 09/24/17 06:59 06:59 06:59 Intake Total 610 1227 Output Total 1500 1400 Balance -890 -173 Weight 115 kg 115 kg General appearance: PRESENT: no acute distress, well-developed, well-nourished Head exam: PRESENT: atraumatic, normocephalic Eye exam: PRESENT: conjunctiva pink, EOMI, PERRLA. ABSENT: scleral icterus Ear exam: PRESENT: normal external ear exam Mouth exam: PRESENT: moist, tongue midline Neck exam: PRESENT: full ROM. ABSENT: carotid bruit, JVD, lymphadenopathy, thyromegaly Respiratory exam: PRESENT: clear to auscultation kavitha Cardiovascular exam: PRESENT: RRR. ABSENT: diastolic murmur, rubs, systolic murmur Pulses: PRESENT: normal dorsalis pedis pul, +2 pedal pulses bilateral Vascular exam: PRESENT: normal capillary refill GI/Abdominal exam: PRESENT: normal bowel sounds, soft. ABSENT: distended, guarding, mass, organolmegaly, rebound, tenderness Rectal exam: PRESENT: deferred Extremities exam: PRESENT: pedal edema Additional comments: Left lower extremities redness is much improved Neurological exam: PRESENT: alert, awake, oriented to person, oriented to place , oriented to time, oriented to situation, CN II-XII grossly intact. ABSENT: motor sensory deficit Psychiatric exam: PRESENT: appropriate affect, normal mood. ABSENT: homicidal ideation, suicidal ideation Skin exam: PRESENT: dry, intact, warm. ABSENT: cyanosis, rash Results Laboratory Results: 09/21/17 04:03 09/23/17 06:11 09/23/17 06:11 Sodium 142.8 Potassium 4.1 Chloride 98 Carbon Dioxide 32 H Anion Gap 13 BUN 34 H Creatinine 1.32 H Est GFR ( Amer) > 60 Est GFR (Non-Af Amer) 52 L Glucose 279 H Calcium 10.3 H 09/17/17 15:38 Blood Blood Culture - Final NO GROWTH IN 5 DAYS 09/17/17 14:45 Blood Blood Culture - Final NO GROWTH IN 5 DAYS 09/16/17 09/16/17 09/17/17 22:10 22:10 04:10 Creatine Kinase 148 CK-MB (CK-2) 1.17 1.28 Troponin I 0.060 0.069 NT-Pro-B Natriuret Pep 09/17/17 09/17/1709/17/18 04:10 10:25 10:25 Creatine Kinase 176 H 197 H CK-MB (CK-2) 1.76 Troponin I 0.066 NT-Pro-B Natriuret Pep 09/18/17 06:08 Creatine Kinase CK-MB (CK-2) Troponin I NT-Pro-B Natriuret Pep 6720 H Impressions: Head CT 09/16/17 00:00 IMPRESSION: CHRONIC CHANGES OF ATROPHY AND MICROVASCULAR ISCHEMIA. NO ACUTE PROCESS. EVIDENCE OF ACUTE STROKE: NO. Chest X-Ray 09/21/17 00:00 IMPRESSION: No acute infiltrates. No pleural effusions. Mild cardiomegaly, old sternotomy and CABG, left-sided pacemaker/defibrillator Plan Time Spent: Greater than 30 Minutes - Check the INR on Thursday Discussed with the patient's family Patients go home with the home health and physical therapy Fall precautions Follow-up outpatients pulmonary for further evaluations
[2017-09-23] MEDS: DOCUSATE SODIUM 100 MG CAPSULE PO SCH (10:34)
[2017-09-23] MEDS: POLYETHYLENE GLYCOL 3350 POWDER 17 GM/1 PACKET PO SCH (10:34)
[2017-09-23] MEDS: CLOPIDOGREL BISULFATE 75 MG TABLET PO SCH (10:48)
[2017-09-23] MEDS: LEVOFLOXACIN 500 MG TABLET PO SCH (10:48)
[2017-09-23] MEDS: INSULIN GLARGINE,HUM.REC.ANLOG 300 UNIT/3 ML INSULN.PEN SUBCUT SCH (10:48)
[2017-09-23] MEDS: INSULIN LISPRO 100 UNIT/ML 3 ML VIAL SUBCUT PRN ×2 (10:48→13:18)
[2017-09-23] MEDS: TAMSULOSIN HCL 0.4 MG CAP.SR.24H PO SCH (10:48)
[2017-09-23] MEDS: METOPROLOL SUCCINATE 50 MG TAB.SR.24H PO SCH (10:48)
[2017-09-23 12:41] LABS: APPEARANCE,URINE CLEAR; BILIRUBIN,URINE NEGATIVE (NEGATIVE); COLOR,URINE STRAW; GLUCOSE, URINE >=500 mg/dL (NEGATIVE); KETONES,URINE NEGATIVE (NEGATIVE); LEUKOCYTE ESTERASE,URINE NEGATIVE (NEGATIVE); NITRITE,URINE NEGATIVE (NEGATIVE); PROTEIN,URINE NEGATIVE (NEGATIVE); URINE SPECIFIC GRAVITY 1.007; UROBILINOGEN,URINE NEGATIVE mg/dL (<2.0)
[2017-09-23] MEDS: ERTAPENEM SODIUM 1 GM in NORMAL SALINE 50 ML IV SCH (12:41)
[2017-09-23 13:45] VITALS: BP 137/95
--- NOTE | 2017-09-23 16:40 | PDOC PROGRESS REPORT ---
Subjective Progress Note for:: 09/22/17 Reason For Visit: SYNCOPAL EPISODE Physical Exam Vital Signs: Temp Pulse Resp BP Pulse Ox 97.8 F 110 H 16 138/73 H 94 09/23/17 12:48 09/23/17 12:48 09/23/17 12:48 09/23/17 12:48 09/23/17 12:48 Intake & Output 09/22/17 09/23/17 09/24/17 06:59 06:59 06:59 Intake Total 610 1227 Output Total 1500 1400 Balance -890 -173 Weight 115 kg 115 kg Results Laboratory Results: 09/21/17 04:03 09/23/17 06:11 09/23/17 09/23/17 09/23/17 06:11 12:15 12:15 Sodium 142.8 Potassium 4.1 Chloride 98 Carbon Dioxide 32 H Anion Gap 13 BUN 34 H Creatinine 1.32 H Est GFR ( Amer) > 60 Est GFR (Non-Af Amer) 52 L Glucose 279 H Calcium 10.3 H Urine Color STRAW Urine Appearance CLEAR Urine pH 8.0 Ur Specific [place] 1.007 Urine Protein NEGATIVE Urine Glucose (UA) >=500 H Urine Ketones NEGATIVE Urine Blood NEGATIVE Urine Nitrite NEGATIVE Ur Leukocyte Esterase NEGATIVE Urine WBC (Auto) 1 Stool Occult Blood NEGATIVE 09/17/17 15:38 Blood Blood Culture - Final NO GROWTH IN 5 DAYS 09/17/17 14:45 Blood Blood Culture - Final NO GROWTH IN 5 DAYS 09/16/17 09/16/17 09/17/17 22:10 22:10 04:10 Creatine Kinase 148 CK-MB (CK-2) 1.17 1.28 Troponin I 0.060 0.069 NT-Pro-B Natriuret Pep 09/17/17 09/17/17 09/17/17 04:10 10:25 10:25 Creatine Kinase 176 H 197 H CK-MB (CK-2) 1.76 Troponin I 0.066 NT-Pro-B Natriuret Pep 09/18/17 06:08 Creatine Kinase CK-MB (CK-2) Troponin I NT-Pro-B Natriuret Pep 6720 H Impressions: Head CT 09/16/17 00:00 IMPRESSION: CHRONIC CHANGES OF ATROPHY AND MICROVASCULAR ISCHEMIA. NO ACUTE PROCESS. EVIDENCE OF ACUTE STROKE: NO. Chest X-Ray 09/21/17 00:00 IMPRESSION: No acute infiltrates. No pleural effusions. Mild cardiomegaly, old sternotomy and CABG, left-sided pacemaker/defibrillator Assessment & Plan - Diagnosis (1) Sleep disorder Is this a current diagnosis for this admission?: Yes (2) Shortness of breath Is this a current diagnosis for this admission?: Yes (3) Syncopal episodes Qualifiers: Syncope type: unspecified Qualified Code(s): R55 - Syncope and collapse Is this a current diagnosis for this admission?: Yes (4) Atrial fibrillation Qualifiers: Atrial fibrillation type: persistent Qualified Code(s): I48.1 - Persistent atrial fibrillation Is this a current diagnosis for this admission?: Yes (5) Bilateral lower leg cellulitis Is this a current diagnosis for this admission?: Yes (6) Cardiac defibrillator in situ Is this a current diagnosis for this admission?: Yes (7) Hypertension Qualifiers: Hypertension type: essential hypertension Qualified Code(s): I10 - Essential (primary) hypertension Is this a current diagnosis for this admission?: Yes
--- NOTE | 2017-09-23 19:45 | PDOC PROGRESS REPORT ---
Subjective Progress Note for:: 09/23/17 Subjective:: Patient seems to be doing better with gradual improvement. Pt is denying any chest arm or neck discomfort. Patient denying any PND, orthopnea. Patient denied any sustained palpitations, dizziness, syncope, near syncope. Patient denying any fever chills. Patient denying any other significant discomfort. Patient still has some pedal edema but generally stable. Patient has history of CABG. Patient is maintaining atrial fibrillation with controlled ventricular response with occasional ventricular paced beats.. Review of systems: Rest review of systems negative. Medications: Medications have been reviewed. Reason For Visit: SYNCOPAL EPISODE Physical Exam Vital Signs: Temp Pulse Resp BP Pulse Ox 97.8 F 110 H 16 138/73 H 94 09/23/17 12:48 09/23/17 12:48 09/23/17 12:48 09/23/17 12:48 09/23/17 12:48 Intake & Output 09/22/17 09/23/17 09/24/17 06:59 06:59 06:59 Intake Total 610 1227 Output Total 1500 1400 Balance -890 -173 Weight 115 kg 115 kg Exam: GENERAL: well-nourished and in no acute distress. Alert and oriented x3 HEAD: Atraumatic, normocephalic. EYES: Pupils equal round and reactive to light, extraocular movements intact, sclera anicteric, conjunctiva are normal. ENT: TMs normal, nares patent, oropharynx clear without exudates. Moist mucous membranes. No oral ulcerations or bleeding gums noted NECK: supple without lymphadenopathy. Trachea is central. No cervical or axillary lymphadenopathy noted. Carotids are 2+, JVD WNL LUNGS: Respiration seems nonlabored, no significant accessory muscle action noted. Breath sounds clear to auscultation bilaterally and equal noted. No wheezes rales or rhonchi noted. No significant dullness noted on percussion. CHEST: Palpation of the chest wall shows no significant chest wall tenderness. No other significant abnormalities noted. 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 ABDOMEN: Soft, no significant tenderness appreciated, normoactive bowel sounds. No guarding, no rebound. No rigidity noted . No masses appreciated. EXTREMITIES: Pedal pulses are 1-2+, no calf tenderness noted. No clubbing or cyanosis. 1-2+ pedal edema noted, seems chronic. NEUROLOGICAL: Focused neurological exam showed no significant neurologic deficit. Normal speech, no focal weakness appreciated. PSYCH: Normal mood, normal affect. Judgment and insight within normal limits. SKIN: No significant ecchymosis, chronic dermatitis changes noted both lower extremity but no signs of pruritus noted. MUSCULOSKELETAL EXAM: No significant joint swelling noted. Results Laboratory Results: 09/21/17 04:03 09/23/17 06:11 09/23/17 09/23/17 09/23/17 06:11 12:15 12:15 Sodium 142.8 Potassium 4.1 Chloride 98 Carbon Dioxide 32 H Anion Gap 13 BUN 34 H Creatinine 1.32 H Est GFR ( Amer) > 60 Est GFR (Non-Af Amer) 52 L Glucose 279 H Calcium 10.3 H Urine Color STRAW Urine Appearance CLEAR Urine pH 8.0 Ur Specific [place] 1.007 Urine Protein NEGATIVE Urine Glucose (UA) >=500 H Urine Ketones NEGATIVE Urine Blood NEGATIVE Urine Nitrite NEGATIVE Ur Leukocyte Esterase NEGATIVE Urine WBC (Auto) 1 Stool Occult Blood NEGATIVE 09/17/17 15:38 Blood Blood Culture - Final NO GROWTH IN 5 DAYS 09/17/17 14:45 Blood Blood Culture - Final NO GROWTH IN 5 DAYS 09/16/17 09/16/17 09/17/17 22:10 22:10 04:10 Creatine Kinase 148 CK-MB (CK-2) 1.17 1.28 Troponin I 0.060 0.069 NT-Pro-B Natriuret Pep 09/17/17 09/17/17 09/17/17 04:10 10:25 10:25 Creatine Kinase 176 H 197 H CK-MB (CK-2) 1.76 Troponin I 0.066 NT-Pro-B Natriuret Pep 09/18/17 06:08 Creatine Kinase CK-MB (CK-2) Troponin I NT-Pro-B Natriuret Pep 6720 H Impressions: Head CT 09/16/17 00:00 IMPRESSION: CHRONIC CHANGES OF ATROPHY AND MICROVASCULAR ISCHEMIA. NO ACUTE PROCESS. EVIDENCE OF ACUTE STROKE: NO. Chest X-Ray 09/21/17 00:00 IMPRESSION: No acute infiltrates. No pleural effusions. Mild cardiomegaly, old sternotomy and CABG, left-sided pacemaker/defibrillator Assessment & Plan - Diagnosis (1) Syncopal episodes Qualifiers: Syncope type: unspecified Qualified Code(s): R55 - Syncope and collapse Is this a current diagnosis for this admission?: Yes (2) Atrial fibrillation Qualifiers: Atrial fibrillation type: chronic Qualified Code(s): I48.2 - Chronic atrial fibrillation Is this a current diagnosis for this admission?: Yes (3) CHF (congestive heart failure) Qualifiers: Congestive heart failure type: combined Is this a current diagnosis for this admission?: Yes (4) CKD (chronic kidney disease) Qualifiers: Chronic kidney disease stage: stage 3 (moderate) Qualified Code(s): N18.3 - Chronic kidney disease, stage 3 (moderate) Is this a current diagnosis for this admission?: Yes (5) Cardiac defibrillator in situ Is this a current diagnosis for this admission?: Yes (6) Hypertension Qualifiers: Hypertension type: essential hypertension Qualified Code(s): I10 - Essential (primary) hypertension Is this a current diagnosis for this admission?: Yes (7) Sleep disorder Is this a current diagnosis for this admission?: Yes (8) Venous (peripheral) insufficiency Is this a current diagnosis for this admission?: No (9) CAD (coronary artery disease) Qualifiers: Coronary Disease-Associated Artery/Lesion type: unspecified vessel or lesion type Associated angina: angina presence unspecified Is this a current diagnosis for this admission?: Yes - Notes Notes: Syncopal episode: Most likely related to postural hypotension and orthostasis. Patient advised on fall prevention. Chronic atrial fibrillation: Continue with chronic anticoagulation and rate control strategy. Coronary artery disease: Currently stable and asymptomatic without any angina or angina equivalent symptoms. Chronic kidney disease: Stable. Cardiac defibrillator in situ, no recent defibrillator discharges noted. Hypertension: Currently stable. Sleep disorder: Discussed that this can be evaluated as an outpatient further as needed. Venous insufficiency: Patient advised on support stockings etc. CHF: Seems relatively well compensated. Patient advised on regular weighing, salt and fluid restriction.
--- NOTE | 2017-09-27 00:24 | PROGRESS NOTE E ---
Progress Note NAME: MARY MANDUJANO : 1935 AGE: 82Y DATE: 09/18/2017 ROOM: 534 SUBJECTIVE: Note that the patient still complains of shortness of breath. There are no more syncopal episodes. The patient does have chronic orthopnea. There is no PND. He does have cellulitis on the left lower extremity. He is in atrial fibrillation with controlled ventricular response and ventricular-paced rhythm. There are no TIA or CVA symptoms. There is no bleeding on Coumadin. The patient has no anginal symptoms. There is no firing of his AICD. There are no seizures. OBJECTIVE: GENERAL: On examination, the patient is slightly obese, in no acute distress. There are no auxiliary muscles of respiration in use. VITAL SIGNS: He is afebrile with a temperature of 97.5 degrees Fahrenheit. Pulse is 58 beats per minute with atrial fibrillation with ventricular-paced rhythm. Blood pressure 132/72. Respirations are 22 per min. O2 sats are 100% on room air. HEAD: Atraumatic, normocephalic. EYES: Pupils are equal, round, regular, reactive to light accommodation. Extraocular movements are normal. There is no conjunctival pallor. There is no scleral icterus. EARS: Tympanic membranes are intact. External auditory canals are clear. NOSE: There is no deviated nasal septum. There is inflammation of the nasal mucous membrane. MOUTH: Mucous membranes are of the mouth are moist. Tongue is moist. There are no ulcers. There is no bleeding of the gums. THROAT: There is no redness of the oropharynx. There are no exudates. SKIN: There is venous stasis dermatitis of the lower extremities with cellulitis of the left lower extremity. There are no petechiae or ecchymosis. There is no psoriasis. There are no skin lesions. NECK: Supple. There is no JVD. Carotids are equal. There is no bruit. There are no auxiliary muscles of respiration used. There is no thyromegaly. There is no lymphadenopathy. LUNGS: Show diminished air entry, prolonged expiration, with bilateral wheezing. There is no chest-wall tenderness. On percussion there is hyperresonance. HEART: S1 and S2 are heard. S1 is of variable intensity. There is no S3 gallop. There is no S4 gallop. There is a systolic murmur in the left sternal border and the apex. There is no rub. ABDOMEN: Soft, nontender. There is no hepatosplenomegaly. Bowel sounds are well heard. There are no tender areas or masses. EXTREMITIES: Femorals are diminished. There are no femoral bruits. Leg pulses are difficult to palpate due to edema. He has edema of the lower extremities, left lower extremity more than right, which is 1+ on the left side and 1- on the right side. He has evidence of cellulitis of the left lower extremity. He has no cyanosis or clubbing. There is no calf tenderness. CENTRAL NERVOUS SYSTEM: There patient is conscious, awake, alert, oriented x3, with no focal deficit. PSYCHIATRIC: The patient's judgement and insight are intact. His affect is normal. IMAGING: The patient's chest x-ray shows mild cardiomegaly without any acute changes. LABORATORY: The patient's INR is 2.74 on Coumadin. The patient's white count is 10,9000, hemoglobin 7.2, hematocrit is 34.4, platelet count is 156,000. The patient's sodium is 142.5, potassium is 3.7, chloride is 103, CO2 is 28. The patient's BUN is 37, creatinine is 1.41, his GFR is reduced at 48 mL, which is chronic kidney disease stage 3. IMPRESSION: 1. SYNCOPE, MOST LIKELY SECONDARY TO ORTHOSTATIC HYPOTENSION, SINCE THE PATIENT DID SHOW ORTHOSTATIC CHANGES. AT PRESENT, PATIENT LYING IN BED WITH NO RECURRENCE OF ORTHOSTATIC HYPOTENSION. Note that the patient used to be on midodrine, which has been tapered off. 2. REMOTE HISTORY OF HYPERTENSION. AT PRESENT BLOOD PRESSURE STABLE, LONG THE PATIENT LIES DOWN IN THE BED. 3. HISTORY OF CORONARY ARTERY DISEASE, HISTORY OF CORONARY ARTERY BYPASS GRAFT SURGERY, HISTORY OF [place]; NO ANGINAL SYMPTOMS. 4. ISCHEMIC CARDIOMYOPATHY. AT PRESENT, CLINICALLY PATIENT DOES NOT SHOW ANY HEART FAILURE. 5. ACUTE EXACERBATION OF COPD, WITH THE PATIENT HAVING WHEEZING BILATERALLY. 6. PAST HISTORY OF DVT IN THE LEFT LEG. Patient on Coumadin. 7. CHRONIC ATRIAL FIBRILLATION. PATIENT ON COUMADIN, AND ALSO ON METOPROLOL WITH CONTROLLED VENTRICULAR RESPONSE. 8. GASTROESOPHAGEAL REFLUX DISEASE. 9. CHRONIC KIDNEY DISEASE, STAGE 3. 10. HISTORY OF ENLARGED PROSTATE. 11. HISTORY OF VENTRICULAR TACHYCARDIA IN THE PAST. 12. AICD PLACEMENT; NO FIRING OF AICD. Would recommend to have AICD tested after Thursday. 13. CARDIOMYOPATHY. 14. DIABETES MELLITUS, INSULIN REQUIRING. 15. HYPOTHYROIDISM. Patient on replacement. 16. HISTORY OF SEIZURE DISORDER WITH NO RECENT RECURRENCE. 17. CHRONIC LOWER EXTREMITY SWELLING, LEFT MORE THAN RIGHT, WITH EVIDENCE OF CELLULITIS THE LEFT LOWER EXTREMITY. Continue antibiotics. Continue current medication. Would start the patient on antibiotics in view of the patient's acute exacerbation of COPD. Discussed with Dr. Rodriguez. Note that THE PATIENT IS A DNR (DO NOT RESUSCITATE). His and his daughter are his surrogate healthcare decision makers. Note, 25 minutes spent on patient, more than 50% of time spent on direct patient care. His medications have been reviewed. *------* plan was discussed with the other caregiving providers on the case. Note, medical decision making is of high complexity. Will follow with you. DICTATING PHYSICIAN: CHUCK STRONG M.D. [id number] DELON#: [id number] ID: [id number] JOB#: [id number] ACCT: [id number] cc: >
--- NOTE | 2017-09-27 02:19 | PROGRESS NOTE E ---
Progress Note NAME: MARY MANDUJANO : 1935 AGE: 82Y DATE: 09/20/2017 ROOM: 534 SUBJECTIVE: Note that the patient feels much better. He is less short of breath, and his wheezing also is much better since he has been steroid on steroids. But his heart rate is slightly elevated in the 1-teens. Atrial fibrillation with ventricular-paced rhythm. He does have chronic orthopnea but no chest pain, no firing of the AICD. There is no PND. His cellulitis of the leg is slightly better. He has no fevers, chills, or rigors. There are no TIA or ALEKSANDER symptoms. There is no further syncopal episode, but the patient is lying in bed. OBJECTIVE: GENERAL: On examination, the patient is mildly obese but well groomed, at present in no acute distress. There is no auxiliary muscle of respiration use. VITAL SIGNS: He is afebrile with a temperature of 97.9 degrees Fahrenheit. Pulse is 118 beats per minute, atrial fibrillation. The blood pressure is 125/80. Respiration of 20/min. O2 sats are 97% on 2 L nasal cannula. HEAD: Atraumatic, normocephalic. EYES: Pupils are equal, round, regular, reactive to light and accommodation. Extraocular movements are normal. There no conjunctival pallor. There is no scleral icterus. EARS: Tympanic membranes are intact. External auditory canals are clear. NOSE: There is no deviated nasal septum. There is no inflammation of the nasal mucosal membrane. MOUTH: The mucous membranes of the mouth are moist. Tongue is moist. There are no ulcers. There is no bleeding from the gums. THROAT: There is no redness of the oropharynx. There are no exudates. SKIN: There are no skin rashes, but there is evidence of chronic venous dermatitis of the lower extremities, with some cellulitis of the left lower extremity which is slightly improved. NECK: Supple. There is no JVD. Carotids are equal. There is no bruit. There is no lymphadenopathy. There is no goiter. There are no auxiliary muscles of respirations used. CHEST: On auscultation, lungs show diminished air entry, prolonged expiration. On percussion, there is hyperresonance. There is very, very minimal wheezing occasionally and a few scattered rhonchi. There are no rales of CHF. HEART: S1 and S2 are heard. S1 is of variable intensity. There is no S3 gallop. There is no S4 gallop. There is a systolic murmur in the left sternal border and apex. There is no rub. ABDOMEN: Soft, nontender. There is no hepatosplenomegaly. Bowel sounds are well heard. There are no tender areas or masses. EXTREMITIES: Femorals are diminished. There are no femoral bruits. Leg pulses are difficult to palate. There is mild left lower extremity greater than right lower extremity edema with some chronic venous stasis dermatitis. There is cellulitis of the left lower extremity which is much improved. There is no calf tenderness. There is no cyanosis or clubbing. CENTRAL NERVOUS SYSTEM: The patient is conscious, awake, alert, oriented x3, with no focal deficits. PSYCHIATRIC: The patient's judgement and insight are intact. His affect is normal. LABORATORY TESTS: The patient's INR is 2.71, which is therapeutic. His white count is 5,600, hemoglobin is 11.6, hematocrit is 35.5, and his platelet count is 213,000. The patient's sodium is 141, potassium 4.1, chloride is 101, CO2 is 38. The patient's BUN is 28, creatinine is 1.14, GFR is greater than 60. Glucose is uncontrolled at 319. His calcium is 10.2, and his magnesium is 2.3. IMPRESSION: 1. ATRIAL FIBRILLATION WITH SLIGHTLY FAST VENTRICULAR RESPONSE. Would cautiously increase the patient's Toprol. Will hold off for now and see if this will come down, since the patient just received a respiratory treatment. 2. SYNCOPE. NO RECURRENCE. SECONDARY TO ORTHOSTATIC HYPOTENSION. 3. REMOTE HISTORY OF HYPERTENSION. 4. HISTORY OF CORONARY ARTERY DISEASE. HISTORY OF CORONARY ARTERY BYPASS GRAFT SURGERY. HISTORY OF [place]; NO ANGINAL SYMPTOMS. 5. COPD, ACUTE EXACERBATION, MUCH IMPROVED WITH STEROIDS, BUT THE PATIENT'S BLOOD SUGAR IS UNCONTROLLED. 6. ISCHEMIC CARDIOMYOPATHY. AT PRESENT CLINICALLY THE PATIENT DOES NOT SHOW ANY HEART FAILURE. 7. PAST HISTORY OF DVT OF THE LEFT LEG, ON COUMADIN, WITH NO RECURRENCE. 8. CHRONIC ATRIAL FIBRILLATION. AT PRESENT HEART RATE SLIGHTLY UP. Patient on Coumadin, but will cautiously increase the beta linn if necessary. 9. GERD. 10. CHRONIC KIDNEY DISEASE, STAGE 3 AT PRESENT, GFR IS GREATER THAN 60, MOST LIKELY SECONDARY TO DEHYDRATION. We will watch the patient's renal function. 11. HISTORY OF ENLARGED PROSTATE. 12. HISTORY OF VENTRICULAR TACHYCARDIA WITH NO RECURRENCE. 13. AICD PLACEMENT. NO FIRING OF AICD. 14. CARDIOMYOPATHY WITH PAST HISTORY OF EJECTION FRACTION OF *------*. 15. DIABETES MELLITUS, NOW UNCONTROLLED BLOOD SUGAR. Need to increase the patient's insulin. 16. HYPOTHYROIDISM. Continue patient's replacement. 17. HISTORY OF SEIZURE DISORDER WITH NO RECENT RECURRENCE. 18. CHRONIC LOWER EXTREMITY SWELLING BILATERALLY DUE TO VENOUS INSUFFICIENCY WITH EVIDENCE OF CELLULITIS OF LEFT LOWER EXTREMITY. CONTINUE ANTIBIOTICS. THIS IS IMPROVING BUT STILL NEEDS IV ANTIBIOTICS. Note, 25 minutes spent on this patient with more than 50% of time spent on direct patient care. Medications have been reviewed, and the plan of care has been discussed with the caregiving providers *------* on the case. Medical decision making continues to be highly complex in view of the patient's atrial fibrillation with rapid ventricular response, cellulitis, which is slightly slow in improving, and also the patient's COPD with still some degree of wheezing, although improved. DICTATING PHYSICIAN: CHUCK STRONG M.D. [id number] DELON#: [id number] ID: [id number] JOB#: [id number] ACCT: [id number] cc: >
--- NOTE | 2017-09-27 02:34 | PROGRESS NOTE E ---
Progress Note NAME: MARY MANDUJANO : 1935 AGE: 82Y DATE: 09/21/2017 ROOM: 534 SUBJECTIVE: Note that the patient's wheezing is much improved. Yesterday the patient had a short spell of atrial fibrillation with ventricular response of 160 beats per minute, which was his [place] rhythm. He was given 5 mg of Lopressor, and the patient's heart rate did come down. Today his heart rate is 102 beats per minute. The patient denies any chest pain or discomfort. There is no firing of his AICD. There are no TIA or CVA symptoms. There is no bleeding on Coumadin. His cellulitis is much improved. There is still some minimal amount of redness in his left lower extremity. The patient has no anginal symptoms. There are no ventricular arrhythmias seen. There is no recurrence of ventricular tachycardia in this patient. OBJECTIVE: GENERAL: On examination, the patient is mildly obese, in no acute distress. VITAL SIGNS: He is afebrile with a temperature of 98.3 degrees Fahrenheit. Pulse is 102 beats per minute. Blood pressure of 122/82. Respirations are 21 beats per minute. O2 sats are 98% on 2 L. HEAD: Atraumatic, normocephalic. EYES: Pupils are equal, round, regular, reactive to light and accommodation. Extraocular movements are normal. There is no conjunctival pallor. There is no scleral icterus. EARS: Tympanic membranes are intact. External auditory canals are clear. NOSE: There is no deviated nasal septum. There is no inflammation of the nasal mucous membrane. MOUTH: The mucous membranes of the mouth are moist. Tongue is moist. There are no ulcers. There is no bleeding from the gums. THROAT: There is no redness of the oropharynx. There are no exudates. 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 There is minimal evidence of cellulitis of the left lower extremity which is much improved on antibiotics. There are no petechiae or ecchymosis. NECK: Supple. There is no JVD. Carotids are equal. There is no bruit. There are no auxiliary muscles or respiration use. There is no lymphadenopathy. Trachea is central. LUNGS: Show diminished air entry. Prolonged expiration with occasional rhonchi. There is no wheezing. HEART: S1 and S2 are heard. There is no S3 gallop. There is no S4 gallop. S1 is of variable intensity. There is a systolic murmur in the left sternal border and apex. There is no rub. ABDOMEN: Soft, nontender. There is no hepatosplenomegaly. Bowel sounds are well heard. There are no tender areas or masses. EXTREMITIES: Femorals are diminished. There are no femoral bruits. Leg pulses are difficult to palpate. There is mild lower extremity edema, left greater than right, with some venous stasis dermatitis and with very faint evidence of redness which is much improved in the left lower extremity. There is no cyanosis or clubbing. There is no calf tenderness. CENTRAL NERVOUS SYSTEM: The patient is conscious, awake, alert, oriented x3, with no focal deficits. PSYCHIATRIC: The patient's judgement and insight are intact. His affect is normal. LABORATORY TESTS: The patient's white count is 8700, hemoglobin is 11.5, hematocrit is 35.1, and platelet count is 236,000. The patient's sodium is 141.5, potassium is 3.7, chloride is 96, CO2 is 31. The patient's BUN is 34, creatinine is 1.25, GFR is slightly reduced at 55, blood sugar is 282. The patient's INR is 2.86. IMPRESSION: 1. ACUTE EXACERBATION OF COPD, MUCH IMPROVED, ALMOST BACK TO BASELINE. Continue Xopenex. Continue steroids. Continue antibiotics. 2. LEFT LOWER EXTREMITY CELLULITIS, MUCH IMPROVED. 3. SYNCOPE, NO RECURRENCE, ORTHOSTATIC. The patient has not gotten out of bed. 4. CAD. NO ANGINAL SYMPTOMS. 5. ATRIAL FIBRILLATION, CHRONIC. AT PRESENT THE HEART RATE IS SLIGHTLY ELEVATED. We will continue the patient on current medication and increase the patient's Lopressor as needed. Continue the patient on his Coumadin. 6. HISTORY OF DVT WITH NO RECURRENCE. Patient on anticoagulation. 7. CARDIOMYOPATHY. NO EVIDENCE OF HEART FAILURE. 8. HISTORY OF VENTRICULAR TACHYCARDIA. NO RECURRENCE. 9. AICD PLACEMENT. 10. DIABETES MELLITUS TYPE 2, NON-INSULIN DEPENDENT. BLOOD SUGAR IS STILL NOT WELL CONTROLLED. THIS MAY BE THE EFFECT OF STEROIDS. 11. CHRONIC KIDNEY DISEASE, AGAIN BACK TO STAGE 3. THIS MAY BE DUE TO HIS BLOOD SUGAR BEING HIGH AND PATIENT HAVING DIURESIS SECONDARY TO THIS. 12. HYPOTHYROIDISM. 13. CHRONIC LOWER EXTREMITY SWELLING AND LEFT LOWER EXTREMITY CELLULITIS, MUCH IMPROVED, BUT STILL NEEDS ANTIBIOTICS. Note, 25 minutes spent on this patient, more than 50% of the time spent on direct patient care. His medications have been reviewed and medications discussed with other physicians on the case and management plan instituted after discussion with the other caregiving providers on the case. Note, medical decision making is of moderate complexity. DICTATING PHYSICIAN: CHUCK STRONG M.D. [id number] DELON#: [id number] ID: [id number] JOB#: [id number] ACCT: [id number] cc: >
--- NOTE | 2017-09-27 18:22 | PROGRESS NOTE E ---
Progress Note NAME: MARY MANDUJANO : 1935 AGE: 82Y DATE: 09/19/2017 ROOM: 534 SUBJECTIVE: The patient continues to wheeze and complains of shortness of breath. He has orthopnea which is chronic. There is no PND. There is no chest pain. Chronic atrial fibrillation with controlled ventricular response and . He denies any chest pain or discomfort. His cellulitis of the left lower extremity is slightly better. There are no TIA or CVA symptoms. There is no bleeding on Coumadin. OBJECTIVE: GENERAL: On examination, the patient is mildly obese, in no acute distress. Of note, he appears slightly short of breath. VITAL SIGNS: He is afebrile with a temperature of 98.4 degrees Fahrenheit. Pulse is 101 beats per minute. Underlying rhythm is atrial fibrillation with ventricular-paced rhythm. Blood pressure 137/83. Respirations are 22 per min. O2 sats are 99% on 2.5 L nasal cannula. HEAD: Atraumatic, normocephalic. EYES: Pupils are equal, round, regular, reactive to light accommodation. Extraocular movements are normal. There is no conjunctival pallor. There is no scleral icterus. EARS: Tympanic membranes are intact. External auditory canals are clear. NOSE: There is no deviated nasal septum. There is no inflammation of the nasal mucous membrane. MOUTH: Mucous membranes are of the mouth are moist. Tongue is moist. There are no ulcers. There is no bleeding from the gums. THROAT: There is no redness of the oropharynx. There are no exudates. SKIN: There are no skin rashes, although there is cellulitis on the left lower extremity and chronic venous stasis dermatitis of his lower extremities. NECK: Supple. There are no auxiliary muscles of respiration in use. There is no lymphadenopathy. There is no goiter. Carotids are equal. There is no bruit. HEART: S1 and S2 are heard. S1 is of variable intensity. There is no S3 gallop. There is no S4 gallop. There is a systolic murmur in the left sternal border and the apex. There is no rub. CHEST: Shows diminished air entry, prolonged expiration, with bilateral wheezing and a few scattered rhonchi. ABDOMEN: Soft, nontender. There is no hepatosplenomegaly. Bowel sounds are well heard. There are no tender areas or masses. There is no rebound, guarding, or rigidity. EXTREMITIES: Femorals are slightly diminished. There are no femoral bruits. Leg pulses are difficult to palpate. There is mild pedal edema, left lower extremity greater than right. There is chronic venous stasis dermatitis and cellulitis of the left lower extremity. He has no cyanosis or clubbing. There is no calf tenderness. CENTRAL NERVOUS SYSTEM: There patient is conscious, awake, alert, oriented x3, with no focal deficits. PSYCHIATRIC: The patient's judgement and insight are intact. His affect is normal. LABORATORY TESTS: The patient's protime is 3.10. His sodium is 139.8, potassium is 3.4, chloride is 100, CO2 is 29. The patient's BUN is 32, creatinine is 1.30, GFR is 53, which is chronic kidney disease stage 3 with slight improvement. Blood sugar is 293, calcium is 9.7. IMPRESSION: 1. The patient has not had a syncopal episode since . 2. HISTORY OF ORTHOSTATIC HYPOTENSION. 3. REMOTE HISTORY OF HYPERTENSION. 4. HISTORY OF CORONARY ARTERY DISEASE, HISTORY OF CORONARY ARTERY BYPASS GRAFT SURGERY, HISTORY OF [place]; NO ANGINAL SYMPTOMS. 5. ISCHEMIC CARDIOMYOPATHY. AT PRESENT, CLINICALLY PATIENT DOES NOT SHOW ANY HEART FAILURE. 6. PAST HISTORY OF DVT IN LEFT LEG, ON COUMADIN. 7. CHRONIC ATRIAL FIBRILLATION. Continue Coumadin. Continue metoprolol. 8. ACUTE EXACERBATION OF COPD. . 9. HYPOTHYROIDISM. Patient on replacement. 10. HISTORY OF SEIZURE DISORDER. NO RECURRENCE. 11. HYPOKALEMIA. Will recheck the patient's potassium. 12. CHRONIC LOWER EXTREMITY SWELLING, LEFT MORE THAN RIGHT, WITH EVIDENCE OF CELLULITIS OF THE LEFT LOWER EXTREMITY. Continue antibiotics. Once the infection is cleared, will try to place the patient on Unna boot with a consultation to the wound care physician. Discussed with Dr. Marika Rodriguez. Medications have been reviewed. I would not increase the patient's metoprolol, given the patient's blood pressure becoming orthostatic. Will continue the patient on current dose of Toprol XL. Continue the patient on Coumadin. The patient's INR is therapeutic, although slightly on the high side. The plan of care has been discussed with the other caregiving providers on the case. Of note, medical decision making is of high complexity in view of the multiple medical problems and the patient still having wheezing in spite of current aggressive treatment. Note, 25 minutes spent on the patient, more than 50% of the time spent on direct patient care. DICTATING PHYSICIAN: CHUCK STRONG M.D. [id number] DELON#: [id number] ID: [id number] JOB#: [id number] ACCT: [id number] cc: >
--- NOTE | 2017-09-28 13:44 | PDOC PROGRESS REPORT ---
Subjective Progress Note for:: 09/23/17 Reason For Visit: SYNCOPAL EPISODE Physical Exam Vital Signs: Temp Pulse Resp BP Pulse Ox 97.8 F 110 H 16 138/73 H 94 09/23/17 12:48 09/23/17 12:48 09/23/17 12:48 09/23/17 12:48 09/23/17 12:48 Intake & Output 09/22/17 09/23/17 09/24/17 06:59 06:59 06:59 Intake Total 610 1227 Output Total 1500 1400 Balance -890 -173 Weight 115 kg 115 kg General appearance: PRESENT: no acute distress, disheveled, thin, well- developed. ABSENT: mild distress, morbidly obese, obese, severe distress Head exam: PRESENT: atraumatic, normocephalic Eye exam: PRESENT: conjunctiva pale. ABSENT: conjunctival injection, conjunctiva pink, nystagmus, periorbital swelling, scleral icterus Mouth exam: PRESENT: dry mucosa, neck supple, tongue midline Neck exam: ABSENT: carotid bruit, JVD, lymphadenopathy, thyromegaly, tracheal deviation, tracheostomy Respiratory exam: PRESENT: decreased breath sounds, prolonged expiratory phas, rhonchi, symmetrical, unlabored. ABSENT: accessory muscle use, chest wall tenderness, clear to auscultation kavitha, crackles, retraction, stridor, tachypnea Cardiovascular exam: PRESENT: irregular rhythm. ABSENT: RRR, tachycardia Pulses: PRESENT: normal radial pulses GI/Abdominal exam: PRESENT: diminished bowel sounds, soft Extremities exam: ABSENT: clubbing, joint swelling Musculoskeletal exam: ABSENT: deformity, dislocation Neurological exam: PRESENT: awake Skin exam: PRESENT: dry, warm Results Laboratory Results: 09/21/17 04:03 09/23/17 06:11 09/23/17 09/23/17 09/23/17 06:11 12:15 12:15 Sodium 142.8 Potassium 4.1 Chloride 98 Carbon Dioxide 32 H Anion Gap 13 BUN 34 H Creatinine 1.32 H Est GFR ( Amer) > 60 Est GFR (Non-Af Amer) 52 L Glucose 279 H Calcium 10.3 H Urine Color STRAW Urine Appearance CLEAR Urine pH 8.0 Ur Specific [place] 1.007 Urine Protein NEGATIVE Urine Glucose (UA) >=500 H Urine Ketones NEGATIVE Urine Blood NEGATIVE Urine Nitrite NEGATIVE Ur Leukocyte Esterase NEGATIVE Urine WBC (Auto) 1 Stool Occult Blood NEGATIVE 09/17/17 15:38 Blood Blood Culture - Final NO GROWTH IN 5 DAYS 09/17/17 14:45 Blood Blood Culture - Final NO GROWTH IN 5 DAYS 09/16/17 09/16/17 09/17/17 22:10 22:10 04:10 Creatine Kinase 148 CK-MB (CK-2) 1.17 1.28 Troponin I 0.060 0.069 NT-Pro-B Natriuret Pep 09/17/17 09/17/17 09/17/17 04:10 10:25 10:25 Creatine Kinase 176 H 197 H CK-MB (CK-2) 1.76 Troponin I 0.066 NT-Pro-B Natriuret Pep 09/18/17 06:08 Creatine Kinase CK-MB (CK-2) Troponin I NT-Pro-B Natriuret Pep 6720 H Impressions: Head CT 09/16/17 00:00 IMPRESSION: CHRONIC CHANGES OF ATROPHY AND MICROVASCULAR ISCHEMIA. NO ACUTE PROCESS. EVIDENCE OF ACUTE STROKE: NO. Chest X-Ray 09/21/17 00:00 IMPRESSION: No acute infiltrates. No pleural effusions. Mild cardiomegaly, old sternotomy and CABG, left-sided pacemaker/defibrillator Assessment & Plan - Diagnosis (1) Sleep disorder Is this a current diagnosis for this admission?: Yes (2) Shortness of breath Is this a current diagnosis for this admission?: Yes Plan: bedside spirometry LAMA (3) Syncopal episodes Qualifiers: Syncope type: unspecified Qualified Code(s): R55 - Syncope and collapse Is this a current diagnosis for this admission?: Yes Plan: recurrent (4) Atrial fibrillation Qualifiers: Atrial fibrillation type: persistent Qualified Code(s): I48.1 - Persistent atrial fibrillation Is this a current diagnosis for this admission?: Yes Plan: ventricular response ok (5) Bilateral lower leg cellulitis Is this a current diagnosis for this admission?: Yes Plan: chronic (6) Cardiac defibrillator in situ Is this a current diagnosis for this admission?: Yes (7) Hypertension Qualifiers: Hypertension type: essential hypertension Qualified Code(s): I10 - Essential (primary) hypertension Is this a current diagnosis for this admission?: Yes Plan: stable
--- NOTE | 2017-09-28 13:46 | PDOC PROGRESS REPORT ---
Subjective Progress Note for:: 09/21/17 Subjective:: unchanged Reason For Visit: SYNCOPAL EPISODE Physical Exam Vital Signs: Temp Pulse Resp BP Pulse Ox 97.8 F 110 H 16 138/73 H 94 09/23/17 12:48 09/23/17 12:48 09/23/17 12:48 09/23/17 12:48 09/23/17 12:48 Intake & Output 09/22/17 09/23/17 09/24/17 06:59 06:59 06:59 Intake Total 610 1227 Output Total 1500 1400 Balance -890 -173 Weight 115 kg 115 kg General appearance: PRESENT: no acute distress, disheveled. ABSENT: mild distress, morbidly obese, obese, severe distress Head exam: PRESENT: atraumatic, normocephalic Eye exam: PRESENT: conjunctiva pale. ABSENT: conjunctival injection, conjunctiva pink, nystagmus, periorbital swelling, scleral icterus Mouth exam: PRESENT: dry mucosa, neck supple, tongue midline Neck exam: ABSENT: carotid bruit, JVD, lymphadenopathy, thyromegaly, tracheal deviation, tracheostomy Respiratory exam: PRESENT: decreased breath sounds, prolonged expiratory phas, rhonchi, symmetrical, unlabored, wheezes. ABSENT: accessory muscle use, chest wall tenderness, clear to auscultation kavitha, crackles, rales, retraction, stridor , tachypnea Cardiovascular exam: ABSENT: irregular rhythm Pulses: PRESENT: normal radial pulses GI/Abdominal exam: PRESENT: diminished bowel sounds, soft Extremities exam: ABSENT: clubbing, joint swelling Musculoskeletal exam: ABSENT: deformity, dislocation Skin exam: PRESENT: dry, warm Results Laboratory Results: 09/21/17 04:03 09/23/17 06:11 09/23/17 09/23/17 09/23/17 06:11 12:15 12:15 Sodium 142.8 Potassium 4.1 Chloride 98 Carbon Dioxide 32 H Anion Gap 13 BUN 34 H Creatinine 1.32 H Est GFR ( Amer) > 60 Est GFR (Non-Af Amer) 52 L Glucose 279 H Calcium 10.3 H Urine Color STRAW Urine Appearance CLEAR Urine pH 8.0 Ur Specific [place] 1.007 Urine Protein NEGATIVE Urine Glucose (UA) >=500 H Urine Ketones NEGATIVE Urine Blood NEGATIVE Urine Nitrite NEGATIVE Ur Leukocyte Esterase NEGATIVE Urine WBC (Auto) 1 Stool Occult Blood NEGATIVE 09/17/17 15:38 Blood Blood Culture - Final NO GROWTH IN 5 DAYS 09/17/17 14:45 Blood Blood Culture - Final NO GROWTH IN 5 DAYS 09/16/17 09/16/17 09/17/17 22:10 22:10 04:10 Creatine Kinase 148 CK-MB (CK-2) 1.17 1.28 Troponin I 0.060 0.069 NT-Pro-B Natriuret Pep 09/17/17 09/17/17 09/17/17 04:10 10:25 10:25 Creatine Kinase 176 H 197 H CK-MB (CK-2) 1.76 Troponin I 0.066 NT-Pro-B Natriuret Pep 09/18/17 06:08 Creatine Kinase CK-MB (CK-2) Troponin I NT-Pro-B Natriuret Pep 6720 H Impressions: Head CT 09/16/17 00:00 IMPRESSION: CHRONIC CHANGES OF ATROPHY AND MICROVASCULAR ISCHEMIA. NO ACUTE PROCESS. EVIDENCE OF ACUTE STROKE: NO. Chest X-Ray 09/21/17 00:00 IMPRESSION: No acute infiltrates. No pleural effusions. Mild cardiomegaly, old sternotomy and CABG, left-sided pacemaker/defibrillator Assessment & Plan - Diagnosis (1) Sleep disorder Is this a current diagnosis for this admission?: Yes (2) Shortness of breath Is this a current diagnosis for this admission?: Yes Plan: bedside spirometry LAMA (3) Syncopal episodes Qualifiers: Syncope type: unspecified Qualified Code(s): R55 - Syncope and collapse Is this a current diagnosis for this admission?: Yes Plan: recurrent (4) Atrial fibrillation Qualifiers: Atrial fibrillation type: persistent Qualified Code(s): I48.1 - Persistent atrial fibrillation Is this a current diagnosis for this admission?: Yes Plan: ventricular response ok (5) Bilateral lower leg cellulitis Is this a current diagnosis for this admission?: Yes Plan: chronic (6) Cardiac defibrillator in situ Is this a current diagnosis for this admission?: Yes (7) Hypertension Qualifiers: Hypertension type: essential hypertension Qualified Code(s): I10 - Essential (primary) hypertension Is this a current diagnosis for this admission?: Yes Plan: stable
--- NOTE | 2017-09-30 13:04 | Pulmonary Function Test ---
Pulmonary Function Test Date of Procedure:: 09/21/17 INDICATION:: Dyspnea Referring Provider: Dr. Rodriguez - Report Spirometry: FVC 2.09 L 45% postbronchodilator therapy 2.13 L 46% FEV1 1.26 L 35% postbronchodilator therapy 1.30 L 36% FEV1/FVC % 60 postbronchodilator therapy 61 predicted 78 FEF 25-75% 0.99 29% postbronchodilator therapy 0.83 24% Impression: Severe obstructive ventilatory defect with insignificant response to bronchodilator therapy. This does not preclude a clinical trial of bronchodilator therapy
== END 2017-09-23 13:56 | disposition home health service (06) | DRG 312 ==
LOC: ER 14:50 → EH 21:25 → 5 09-17 15:55
PROVIDERS: ADMIT Family Medicine; ATTEND Family Medicine
DX: I95.1 Orthostatic hypotension (principal); L03.116 Cellulitis of left lower limb; I13.0 Hypertensive heart and chronic kidney disease with heart failure and stage 1 through stage 4 chronic kidney disease, or unspecified chronic kidney disease; I50.22 Chronic systolic (congestive) heart failure; I42.9 Cardiomyopathy, unspecified; J44.1 Chronic obstructive pulmonary disease with (acute) exacerbation; Z66 Do not resuscitate; E03.9 Hypothyroidism, unspecified; E87.6 Hypokalemia; I48.2 Chronic atrial fibrillation; I25.10 Atherosclerotic heart disease of native coronary artery without angina pectoris; E11.22 Type 2 diabetes mellitus with diabetic chronic kidney disease; N18.3 Chronic kidney disease, stage 3 (moderate); Z86.718 Personal history of other venous thrombosis and embolism; Z86.711 Personal history of pulmonary embolism; Z79.4 Long term (current) use of insulin; Z79.01 Long term (current) use of anticoagulants; Z79.51 Long term (current) use of inhaled steroids; Z79.899 Other long term (current) drug therapy; Z95.810 Presence of automatic (implantable) cardiac defibrillator; Z95.1 Presence of aortocoronary bypass graft
CPT/HCPCS: 36415; 36600; 70450; 71045; 71046; 80048; 81001; 82272; 82550; 82553; 82803; 82962; 83735; 83880; 84484; 85025; 85610; 87040; 87086; 93005; 93010; 94060; 94640; 96365; 99285; G8978-GP; G8979-GP; J1335; J1815; J1940; J2920; J3490; J7614; J7620

== ENCOUNTER → 2017-09-16 | Outpatient (CLI) | payer MEDICARE, OTHER ==
--- NOTE | 2017-09-16 13:55 | RADIOLOGY REPORT (SQ) ---
EXAM DESCRIPTION: CHEST PA/LATERAL COMPLETED DATE/TIME: 09/16/2017 11:58 am REASON FOR STUDY: COUGH COMPARISON: CT chest 07/20/2017 Chest films 07/23/2017, 10/23/2016 EXAM PARAMETERS: NUMBER OF VIEWS: two views TECHNIQUE: Digital Frontal and Lateral radiographic views of the chest acquired. RADIATION DOSE: NA LIMITATIONS: none FINDINGS: LUNGS AND PLEURA: No opacities, masses or pneumothorax. No pleural effusion. MEDIASTINUM AND HILAR STRUCTURES: No masses or contour abnormalities. HEART AND VASCULAR STRUCTURES: Old sternotomy and CABG. No cardiomegaly. No pulmonary vascular leopoldo estion BONES: Osteopenic without acute fracture HARDWARE: Left-sided dual lead pacemaker/defibrillator OTHER: No other significant finding. IMPRESSION: No acute cardiopulmonary changes TECHNICAL DOCUMENTATION: JOB ID: [id number] [employer]- All Rights Reserved
== END ==
LOC: OD 11:33
PROVIDERS: ATTEND Physician Assistant
DX: R05 Cough (principal)
CPT/HCPCS: 71046

== ENCOUNTER → 2017-11-23 | Outpatient (CLI) | payer MEDICARE, OTHER ==
[2017-11-24 12:38] LABS: ANTICHROMATIN AB <0.2 AI (0.0-0.9); CENTROMERE B AB <0.2 AI (0.0-0.9); JO-1 ANTIBODY (ANACOMP) <0.2 AI (0.0-0.9); RNP AB 0.2 AI (0.0-0.9); SCLERODERMA-70 ANTIBODIES <0.2 AI (0.0-0.9); SJOGREN'S ANTI-SS-B AB <0.2 AI (0.0-0.9); SJOGREN'S SS-A ANTIBODY <0.2 AI (0.0-0.9); SMITH AB ANA <0.2 AI (0.0-0.9)
[2017-11-24 12:41] LABS: DNA DOUBLE STRAND ANTIBODY ANA <1 IU/mL (0-9)
[2017-11-24 17:37] LABS: CYTOPLASMIC (C-ANCA) <1:20 titer (Neg:<1:20)
[2017-11-25 07:07] LABS: ATYPICAL PANCA <1:20 titer (Neg:<1:20); PERINUCLEAR (P-ANCA) <1:20 titer (Neg:<1:20)
== END ==
LOC: OD 10:50
PROVIDERS: ATTEND Physician Assistant
DX: R06.00 Dyspnea, unspecified (principal)
CPT/HCPCS: 36415; 86021; 86225; 86235; 86430

== ENCOUNTER 2017-11-29 09:23 | Emergency (ER) | payer MEDICARE, OTHER ==
--- NOTE | 2017-11-29 10:07 | ER Document Report ---
ED Medical Screen (RME) - General Chief Complaint: Pain With Urination Stated Complaint: URINARY PROBLEMS Time Seen by Provider: 11/29/17 09:44 Mode of Arrival: Wheelchair Information source: Patient, Relative Notes: 82 y.o male presents to the ED with urinary retention. Pt reports that he has pain when he urinates but is unable to expel much urine and that his urine is dark in color. Pt reports that he takes Flomax and had urinary retention once before a couple years ago. He denies any fever. Pt denies any Hx of cancer and no surgical Hx. I have greeted and performed a rapid initial assessment of the patient. A comprehensive ED assessment and evaluation of the patient, analysis of test results, and completion of the medical decision making process will be conducted by additional ED providers. TRAVEL OUTSIDE OF THE [place] IN LAST 30 DAYS: No - Related Data Allergies/Adverse Reactions: nystatin Adverse Reaction (Verified 11/29/17 09:25) Past Medical History - General Information source: Patient, Relative - Social History Cigarette use (# per day): No Drug Abuse: None Lives with: Family - - Past Medical History Cardiac Medical History: Reports: Hx Atrial Fibrillation, Hx Congestive Heart Failure, Hx Coronary Artery Disease, Hx DVT, Hx Heart Attack - 1995, Hx Hypercholesterolemia, Hx Hypertension, Hx Pulmonary Embolism Pulmonary Medical History: Reports: Hx Sleep Apnea Denies: Hx Asthma, Hx Tuberculosis Neurological Medical History: Denies: Hx Cerebrovascular Accident, Hx Seizures Endocrine Medical History: Reports: Hx Diabetes Mellitus Type 2 Renal/ Medical History: Reports: Hx Kidney Stones - right side, renal cysts. Denies: Hx Peritoneal Dialysis GI Medical History: Reports: Hx Gastroesophageal Reflux Disease. 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, Reports Hx Gout Skin Medical History: Denies Hx Psoriasis Psychiatric Medical History: Reports: Hx Depression Traumatic Medical History: Denies: Hx Traumatic Brain Injury Infectious Medical History: Denies: Hx Hepatitis Past Surgical History: Reports: Hx Cardiac Surgery - open heart, pacer/defib, Hx Coronary Artery Bypass Graft - 3, Hx Coronary Stent, Hx Internal Defibrillator, Hx Open Heart Surgery - cabg x 3, Hx Pacemaker - upper left chest , Hx Vascular Surgery, Other - Bone graft in the left ankle, surgery of elbow fracture - Immunizations Hx Diphtheria, Pertussis, Tetanus Vaccination: Yes - not UTD History of Influenza Vaccine for 06/2017 - 11/2017 Season: Yes Review of Systems - Review of Systems Constitutional: See HPI. denies: Fever EENT: No symptoms reported Cardiovascular: No symptoms reported Respiratory: No symptoms reported Gastrointestinal: No symptoms reported Genitourinary: See HPI, Dysuria, Retention, Other - dark colored urine Male Genitourinary: No symptoms reported Musculoskeletal: No symptoms reported Skin: No symptoms reported Hematologic/Lymphatic: No symptoms reported Neurological/Psychological: No symptoms reported -: Yes All other systems reviewed and negative Physical Exam - Vital signs Vitals: Temp Pulse Resp BP Pulse Ox 97.4 F 63 20 106/44 L 95 11/29/17 09:30 11/29/17 09:30 11/29/17 09:30 11/29/17 09:30 11/29/17 09:30 - Notes Notes: Physical Exam: General: Alert, appears well. HEENT: Normocephalic. Atraumatic. PERRLA. Extraocular movements intact. Oropharynx clear. Neck: Supple. Respiratory: No respiratory distress. Abdominal: Normal Inspection. No distension. Extremities: Moves all four extremities. Neurological: Normal cognition. AAOx4. Normal speech. Psychological: Normal affect. Normal Mood. Skin: Warm. Dry. Normal color. Course - Vital Signs Vital signs: Temp Pulse Resp BP Pulse Ox 97.4 F 63 20 106/44 L 95 11/29/17 09:30 11/29/17 09:30 11/29/17 09:30 11/29/17 09:30 11/29/17 09:30 Scribe Documentation - Scribe Written by Candida:: Candida Ross 11/29/17 [id number] acting as scribe for :: Cosme
--- NOTE | 2017-11-29 10:15 | ER Document Report ---
ED GI/ - General Chief Complaint: Pain With Urination Stated Complaint: URINARY PROBLEMS Time Seen by Provider: 11/29/17 09:44 Mode of Arrival: Wheelchair Notes: The patient is an 82-year-old male, past medical history BPH (on Flomax), Stage 3 CKD, presents with urinary retention. He feels like he has to urinate, but is unable to. Last full urination was 24 hours ago. He is able to dribble out a small amount of urine. Denies nausea, vomiting, fevers, flank pain, diarrhea or constipation. TRAVEL OUTSIDE OF THE [place] IN LAST 30 DAYS: No - Related Data Allergies/Adverse Reactions: nystatin Adverse Reaction (Verified 11/29/17 09:25) Past Medical History - General Information source: Patient, Relative - Social History Smoking Status: Former Smoker Drug Abuse: None Lives with: Family - Family History: CAD, COPD, Hypertension, Malignancy Patient has suicidal ideation: No Patient has homicidal ideation: No - Past Medical History Cardiac Medical History: Reports: Hx Atrial Fibrillation, Hx Congestive Heart Failure, Hx Coronary Artery Disease, Hx DVT, Hx Heart Attack - 1995, Hx Hypercholesterolemia, Hx Hypertension, Hx Pulmonary Embolism Pulmonary Medical History: Reports: Hx Sleep Apnea Denies: Hx Asthma, Hx Tuberculosis Neurological Medical History: Denies: Hx Cerebrovascular Accident, Hx Seizures Endocrine Medical History: Reports: Hx Diabetes Mellitus Type 2 Renal/ Medical History: Reports: Hx Kidney Stones - right side, renal cysts. Denies: Hx Peritoneal Dialysis GI Medical History: Reports: Hx Gastroesophageal Reflux Disease. 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, Reports Hx Gout Skin Medical History: Denies Hx Psoriasis Psychiatric Medical History: Reports: Hx Depression Traumatic Medical History: Denies: Hx Traumatic Brain Injury Infectious Medical History: Denies: Hx Hepatitis Past Surgical History: Reports: Hx Cardiac Surgery - open heart, pacer/defib, Hx Coronary Artery Bypass Graft - 3, Hx Coronary Stent, Hx Internal Defibrillator, Hx Open Heart Surgery - cabg x 3, Hx Pacemaker - upper left chest , Hx Vascular Surgery, Other - Bone graft in the left ankle, surgery of elbow fracture - Immunizations Hx Diphtheria, Pertussis, Tetanus Vaccination: Yes - not UTD Hx Pneumococcal Vaccination: 11/07/11 Review of Systems - Review of Systems Notes: REVIEW OF SYSTEMS: CONSTITUTIONAL: -fevers, -chills EENT: -eye pain, -difficulty swallowing, -nasal congestion CARDIOVASCULAR: -chest pain, -syncope. RESPIRATORY: -cough, -SOB GASTROINTESTINAL: -abdominal pain, -nausea, -vomiting, -diarrhea GENITOURINARY: +urinary retention, +dysuria, -hematuria MUSCULOSKELETAL: -back pain, -neck pain SKIN: -rash or skin lesions. HEMATOLOGIC: -easy bruising or bleeding. LYMPHATIC: -swollen, enlarged glands. NEUROLOGICAL: -altered mental status or loss of consciousness, -headache, - neurologic symptoms PSYCHIATRIC: -anxiety, -depression. ALL OTHER SYSTEMS REVIEWED AND NEGATIVE. Physical Exam - Vital signs Vitals: Temp Pulse Resp BP Pulse Ox 97.4 F 63 20 106/44 L 95 11/29/17 09:30 11/29/17 09:30 11/29/17 09:30 11/29/17 09:30 11/29/17 09:30 - Notes Notes: PHYSICAL EXAMINATION: GENERAL: Well-appearing, well-nourished and in no acute distress. HEAD: Atraumatic, normocephalic. EYES: Pupils equal round and reactive to light, extraocular movements intact, sclera anicteric, conjunctiva are normal. ENT: nares patent, oropharynx clear without exudates. Moist mucous membranes. NECK: Normal range of motion, supple without lymphadenopathy LUNGS: Breath sounds clear to auscultation bilaterally and equal. No wheezes rales or rhonchi. HEART: Regular rate and rhythm without murmurs ABDOMEN: Soft, nontender, normoactive bowel sounds. No guarding, no rebound. No masses appreciated. EXTREMITIES: Normal range of motion, no pitting or edema. No cyanosis. NEUROLOGICAL: Cranial nerves grossly intact. Normal speech, normal gait. Normal sensory and motor exams. PSYCH: Normal mood, normal affect. SKIN: Warm, Dry, normal turgor, no rashes or lesions noted. Course - Re-evaluation Re-evalutation: Patient with urinary retention and signs of a UTI on urinalysis. While in the emergency room, he was able to urinate normally. Bladder scan did not show any retention. His kidney function is at baseline for him. Will begin patient on Cipro and have him follow-up with his crop pest control specialist and urologist. Given strict return precautions and he understands. - Vital Signs Vital signs: Temp Pulse Resp BP Pulse Ox 97.4 F 63 20 106/44 L 95 11/29/17 09:30 11/29/17 09:30 11/29/17 09:30 11/29/17 09:30 11/29/17 09:30 - Laboratory Result Diagrams: 11/29/17 10:04 Laboratory results interpreted by me: 11/29/17 11/29/17 10:04 10:15 Carbon Dioxide 31 H BUN 36 H Creatinine 1.76 H Est GFR ( Amer) 45 L Est GFR (Non-Af Amer) 37 L Glucose 129 H Urine Protein 100 H Urine Blood MODERATE H Ur Leukocyte Esterase LARGE H Urine Ascorbic Acid 40 H Discharge - Discharge Clinical Impression: Urinary retention UTI (urinary tract infection) Qualifiers: Urinary tract infection type: site unspecified Hematuria presence: without hematuria Qualified Code(s): N39.0 - Urinary tract infection, site not specified Condition: Stable Disposition: HOME, SELF-CARE Additional Instructions: Follow-up with the urologist in 1-2 days for a recheck of your symptoms. Take the full course of antibiotics and continue your Flomax. Return to the ER if you have any worsening symptoms or any other concerns. Urinary Retention Urinary retention is inability to empty the bladder. It can result from a urine infection, or from mechanical problems such as an enlarged prostate gland or swelling of the urethra. Drugs or alcohol can also lead to urine retention. The condition is usually treated by passage of a catheter. If the physician thinks the problem will continue, the catheter may be left in place for a few days. Sometimes drugs are used to stimulate the bladder if the physician feels that inadequate bladder contraction is the cause. If the condition leading to the retention is a chronic one, such as an enlarged prostate, you will be referred to a specialist for further care. Call the physician or return if you develop fever, flank or back pain, pain on urination, or recurrent difficulty passing the urine. URINARY TRACT INFECTION: Your evaluation indicates that you have a urinary tract infection. This is due to germs growing in the bladder. This is a common problem. This infection usually responds quickly to antibiotics. Your antibiotic should be taken exactly as prescribed. Drink plenty of fluids -- three to four quarts a day. Occasionally, a bladder anesthetic will be prescribed to help stop the feeling of urgency until the antibiotic has a chance to clear the infection. This may cause your urine to be dark orange. Certain urine infections require a culture. If the doctor obtained a culture, the results will be back in two days. You should call to see if a change in treatment is needed. A repeat urinalysis after you finish treatment is often recommended. The physician will let you know if further testing is required. Call the doctor if you develop fever, chills, flank pain, inability to urinate, or blood in the urine. ANTIBIOTIC THERAPY: You have been given an antibiotic prescription. It's important that you take all the medication, unless instructed otherwise by your physician. Failure to complete the entire course can result in relapse of your condition. Common side effects of antibiotics include nausea, intestinal cramping, or diarrhea. Women may develop vaginal yeast infections, and babies can get yeast (thrush) in the mouth following the use of antibiotics. Contact your physician if you develop significant side effects from this medication. Allergy to this antibiotic can result in hives, wheezing, faintness, or itching. If symptoms of allergy occur, stop the medication and call the doctor. CIPROFLOXACIN: You have been given an antibacterial agent, ciprofloxacin (Cipro). This medicine is not related to the penicillins, sulfas, cephalosporins, or tetracyclines. It is often given to patients who are allergic to these drugs. It has been chosen for you either because other drugs are not appropriate, or because of the nature of your problem. Cipro should not be taken with antacids, as these can decrease its effectiveness. It can be taken without regard to meals. CIPRO SHOULD NOT BE TAKEN BY CHILDREN, NURSING WOMEN, OR WOMEN. Although Cipro is usually well-tolerated, common side effects can include nausea and diarrhea. Contact your doctor if you experience any unusual symptoms while on this medication, such as joint pain or swelling, shortness of breath, wheezing, faintness, or hives. FOLLOW-UP CARE: If you have been referred to a physician for follow-up care, call the physician s office for an appointment as you were instructed or within the next two days. If you experience worsening or a significant change in your symptoms, notify the physician immediately or return to the Emergency Department at any time for re-evaluation. Prescriptions: Ciprofloxacin HCl [Cipro 500 mg Tablet] 500 mg PO BID #20 tablet Referrals: DANA TUTTLE MD [Primary Care Provider] - Follow up as needed [facility] [Provider Group] - Follow up as needed
[2017-11-29 10:31] LABS: APPEARANCE,URINE CLOUDY; BILIRUBIN,URINE NEGATIVE (NEGATIVE); COLOR,URINE YELLOW; GLUCOSE, URINE NEGATIVE (NEGATIVE); KETONES,URINE NEGATIVE (NEGATIVE); LEUKOCYTE ESTERASE,URINE LARGE (NEGATIVE); NITRITE,URINE NEGATIVE (NEGATIVE); PROTEIN,URINE 100 mg/dL (NEGATIVE); URINE SPECIFIC GRAVITY 1.009; UROBILINOGEN,URINE NEGATIVE mg/dL (<2.0)
[2017-11-29 10:43] LABS: ANION GAP 10 (5-19); BLOOD UREA NITROGEN 36 mg/dL (7-20); CALCIUM 9.8 mg/dL (8.4-10.2); CARBON DIOXIDE 31 mmol/L (22-30); CHLORIDE 102 mmol/L (98-107); GLUCOSE 129 mg/dL (75-110); POTASSIUM 3.8 mmol/L (3.6-5.0); SODIUM 143.4 mmol/L (137-145)
[2017-11-29] MEDS ORDERED: CIPROFLOXACIN HCL 500 MG TABLET PO ONE (10:51)
[2017-11-29 11:09] VITALS: BP 141/66
== END 2017-11-29 11:56 | disposition home or self-care (01) ==
LOC: ER 09:23
DX: N39.0 Urinary tract infection, site not specified (principal); N40.1 Benign prostatic hyperplasia with lower urinary tract symptoms; R33.8 Other retention of urine; Z79.899 Other long term (current) drug therapy; I25.10 Atherosclerotic heart disease of native coronary artery without angina pectoris; I12.9 Hypertensive chronic kidney disease with stage 1 through stage 4 chronic kidney disease, or unspecified chronic kidney disease; E11.22 Type 2 diabetes mellitus with diabetic chronic kidney disease; N18.3 Chronic kidney disease, stage 3 (moderate); Z87.891 Personal history of nicotine dependence
CPT/HCPCS: 99283; 36415; 80048; 81001; A9270

== ENCOUNTER → 2017-12-03 | Outpatient (CLI) | payer MEDICARE, OTHER ==
--- NOTE | 2017-12-03 17:04 | RADIOLOGY REPORT (SQ) ---
EXAM DESCRIPTION: CHEST PA/LATERAL COMPLETED DATE/TIME: 12/03/2017 4:33 pm REASON FOR STUDY: COUGH R05 COUGH COMPARISON: 09/21/2017 NUMBER OF VIEWS: Two view TECHNIQUE: Frontal and lateral radiographic images of the chest acquired. LIMITATIONS: None. FINDINGS: LUNGS AND PLEURA: Chronic interstitial changes. No evidence of superimposed pneumonia. MEDIASTINUM AND HILAR STRUCTURES: Stable heart size and mediastinal structures. HEART AND VASCULAR STRUCTURES: Stable appearance. SUPPORT DEVICES: Stable position of defibrillator or pacemaker. BONES: No acute findings. OTHER: CABG. IMPRESSION: No acute findings in the chest. TECHNICAL DOCUMENTATION: JOB ID: [id number] [employer]- All Rights Reserved Reading location - IP/workstation name: [email or web address]
== END ==
LOC: OD 15:57
PROVIDERS: ATTEND Family Medicine
DX: R05 Cough (principal)
CPT/HCPCS: 71046

== ENCOUNTER 2018-01-21 13:51 | Inpatient (IN) | payer MEDICARE, OTHER ==
[2018-01-21] MEDS ORDERED: IPRATROPIUM/ALBUTEROL 0.5-2.5 MG/3 ML AMPUL NEB PRN (14:00)
[2018-01-21] MEDS ORDERED: DEXTROSE 40% GEL 15 GM TUBE PO PRN ×2 (14:05)
[2018-01-21] MEDS ORDERED: DEXTROSE 50%-WATER 25 GM/50 ML DISP.SYRIN IV PRN ×2 (14:05)
[2018-01-21] MEDS ORDERED: GLUCAGON,HUMAN RECOMB 1 MG INJ IM PRN (14:05)
--- NOTE | 2018-01-21 14:36 | PDOC H&P ---
History of Present Illness Admission Date/PCP: 01/21/18 13:51 DANA TUTTLE MD Patient complains of: Left lower extremity cellulitis fever and chills History of Present Illness: MARY MANDUJANO is a 83 year old male This is a 83-year-old male with the history of the chronic systolic congestive heart failure [place] see [place] [facility] also chronic kidney disease currently see a nephrology here and a history of type 2 diabetes mellitus hypertension's history of the chronic DVT and chronic venous insufficiencyAnd multiple other comorbidity and a several hospital admissions 4 cellulitis and [facility] went to see a [facility] and the patient's left lower extremities and a more redness and more swelling and discussed with the vascular surgeon at [place] suggests that admitted in the hospital for IV antibiotic and after getting better with the cellulitis he will work with the some pneumatic compressions Patient's came to office today with increasing more redness and according to the patient's and family have a some chills yesterday and decided to admit because patient was treated outpatients clindamycin's last couple of weeks and is still not helping Patient also have a chronic kidney disease and a high dose of the diuretics discussed with the nephrology today and continues to monitor in the hospital Patient's denied any chest pain denied any shortness of the breath denied any abdominal pain no nausea no vomiting Past Medical History Cardiac Medical History: Reports: Atrial Fibrillation, Congestive Heart Failure , Coronary Artery Disease, DVT, Myocardial Infarction - 1995, Hyperlipidema, Hypertension, Pulmonary Embolism Pulmonary Medical History: Reports: Sleep Apnea Denies: Asthma, Tuberculosis Neurological Medical History: Denies: Seizures Endocrine Medical History: Reports: Diabetes Mellitus Type 2 Renal/ Medical History: Reports: Chronic Kidney Disease GI Medical History: Reports: Gastroesophageal Reflux Disease Denies: Cirrhosis, Crohn's Disease, Hepatitis, Ulcerative Colitis Musculoskeltal Medical History: Reports: Arthritis - gout, Gout Skin Medical History: Denies: Psoriasis Psychiatric Medical History: Reports: Depression Traumatic Medical History: Denies: Traumatic Brain Injury Hematology: Reports: Anemia Denies: Sickle Cell Disease Past Surgical History Past Surgical History: Reports: Coronary Artery Bypass Graft - 3, Coronary Stent, Internal Defibrillator, Pacemaker - upper left chest, Vascular Surgery, Other - Bone graft in the left ankle, surgery of elbow fracture Social History Information Source: Patient Lives with: Family Smoking Status: Never Smoker Frequency of Alcohol Use: None Hx Recreational Drug Use: No Drugs: None Hx Prescription Drug Abuse: No Family History Family History: CAD, COPD, Hypertension, Malignancy Parental Family History Reviewed: Yes Children Family History Reviewed: Yes Sibling(s) Family History Reviewed.: Yes Medication/Allergy Home Medications: Albuterol Sulfate [Proair HFA] 2 puff IH Q6 09/16/17 Atorvastatin Calcium [Lipitor 80 mg Tablet] 80 mg PO QHS 09/16/17 Benzonatate [Tessalon Perle 100 mg Capsule] 100 mg PO TID 09/16/17 Clopidogrel Bisulfate [Plavix 75 mg Tablet] 75 mg PO DAILY 09/16/17 Docusate Sodium [Colace] 200 mg PO DAILYP PRN 09/16/17 Fenofibrate Nanocrystallized [Tricor 145 mg Tablet] 145 mg PO DAILY 09/16/17 Furosemide [Lasix 80 mg Tablet] 80 mg PO Q8 09/16/17 Hydralazine HCl [Apresoline 10 mg Tablet] 10 mg PO Q8 09/16/17 Levothyroxine Sodium [Synthroid 0.088 mg Tablet] 88 mcg PO DAILY 09/16/17 Metoprolol Succinate [Toprol Xl 50 mg Tab.sr] 50 mg PO DAILY 09/16/17 Oxycodone HCl/Acetaminophen [Percocet 5-325 mg Tablet] 1 tab PO TIDP PRN Pantoprazole Sodium [Protonix] 40 mg PO DAILY 09/16/17 Polyethylene Glycol 3350 [Miralax Powder 17 gm/Packet] 1 packet PO DAILY Tamsulosin HCl [Flomax 0.4 mg Cap.sr] 0.4 mg PO DAILY 09/16/17 Clindamycin HCl 300 mg PO Q6 #28 capsule 09/22/17 Lactobacillus Acidophilus [Probiotic Gold Acidophilus] 1 each PO BID #20 capsule 09/22/17 Ipratropium/Albuterol Sulfate [Duoneb 3 ml Ampul] 3 ml NEB [id number] PRN #120 vial.neb 09/23/17 Nebulizer [Nebulizer Machine] 1 each MC ASDIR PRN #1 kit 09/23/17 Ciprofloxacin HCl [Cipro 500 mg Tablet] 500 mg PO BID #20 tablet 03/18/18 Allergies/Adverse Reactions: nystatin Adverse Reaction (Verified 11/29/17 09:25) Review of Systems Constitutional: ABSENT: chills, fever(s), headache(s), weight gain, weight loss Eyes: ABSENT: visual disturbances Ears: ABSENT: hearing changes Cardiovascular: ABSENT: chest pain, dyspnea on exertion, edema, orthropnea, palpitations Respiratory: ABSENT: cough, hemoptysis Gastrointestinal: ABSENT: abdominal pain, constipation, diarrhea, hematemesis, hematochezia, nausea, vomiting Genitourinary: ABSENT: dysuria, hematuria Musculoskeletal: ABSENT: joint swelling Integumentary: ABSENT: rash, wounds Neurological: ABSENT: abnormal gait, abnormal speech, confusion, dizziness, focal weakness, syncope Psychiatric: ABSENT: anxiety, depression, homidical ideation, suicidal ideation Endocrine: ABSENT: cold intolerance, heat intolerance, menstrual abnormalities, polydipsia, polyuria Hematologic/Lymphatic: ABSENT: easy bleeding, easy bruising, lymphadenopathy Physical Exam General appearance: PRESENT: no acute distress, well-developed, well-nourished Head exam: PRESENT: atraumatic, normocephalic Eye exam: PRESENT: conjunctiva pink, EOMI, PERRLA. ABSENT: scleral icterus Ear exam: PRESENT: normal external ear exam Mouth exam: PRESENT: moist, tongue midline Neck exam: PRESENT: full ROM. ABSENT: carotid bruit, JVD, lymphadenopathy, thyromegaly Respiratory exam: PRESENT: clear to auscultation kavitha Cardiovascular exam: PRESENT: RRR. ABSENT: diastolic murmur, rubs, systolic murmur Pulses: PRESENT: normal dorsalis pedis pul, +2 pedal pulses bilateral Vascular exam: PRESENT: normal capillary refill GI/Abdominal exam: PRESENT: normal bowel sounds, soft. ABSENT: distended, guarding, mass, organolmegaly, rebound, tenderness Rectal exam: PRESENT: deferred Extremities exam: PRESENT: pedal edema Additional comments: Left lower extremities significant 2+ pitting edema with redness up to the above -knee Neurological exam: PRESENT: alert, awake, oriented to person, oriented to place , oriented to time, oriented to situation, CN II-XII grossly intact. ABSENT: motor sensory deficit Psychiatric exam: PRESENT: appropriate affect, normal mood. ABSENT: homicidal ideation, suicidal ideation Skin exam: PRESENT: dry, intact, warm. ABSENT: cyanosis, rash Assessment & Plan - Diagnosis (1) Cellulitis of lower limb Qualifiers: Laterality: left Qualified Code(s): L03.116 - Cellulitis of left lower limb Is this a current diagnosis for this admission?: Yes Plan: Patient's failed outpatient p.o. antibiotic and see the vascular surgeon today and suggest IV antibiotic and most likely due to the chronic DVT and chronic venous insufficiency developing to some chronic lymphedema due to uncontrolled swelling We start the patient on IV antibiotics elevate the legs and the diuretics (2) Atrial fibrillation Qualifiers: Atrial fibrillation type: chronic Qualified Code(s): I48.2 - Chronic atrial fibrillation Is this a current diagnosis for this admission?: Yes Plan: Currently on chronic Coumadin rate under control (3) CAD (coronary artery disease) Qualifiers: Coronary Disease-Associated Artery/Lesion type: unspecified vessel or lesion type Is this a current diagnosis for this admission?: Yes Plan: Currently stable patient see a [place] cardiology (4) CHF (congestive heart failure) Qualifiers: Heart failure type: combined systolic and diastolic Heart failure chronicity: chronic Qualified Code(s): I50.42 - Chronic combined systolic ( congestive) and diastolic (congestive) heart failure Is this a current diagnosis for this admission?: Yes Plan: Patient's seen by the [place] cardiology last month and everything was stable (5) CKD (chronic kidney disease) Qualifiers: Chronic kidney disease stage: stage 3 (moderate) Qualified Code(s): N18.3 - Chronic kidney disease, stage 3 (moderate) Is this a current diagnosis for this admission?: Yes Plan: We consult the nephrology today (6) Cardiac defibrillator in situ Is this a current diagnosis for this admission?: Yes (7) DVT (deep venous thrombosis) Qualifiers: DVT location: lower extremity Is this a current diagnosis for this admission?: Yes Plan: Patient is currently on chronic Coumadin (8) Diabetes Qualifiers: Diabetes mellitus type: type 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 Is this a current diagnosis for this admission?: Yes Plan: Continues to current medication and sliding scale (9) Hypertension Qualifiers: Hypertension type: essential hypertension Is this a current diagnosis for this admission?: Yes Plan: Currently all stable (10) Sleep disorder Is this a current diagnosis for this admission?: Yes Plan: Currently uses CPAP (11) Venous (peripheral) insufficiency Is this a current diagnosis for this admission?: Yes Plan: Patient's currently seen by the vascular surgery at [place] today and follow next week appointment - Time Time Spent: 30 to 50 Minutes Medications reviewed and adjusted accordingly: Yes Anticipated discharge: Home Within: Other - Inpatient Certification Medical Necessity: Need Close Monitoring Due to Risk of Patient Decompensation, Need for IV Antibiotics Post Hospital Care: D/C Community Resource Consultant Documentation - Plan Summary Plan Summary: Patient admitted directly in the hospital started on IV antibiotic discussed with the patient and and other family member and all agree with the plan
--- NOTE | 2018-01-21 15:28 | RADIOLOGY REPORT (SQ) ---
EXAM DESCRIPTION: CHEST 2 VIEWS COMPLETED DATE/TIME: 01/21/2018 2:44 pm REASON FOR STUDY: sepsis/chf COMPARISON: 07/23/2017 NUMBER OF VIEWS: Two view TECHNIQUE: Frontal and lateral radiographic images of the chest acquired. LIMITATIONS: None. FINDINGS: LUNGS AND PLEURA: Left basilar atelectasis. Right lung is clear. No effusions. MEDIASTINUM AND HILAR STRUCTURES: Stable heart size and mediastinal structures. HEART AND VASCULAR STRUCTURES: Stable appearance. SUPPORT DEVICES: Stable position of pacemaker or defibrillator. External pacer leads. BONES: No acute findings. OTHER: CABG. IMPRESSION: Cardiomegaly. Left basilar atelectasis. TECHNICAL DOCUMENTATION: JOB ID: [id number] [email or web address]- All Rights Reserved Reading location - IP/workstation name: [email or web address]
[2018-01-21 15:47] LABS: ABSOLUTE MONOCYTES (AUTO) 0.3 10^3/uL (0.1-1.4); ABSOLUTE NEUT (AUTO) 5.5 10^3/uL (1.7-8.2); BASOPHILS % (AUTO) 0.2 % (0-2); EOSINOPHILS % (AUTO) 0.7 % (0-6); HEMATOCRIT 31.2 % (37.9-51.0); HEMOGLOBIN 10.2 g/dL (13.5-17.0); LYMPHOCYTES % (AUTO) 14.4 % (13-45); MEAN CORPUSCULAR HEMOGLOBIN 29.6 pg (27.0-33.4); MEAN CORPUSCULAR HGB CONC 32.7 g/dL (32.0-36.0); MEAN CORPUSCULAR VOLUME 90 fl (80-97); PLATELET COUNT 209 10^3/uL (150-450); RED BLOOD COUNT 3.45 10^6/uL (4.35-5.55); RED CELL DISTRIBUTION WIDTH 17.7 % (11.5-14.0); SEGMENTED NEUTROPHILS % (AUTO) 79.7 % (42-78); TOTAL CELLS COUNTED % (AUTO) 100 %; WHITE BLOOD COUNT 6.9 10^3/uL (4.0-10.5)
[2018-01-21 16:24] LABS: ALANINE AMINOTRANSFERASE 33 U/L (21-72); ALBUMIN 3.5 g/dL (3.5-5.0); ALKALINE PHOSPHATASE 51 U/L (38-126); ANION GAP 13 (5-19); ASPARTATE AMINO TRANSFERASE 26 U/L (17-59); BILIRUBIN,DIRECT 0.4 mg/dL (0.0-0.4); BILIRUBIN,TOTAL 0.4 mg/dL (0.2-1.3); BLOOD UREA NITROGEN 35 mg/dL (7-20); CALCIUM 9.4 mg/dL (8.4-10.2); CARBON DIOXIDE 29 mmol/L (22-30); CHLORIDE 97 mmol/L (98-107); GLUCOSE 246 mg/dL (75-110); SODIUM 138.9 mmol/L (137-145); TOTAL PROTEIN 6.7 g/dL (6.3-8.2)
[2018-01-21] MEDS ORDERED: NITROGLYCERIN 0.4 MG/TAB 25 TAB/BOTTLE SL PRN (16:34)
[2018-01-21] MEDS ORDERED: FLUTICASONE NASAL SPRAY 50 MCG/SPRY 120 SPRAY/16 GM NAREB PRN (16:34)
[2018-01-21] MEDS: DOCUSATE SODIUM 100 MG CAPSULE PO SCH (17:21)
[2018-01-21] MEDS: INSULIN LISPRO 100 UNIT/ML 3 ML VIAL SUBCUT PRN (17:21)
[2018-01-21] MEDS: FUROSEMIDE INJ/PF 40 MG/4 ML SDV IV SCH ×2 (17:22→23:25)
--- NOTE | 2018-01-21 19:23 | EKG REPORT ---
SEVERITY:- ABNORMAL ECG - AFIB/FLUTTER AND VENTRICULAR-PACED RHYTHM : Confirmed by: Tao Berg MD 21-Jan-2018 19:23:01
[2018-01-21] MEDS: ATORVASTATIN CALCIUM 80 MG TABLET PO SCH (21:17)
[2018-01-21] MEDS: HYDRALAZINE HCL 10 MG TABLET PO SCH (21:18)
[2018-01-21] MEDS: SERTRALINE HCL 50 MG TABLET PO SCH (21:18)
[2018-01-21] MEDS: METOPROLOL SUCCINATE 50 MG TAB.SR.24H PO SCH (21:18)
[2018-01-21] MEDS: CLINDAMYCIN 600 MG/D5W RTU 600 MG/50 ML RTUPB IV SCH (21:19)
[2018-01-21] MEDS: CEFEPIME 1 GM/D5W RTU 1 GM/50 ML RTUPB IV SCH (21:19)
[2018-01-21] MEDS: WARFARIN SODIUM 3 MG TABLET PO SCH (21:20)
[2018-01-21] MEDS: ISOSORBIDE DINITRATE 10 MG TABLET PO SCH (21:21)
[2018-01-21] MEDS: INSULIN GLARGINE,HUM.REC.ANLOG 300 UNIT/3 ML INSULN.PEN SUBCUT SCH (21:22)
[2018-01-21] MEDS: TORSEMIDE 20 MG TABLET PO SCH (21:23)
--- NOTE | 2018-01-21 21:32 | PDOC CONSULTATION ---
Consultation Consult Date: 01/21/18 Attending physician:: DANA TUTTLE Consult reason:: I was asked to see this patient because of lower extremity edema in the patient with chronic kidney disease. History of Present Illness Admission Date/PCP: 01/21/18 13:51 DANA TUTTLE MD History of Present Illness: MARY MANDUJANO is a 83 year old male known to me with history of chronic kidney disease stage III secondary to diabetic nephropathy, diabetes mellitus type 2, hypertension, congestive heart failure, recurrent cellulitis who was admitted by Dr. Tuttle to direct admit because of worsening left leg cellulitis. Patient has had several episodes of cellulitis requiring hospitalizations and intravenous antibiotics in the past for which he was hospitalized for a long time one time [facility]. About 2-3 weeks ago he started to have erythema on his left leg again. He was treated with oral antibiotics specifically clindamycin until this time. Patient is seen the vascular surgeon from [place] and case was discussed with primary care, Dr. Tuttle today. The vascular surgeon recommended IV antibiotics so Dr. Tuttle admitted the patient. The patient's lower extremity edema has also increase for the last 2-3 weeks. Due to the need to increase diuretics and was consulted to follow-up and monitor kidney function. Patient is currently hemodynamically stable. He said his left leg erythema has progressed so fast that now it is up to his groin. He also had some chills last night. Other than that he denies any other complaints including chest pains, shortness of breath, abdominal pain, nausea nor vomiting. Past Medical History Cardiac Medical History: Reports: Atrial Fibrillation, CHF-Systolic, Coronary Artery Disease, DVT, Hyperlipidemia, Hypertension-primary, Myocardial Infarction - 1995, Pulmonary Embolism Pulmonary Medical History: Reports: Sleep Apnea Endocrine Medical History: Reports: Diabetes Mellitus Type 2 Complications of Diabetes: Reports: Nephropathy, Retinopathy Renal/ Medical History: Reports: Chronic Kidney Disease Stage III, Proteinuria , Secondary Hyperparathyroidism, Other - Horseshoe kidney GI Medical History: Reports: Gastroesophageal Reflux Disease Musculoskeltal Medical History: Reports: Arthritis - gout, Gout Psychiatric Medical History: Reports: Depression Hematology Medical History: Reports Anemia of Chronic Kidney Disease Past Surgical History Past Surgical History: Reports: Coronary Artery Bypass Graft - 3, Coronary Stent, Internal Defibrillator, Pacemaker - upper left chest, Vascular Surgery, Other - Bone graft in the left ankle, surgery of elbow fracture Social History Information Source: Patient Lives with: Family Smoking Status: Never Smoker Frequency of Alcohol Use: None Hx Recreational Drug Use: No Drugs: None Hx Prescription Drug Abuse: No Family History Family History: CAD - Brother, DM - Brother, Hypertension - Mother Parental Family History Reviewed: Yes Children Family History Reviewed: Unknown Sibling(s) Family History Reviewed.: Yes Medication/Allergy Home Medications: Clopidogrel Bisulfate [Plavix 75 mg Tablet] 75 mg PO DAILY 09/16/17 Docusate Sodium [Colace] 200 mg PO QPM 09/16/17 Fenofibrate Nanocrystallized [Tricor 145 mg Tablet] 145 mg PO DAILY 09/16/17 Hydralazine HCl [Apresoline 10 mg Tablet] 10 mg PO Q8 09/16/17 Oxycodone HCl/Acetaminophen [Percocet 5-325 mg Tablet] 1 tab PO Q8HP PRN Pantoprazole Sodium [Protonix] 40 mg PO DAILY 09/16/17 Polyethylene Glycol 3350 [Miralax Powder 17 gm/Packet] 1 packet PO DAILY Tamsulosin HCl [Flomax 0.4 mg Cap.sr] 0.4 mg PO QHS 09/16/17 Allopurinol [Zyloprim 100 mg Tablet] 100 mg PO DAILY 01/21/18 Amiodarone HCl [Cordarone 200 mg Tablet] 300 mg PO DAILY 01/21/18 Atorvastatin Calcium [Lipitor 80 mg Tablet] 80 mg PO QHS 01/21/18 Cetirizine HCl [Zyrtec 10 mg Tablet] 10 mg PO QPM 01/21/18 Cholecalciferol (Vitamin D3) [Vitamin D3 1000 Unit Tablet] 2,000 unit PO DAILY 01/21/18 Finasteride [Proscar 5 mg Tablet] 5 mg PO QHS 01/21/18 Fluticasone Propionate [Flonase Nasal [place] 50 Mcg/[place] 16 gm] 1 spray NAREB DAILYP PRN 01/21/18 Insulin Aspart [Novolog Flexpen] 0 unit SUBCUT .SLD SCALE 01/21/18 Insulin Glargine,Hum.rec.anlog [Lantus Solostar] 30 unit SQ BID 01/21/18 Isosorbide Dinitrate [Isordil Titradose 10 Mg Tablet] 10 mg PO Q8 01/21/18 Levothyroxine Sodium [Synthroid 0.112 mg Tablet] 0.112 mg PO Q6AM 01/21/18 Metoprolol Succinate [Toprol XL 100 mg Tablet] 100 mg PO DAILY 01/21/18 Metoprolol Succinate [Toprol Xl 50 mg Tab.sr] 50 mg PO QHS 01/21/18 Nitroglycerin [Nitrostat 0.4 mg (1/150 Gr) Tabs 25/Bottle] 1 tab SL Q5MP PRN 07/01 Sertraline HCl [Zoloft 50 mg Tablet] 50 mg PO QHS 01/21/18 Torsemide 100 mg PO Q12 01/21/18 Umeclidinium Brm/Vilanterol Tr [Anoro Ellipta 62.5-25 Mcg INH] 1 inh IH DAILY Warfarin Sodium [Coumadin 3 mg Tablet] 3 mg PO SUTHFRSA@219901/21/18 Warfarin Sodium [Coumadin 4 mg Tablet] 4 mg PO MOTUWE@219901/21/18 Allergies/Adverse Reactions: nystatin Adverse Reaction (Verified 11/29/17 09:25) Review of Systems All systems: reviewed and no additional remarkable complaints except as stated Review of Systems: Constitutional: ABSENT: Fatigue, fever(s), headache(s), weight gain, weight loss ; admits to chills Eyes: ABSENT: visual disturbances Ears: ABSENT: hearing changes Cardiovascular: ABSENT: chest pain, dyspnea on exertion, orthropnea, palpitations; admits worsening edema Respiratory: ABSENT: cough, dyspnea, hemoptysis Gastrointestinal: ABSENT: abdominal pain, constipation, diarrhea, hematemesis, hematochezia, nausea, vomiting Genitourinary: ABSENT: dysuria, hematuria Musculoskeletal: ABSENT: joint swelling Integumentary: ABSENT: rash, wounds; admits erythema and warmth on the left leg to the groin Neurological: ABSENT: abnormal gait, abnormal speech, confusion, dizziness, focal weakness, numbness, syncope Psychiatric: ABSENT: anxiety, depression Endocrine: ABSENT: cold intolerance, heat intolerance, polydipsia, polyuria Hematologic/Lymphatic: ABSENT: easy bleeding, easy bruising, lymphadenopathy Physical Exam Vital Signs: Temp Pulse Resp BP Pulse Ox 98.3 F 69 18 124/54 L 95 01/21/18 14:17 01/21/18 16:40 01/21/18 16:40 01/21/18 14:20 01/21/18 14:20 Intake & Output 01/20/18 01/21/18 01/22/18 06:59 06:59 06:59 Intake Total 241 Output Total 100 Balance 141 Weight 117 kg Exam: General appearance: no acute distress, cooperative, well-developed, well- nourished Head exam: PRESENT: atraumatic, normocephalic Eye exam: PRESENT: Conjunctiva slightly pale, EOMI, PERRLA. ABSENT: conjunctival injection, scleral icterus Mouth exam: PRESENT: moist, neck supple, tongue midline Neck exam: PRESENT: full ROM. ABSENT: carotid bruit, JVD, lymphadenopathy, thyromegaly Respiratory exam: PRESENT: clear to auscultation bilaterally. ABSENT: rales, rhonchi, stridor, wheezes Cardiovascular exam: PRESENT: RRR, +S1, +S2. ABSENT: systolic murmur Pulses: PRESENT: normal radial pulses, normal dorsalis pedis pulses GI/Abdominal exam: PRESENT: normal bowel sounds, soft. ABSENT: guarding, mass, tenderness Rectal exam: deferred Extremities exam: PRESENT: full ROM. Grade 1-2 bilateral lower extremity pitting edema left greater than the right ABSENT: calf tenderness Musculoskeletal: PRESENT: full ROM. ABSENT: deformity Neurological exam: PRESENT: alert, Awake, Oriented to person, Oriented to place , Oriented to time, reflexes normal, CN II-XII grossly intact. ABSENT: motor sensory deficit Psychiatric exam: PRESENT: appropriate affect, normal mood. ABSENT: homicidal ideation, suicidal ideation Skin exam: PRESENT: intact, dry, warm. There is erythema, warmth and swollen left leg up to his left groin including the thighs. Results Laboratory Results: 01/21/18 15:20 01/21/18 15:20 01/21/18 01/21/18 01/21/18 15:20 15:20 15:20 WBC 6.9 RBC 3.45 L Hgb 10.2 L Hct 31.2 L MCV 90 MCH 29.6 MCHC 32.7 RDW 17.7 H Plt Count 209 Seg Neutrophils % 79.7 H Lymphocytes % 14.4 Monocytes % 5.0 Eosinophils % 0.7 Basophils % 0.2 Absolute Neutrophils 5.5 Absolute Lymphocytes 1.0 Absolute Monocytes 0.3 Absolute Eosinophils 0.0 Absolute Basophils 0.0 Sodium 138.9 Potassium 4.0 Chloride 97 L Carbon Dioxide 29 Anion Gap 13 BUN 35 H Creatinine 2.07 H Est GFR ( Amer) 37 L Est GFR (Non-Af Amer) 31 L Glucose 246 H Calcium 9.4 Total Bilirubin 0.4 AST 26 ALT 33 Alkaline Phosphatase 51 Total Protein 6.7 Albumin 3.5 TSH 8.23 H 01/21/18 15:20 NT-Pro-B Natriuret Pep 2420 H Impressions: Chest X-Ray 01/21/18 00:00 IMPRESSION: Cardiomegaly. Left basilar atelectasis. Assessment & Plan - Diagnosis (1) Chronic kidney disease, stage 3 Is this a current diagnosis for this admission?: Yes Plan: There is mild worsening of his kidney function but it still within the range of fluctuations of his kidney disease. Since the patient's diuretics will be increased we will monitor the kidney function closely. Dr. Tuttle ordered Lasix 40 mg IV every 6 hours. We will check kidney function tomorrow and adjust dose. (2) Diabetic nephropathy Is this a current diagnosis for this admission?: Yes (3) Cellulitis of lower limb Qualifiers: Laterality: left Qualified Code(s): L03.116 - Cellulitis of left lower limb Is this a current diagnosis for this admission?: Yes Plan: Agree with IV antibiotics. (4) Anemia in chronic kidney disease (CKD) Is this a current diagnosis for this admission?: Yes (5) CAD (coronary artery disease) Qualifiers: Coronary Disease-Associated Artery/Lesion type: unspecified vessel or lesion type Is this a current diagnosis for this admission?: Yes (6) Diabetes Qualifiers: Diabetes mellitus type: type 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 Is this a current diagnosis for this admission?: Yes (7) Hypertension Qualifiers: Hypertension type: essential hypertension Is this a current diagnosis for this admission?: Yes - Notes Notes: Thank you very much for this consultation. - Time Time Spent: 50 to 70 Minutes
[2018-01-21] MEDS ORDERED: (PENDING PHARMACY ID) (Warfarin Sodium 3 MG) PO SCH (22:00)
[2018-01-21] MEDS ORDERED: (PENDING PHARMACY ID) (Torsemide [Torsemide] 100 MG) PO SCH (22:00)
[2018-01-22 05:03] LABS: ABSOLUTE EOSINOPHILS # (AUTO) 0.1 10^3/uL (0.0-0.6); ABSOLUTE LYMPHOCYTES (AUTO) 1.1 10^3/uL (0.5-4.7); ABSOLUTE MONOCYTES (AUTO) 0.4 10^3/uL (0.1-1.4); ABSOLUTE NEUT (AUTO) 3.3 10^3/uL (1.7-8.2); BASOPHILS % (AUTO) 0.4 % (0-2); EOSINOPHILS % (AUTO) 2.3 % (0-6); HEMATOCRIT 30.9 % (37.9-51.0); HEMOGLOBIN 10.1 g/dL (13.5-17.0); LYMPHOCYTES % (AUTO) 22.4 % (13-45); MEAN CORPUSCULAR HEMOGLOBIN 29.3 pg (27.0-33.4); MEAN CORPUSCULAR HGB CONC 32.7 g/dL (32.0-36.0); MEAN CORPUSCULAR VOLUME 90 fl (80-97); MONOCYTES % (AUTO) 8.6 % (3-13); PLATELET COUNT 190 10^3/uL (150-450); RED BLOOD COUNT 3.45 10^6/uL (4.35-5.55); RED CELL DISTRIBUTION WIDTH 17.6 % (11.5-14.0); SEGMENTED NEUTROPHILS % (AUTO) 66.3 % (42-78); TOTAL CELLS COUNTED % (AUTO) 100 %
[2018-01-22 05:04] LABS: PROTHROMBIN TIME 28.2 SEC (11.4-15.4)
[2018-01-22 05:26] LABS: ANION GAP 14 (5-19); BLOOD UREA NITROGEN 37 mg/dL (7-20); CALCIUM 9.5 mg/dL (8.4-10.2); CARBON DIOXIDE 29 mmol/L (22-30); CHLORIDE 100 mmol/L (98-107); GLUCOSE 190 mg/dL (75-110); POTASSIUM 3.9 mmol/L (3.6-5.0); SODIUM 142.7 mmol/L (137-145)
[2018-01-22] MEDS: HYDRALAZINE HCL 10 MG TABLET PO SCH ×3 (06:28→22:35)
[2018-01-22] MEDS: LANSOPRAZOLE 30 MG TAB.RAP.DR PO SCH (06:28)
[2018-01-22] MEDS: CLINDAMYCIN 600 MG/D5W RTU 600 MG/50 ML RTUPB IV SCH ×3 (06:28→22:32)
[2018-01-22] MEDS: LEVOTHYROXINE SODIUM 0.112 MG TABLET PO SCH (06:28)
[2018-01-22] MEDS: ISOSORBIDE DINITRATE 10 MG TABLET PO SCH ×3 (06:28→22:33)
[2018-01-22] MEDS: FUROSEMIDE INJ/PF 40 MG/4 ML SDV IV SCH ×4 (06:35→23:05)
--- NOTE | 2018-01-22 09:45 | PDOC PROGRESS REPORT ---
Subjective Progress Note for:: 01/22/18 Subjective:: Patient is currently doing well Patient's denied any chest pain denied any shortness of the breath No fever or chills And by the nephrology yesterday Reason For Visit: LEFT LOWER EXTREMITY CELLULITIS Physical Exam Vital Signs: Temp Pulse Resp BP Pulse Ox 98.4 F 60 14 114/54 L 93 01/22/18 07:12 01/22/18 07:12 01/22/18 07:12 01/22/18 07:12 01/22/18 07:12 Intake & Output 01/21/18 01/22/18 01/23/18 06:59 06:59 06:59 Intake Total 569 Output Total 1150 Balance -581 Weight 120.8 kg General appearance: PRESENT: no acute distress, well-developed, well-nourished Head exam: PRESENT: atraumatic, normocephalic Eye exam: PRESENT: conjunctiva pink, EOMI, PERRLA. ABSENT: scleral icterus Ear exam: PRESENT: normal external ear exam Mouth exam: PRESENT: moist, tongue midline Neck exam: PRESENT: full ROM. ABSENT: carotid bruit, JVD, lymphadenopathy, thyromegaly Respiratory exam: PRESENT: clear to auscultation kavitha Cardiovascular exam: PRESENT: RRR. ABSENT: diastolic murmur, rubs, systolic murmur Pulses: PRESENT: normal dorsalis pedis pul, +2 pedal pulses bilateral Vascular exam: PRESENT: normal capillary refill GI/Abdominal exam: PRESENT: normal bowel sounds, soft. ABSENT: distended, guarding, mass, organolmegaly, rebound, tenderness Rectal exam: PRESENT: deferred Extremities exam: PRESENT: pedal edema Additional comments: Left lower extremity some swelling and the redness is present Neurological exam: PRESENT: alert, awake, oriented to person, oriented to place , oriented to time, oriented to situation, CN II-XII grossly intact. ABSENT: motor sensory deficit Psychiatric exam: PRESENT: appropriate affect, normal mood. ABSENT: homicidal ideation, suicidal ideation Skin exam: PRESENT: dry, intact, warm. ABSENT: cyanosis, rash Results Laboratory Results: 01/22/18 04:16 01/22/18 04:16 01/21/18 01/21/18 01/21/18 15:20 15:20 15:20 WBC 6.9 RBC 3.45 L Hgb 10.2 L Hct 31.2 L MCV 90 MCH 29.6 MCHC 32.7 RDW 17.7 H Plt Count 209 Seg Neutrophils % 79.7 H Lymphocytes % 14.4 Monocytes % 5.0 Eosinophils % 0.7 Basophils % 0.2 Absolute Neutrophils 5.5 Absolute Lymphocytes 1.0 Absolute Monocytes 0.3 Absolute Eosinophils 0.0 Absolute Basophils 0.0 Sodium 138.9 Potassium 4.0 Chloride 97 L Carbon Dioxide 29 Anion Gap 13 BUN 35 H Creatinine 2.07 H Est GFR ( Amer) 37 L Est GFR (Non-Af Amer) 31 L Glucose 246 H Calcium 9.4 Total Bilirubin 0.4 AST 26 ALT 33 Alkaline Phosphatase 51 Total Protein 6.7 Albumin 3.5 TSH 8.23 H 01/22/18 01/22/18 04:16 04:16 WBC 5.0 RBC 3.45 L Hgb 10.1 L Hct 30.9 L MCV 90 MCH 29.3 MCHC 32.7 RDW 17.6 H Plt Count 190 Seg Neutrophils % 66.3 Lymphocytes % 22.4 Monocytes % 8.6 Eosinophils % 2.3 Basophils % 0.4 Absolute Neutrophils 3.3 Absolute Lymphocytes 1.1 Absolute Monocytes 0.4 Absolute Eosinophils 0.1 Absolute Basophils 0.0 Sodium 142.7 Potassium 3.9 Chloride 100 Carbon Dioxide 29 Anion Gap 14 BUN 37 H Creatinine 2.00 H Est GFR ( Amer) 39 L Est GFR (Non-Af Amer) 32 L Glucose 190 H Calcium 9.5 Total Bilirubin AST ALT Alkaline Phosphatase Total Protein Albumin TSH 01/21/18 15:20 NT-Pro-B Natriuret Pep 2420 H Impressions: Chest X-Ray 01/21/18 00:00 IMPRESSION: Cardiomegaly. Left basilar atelectasis. Assessment & Plan - Diagnosis (1) Cellulitis of lower limb Qualifiers: Laterality: left Qualified Code(s): L03.116 - Cellulitis of left lower limb Is this a current diagnosis for this admission?: Yes Plan: Patient's failed outpatient p.o. antibiotic and see the vascular surgeon today and suggest IV antibiotic and most likely due to the chronic DVT and chronic venous insufficiency developing to some chronic lymphedema due to uncontrolled swelling We start the patient on IV antibiotics elevate the legs and the diuretics (2) Atrial fibrillation Qualifiers: Atrial fibrillation type: chronic Qualified Code(s): I48.2 - Chronic atrial fibrillation Is this a current diagnosis for this admission?: Yes Plan: Currently on chronic Coumadin rate under control (3) CAD (coronary artery disease) Qualifiers: Coronary Disease-Associated Artery/Lesion type: unspecified vessel or lesion type Is this a current diagnosis for this admission?: Yes Plan: Currently stable patient see a [facility] (4) CHF (congestive heart failure) Qualifiers: Heart failure type: combined systolic and diastolic Heart failure chronicity: chronic Qualified Code(s): I50.42 - Chronic combined systolic ( congestive) and diastolic (congestive) heart failure Is this a current diagnosis for this admission?: Yes Plan: Patient's seen by the [facility] last month and everything was stable (5) CKD (chronic kidney disease) Qualifiers: Chronic kidney disease stage: stage 3 (moderate) Qualified Code(s): N18.3 - Chronic kidney disease, stage 3 (moderate) Is this a current diagnosis for this admission?: Yes Plan: We consult the nephrology today (6) Cardiac defibrillator in situ Is this a current diagnosis for this admission?: Yes (7) DVT (deep venous thrombosis) Qualifiers: DVT location: lower extremity Is this a current diagnosis for this admission?: Yes Plan: Patient is currently on chronic Coumadin (8) Diabetes Qualifiers: Diabetes mellitus type: type 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 Is this a current diagnosis for this admission?: Yes Plan: Continues to current medication and sliding scale (9) Hypertension Qualifiers: Hypertension type: essential hypertension Is this a current diagnosis for this admission?: Yes Plan: Currently all stable (10) Sleep disorder Is this a current diagnosis for this admission?: Yes Plan: Currently uses CPAP (11) Venous (peripheral) insufficiency Is this a current diagnosis for this admission?: Yes - Time Time Spent with patient: 15-24 minutes Medications reviewed and adjusted accordingly: Yes Anticipated discharge: Home Within: Other - Inpatient Certification Medical Necessity: Need Close Monitoring Due to Risk of Patient Decompensation, Need for IV Antibiotics Post Hospital Care: D/C Sports Manager Documentation - Plan Summary Plan Summary: Continues IV Lasix and continues to IV antibiotic
[2018-01-22] MEDS ORDERED: [UNRECOGNIZED DRUG - OTHER] IH SCH (10:00)
[2018-01-22] MEDS: FINASTERIDE 5 MG TABLET PO SCH (10:01)
[2018-01-22] MEDS: CHOLECALCIFEROL (D3) 1,000 UNIT TABLET PO SCH (10:01)
[2018-01-22] MEDS: CLOPIDOGREL BISULFATE 75 MG TABLET PO SCH (10:01)
[2018-01-22] MEDS: AMIODARONE HCL 200 MG TABLET PO SCH (10:02)
[2018-01-22] MEDS: ALLOPURINOL 100 MG TABLET PO SCH (10:02)
[2018-01-22] MEDS: FENOFIBRATE NANOCRYSTALLIZED 145 MG TABLET PO SCH (10:02)
[2018-01-22] MEDS: CETIRIZINE 10 MG TABLET PO SCH (10:02)
[2018-01-22] MEDS: DOCUSATE SODIUM 100 MG CAPSULE PO SCH ×2 (10:02→17:42)
[2018-01-22] MEDS: METOPROLOL SUCCINATE 50 MG TAB.SR.24H PO SCH ×2 (10:02→22:34)
[2018-01-22] MEDS: CEFEPIME 1 GM/D5W RTU 1 GM/50 ML RTUPB IV SCH ×2 (10:03→22:32)
[2018-01-22] MEDS: POLYETHYLENE GLYCOL 3350 POWDER 17 GM/1 PACKET PO SCH (10:03)
[2018-01-22] MEDS: TORSEMIDE 20 MG TABLET PO SCH (10:03)
[2018-01-22] MEDS: INSULIN GLARGINE,HUM.REC.ANLOG 300 UNIT/3 ML INSULN.PEN SUBCUT SCH ×2 (10:11→23:02)
[2018-01-22] MEDS: INSULIN LISPRO 100 UNIT/ML 3 ML VIAL SUBCUT PRN ×3 (12:28→23:02)
--- NOTE | 2018-01-22 15:28 | PDOC PROGRESS REPORT ---
Subjective Progress Note for:: 01/22/18 Subjective:: Patient is doing fine without any new complaints. He is diuresing well. Reason For Visit: LEFT LOWER EXTREMITY CELLULITIS Physical Exam Vital Signs: Temp Pulse Resp BP Pulse Ox 98.2 F 79 20 124/54 L 97 01/22/18 15:20 01/22/18 15:20 01/22/18 15:20 01/22/18 15:20 01/22/18 15:20 Intake & Output 01/21/18 01/22/18 01/23/18 06:59 06:59 06:59 Intake Total 569 237 Output Total 1150 500 Balance -581 -263 Weight 120.8 kg Exam: General appearance: PRESENT: no acute distress, cooperative, well-developed, well-nourished Head exam: PRESENT: atraumatic, normocephalic Eye exam: PRESENT: conjunctiva slightly pale, PERRLA. ABSENT: scleral icterus Neck exam: ABSENT: JVD Respiratory exam: PRESENT: Normal breath sounds. ABSENT: crackles, rales, rhonchi, unlabored, wheezes Cardiovascular exam: PRESENT: Regular rate rhythm -+S1, +S2. ABSENT: diastolic murmur, systolic murmur GI/Abdominal exam: PRESENT: normal bowel sounds, soft. ABSENT: guarding, mass, tenderness Extremities exam: Grade 2 bilateral lower extremity pitting edema, left greater than the right Neurological exam: PRESENT: alert, awake, oriented to person, place and time. Skin exam: PRESENT: dry, warm, the erythema and warmth on his left eye seems to be improved compared to yesterday, the left lower leg erythema is also slightly better. There is still significant swelling, erythema and warmth on the posterior part of the left leg. Results Laboratory Results: 01/22/18 04:16 01/22/18 04:16 01/21/18 01/21/18 01/21/18 15:20 15:20 15:20 WBC 6.9 RBC 3.45 L Hgb 10.2 L Hct 31.2 L MCV 90 MCH 29.6 MCHC 32.7 RDW 17.7 H Plt Count 209 Seg Neutrophils % 79.7 H Lymphocytes % 14.4 Monocytes % 5.0 Eosinophils % 0.7 Basophils % 0.2 Absolute Neutrophils 5.5 Absolute Lymphocytes 1.0 Absolute Monocytes 0.3 Absolute Eosinophils 0.0 Absolute Basophils 0.0 Sodium 138.9 Potassium 4.0 Chloride 97 L Carbon Dioxide 29 Anion Gap 13 BUN 35 H Creatinine 2.07 H Est GFR ( Amer) 37 L Est GFR (Non-Af Amer) 31 L Glucose 246 H Calcium 9.4 Total Bilirubin 0.4 AST 26 ALT 33 Alkaline Phosphatase 51 Total Protein 6.7 Albumin 3.5 TSH 8.23 H 01/22/18 01/22/18 04:16 04:16 WBC 5.0 RBC 3.45 L Hgb 10.1 L Hct 30.9 L MCV 90 MCH 29.3 MCHC 32.7 RDW 17.6 H Plt Count 190 Seg Neutrophils % 66.3 Lymphocytes % 22.4 Monocytes % 8.6 Eosinophils % 2.3 Basophils % 0.4 Absolute Neutrophils 3.3 Absolute Lymphocytes 1.1 Absolute Monocytes 0.4 Absolute Eosinophils 0.1 Absolute Basophils 0.0 Sodium 142.7 Potassium 3.9 Chloride 100 Carbon Dioxide 29 Anion Gap 14 BUN 37 H Creatinine 2.00 H Est GFR ( Amer) 39 L Est GFR (Non-Af Amer) 32 L Glucose 190 H Calcium 9.5 Total Bilirubin AST ALT Alkaline Phosphatase Total Protein Albumin TSH 01/21/18 15:20 NT-Pro-B Natriuret Pep 2420 H Impressions: Chest X-Ray 01/21/18 00:00 IMPRESSION: Cardiomegaly. Left basilar atelectasis. Assessment & Plan - Diagnosis (1) Chronic kidney disease, stage 3 Is this a current diagnosis for this admission?: Yes Plan: Currently with stable kidney function. Continue monitor kidney function while on IV Lasix. Since the patient is receiving IV Lasix every 6 hours there is no need for oral torsemide so I will discontinue that for now. Torsemide may be resumed after the IV Lasix was discontinued. If the swelling is starting to get better there may be a need to decrease the frequency of the IV Lasix. (2) Diabetic nephropathy Is this a current diagnosis for this admission?: Yes (3) Cellulitis of lower limb Qualifiers: Laterality: left Qualified Code(s): L03.116 - Cellulitis of left lower limb Is this a current diagnosis for this admission?: Yes Plan: Continue IV antibiotics per primary service. (4) Anemia in chronic kidney disease (CKD) Is this a current diagnosis for this admission?: Yes (5) CAD (coronary artery disease) Qualifiers: Coronary Disease-Associated Artery/Lesion type: unspecified vessel or lesion type Is this a current diagnosis for this admission?: Yes (6) Diabetes Qualifiers: Diabetes mellitus type: type 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 Is this a current diagnosis for this admission?: Yes (7) Hypertension Qualifiers: Hypertension type: essential hypertension Is this a current diagnosis for this admission?: Yes - Time Time with patient: 15-25 minutes
[2018-01-22] MEDS: SERTRALINE HCL 50 MG TABLET PO SCH (22:33)
[2018-01-22] MEDS: ATORVASTATIN CALCIUM 80 MG TABLET PO SCH (22:34)
[2018-01-22] MEDS: TAMSULOSIN HCL 0.4 MG CAP.SR.24H PO SCH (22:34)
[2018-01-22] MEDS: WARFARIN SODIUM 3 MG TABLET PO SCH (22:35)
[2018-01-23] MEDS: OXYCODONE-ACETAMINOPHEN 5-325 MG TABLET PO PRN ×2 (05:02→20:52)
[2018-01-23 06:12] LABS: INTERNATIONAL RATION (INR) 2.79; PROTHROMBIN TIME 30.7 SEC (11.4-15.4)
[2018-01-23] MEDS: LANSOPRAZOLE 30 MG TAB.RAP.DR PO SCH (06:21)
[2018-01-23] MEDS: HYDRALAZINE HCL 10 MG TABLET PO SCH ×3 (06:21→22:23)
[2018-01-23] MEDS: LEVOTHYROXINE SODIUM 0.112 MG TABLET PO SCH (06:21)
[2018-01-23] MEDS: CLINDAMYCIN 600 MG/D5W RTU 600 MG/50 ML RTUPB IV SCH ×3 (06:22→22:25)
[2018-01-23] MEDS: ISOSORBIDE DINITRATE 10 MG TABLET PO SCH ×3 (06:23→22:25)
[2018-01-23] MEDS: FUROSEMIDE INJ/PF 40 MG/4 ML SDV IV SCH ×3 (06:23→18:11)
[2018-01-23 06:29] LABS: ANION GAP 15 (5-19); BLOOD UREA NITROGEN 35 mg/dL (7-20); CALCIUM 9.6 mg/dL (8.4-10.2); CARBON DIOXIDE 30 mmol/L (22-30); CHLORIDE 101 mmol/L (98-107); GLUCOSE 53 mg/dL (75-110); POTASSIUM 3.5 mmol/L (3.6-5.0); SODIUM 145.6 mmol/L (137-145)
[2018-01-23] MEDS: METOPROLOL SUCCINATE 50 MG TAB.SR.24H PO SCH ×2 (09:20→22:24)
[2018-01-23] MEDS: CLOPIDOGREL BISULFATE 75 MG TABLET PO SCH (09:20)
[2018-01-23] MEDS: CHOLECALCIFEROL (D3) 1,000 UNIT TABLET PO SCH (09:20)
[2018-01-23] MEDS: AMIODARONE HCL 200 MG TABLET PO SCH (09:21)
[2018-01-23] MEDS: FENOFIBRATE NANOCRYSTALLIZED 145 MG TABLET PO SCH (09:21)
[2018-01-23] MEDS: FINASTERIDE 5 MG TABLET PO SCH (09:21)
[2018-01-23] MEDS: DOCUSATE SODIUM 100 MG CAPSULE PO SCH ×2 (09:21→18:10)
[2018-01-23] MEDS: CETIRIZINE 10 MG TABLET PO SCH (09:21)
[2018-01-23] MEDS: POLYETHYLENE GLYCOL 3350 POWDER 17 GM/1 PACKET PO SCH (09:22)
[2018-01-23] MEDS: ALLOPURINOL 100 MG TABLET PO SCH (09:22)
[2018-01-23] MEDS: INSULIN GLARGINE,HUM.REC.ANLOG 300 UNIT/3 ML INSULN.PEN SUBCUT SCH ×2 (09:24→22:26)
[2018-01-23] MEDS: CEFEPIME 1 GM/D5W RTU 1 GM/50 ML RTUPB IV SCH ×2 (09:25→22:25)
--- NOTE | 2018-01-23 15:08 | PDOC PROGRESS REPORT ---
Subjective Progress Note for:: 01/23/18 Subjective:: Patient was seen by the bedside, is admitted for the management of cellulitis of the lower extremities, presently on IV antibiotic Reason For Visit: LEFT LOWER EXTREMITY CELLULITIS Physical Exam Vital Signs: Temp Pulse Resp BP Pulse Ox 97.8 F 66 20 137/59 H 100 01/23/18 11:29 01/23/18 14:00 01/23/18 11:29 01/23/18 11:29 01/23/18 11:29 Intake & Output 01/22/18 01/23/18 01/24/18 06:59 06:59 06:59 Intake Total 569 1374 358 Output Total 1150 1800 200 Balance -581 -426 158 Weight 120.8 kg 116.7 kg General appearance: PRESENT: no acute distress, well-developed, well-nourished Head exam: PRESENT: atraumatic, normocephalic Eye exam: PRESENT: conjunctiva pink, EOMI, PERRLA Ear exam: PRESENT: normal external ear exam Neck exam: PRESENT: full ROM Respiratory exam: PRESENT: clear to auscultation kavitha Cardiovascular exam: PRESENT: RRR, +S1, +S2 Vascular exam: PRESENT: normal capillary refill GI/Abdominal exam: PRESENT: normal bowel sounds, soft Rectal exam: PRESENT: deferred Extremities exam: PRESENT: other - There is cellulitis of the lower extremities Neurological exam: PRESENT: alert Psychiatric exam: PRESENT: appropriate affect, normal mood Skin exam: PRESENT: dry, intact, warm Results Laboratory Results: 01/22/18 04:16 01/23/18 05:25 01/23/18 05:25 Sodium 145.6 H Potassium 3.5 L Chloride 101 Carbon Dioxide 30 Anion Gap 15 BUN 35 H Creatinine 1.61 H Est GFR ( Amer) 50 L Est GFR (Non-Af Amer) 41 L Glucose 53 L Calcium 9.6 01/21/18 15:20 NT-Pro-B Natriuret Pep 2420 H Impressions: Chest X-Ray 01/21/18 00:00 IMPRESSION: Cardiomegaly. Left basilar atelectasis. Assessment & Plan - Diagnosis (1) Bilateral lower leg cellulitis Is this a current diagnosis for this admission?: Yes Plan: Patient will continue IV antibiotic (2) Atrial fibrillation Qualifiers: Atrial fibrillation type: chronic Qualified Code(s): I48.2 - Chronic atrial fibrillation Is this a current diagnosis for this admission?: Yes (3) Sleep disorder Is this a current diagnosis for this admission?: Yes (4) Chronic kidney disease, stage 3 Is this a current diagnosis for this admission?: Yes
[2018-01-23] MEDS: INSULIN LISPRO 100 UNIT/ML 3 ML VIAL SUBCUT PRN ×2 (18:12→22:26)
[2018-01-23] MEDS: SERTRALINE HCL 50 MG TABLET PO SCH (22:23)
[2018-01-23] MEDS: ATORVASTATIN CALCIUM 80 MG TABLET PO SCH (22:23)
[2018-01-23] MEDS: WARFARIN SODIUM 3 MG TABLET PO SCH (22:24)
[2018-01-23] MEDS: TAMSULOSIN HCL 0.4 MG CAP.SR.24H PO SCH (22:24)
[2018-01-24] MEDS: FUROSEMIDE INJ/PF 40 MG/4 ML SDV IV SCH ×4 (00:54→17:51)
[2018-01-24 05:13] LABS: INTERNATIONAL RATION (INR) 2.79; PROTHROMBIN TIME 30.7 SEC (11.4-15.4)
[2018-01-24 05:36] LABS: ANION GAP 14 (5-19); BLOOD UREA NITROGEN 37 mg/dL (7-20); CALCIUM 9.9 mg/dL (8.4-10.2); CARBON DIOXIDE 33 mmol/L (22-30); CHLORIDE 101 mmol/L (98-107); GLUCOSE 63 mg/dL (75-110); POTASSIUM 4.3 mmol/L (3.6-5.0); SODIUM 147.6 mmol/L (137-145)
[2018-01-24] MEDS: CLINDAMYCIN 600 MG/D5W RTU 600 MG/50 ML RTUPB IV SCH ×3 (06:50→21:25)
[2018-01-24] MEDS: ISOSORBIDE DINITRATE 10 MG TABLET PO SCH ×3 (06:52→21:30)
[2018-01-24] MEDS: LEVOTHYROXINE SODIUM 0.112 MG TABLET PO SCH (06:52)
[2018-01-24] MEDS: LANSOPRAZOLE 30 MG TAB.RAP.DR PO SCH (06:52)
[2018-01-24] MEDS: HYDRALAZINE HCL 10 MG TABLET PO SCH ×3 (06:52→21:28)
[2018-01-24] MEDS: OXYCODONE-ACETAMINOPHEN 5-325 MG TABLET PO PRN (08:17)
[2018-01-24] MEDS: METOPROLOL SUCCINATE 50 MG TAB.SR.24H PO SCH ×2 (09:28→21:29)
[2018-01-24] MEDS: AMIODARONE HCL 200 MG TABLET PO SCH (09:29)
[2018-01-24] MEDS: FENOFIBRATE NANOCRYSTALLIZED 145 MG TABLET PO SCH (09:30)
[2018-01-24] MEDS: CLOPIDOGREL BISULFATE 75 MG TABLET PO SCH (09:30)
[2018-01-24] MEDS: CHOLECALCIFEROL (D3) 1,000 UNIT TABLET PO SCH (09:31)
[2018-01-24] MEDS: CEFEPIME 1 GM/D5W RTU 1 GM/50 ML RTUPB IV SCH ×2 (09:31→21:25)
[2018-01-24] MEDS: CETIRIZINE 10 MG TABLET PO SCH (09:31)
[2018-01-24] MEDS: ALLOPURINOL 100 MG TABLET PO SCH (09:31)
[2018-01-24] MEDS: FINASTERIDE 5 MG TABLET PO SCH (09:31)
[2018-01-24] MEDS: INSULIN GLARGINE,HUM.REC.ANLOG 300 UNIT/3 ML INSULN.PEN SUBCUT SCH ×2 (09:32→22:46)
[2018-01-24] MEDS: DOCUSATE SODIUM 100 MG CAPSULE PO SCH ×2 (09:49→17:50)
[2018-01-24] MEDS: POLYETHYLENE GLYCOL 3350 POWDER 17 GM/1 PACKET PO SCH (09:49)
--- NOTE | 2018-01-24 16:59 | PDOC PROGRESS REPORT ---
Subjective Progress Note for:: 01/24/18 Subjective:: There is no new complaint, patient seen by the bedside Reason For Visit: LEFT LOWER EXTREMITY CELLULITIS Physical Exam Vital Signs: Temp Pulse Resp BP Pulse Ox 98.2 F 59 L 20 137/58 H 98 01/24/18 15:09 01/24/18 15:09 01/24/18 15:09 01/24/18 15:09 01/24/18 15:09 Intake & Output 01/23/18 01/24/18 01/25/18 06:59 06:59 06:59 Intake Total 1374 1658 355 Output Total 1800 2150 300 Balance -426 -492 55 Weight 116.7 kg 118.2 kg General appearance: PRESENT: no acute distress Eye exam: PRESENT: PERRLA Respiratory exam: PRESENT: clear to auscultation kavitha Cardiovascular exam: PRESENT: +S1, +S2 GI/Abdominal exam: PRESENT: soft Results Laboratory Results: 01/22/18 04:16 01/24/18 04:14 01/24/18 04:14 Sodium 147.6 H Potassium 4.3 Chloride 101 Carbon Dioxide 33 H Anion Gap 14 BUN 37 H Creatinine 1.42 H Est GFR ( Amer) 58 L Est GFR (Non-Af Amer) 48 L Glucose 63 L Calcium 9.9 01/22/18 21:40 Clean Catch Midstream Urine Culture - Final NO GROWTH 2 DAYS 01/21/18 15:20 NT-Pro-B Natriuret Pep 2420 H Impressions: Chest X-Ray 01/21/18 00:00 IMPRESSION: Cardiomegaly. Left basilar atelectasis. Assessment & Plan - Diagnosis (1) Bilateral lower leg cellulitis Is this a current diagnosis for this admission?: Yes (2) Atrial fibrillation Qualifiers: Atrial fibrillation type: chronic Qualified Code(s): I48.2 - Chronic atrial fibrillation Is this a current diagnosis for this admission?: Yes (3) Sleep disorder Is this a current diagnosis for this admission?: Yes (4) Chronic kidney disease, stage 3 Is this a current diagnosis for this admission?: Yes
[2018-01-24] MEDS: ACETAMINOPHEN 325 MG TABLET PO PRN (20:00)
[2018-01-24] MEDS: ATORVASTATIN CALCIUM 80 MG TABLET PO SCH (21:27)
[2018-01-24] MEDS: TAMSULOSIN HCL 0.4 MG CAP.SR.24H PO SCH (21:28)
[2018-01-24] MEDS: WARFARIN SODIUM 3 MG TABLET PO SCH (21:29)
[2018-01-24] MEDS: SERTRALINE HCL 50 MG TABLET PO SCH (21:29)
[2018-01-24] MEDS: INSULIN LISPRO 100 UNIT/ML 3 ML VIAL SUBCUT PRN (22:47)
[2018-01-25] MEDS: FUROSEMIDE INJ/PF 40 MG/4 ML SDV IV SCH ×5 (00:11→23:49)
[2018-01-25] MEDS: ACETAMINOPHEN 325 MG TABLET PO PRN (02:45)
[2018-01-25 05:01] LABS: ABSOLUTE EOSINOPHILS # (AUTO) 0.2 10^3/uL (0.0-0.6); ABSOLUTE LYMPHOCYTES (AUTO) 1.2 10^3/uL (0.5-4.7); ABSOLUTE MONOCYTES (AUTO) 0.5 10^3/uL (0.1-1.4); BASOPHILS % (AUTO) 0.9 % (0-2); EOSINOPHILS % (AUTO) 4.4 % (0-6); HEMOGLOBIN 10.1 g/dL (13.5-17.0); LYMPHOCYTES % (AUTO) 31.5 % (13-45); MEAN CORPUSCULAR HEMOGLOBIN 29.1 pg (27.0-33.4); MEAN CORPUSCULAR HGB CONC 32.5 g/dL (32.0-36.0); MEAN CORPUSCULAR VOLUME 90 fl (80-97); MONOCYTES % (AUTO) 11.9 % (3-13); PLATELET COUNT 205 10^3/uL (150-450); RED BLOOD COUNT 3.46 10^6/uL (4.35-5.55); RED CELL DISTRIBUTION WIDTH 17.1 % (11.5-14.0); SEGMENTED NEUTROPHILS % (AUTO) 51.3 % (42-78); TOTAL CELLS COUNTED % (AUTO) 100 %
[2018-01-25 05:32] LABS: ANION GAP 12 (5-19); BLOOD UREA NITROGEN 38 mg/dL (7-20); CALCIUM 9.8 mg/dL (8.4-10.2); CARBON DIOXIDE 33 mmol/L (22-30); CHLORIDE 99 mmol/L (98-107); GLUCOSE 65 mg/dL (75-110); POTASSIUM 3.9 mmol/L (3.6-5.0); SODIUM 144.2 mmol/L (137-145)
[2018-01-25] MEDS: CLINDAMYCIN 600 MG/D5W RTU 600 MG/50 ML RTUPB IV SCH ×3 (06:25→22:41)
[2018-01-25] MEDS: HYDRALAZINE HCL 10 MG TABLET PO SCH ×3 (06:26→21:49)
[2018-01-25] MEDS: LANSOPRAZOLE 30 MG TAB.RAP.DR PO SCH (06:26)
[2018-01-25] MEDS: LEVOTHYROXINE SODIUM 0.112 MG TABLET PO SCH (06:27)
[2018-01-25] MEDS: ISOSORBIDE DINITRATE 10 MG TABLET PO SCH ×3 (06:28→21:49)
[2018-01-25] MEDS: OXYCODONE-ACETAMINOPHEN 5-325 MG TABLET PO PRN ×3 (06:30→21:57)
--- NOTE | 2018-01-25 08:28 | PDOC PROGRESS REPORT ---
Subjective Progress Note for:: 01/25/18 Subjective:: Patient is currently doing same No chest pain no shortness of the breath Patient's redness in the leg is getting much better No fever no chills Reason For Visit: LEFT LOWER EXTREMITY CELLULITIS Physical Exam Vital Signs: Temp Pulse Resp BP Pulse Ox 97.8 F 77 20 107/63 97 01/25/18 04:51 01/25/18 07:00 01/25/18 04:51 01/25/18 04:51 01/25/18 04:51 Intake & Output 01/24/18 01/25/18 01/26/18 06:59 06:59 06:59 Intake Total 1658 1363 Output Total 2150 2100 Balance -492 -737 Weight 118.2 kg 118.3 kg General appearance: PRESENT: no acute distress, well-developed, well-nourished Head exam: PRESENT: atraumatic, normocephalic Eye exam: PRESENT: conjunctiva pink, EOMI, PERRLA. ABSENT: scleral icterus Ear exam: PRESENT: normal external ear exam Mouth exam: PRESENT: moist, tongue midline Neck exam: PRESENT: full ROM. ABSENT: carotid bruit, JVD, lymphadenopathy, thyromegaly Respiratory exam: PRESENT: clear to auscultation kavitha Cardiovascular exam: PRESENT: RRR. ABSENT: diastolic murmur, rubs, systolic murmur Pulses: PRESENT: normal dorsalis pedis pul, +2 pedal pulses bilateral Vascular exam: PRESENT: normal capillary refill GI/Abdominal exam: PRESENT: normal bowel sounds, soft. ABSENT: distended, guarding, mass, organolmegaly, rebound, tenderness Rectal exam: PRESENT: deferred Extremities exam: PRESENT: pedal edema Additional comments: Some mild redness is present on the left lower extremities Neurological exam: PRESENT: alert, awake, oriented to person, oriented to place , oriented to time, oriented to situation, CN II-XII grossly intact. ABSENT: motor sensory deficit Psychiatric exam: PRESENT: appropriate affect, normal mood. ABSENT: homicidal ideation, suicidal ideation Skin exam: PRESENT: dry, intact, warm. ABSENT: cyanosis, rash Results Laboratory Results: 01/25/18 04:21 01/25/18 04:21 01/25/18 01/25/18 04:21 04:21 WBC 4.0 RBC 3.46 L Hgb 10.1 L Hct 31.0 L MCV 90 MCH 29.1 MCHC 32.5 RDW 17.1 H Plt Count 205 Seg Neutrophils % 51.3 Lymphocytes % 31.5 Monocytes % 11.9 Eosinophils % 4.4 Basophils % 0.9 Absolute Neutrophils 2.0 Absolute Lymphocytes 1.2 Absolute Monocytes 0.5 Absolute Eosinophils 0.2 Absolute Basophils 0.0 Sodium 144.2 Potassium 3.9 Chloride 99 Carbon Dioxide 33 H Anion Gap 12 BUN 38 H Creatinine 1.80 H Est GFR ( Amer) 44 L Est GFR (Non-Af Amer) 36 L Glucose 65 L Calcium 9.8 01/22/18 21:40 Clean Catch Midstream Urine Culture - Final NO GROWTH 2 DAYS 01/21/18 15:20 NT-Pro-B Natriuret Pep 2420 H Impressions: Chest X-Ray 01/21/18 00:00 IMPRESSION: Cardiomegaly. Left basilar atelectasis. Assessment & Plan - Diagnosis (1) Cellulitis of lower limb Qualifiers: Laterality: left Qualified Code(s): L03.116 - Cellulitis of left lower limb Is this a current diagnosis for this admission?: Yes Plan: Patient's failed outpatient p.o. antibiotic and see the vascular surgeon today and suggest IV antibiotic and most likely due to the chronic DVT and chronic venous insufficiency developing to some chronic lymphedema due to uncontrolled swelling We start the patient on IV antibiotics elevate the legs and the diuretics (2) Atrial fibrillation Qualifiers: Atrial fibrillation type: chronic Qualified Code(s): I48.2 - Chronic atrial fibrillation Is this a current diagnosis for this admission?: Yes Plan: Currently on chronic Coumadin rate under control (3) CAD (coronary artery disease) Qualifiers: Coronary Disease-Associated Artery/Lesion type: unspecified vessel or lesion type Is this a current diagnosis for this admission?: Yes Plan: Currently stable patient see a [facility] (4) CHF (congestive heart failure) Qualifiers: Heart failure type: combined systolic and diastolic Heart failure chronicity: chronic Qualified Code(s): I50.42 - Chronic combined systolic ( congestive) and diastolic (congestive) heart failure Is this a current diagnosis for this admission?: Yes Plan: Patient's seen by the [facility]ology last month and everything was stable (5) CKD (chronic kidney disease) Qualifiers: Chronic kidney disease stage: stage 3 (moderate) Qualified Code(s): N18.3 - Chronic kidney disease, stage 3 (moderate) Is this a current diagnosis for this admission?: Yes Plan: We consult the nephrology today (6) Cardiac defibrillator in situ Is this a current diagnosis for this admission?: Yes (7) DVT (deep venous thrombosis) Qualifiers: DVT location: lower extremity Is this a current diagnosis for this admission?: Yes Plan: Patient is currently on chronic Coumadin (8) Diabetes Qualifiers: Diabetes mellitus type: type 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 Is this a current diagnosis for this admission?: Yes Plan: Continues to current medication and sliding scale (9) Hypertension Qualifiers: Hypertension type: essential hypertension Is this a current diagnosis for this admission?: Yes Plan: Currently all stable (10) Sleep disorder Is this a current diagnosis for this admission?: Yes Plan: Patient is noted wearing the CPAPPatient's also not wearing the CPAP at home (11) Venous (peripheral) insufficiency Is this a current diagnosis for this admission?: Yes - Time Time Spent with patient: 15-24 minutes Medications reviewed and adjusted accordingly: Yes Anticipated discharge: Home Within: Other - Inpatient Certification Medical Necessity: Need Close Monitoring Due to Risk of Patient Decompensation, Need for IV Antibiotics Post Hospital Care: D/C Training Lead Documentation - Plan Summary Plan Summary: Continues to IV antibiotics continues IV Lasix
[2018-01-25] MEDS: DOCUSATE SODIUM 100 MG CAPSULE PO SCH ×2 (09:42→17:21)
[2018-01-25] MEDS: FINASTERIDE 5 MG TABLET PO SCH (09:42)
[2018-01-25] MEDS: CLOPIDOGREL BISULFATE 75 MG TABLET PO SCH (09:42)
[2018-01-25] MEDS: INSULIN GLARGINE,HUM.REC.ANLOG 300 UNIT/3 ML INSULN.PEN SUBCUT SCH ×2 (09:42→21:54)
[2018-01-25] MEDS: CETIRIZINE 10 MG TABLET PO SCH (09:43)
[2018-01-25] MEDS: CHOLECALCIFEROL (D3) 1,000 UNIT TABLET PO SCH (09:43)
[2018-01-25] MEDS: METOPROLOL SUCCINATE 50 MG TAB.SR.24H PO SCH ×2 (09:43→21:48)
[2018-01-25] MEDS: ALLOPURINOL 100 MG TABLET PO SCH (09:44)
[2018-01-25] MEDS: AMIODARONE HCL 200 MG TABLET PO SCH (09:44)
[2018-01-25] MEDS: CEFEPIME 1 GM/D5W RTU 1 GM/50 ML RTUPB IV SCH ×2 (09:44→21:56)
[2018-01-25] MEDS: FENOFIBRATE NANOCRYSTALLIZED 145 MG TABLET PO SCH (09:44)
[2018-01-25] MEDS: POLYETHYLENE GLYCOL 3350 POWDER 17 GM/1 PACKET PO SCH (09:45)
[2018-01-25] MEDS: INSULIN LISPRO 100 UNIT/ML 3 ML VIAL SUBCUT PRN ×2 (12:59→18:11)
--- NOTE | 2018-01-25 18:52 | RADIOLOGY REPORT (SQ) ---
EXAM DESCRIPTION: CHEST 2 VIEWS COMPLETED DATE/TIME: 01/25/2018 6:06 pm REASON FOR STUDY: chf COMPARISON: Chest films 01/21/2018, 12/03/2017, 09/21/2017, 07/23/2017 CT chest 07/20/2017 EXAM PARAMETERS: NUMBER OF VIEWS: two views TECHNIQUE: Digital Frontal and Lateral radiographic views of the chest acquired. RADIATION DOSE: NA LIMITATIONS: none FINDINGS: LUNGS AND PLEURA: No opacities, masses or pneumothorax. No pleural effusion. MEDIASTINUM AND HILAR STRUCTURES: No masses or contour abnormalities. HEART AND VASCULAR STRUCTURES: Mild cardiomegaly. Old sternotomy for CABG BONES: Osteoporotic HARDWARE: Left-sided pacemaker/ defibrillator OTHER: No other significant finding. IMPRESSION: No acute findings TECHNICAL DOCUMENTATION: JOB ID: [id number]- All Rights Reserved Reading location - IP/workstation name: [email or web address]
[2018-01-25] MEDS: WARFARIN SODIUM 4 MG TABLET PO SCH (21:49)
[2018-01-25] MEDS: ATORVASTATIN CALCIUM 80 MG TABLET PO SCH (21:49)
[2018-01-25] MEDS: SERTRALINE HCL 50 MG TABLET PO SCH (21:49)
[2018-01-25] MEDS: TAMSULOSIN HCL 0.4 MG CAP.SR.24H PO SCH (21:49)
[2018-01-25] MEDS ORDERED: (PENDING PHARMACY ID) (Warfarin Sodium 4 MG) PO SCH (22:00)
[2018-01-26 05:07] LABS: ABSOLUTE EOSINOPHILS # (AUTO) 0.2 10^3/uL (0.0-0.6); ABSOLUTE MONOCYTES (AUTO) 0.5 10^3/uL (0.1-1.4); ABSOLUTE NEUT (AUTO) 1.9 10^3/uL (1.7-8.2); BASOPHILS % (AUTO) 0.7 % (0-2); EOSINOPHILS % (AUTO) 6.3 % (0-6); HEMOGLOBIN 9.6 g/dL (13.5-17.0); LYMPHOCYTES % (AUTO) 27.2 % (13-45); MEAN CORPUSCULAR HEMOGLOBIN 29.4 pg (27.0-33.4); MEAN CORPUSCULAR HGB CONC 33.2 g/dL (32.0-36.0); MEAN CORPUSCULAR VOLUME 89 fl (80-97); MONOCYTES % (AUTO) 13.8 % (3-13); PLATELET COUNT 175 10^3/uL (150-450); RED BLOOD COUNT 3.27 10^6/uL (4.35-5.55); RED CELL DISTRIBUTION WIDTH 17.4 % (11.5-14.0); TOTAL CELLS COUNTED % (AUTO) 100 %; WHITE BLOOD COUNT 3.6 10^3/uL (4.0-10.5)
[2018-01-26 05:28] LABS: ANION GAP 10 (5-19); BLOOD UREA NITROGEN 38 mg/dL (7-20); CALCIUM 9.5 mg/dL (8.4-10.2); CARBON DIOXIDE 33 mmol/L (22-30); CHLORIDE 100 mmol/L (98-107); GLUCOSE 135 mg/dL (75-110); POTASSIUM 3.8 mmol/L (3.6-5.0); SODIUM 143.4 mmol/L (137-145)
[2018-01-26] MEDS: CLINDAMYCIN 600 MG/D5W RTU 600 MG/50 ML RTUPB IV SCH ×3 (05:35→21:56)
[2018-01-26] MEDS: LEVOTHYROXINE SODIUM 0.112 MG TABLET PO SCH (05:38)
[2018-01-26] MEDS: ISOSORBIDE DINITRATE 10 MG TABLET PO SCH ×3 (05:38→22:06)
[2018-01-26] MEDS: HYDRALAZINE HCL 10 MG TABLET PO SCH ×3 (05:38→22:06)
[2018-01-26] MEDS: LANSOPRAZOLE 30 MG TAB.RAP.DR PO SCH (05:38)
[2018-01-26] MEDS: FUROSEMIDE INJ/PF 40 MG/4 ML SDV IV SCH ×4 (06:43→23:15)
[2018-01-26 09:22] LABS: INTERNATIONAL RATION (INR) 2.87; PROTHROMBIN TIME 31.4 SEC (11.4-15.4)
[2018-01-26] MEDS: FENOFIBRATE NANOCRYSTALLIZED 145 MG TABLET PO SCH (09:50)
[2018-01-26] MEDS: CLOPIDOGREL BISULFATE 75 MG TABLET PO SCH (09:50)
[2018-01-26] MEDS: METOPROLOL SUCCINATE 50 MG TAB.SR.24H PO SCH ×2 (09:50→22:06)
[2018-01-26] MEDS: CHOLECALCIFEROL (D3) 1,000 UNIT TABLET PO SCH (09:51)
[2018-01-26] MEDS: CETIRIZINE 10 MG TABLET PO SCH (09:51)
[2018-01-26] MEDS: OXYCODONE-ACETAMINOPHEN 5-325 MG TABLET PO PRN ×3 (09:51→23:17)
[2018-01-26] MEDS: AMIODARONE HCL 200 MG TABLET PO SCH (09:51)
[2018-01-26] MEDS: CEFEPIME 1 GM/D5W RTU 1 GM/50 ML RTUPB IV SCH ×2 (09:52→21:56)
[2018-01-26] MEDS: FINASTERIDE 5 MG TABLET PO SCH (09:52)
[2018-01-26] MEDS: ALLOPURINOL 100 MG TABLET PO SCH (09:52)
[2018-01-26] MEDS: DOCUSATE SODIUM 100 MG CAPSULE PO SCH ×2 (09:52→17:20)
[2018-01-26] MEDS: POLYETHYLENE GLYCOL 3350 POWDER 17 GM/1 PACKET PO SCH (09:53)
--- NOTE | 2018-01-26 10:57 | PDOC PROGRESS REPORT ---
Subjective Progress Note for:: 01/26/18 Subjective:: Patient is currently doing fair Since denied any chest pain denied any shortness of the breath Patient's leg swelling is coming down No fever no chills Reason For Visit: LEFT LOWER EXTREMITY CELLULITIS Physical Exam Vital Signs: Temp Pulse Resp BP Pulse Ox 97.7 F 59 L 18 118/51 L 100 01/26/18 07:47 01/26/18 07:47 01/26/18 07:47 01/26/18 07:47 01/26/18 07:47 Intake & Output 01/25/18 01/26/18 01/27/18 06:59 06:59 06:59 Intake Total 1363 1808 Output Total 2100 2600 Balance -737 -792 Weight 118.3 kg 119.1 kg General appearance: PRESENT: no acute distress, well-developed, well-nourished Head exam: PRESENT: atraumatic, normocephalic Eye exam: PRESENT: conjunctiva pink, EOMI, PERRLA. ABSENT: scleral icterus Ear exam: PRESENT: normal external ear exam Mouth exam: PRESENT: moist, tongue midline Neck exam: PRESENT: full ROM. ABSENT: carotid bruit, JVD, lymphadenopathy, thyromegaly Respiratory exam: PRESENT: clear to auscultation kavitha Cardiovascular exam: PRESENT: RRR. ABSENT: diastolic murmur, rubs, systolic murmur Pulses: PRESENT: normal dorsalis pedis pul, +2 pedal pulses bilateral Vascular exam: PRESENT: normal capillary refill GI/Abdominal exam: PRESENT: normal bowel sounds, soft. ABSENT: distended, guarding, mass, organolmegaly, rebound, tenderness Rectal exam: PRESENT: deferred Extremities exam: PRESENT: pedal edema Additional comments: Mild redness is present in the left lower extremity Neurological exam: PRESENT: alert, awake, oriented to person, oriented to place , oriented to time, oriented to situation, CN II-XII grossly intact. ABSENT: motor sensory deficit Psychiatric exam: PRESENT: appropriate affect, normal mood. ABSENT: homicidal ideation, suicidal ideation Skin exam: PRESENT: dry, intact, warm. ABSENT: cyanosis, rash Results Laboratory Results: 01/26/18 04:26 01/26/18 04:26 01/26/18 01/26/18 04:26 04:26 WBC 3.6 L RBC 3.27 L Hgb 9.6 L Hct 29.0 L MCV 89 MCH 29.4 MCHC 33.2 RDW 17.4 H Plt Count 175 Seg Neutrophils % 52.0 Lymphocytes % 27.2 Monocytes % 13.8 H Eosinophils % 6.3 H Basophils % 0.7 Absolute Neutrophils 1.9 Absolute Lymphocytes 1.0 Absolute Monocytes 0.5 Absolute Eosinophils 0.2 Absolute Basophils 0.0 Sodium 143.4 Potassium 3.8 Chloride 100 Carbon Dioxide 33 H Anion Gap 10 BUN 38 H Creatinine 1.70 H Est GFR ( Amer) 47 L Est GFR (Non-Af Amer) 39 L Glucose 135 H Calcium 9.5 01/21/18 15:20 NT-Pro-B Natriuret Pep 2420 H Impressions: Chest X-Ray 01/25/18 00:00 IMPRESSION: No acute findings Assessment & Plan - Diagnosis (1) Cellulitis of lower limb Qualifiers: Laterality: left Qualified Code(s): L03.116 - Cellulitis of left lower limb Is this a current diagnosis for this admission?: Yes Plan: Currently all improving continues IV antibiotic may be considered to start on the p.o. antibiotics from tomorrow and possible discharge but remained stable (2) Atrial fibrillation Qualifiers: Atrial fibrillation type: chronic Qualified Code(s): I48.2 - Chronic atrial fibrillation Is this a current diagnosis for this admission?: Yes Plan: Currently on chronic Coumadin rate under control (3) CAD (coronary artery disease) Qualifiers: Coronary Disease-Associated Artery/Lesion type: unspecified vessel or lesion type Is this a current diagnosis for this admission?: Yes Plan: Currently stable patient see a [facility] cardiology (4) CHF (congestive heart failure) Qualifiers: Heart failure type: combined systolic and diastolic Heart failure chronicity: chronic Qualified Code(s): I50.42 - Chronic combined systolic ( congestive) and diastolic (congestive) heart failure Is this a current diagnosis for this admission?: Yes Plan: Patient's seen by the [facility] cardiology last month and everything was stable (5) CKD (chronic kidney disease) Qualifiers: Chronic kidney disease stage: stage 3 (moderate) Qualified Code(s): N18.3 - Chronic kidney disease, stage 3 (moderate) Is this a current diagnosis for this admission?: Yes Plan: We consult the nephrology today (6) Cardiac defibrillator in situ Is this a current diagnosis for this admission?: Yes (7) DVT (deep venous thrombosis) Qualifiers: DVT location: lower extremity Is this a current diagnosis for this admission?: Yes Plan: Patient is currently on chronic Coumadin (8) Diabetes Qualifiers: Diabetes mellitus type: type 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 Is this a current diagnosis for this admission?: Yes Plan: Continues to current medication and sliding scale (9) Hypertension Qualifiers: Hypertension type: essential hypertension Is this a current diagnosis for this admission?: Yes Plan: Currently all stable (10) Sleep disorder Is this a current diagnosis for this admission?: Yes (11) Venous (peripheral) insufficiency Is this a current diagnosis for this admission?: Yes Plan: Patient's currently seen by the vascular surgery at [place] today and follow next week appointment - Time Time Spent with patient: 15-24 minutes Medications reviewed and adjusted accordingly: Yes Anticipated discharge: Home Within: Other - Inpatient Certification Medical Necessity: Need Close Monitoring Due to Risk of Patient Decompensation, Need for IV Antibiotics Post Hospital Care: D/C Primary Therapist Documentation - Plan Summary Plan Summary: Continues to current medications
[2018-01-26] MEDS: INSULIN GLARGINE,HUM.REC.ANLOG 300 UNIT/3 ML INSULN.PEN SUBCUT SCH ×2 (12:27→21:58)
[2018-01-26] MEDS: INSULIN LISPRO 100 UNIT/ML 3 ML VIAL SUBCUT PRN (17:20)
[2018-01-26] MEDS: ATORVASTATIN CALCIUM 80 MG TABLET PO SCH (21:57)
[2018-01-26] MEDS: SERTRALINE HCL 50 MG TABLET PO SCH (21:57)
[2018-01-26] MEDS: WARFARIN SODIUM 4 MG TABLET PO SCH (22:06)
[2018-01-26] MEDS: TAMSULOSIN HCL 0.4 MG CAP.SR.24H PO SCH (22:06)
[2018-01-27 05:28] LABS: ANION GAP 12 (5-19); BLOOD UREA NITROGEN 41 mg/dL (7-20); CALCIUM 9.9 mg/dL (8.4-10.2); CARBON DIOXIDE 33 mmol/L (22-30); CHLORIDE 101 mmol/L (98-107); GLUCOSE 79 mg/dL (75-110); POTASSIUM 4.5 mmol/L (3.6-5.0); SODIUM 146.3 mmol/L (137-145)
[2018-01-27] MEDS: ISOSORBIDE DINITRATE 10 MG TABLET PO SCH ×3 (05:47→21:04)
[2018-01-27] MEDS: CLINDAMYCIN 600 MG/D5W RTU 600 MG/50 ML RTUPB IV SCH ×3 (05:47→21:05)
[2018-01-27] MEDS: HYDRALAZINE HCL 10 MG TABLET PO SCH ×3 (05:47→21:01)
[2018-01-27] MEDS: LEVOTHYROXINE SODIUM 0.112 MG TABLET PO SCH (05:47)
[2018-01-27] MEDS: FUROSEMIDE INJ/PF 40 MG/4 ML SDV IV SCH ×3 (05:47→18:07)
[2018-01-27] MEDS: LANSOPRAZOLE 30 MG TAB.RAP.DR PO SCH (05:47)
--- NOTE | 2018-01-27 07:41 | PDOC PROGRESS REPORT ---
Subjective Progress Note for:: 01/27/18 Subjective:: Patient is currently doing fair Since denied any chest pain denied any shortness of the breath Patient's leg swelling is coming down No fever no chills Reason For Visit: LEFT LOWER EXTREMITY CELLULITIS Physical Exam Vital Signs: Temp Pulse Resp BP Pulse Ox 98.1 F 60 14 117/56 L 90 L 01/27/18 04:14 01/27/18 07:00 01/27/18 04:14 01/27/18 04:14 01/27/18 04:14 Intake & Output 01/26/18 01/27/18 01/28/18 06:59 06:59 06:59 Intake Total 1808 1608 Output Total 2600 3100 Balance -792 -1492 Weight 119.1 kg General appearance: PRESENT: no acute distress, well-developed, well-nourished Head exam: PRESENT: atraumatic, normocephalic Eye exam: PRESENT: conjunctiva pink, EOMI, PERRLA. ABSENT: scleral icterus Ear exam: PRESENT: normal external ear exam Mouth exam: PRESENT: moist, tongue midline Neck exam: PRESENT: full ROM. ABSENT: carotid bruit, JVD, lymphadenopathy, thyromegaly Respiratory exam: PRESENT: clear to auscultation kavitha Cardiovascular exam: PRESENT: RRR. ABSENT: diastolic murmur, rubs, systolic murmur Pulses: PRESENT: normal dorsalis pedis pul, +2 pedal pulses bilateral Vascular exam: PRESENT: normal capillary refill GI/Abdominal exam: PRESENT: normal bowel sounds, soft. ABSENT: distended, guarding, mass, organolmegaly, rebound, tenderness Rectal exam: PRESENT: deferred Extremities exam: PRESENT: pedal edema Additional comments: Left lower extremities redness is much improved Neurological exam: PRESENT: alert, awake, oriented to person, oriented to place , oriented to time, oriented to situation, CN II-XII grossly intact. ABSENT: motor sensory deficit Psychiatric exam: PRESENT: appropriate affect, normal mood. ABSENT: homicidal ideation, suicidal ideation Skin exam: PRESENT: dry, intact, warm. ABSENT: cyanosis, rash Results Laboratory Results: 01/26/18 04:26 01/27/18 04:27 01/27/18 04:27 Sodium 146.3 H Potassium 4.5 Chloride 101 Carbon Dioxide 33 H Anion Gap 12 BUN 41 H Creatinine 1.94 H Est GFR ( Amer) 40 L Est GFR (Non-Af Amer) 33 L Glucose 79 Calcium 9.9 01/21/18 15:34 Blood Blood Culture - Final NO GROWTH IN 5 DAYS 01/21/18 15:20 Blood Blood Culture - Final NO GROWTH IN 5 DAYS 01/21/18 15:20 NT-Pro-B Natriuret Pep 2420 H Impressions: Chest X-Ray 01/25/18 00:00 IMPRESSION: No acute findings Assessment & Plan - Diagnosis (1) Cellulitis of lower limb Qualifiers: Laterality: left Qualified Code(s): L03.116 - Cellulitis of left lower limb Is this a current diagnosis for this admission?: Yes Plan: Currently all improving continues IV antibiotic may be considered to start on the p.o. antibiotics from tomorrow and possible discharge but remained stable (2) Atrial fibrillation Qualifiers: Atrial fibrillation type: chronic Qualified Code(s): I48.2 - Chronic atrial fibrillation Is this a current diagnosis for this admission?: Yes Plan: Currently on chronic Coumadin rate under control (3) CAD (coronary artery disease) Qualifiers: Coronary Disease-Associated Artery/Lesion type: unspecified vessel or lesion type Is this a current diagnosis for this admission?: Yes Plan: Currently stable patient see a [facility] (4) CHF (congestive heart failure) Qualifiers: Heart failure type: combined systolic and diastolic Heart failure chronicity: chronic Qualified Code(s): I50.42 - Chronic combined systolic ( congestive) and diastolic (congestive) heart failure Is this a current diagnosis for this admission?: Yes Plan: Patient's seen by the [facility] cardiology last month and everything was stable (5) CKD (chronic kidney disease) Qualifiers: Chronic kidney disease stage: stage 3 (moderate) Qualified Code(s): N18.3 - Chronic kidney disease, stage 3 (moderate) Is this a current diagnosis for this admission?: Yes Plan: We consult the nephrology today (6) Cardiac defibrillator in situ Is this a current diagnosis for this admission?: Yes (7) DVT (deep venous thrombosis) Qualifiers: DVT location: lower extremity Is this a current diagnosis for this admission?: Yes Plan: Patient is currently on chronic Coumadin (8) Diabetes Qualifiers: Diabetes mellitus type: type 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 Is this a current diagnosis for this admission?: Yes Plan: Continues to current medication and sliding scale (9) Hypertension Qualifiers: Hypertension type: essential hypertension Is this a current diagnosis for this admission?: Yes Plan: Currently all stable (10) Sleep disorder Is this a current diagnosis for this admission?: Yes (11) Venous (peripheral) insufficiency Is this a current diagnosis for this admission?: Yes - Time Time Spent with patient: 15-24 minutes Medications reviewed and adjusted accordingly: Yes Anticipated discharge: Home Within: within 24 hours - Inpatient Certification Medical Necessity: Need Close Monitoring Due to Risk of Patient Decompensation, Need for IV Antibiotics Post Hospital Care: D/C Driller Helper Documentation - Plan Summary Plan Summary: Continues to current medications
[2018-01-27 09:38] LABS: PROTHROMBIN TIME 32.6 SEC (11.4-15.4)
[2018-01-27] MEDS: AMIODARONE HCL 200 MG TABLET PO SCH (09:47)
[2018-01-27] MEDS: CHOLECALCIFEROL (D3) 1,000 UNIT TABLET PO SCH (09:47)
[2018-01-27] MEDS: INSULIN GLARGINE,HUM.REC.ANLOG 300 UNIT/3 ML INSULN.PEN SUBCUT SCH ×2 (09:47→22:35)
[2018-01-27] MEDS: CETIRIZINE 10 MG TABLET PO SCH (09:47)
[2018-01-27] MEDS: FENOFIBRATE NANOCRYSTALLIZED 145 MG TABLET PO SCH (09:48)
[2018-01-27] MEDS: FINASTERIDE 5 MG TABLET PO SCH (09:48)
[2018-01-27] MEDS: CLOPIDOGREL BISULFATE 75 MG TABLET PO SCH (09:48)
[2018-01-27] MEDS: METOPROLOL SUCCINATE 50 MG TAB.SR.24H PO SCH ×2 (09:48→21:02)
[2018-01-27] MEDS: ALLOPURINOL 100 MG TABLET PO SCH (09:48)
[2018-01-27] MEDS: CEFEPIME 1 GM/D5W RTU 1 GM/50 ML RTUPB IV SCH ×2 (09:49→22:27)
[2018-01-27] MEDS: OXYCODONE-ACETAMINOPHEN 5-325 MG TABLET PO PRN ×2 (09:49→21:02)
[2018-01-27] MEDS: DOCUSATE SODIUM 100 MG CAPSULE PO SCH ×2 (09:49→18:07)
[2018-01-27] MEDS: POLYETHYLENE GLYCOL 3350 POWDER 17 GM/1 PACKET PO SCH (09:50)
[2018-01-27] MEDS: TAMSULOSIN HCL 0.4 MG CAP.SR.24H PO SCH (21:01)
[2018-01-27] MEDS: SERTRALINE HCL 50 MG TABLET PO SCH (21:01)
[2018-01-27] MEDS: ATORVASTATIN CALCIUM 80 MG TABLET PO SCH (21:01)
[2018-01-27] MEDS: WARFARIN SODIUM 4 MG TABLET PO SCH (21:04)
[2018-01-28] MEDS: FUROSEMIDE INJ/PF 40 MG/4 ML SDV IV SCH ×2 (00:14→05:12)
[2018-01-28] MEDS: LEVOTHYROXINE SODIUM 0.112 MG TABLET PO SCH (05:13)
[2018-01-28] MEDS: ISOSORBIDE DINITRATE 10 MG TABLET PO SCH (05:13)
[2018-01-28] MEDS: HYDRALAZINE HCL 10 MG TABLET PO SCH (05:13)
[2018-01-28] MEDS: LANSOPRAZOLE 30 MG TAB.RAP.DR PO SCH (05:13)
[2018-01-28] MEDS: CLINDAMYCIN 600 MG/D5W RTU 600 MG/50 ML RTUPB IV SCH (05:13)
[2018-01-28 08:28] LABS: INTERNATIONAL RATION (INR) 3.19; PROTHROMBIN TIME 34.2 SEC (11.4-15.4)
[2018-01-28] MEDS: DOCUSATE SODIUM 100 MG CAPSULE PO SCH (09:36)
[2018-01-28] MEDS: ALLOPURINOL 100 MG TABLET PO SCH (09:36)
[2018-01-28] MEDS: METOPROLOL SUCCINATE 50 MG TAB.SR.24H PO SCH (09:40)
[2018-01-28] MEDS: CLOPIDOGREL BISULFATE 75 MG TABLET PO SCH (09:41)
[2018-01-28] MEDS: AMIODARONE HCL 200 MG TABLET PO SCH (09:41)
[2018-01-28] MEDS: CETIRIZINE 10 MG TABLET PO SCH (09:42)
[2018-01-28] MEDS: FINASTERIDE 5 MG TABLET PO SCH (09:42)
[2018-01-28] MEDS: FENOFIBRATE NANOCRYSTALLIZED 145 MG TABLET PO SCH (09:43)
[2018-01-28] MEDS: CHOLECALCIFEROL (D3) 1,000 UNIT TABLET PO SCH (09:43)
[2018-01-28] MEDS: POLYETHYLENE GLYCOL 3350 POWDER 17 GM/1 PACKET PO SCH (09:44)
[2018-01-28] MEDS: OXYCODONE-ACETAMINOPHEN 5-325 MG TABLET PO PRN (09:44)
[2018-01-28] MEDS: CEFEPIME 1 GM/D5W RTU 1 GM/50 ML RTUPB IV SCH (09:47)
--- NOTE | 2018-01-28 10:22 | PDOC DISCHARGE SUMMARY ---
General - Admit/Disc Date/PCP Admission Date/Primary Care Provider: 01/21/18 13:51 DANA TUTTLE MD Discharge Date: 01/28/18 - Discharge Diagnosis (1) Cellulitis of lower limb Is this a current diagnosis for this admission?: Yes Summary: Currently all resolved (2) Atrial fibrillation Is this a current diagnosis for this admission?: Yes Summary: Patient is currently on a chronic Coumadin INR is 3.19 and patient had a home health INR monitoring (3) CAD (coronary artery disease) Is this a current diagnosis for this admission?: Yes Summary: Currently stable patients currently see outpatient [place] cardiology (4) CHF (congestive heart failure) Is this a current diagnosis for this admission?: Yes Summary: Continues to current medication (5) CKD (chronic kidney disease) Is this a current diagnosis for this admission?: Yes Summary: Patient's currently see outpatients Dr. Wright (6) Cardiac defibrillator in situ Is this a current diagnosis for this admission?: Yes Summary: Follow with the cardiology at [place] (7) DVT (deep venous thrombosis) Is this a current diagnosis for this admission?: Yes Summary: Patient is currently on chronic Coumadin (8) Diabetes Is this a current diagnosis for this admission?: Yes Summary: Currently all stable (9) Hypertension Is this a current diagnosis for this admission?: Yes Summary: Currently all stable (10) Sleep disorder Is this a current diagnosis for this admission?: Yes Summary: Since with the oxygen at nighttime otherwise does not have any CPAP will further evaluate as outpatient (11) Venous (peripheral) insufficiency Is this a current diagnosis for this admission?: Yes Summary: Patient have appointment to see the vascular surgery at [place] in couple of weeks - Additional Information Discharge Diet: Diabetic Discharge Activity: Activity As Tolerated Prescriptions: Cefdinir 300 mg PO BID #10 capsule Home Medications: Clopidogrel Bisulfate [Plavix 75 mg Tablet] 75 mg PO DAILY 09/16/17 Docusate Sodium [Colace] 200 mg PO QPM 09/16/17 Fenofibrate Nanocrystallized [Tricor 145 mg Tablet] 145 mg PO DAILY 09/16/17 Hydralazine HCl [Apresoline 10 mg Tablet] 10 mg PO Q8 09/16/17 Oxycodone HCl/Acetaminophen [Percocet 5-325 mg Tablet] 1 tab PO Q8HP PRN Pantoprazole Sodium [Protonix] 40 mg PO DAILY 09/16/17 Polyethylene Glycol 3350 [Miralax Powder 17 gm/Packet] 1 packet PO DAILY Tamsulosin HCl [Flomax 0.4 mg Cap.sr] 0.4 mg PO QHS 09/16/17 Allopurinol [Zyloprim 100 mg Tablet] 100 mg PO DAILY 01/21/18 Amiodarone HCl [Cordarone 200 mg Tablet] 300 mg PO DAILY 01/21/18 Atorvastatin Calcium [Lipitor 80 mg Tablet] 80 mg PO QHS 01/21/18 Cetirizine HCl [Zyrtec 10 mg Tablet] 10 mg PO QPM 01/21/18 Cholecalciferol (Vitamin D3) [Vitamin D3 1000 Unit Tablet] 2,000 unit PO DAILY 01/21/18 Finasteride [Proscar 5 mg Tablet] 5 mg PO QHS 01/21/18 Fluticasone Propionate [Flonase Nasal [place] 50 Mcg/[place] 16 gm] 1 spray NAREB DAILYP PRN 01/21/18 Insulin Aspart [Novolog Flexpen] 0 unit SUBCUT .SLD SCALE 01/21/18 Insulin Glargine,Hum.rec.anlog [Lantus Solostar] 30 unit SQ BID 01/21/18 Isosorbide Dinitrate [Isordil Titradose 10 mg Tablet] 10 mg PO Q8 01/21/18 Levothyroxine Sodium [Synthroid 0.112 mg Tablet] 0.112 mg PO Q6AM 01/21/18 Metoprolol Succinate [Toprol XL 100 mg Tablet] 100 mg PO DAILY 01/21/18 Metoprolol Succinate [Toprol Xl 50 mg Tab.sr] 50 mg PO QHS 01/21/18 Nitroglycerin [Nitrostat 0.4 mg (1/150 Gr) Tabs 25/Bottle] 1 tab SL Q5MP PRN 07/01 Sertraline HCl [Zoloft 50 mg Tablet] 50 mg PO QHS 01/21/18 Torsemide 100 mg PO Q12 01/21/18 Umeclidinium Brm/Vilanterol Tr [Anoro Ellipta 62.5-25 Mcg INH] 1 inh IH DAILY Warfarin Sodium [Coumadin 3 mg Tablet] 3 mg PO SUTHFRSA@2200 01/21/18 Warfarin Sodium [Coumadin 4 mg Tablet] 4 mg PO MOTUWE@219901/21/18 Cefdinir 300 mg PO BID #10 capsule 01/28/18 History of Present Illness History of Present Illness: MARY MANDUJANO is a 83 year old male This is a 83-year-old male with the history of the chronic systolic congestive heart failure currently see a [facility] also chronic kidney disease currently see a nephrology here and a history of type 2 diabetes mellitus hypertension's history of the chronic DVT and chronic venous insufficiencyAnd multiple other comorbidity and a several hospital admissions 4 cellulitis and several [facility] went to see a [place] vascular surgeon and the patient's left lower extremities and a more redness and more swelling and discussed with the vascular surgeon at [facility] suggests that admitted in the hospital for IV antibiotic and after getting better with the cellulitis he will work with the some pneumatic compressions Patient's came to office today with increasing more redness and according to the patient's and family have a some chills yesterday and decided to admit because patient was treated outpatients clindamycin's last couple of weeks and is still not helping Patient also have a chronic kidney disease and a high dose of the diuretics discussed with the nephrology today and continues to monitor in the hospital Patient's denied any chest pain denied any shortness of the breath denied any abdominal pain no nausea no vomiting Hospital Course Hospital Course: This is a 83-year-old male with the multiple medical problem as able admitting in the hospital for the left lower recurrent cellulitis and start the patient on IV antibiotics and the patient's response very well Recent also giving the IV Lasix and the nephrology was consulted and patient also responds very well with that Since left lower extremity swelling is much better and the redness is much better still have a chronic venous insufficiency and chronic DVT in that leg and patients currently see a [place] vascular surgery as per discussed with him he will make some kind of a pneumatic compressions arrangement as outpatient Patient's otherwise other medical problem is stable Patient's expressed some desire to go homes patients remain afebrile white count is stable and kidney function is stable and a chest x-ray is all clear His p.o. intake is good and patient had a physical therapy was done was all stable Discussed with the were extensively regarding the patient's current condition and the patient itself and understand about this chronic conditions and chronic comorbidity the best we can do for this patient's at this point patients get a maximum benefit in this hospital admissions still requires a multiple follow-up as outpatient Physical Exam Vital Signs: Temp Pulse Resp BP Pulse Ox 98.7 F 61 18 132/59 H 100 01/28/18 07:38 01/28/18 07:38 01/28/18 07:38 01/28/18 07:38 01/28/18 07:38 Intake & Output 01/27/18 01/28/18 01/29/18 06:59 06:59 06:59 Intake Total 1608 2536 Output Total 3100 3650 Balance -1492 -1114 Weight 120.5 kg General appearance: PRESENT: no acute distress, well-developed, well-nourished Head exam: PRESENT: atraumatic, normocephalic Eye exam: PRESENT: conjunctiva pink, EOMI, PERRLA. ABSENT: scleral icterus Ear exam: PRESENT: normal external ear exam Mouth exam: PRESENT: moist, tongue midline Neck exam: PRESENT: full ROM. ABSENT: carotid bruit, JVD, lymphadenopathy, thyromegaly Respiratory exam: PRESENT: clear to auscultation kavitha Cardiovascular exam: PRESENT: RRR. ABSENT: diastolic murmur, rubs, systolic murmur Pulses: PRESENT: normal dorsalis pedis pul, +2 pedal pulses bilateral Vascular exam: PRESENT: normal capillary refill GI/Abdominal exam: PRESENT: normal bowel sounds, soft. ABSENT: distended, guarding, mass, organolmegaly, rebound, tenderness Rectal exam: PRESENT: deferred Extremities exam: PRESENT: pedal edema Musculoskeletal exam: PRESENT: ambulatory Neurological exam: PRESENT: alert, awake, oriented to person, oriented to place , oriented to time, oriented to situation, CN II-XII grossly intact. ABSENT: motor sensory deficit Psychiatric exam: PRESENT: appropriate affect, normal mood. ABSENT: homicidal ideation, suicidal ideation Skin exam: PRESENT: dry, intact, warm. ABSENT: cyanosis, rash Results Laboratory Results: 01/26/18 04:26 01/27/18 04:27 01/21/18 15:20 NT-Pro-B Natriuret Pep 2420 H Impressions: Chest X-Ray 01/25/18 00:00 IMPRESSION: No acute findings Qualifiers - * PATIENT BEING DISCHARGED WITH ANY OF THE FOLLOWING DIAGNOSIS: No VTE patient discharged on overlapping Therapy?: Yes Plan Time Spent: Greater than 30 Minutes - Following a one-week in office follow with the vascular surgery will check a CBC and Chem-7 in 1 week Continues to p.o. antibiotic for another 1 week If any increasing any fever any chills or and increasing in the redness and the swelling in the leg following the ER
[2018-01-28 12:08] VITALS: BP 141/65
== END 2018-01-28 12:43 | disposition home or self-care (01) | DRG 603 ==
LOC: 3N 13:51
PROVIDERS: ADMIT Family Medicine; ATTEND Family Medicine
DX: L03.116 Cellulitis of left lower limb (principal); I82.5Z2 Chronic embolism and thrombosis of unspecified deep veins of left distal lower extremity; I13.0 Hypertensive heart and chronic kidney disease with heart failure and stage 1 through stage 4 chronic kidney disease, or unspecified chronic kidney disease; I50.42 Chronic combined systolic (congestive) and diastolic (congestive) heart failure; E11.22 Type 2 diabetes mellitus with diabetic chronic kidney disease; N18.3 Chronic kidney disease, stage 3 (moderate); I48.2 Chronic atrial fibrillation; I25.10 Atherosclerotic heart disease of native coronary artery without angina pectoris; E78.5 Hyperlipidemia, unspecified; D63.1 Anemia in chronic kidney disease; I87.2 Venous insufficiency (chronic) (peripheral); K21.9 Gastro-esophageal reflux disease without esophagitis; M10.9 Gout, unspecified; Z79.01 Long term (current) use of anticoagulants; Z79.51 Long term (current) use of inhaled steroids; Z79.899 Other long term (current) drug therapy; Z79.4 Long term (current) use of insulin; Z95.810 Presence of automatic (implantable) cardiac defibrillator
CPT/HCPCS: 36415; 71046; 80048; 80053; 82962; 83880; 84443; 85025; 85610; 87040; 87086; 93005; 93010; 94660; G8978-GP; G8979-GP; J0692; J1815; J1940; J3490

== ENCOUNTER 2018-07-09 14:30 | Emergency (ER) | payer MEDICARE, OTHER ==
[2018-07-09] MEDS ORDERED: NORMAL SALINE 500 ML IV ONE (14:50)
[2018-07-09] MEDS ORDERED: ONDANSETRON HCL INJ/PF 4 MG/2 ML SDV IV ONE (15:22)
[2018-07-09] MEDS ORDERED: MORPHINE SULFATE 10 MG/ML INJ IV ONE (15:22)
[2018-07-09 15:35] LABS: ABSOLUTE EOSINOPHILS # (AUTO) 0.1 10^3/uL (0.0-0.6); ABSOLUTE LYMPHOCYTES (AUTO) 0.9 10^3/uL (0.5-4.7); LYMPHOCYTES % (AUTO) 13.8 % (13-45); TOTAL CELLS COUNTED % (AUTO) 100 %
[2018-07-09 15:38] LABS: ABSOLUTE MONOCYTES (AUTO) 0.4 10^3/uL (0.1-1.4); ABSOLUTE NEUT (AUTO) 4.9 10^3/uL (1.7-8.2); BASOPHILS % (AUTO) 0.4 % (0-2); EOSINOPHILS % (AUTO) 0.8 % (0-6); HEMATOCRIT 33.8 % (37.9-51.0); HEMOGLOBIN 11.2 g/dL (13.5-17.0); MEAN CORPUSCULAR HEMOGLOBIN 29.6 pg (27.0-33.4); MEAN CORPUSCULAR HGB CONC 33.2 g/dL (32.0-36.0); MEAN CORPUSCULAR VOLUME 89 fl (80-97); MONOCYTES % (AUTO) 7.1 % (3-13); PLATELET COUNT 212 10^3/uL (150-450); RED BLOOD COUNT 3.78 10^6/uL (4.35-5.55); RED CELL DISTRIBUTION WIDTH 19.2 % (11.5-14.0); SEGMENTED NEUTROPHILS % (AUTO) 77.9 % (42-78); WHITE BLOOD COUNT 6.3 10^3/uL (4.0-10.5)
[2018-07-09 15:39] LABS: INTERNATIONAL RATION (INR) 3.47; PROTHROMBIN TIME 36.5 SEC (11.4-15.4)
[2018-07-09 15:41] LABS: PARTIAL THROMBOPLASTIN TIME 69.4 SEC (23.5-35.8)
[2018-07-09 15:45] LABS: ALANINE AMINOTRANSFERASE 31 U/L (21-72); ALBUMIN 3.6 g/dL (3.5-5.0); ALKALINE PHOSPHATASE 61 U/L (38-126); ANION GAP 13 (5-19); ASPARTATE AMINO TRANSFERASE 36 U/L (17-59); BILIRUBIN,DIRECT 0.3 mg/dL (0.0-0.4); BILIRUBIN,TOTAL 0.6 mg/dL (0.2-1.3); BLOOD UREA NITROGEN 33 mg/dL (7-20); CALCIUM 9.2 mg/dL (8.4-10.2); CARBON DIOXIDE 33 mmol/L (22-30); CHLORIDE 97 mmol/L (98-107); CREATINE KINASE 55 U/L (55-170); GLUCOSE 153 mg/dL (75-110); POTASSIUM 3.6 mmol/L (3.6-5.0); SODIUM 143.2 mmol/L (137-145); TOTAL PROTEIN 7.1 g/dL (6.3-8.2)
[2018-07-09 15:56] LABS: CREATINE KINASE MB 1.44 ng/mL (<4.55); TROPONIN I 0.019 ng/mL
[2018-07-09 16:02] VITALS: BP 144/83
--- NOTE | 2018-07-09 16:59 | RADIOLOGY REPORT (SQ) ---
EXAM DESCRIPTION: CT HEAD WITHOUT COMPLETED DATE/TIME: 07/09/2018 4:47 pm REASON FOR STUDY: fall COMPARISON: None. TECHNIQUE: Axial images acquired through the brain without intravenous contrast. Images reviewed wi th bone, brain and subdural windows. Additional sagittal and coronal reconstructions were generated. Images stored on PACS. All CT scanners at this facility use dose modulation, iterative reconstruction, and/or weight based d osing when appropriate to reduce radiation dose to as low as reasonably achievable (ALARA). [facility]: Dose Right [facility]: CareDose [facility]: Dose Right [facility]: Teradose 4D [facility]: Spare Backup RADIATION DOSE: CT Rad equipment meets quality standard of care and radiation dose reduction techniq ues were employed. CTDIvol: 53.2 mGy. DLP: 1017 mGy-cm.mGy. LIMITATIONS: None. FINDINGS: VENTRICLES: Prominent. CEREBRUM: No masses. No hemorrhage. No midline shift. Areas of low density in the white matter mos t likely due to chronic micro-vascular ischemic change. No evidence for acute infarction. CEREBELLUM: No masses. No hemorrhage. No alteration of density. No evidence for acute infarction. EXTRAAXIAL SPACES: Age-related involutional change. No fluid collections. No masses. ORBITS AND GLOBE: No intra- or extraconal masses. Normal contour of globe without masses. CALVARIUM: No fracture. PARANASAL SINUSES: No fluid or mucosal thickening. SOFT TISSUES: No mass or hematoma. OTHER: No other significant finding. IMPRESSION: CHRONIC CHANGES OF ATROPHY AND MICROVASCULAR ISCHEMIA. NO ACUTE PROCESS. EVIDENCE OF ACUTE STROKE: NO. TECHNICAL DOCUMENTATION: JOB ID: [id number] Quality ID # [id number]: Final reports with documentation of one or more dose reduction techniques (e.g., Au tomated exposure control, adjustment of the mA and/or kV according to patient size, use of iterative reconstruction technique) 2010 [employer]- All Rights Reserved Reading location - IP/workstation name: [email or web address]
--- NOTE | 2018-07-09 17:18 | RADIOLOGY REPORT (SQ) ---
EXAM DESCRIPTION: CHEST SINGLE VIEW COMPLETED DATE/TIME: 07/09/2018 5:00 pm REASON FOR STUDY: fall COMPARISON: 01/25/2018 NUMBER OF VIEWS: One view. TECHNIQUE: Single frontal radiographic image of the chest acquired. LIMITATIONS: None. FINDINGS: LUNGS AND PLEURA: Chronic interstitial changes. No evidence of pulmonary edema or pneumon ia. No pulmonary contusion or pneumothorax. MEDIASTINUM AND HEART: Stable heart size and mediastinal structures. SUPPORT DEVICES: Appropriate location without change. BONY STRUCTURES: No acute findings. HARDWARE: CABG. OTHER: No other significant finding. IMPRESSION: No acute findings in the chest. Reading location - IP/workstation name: [email or web address]
--- NOTE | 2018-07-09 17:19 | RADIOLOGY REPORT (SQ) ---
EXAM DESCRIPTION: L SPINE WHOLE COMPLETED DATE/TIME: 07/09/2018 5:00 pm REASON FOR STUDY: fall COMPARISON: None. NUMBER OF VIEWS: Five views including obliques. TECHNIQUE: AP, lateral, oblique, and sacral radiographic images acquired of the lumbar spine. LIMITATIONS: None. FINDINGS: MINERALIZATION: Osteopenia. SEGMENTATION: Normal. No transitional anatomy. ALIGNMENT: Normal. VERTEBRAE: Maintained height. No fracture or worrisome bone lesion. DISCS: Multilevel disc space narrowing with osteophytes. L3-4 is fused. POSTERIOR ELEMENTS: Pedicles and facets are intact. No pars defect or posterior arch defects. Facet arthropathy is present. HARDWARE: None in the spine. PARASPINAL SOFT TISSUES: IVC filter. PELVIS: Intact as visualized. No fractures or worrisome bone lesions. SI joints intact. OTHER: No other significant finding. IMPRESSION: SPONDYLOSIS WITHOUT BONE LESION OR FRACTURE. TECHNICAL DOCUMENTATION: JOB ID: [id number] [employer]- All Rights Reserved Reading location - IP/workstation name: [email or web address]
--- NOTE | 2018-07-09 18:37 | ER Document Report ---
ED General - General Chief Complaint: Fall Stated Complaint: FALL,BACK PAIN Time Seen by Provider: 07/09/18 14:41 TRAVEL OUTSIDE OF THE [place] IN LAST 30 DAYS: No - HPI Patient complains to provider of: Fall back pain Notes: Patient coming in for evaluation of fall. Patient states normally in place with a walker has a whistle patient states he was not listening to his today try to ambulate to the bathroom in the period of adjusting self facility until it stumbled fell hitting his back patient does not endorse any loss of consciousness but however he states he cannot remember all the events during the fall and after the fall. Patient states he does have chronic back issues and is on oxycodone for his back pain patient states he did miss a dose of his back pain medication prior to arrival however he is complaining of worsening of his back pain. Patient denies any chest pain abdominal pain fever chills nausea vomiting diarrhea. Patient otherwise states he feels normal except for increased pain in his back. Patient is also on Coumadin. Patient states Coumadin level injected on the day was greater than 4. Patient looks to be no obvious distress upon my evaluation. Denies any numbness tingling denies any bowel or bladder incontinence. - Related Data Allergies/Adverse Reactions: nystatin Adverse Reaction (Verified 11/29/17 09:25) Past Medical History - Social History Smoking Status: Unknown if Ever Smoked Family History: CAD, COPD, Hypertension, Malignancy Patient has suicidal ideation: No Patient has homicidal ideation: No - Past Medical History Cardiac Medical History: Reports: Hx Atrial Fibrillation, Hx Congestive Heart Failure, Hx Coronary Artery Disease, Hx DVT, Hx Heart Attack - 1995, Hx Hypercholesterolemia, Hx Hypertension, Hx Pulmonary Embolism Pulmonary Medical History: Reports: Hx Sleep Apnea Denies: Hx Asthma, Hx Tuberculosis Neurological Medical History: Denies: Hx Cerebrovascular Accident, Hx Seizures Endocrine Medical History: Reports: Hx Diabetes Mellitus Type 2 Renal/ Medical History: Reports: Hx Kidney Stones - right side, renal cysts. Denies: Hx Peritoneal Dialysis GI Medical History: Reports: Hx Gastroesophageal Reflux Disease. Denies: Hx Cirrhosis, Hx Crohn's Disease, Hx Hepatitis, Hx Ulcer, Hx Ulcerative Colitis Musculoskeletal Medical History: Reports Hx Arthritis - gout, Reports Hx Gout Skin Medical History: Denies Hx Psoriasis Psychiatric Medical History: Reports: Hx Depression Traumatic Medical History: Denies: Hx Traumatic Brain Injury Infectious Medical History: Denies: Hx Hepatitis Past Surgical History: Reports: Hx Cardiac Surgery - open heart, pacer/defib, Hx Coronary Artery Bypass Graft - 3, Hx Coronary Stent, Hx Internal Defibrillator, Hx Open Heart Surgery - cabg x 3, Hx Pacemaker - upper left chest , Hx Vascular Surgery, Other - Bone graft in the left ankle, surgery of elbow fracture - Immunizations Hx Diphtheria, Pertussis, Tetanus Vaccination: Yes - not UTD Hx Pneumococcal Vaccination: 11/07/11 Review of Systems - Review of Systems Constitutional: No symptoms reported EENT: No symptoms reported Cardiovascular: No symptoms reported Respiratory: No symptoms reported Gastrointestinal: No symptoms reported Genitourinary: No symptoms reported Male Genitourinary: No symptoms reported Musculoskeletal: Back pain Skin: No symptoms reported Hematologic/Lymphatic: No symptoms reported Neurological/Psychological: No symptoms reported -: Yes All other systems reviewed and negative Physical Exam - Vital signs Vitals: Resp Pulse Ox 16 99 07/09/18 14:48 07/09/18 14:48 Interpretation: Normal - General General appearance: Appears well, Alert - HEENT Head: Normocephalic. No: Atraumatic - Small abrasion to the right occipital region Eyes: Normal Conjunctiva: Normal Cornea: Normal Pupils: PERRL Ears: Normal External canal: Normal Tympanic membrane: Normal Sinus: Normal Nasal: Normal Mouth/Lips: Normal Pharynx: Normal Neck: Normal - Respiratory Respiratory status: No respiratory distress Chest status: Nontender Breath sounds: Normal Chest palpation: Normal - Cardiovascular Rhythm: Regular Heart sounds: Normal auscultation Murmur: No - Abdominal Inspection: Normal Distension: No distension Bowel sounds: Normal Tenderness: Nontender Organomegaly: No organomegaly Notes: Multiple small contusions to the right lower flank region - Back Back: Normal, Nontender - Extremities General upper extremity: Normal inspection, Nontender, Normal color, Normal ROM , Normal temperature General lower extremity: Normal inspection, Nontender, Normal color, Normal ROM , Normal temperature, Normal weight bearing. No: Maria D's sign - Neurological Neuro grossly intact: Yes Cognition: Normal Orientation: AAOx4 [place] Coma Scale Eye Opening: Spontaneous [place] Coma Scale Verbal: Oriented [place] Coma Scale Motor: Obeys Commands Juan Luis Coma Scale Total: 15 Speech: Normal Motor strength normal: LUE, RUE, LLE, RLE Sensory: Normal - Psychological Associated symptoms: Normal affect, Normal mood - Skin Skin Temperature: Warm Skin Moisture: Dry Skin Color: Normal Course - Re-evaluation Re-evalutation: 07/09/18 22:33 Laboratory values radiographical information is not reveal any critical pathology. Patient was able to stand at bedside patient upon reevaluation states he feels like his normal self did explain to the patient after a dose of morphine that I would give him a prescription for 8 more tablets of 5 mg of oxycodone done to help for severe back pain or for breakthrough pain. Patient states understanding of this. also states understanding. Patient will be discharged home follow-up primary care physician. The patient presents with low back pain without signs of spinal cord compression, cauda equina syndrome, infection, aneurysm, or other serious etiology. The patient is neurologically intact. Given the extremely low risk of these diagnoses further testing and evaluation for these possibilities does not appear to be indicated at this time. The patient has been instructed to return if the symptoms worsen or change in any way. - Vital Signs Vital signs: Temp Pulse Resp BP Pulse Ox 98.7 F 16 144/83 H 98 07/09/18 15:19 07/09/18 16:00 07/09/18 16:00 07/09/18 16:00 - Laboratory Result Diagrams: 07/09/18 15:00 07/09/18 15:00 Laboratory results interpreted by me: 07/09/18 07/09/18 07/09/18 15:00 15:00 15:00 RBC 3.78 L Hgb 11.2 L Hct 33.8 L RDW 19.2 H PT 36.5 H APTT 69.4 H Chloride 97 L Carbon Dioxide 33 H BUN 33 H Creatinine 1.76 H Est GFR ( Amer) 45 L Est GFR (Non-Af Amer) 37 L Glucose 153 H Magnesium 2.4 H Discharge - Discharge Clinical Impression: Acute exacerbation of chronic low back pain, Multiple contusions Fall Qualifiers: Encounter type: initial encounter Qualified Code(s): W19.XXXA - Unspecified fall, initial encounter Condition: Good Disposition: HOME, SELF-CARE Instructions: Low Back Pain ([facility]), Oral Narcotic Medication ([facility]) Additional Instructions: X-rays laboratory studies did not show any acute pathology. Your INR today is 3.4. Please follow-up with your primary care physician return to ER symptoms worsen continue take your pain medication as prescribed. I will give you a prescription for extra oxycodone to take as needed for severe pain that you did have a recent fall. Please let your pain management doctors P aware of this. Return to ER symptoms worsen. Prescriptions: Oxycodone HCl 5 mg PO Q6 #8 tablet Referrals: DANA TUTTLE MD [Primary Care Provider] - Follow up as needed
--- NOTE | 2018-07-10 14:08 | EKG REPORT ---
SEVERITY:- ABNORMAL ECG - AFIB/FLUT AND V-PACED COMPLEXES : Confirmed by: Arvind Carrizales 10-Jul-2018 14:07:39
== END 2018-07-09 19:00 | disposition home or self-care (01) ==
LOC: ER 14:30
DX: S00.01XA Abrasion of scalp, initial encounter (principal); G89.29 Other chronic pain; M54.5 Low back pain; W01.0XXA Fall on same level from slipping, tripping and stumbling without subsequent striking against object, initial encounter; I48.91 Unspecified atrial fibrillation; I50.9 Heart failure, unspecified; E78.00 Pure hypercholesterolemia, unspecified; I11.0 Hypertensive heart disease with heart failure; E11.9 Type 2 diabetes mellitus without complications; I25.2 Old myocardial infarction; Z86.718 Personal history of other venous thrombosis and embolism; Z79.01 Long term (current) use of anticoagulants; Z87.442 Personal history of urinary calculi; Z95.810 Presence of automatic (implantable) cardiac defibrillator
CPT/HCPCS: 93005; 99284; 96361; 96374; 96375; 36415; 82553; 82550; 83735; 85025; 85610; 85730; 80053; 84484; 71045; 72110; 70450; 93010; J2270; J2405; J7040

== ENCOUNTER → 2018-12-27 | Outpatient (CLI) | payer MEDICARE, OTHER ==
--- NOTE | 2018-12-27 13:45 | RADIOLOGY REPORT (SQ) ---
EXAM DESCRIPTION: CHEST PA/LATERAL COMPLETED DATE/TIME: 12/27/2018 11:45 am REASON FOR STUDY: HEART FAILURE, UNSPECIFIED COMPARISON: 07/09/2018 EXAM PARAMETERS: NUMBER OF VIEWS: two views TECHNIQUE: Digital Frontal and Lateral radiographic views of the chest acquired. RADIATION DOSE: NA LIMITATIONS: none FINDINGS: LUNGS AND PLEURA: Chronic mild interstitial changes in the lungs. No acute pulmonary con solidation. No pneumothorax or pleural effusion. MEDIASTINUM AND HILAR STRUCTURES: No masses or contour abnormalities. HEART AND VASCULAR STRUCTURES: Cardiomegaly, unchanged finding. . No evidence for failure. BONES: No acute findings. HARDWARE: Prior CABG, cardiac pacemaker/defibrillator, stable finding. OTHER: No other significant finding. IMPRESSION: 1. No significant interval changes since the prior examination dated 07/09/2018. No ac [place] findings. TECHNICAL DOCUMENTATION: JOB ID: [id number] [employer]- All Rights Reserved Reading location - IP/workstation name: [email or web address]
== END ==
LOC: OD 11:29
PROVIDERS: ATTEND Family Medicine
DX: I50.9 Heart failure, unspecified (principal)
CPT/HCPCS: 71046

== ENCOUNTER → 2019-05-17 | Outpatient (CLI) | payer MEDICARE, OTHER ==
[2019-05-17 08:51] LABS: ABSOLUTE EOSINOPHILS # (AUTO) 0.1 10^3/uL (0.0-0.6); ABSOLUTE LYMPHOCYTES (AUTO) 1.3 10^3/uL (0.5-4.7); ABSOLUTE MONOCYTES (AUTO) 0.5 10^3/uL (0.1-1.4); ABSOLUTE NEUT (AUTO) 2.7 10^3/uL (1.7-8.2); BASOPHILS % (AUTO) 0.4 % (0-2); EOSINOPHILS % (AUTO) 1.6 % (0-6); HEMATOCRIT 33.2 % (37.9-51.0); HEMOGLOBIN 10.9 g/dL (13.5-17.0); LYMPHOCYTES % (AUTO) 28.3 % (13-45); MEAN CORPUSCULAR HEMOGLOBIN 28.6 pg (27.0-33.4); MEAN CORPUSCULAR HGB CONC 32.8 g/dL (32.0-36.0); MEAN CORPUSCULAR VOLUME 87 fl (80-97); MONOCYTES % (AUTO) 11.2 % (3-13); PLATELET COUNT 163 10^3/uL (150-450); RED BLOOD COUNT 3.81 10^6/uL (4.35-5.55); RED CELL DISTRIBUTION WIDTH 18.9 % (11.5-14.0); SEGMENTED NEUTROPHILS % (AUTO) 58.5 % (42-78); TOTAL CELLS COUNTED % (AUTO) 100 %; WHITE BLOOD COUNT 4.5 10^3/uL (4.0-10.5)
[2019-05-17 09:19] LABS: ALBUMIN 3.7 g/dL (3.5-5.0); ANION GAP 8 (5-19); BLOOD UREA NITROGEN 36 mg/dL (7-20); CALCIUM 9.9 mg/dL (8.4-10.2); CARBON DIOXIDE 33 mmol/L (22-30); CHLORIDE 98 mmol/L (98-107); GLUCOSE 79 mg/dL (75-110); IRON(TIBC) 39.7 ug/dL (49-181); POTASSIUM 4.6 mmol/L (3.6-5.0)
== END ==
LOC: OD 08:13
PROVIDERS: ATTEND Internal Medicine Nephrology
DX: I12.9 Hypertensive chronic kidney disease with stage 1 through stage 4 chronic kidney disease, or unspecified chronic kidney disease (principal); N18.3 Chronic kidney disease, stage 3 (moderate); E11.22 Type 2 diabetes mellitus with diabetic chronic kidney disease; D63.1 Anemia in chronic kidney disease; N25.81 Secondary hyperparathyroidism of renal origin; E55.9 Vitamin D deficiency, unspecified
CPT/HCPCS: 36415; 80048; 82040; 82306; 82728; 83540; 83550; 83970; 85025

== ENCOUNTER → 2019-07-26 | Outpatient (CLI) | payer MEDICARE, OTHER ==
--- NOTE | 2019-07-26 11:54 | WOMENS IMAGING REPORT ---
EXAM DESCRIPTION: U/S BREAST UNILAT LIMITED COMPLETED DATE/TIME: 07/26/2019 11:01 am REASON FOR STUDY: N63.0 UNSPECIFIED LUMP IN UNSPECIFIED BREAST N63.0 UNSPECIFIED LUMP IN UNSPECIFIE D BREAST COMPARISON: None TECHNIQUE: Static and Realtime grayscale interrogation of focal area(s) of concern in the right antonio st(s) acquired. Limited comparison imaging of the same region of interest in the left breast also pe rformed. Selected color doppler/spectral images saved to PACS. LIMITATIONS: None. FINDINGS: Masses:Irregular hypoechoic retroareolar tissue looks like gynecomastia without discrete m ass. Similar appearance in the left breast on comparison. Architecture:No alteration of normal morphology. No skin thickening. No edema. Other: None. IMPRESSION: Findings are likely technology sales representative of bilateral gynecomastia, right greater than left. Correlation should still be made with mammography to complete evaluation. BIRAD: 0 Incomplete: Need additional imaging evaluation and/or prior mammograms for comparison.. RECOMMENDATION: RECOMMENDED FOLLOW-UP: Bilateral diagnostic mammography. COMMENT: The [employer] [employer] (ACR) has developed recommendations for screening MRI of the breasts in certain patient populations, to be used in conjunction with mammography. Breast MRI s urveillance may be appropriate for women with more than 20% lifetime risk of developing breast cancer as determined by genetic testing, significant family history of the disease, or history of mantle r adiation for Hodgkins Disease. ACR Practice Guidelines 2008. TECHNICAL DOCUMENTATION: FINDING NUMBER: (1) ASSESSMENT: (1) JOB ID: [id number] [employer]- All Rights Reserved Reading location - IP/workstation name: [email or web address]
== END ==
LOC: WI 10:32
PROVIDERS: ATTEND Family Medicine
DX: N62 Hypertrophy of breast (principal)
CPT/HCPCS: 76642

== ENCOUNTER → 2019-08-10 | Outpatient (CLI) | payer MEDICARE, OTHER ==
--- NOTE | 2019-08-10 11:09 | WOMENS IMAGING REPORT ---
EXAM DESCRIPTION: 3D DX MAMMO BILAT COMPLETED DATE/TIME: 08/10/2019 10:50 am REASON FOR STUDY: N63.10 UNSPECIFIED LUMP IN THE RIGHT BREAST,N63.20 UNSPECIFIED LUMP IN THE N63.10 UNSPECIFIED LUMP IN THE RIGHT BREAST, UNSPECIFIED [place] N63.20 UNSPECIFIED LUMP IN THE LEFT BREAST, U NSPECIFIED QUAD COMPARISON: Bilateral breast ultrasound 07/26/2019 EXAM PARAMETERS: Standard craniocaudal and mediolateral oblique views of each breast recorded using digital acquisition and breast tomosynthesis. Unable to obtain bilateral 90 mediolateral views due to physical limitations of the patient Read with the assistance of CAD: .[employer] Extension Service Specialist In Charge Version 9.2 LIMITATIONS: None. FINDINGS: RIGHT BREAST MASSES: No suspicious masses. CALCIFICATIONS: No new or suspicious calcifications. ARCHITECTURAL DISTORTION: None. ASYMMETRY: None noted. OTHER: Right gynecomastia is present LEFT BREAST MASSES: No suspicious masses. CALCIFICATIONS: No new or suspicious calcifications. ARCHITECTURAL DISTORTION: None. ASYMMETRY: None noted. OTHER: Left gynecomastia is present IMPRESSION: Bilateral gynecomastia BREAST DENSITY: b. There are scattered areas of fibroglandular density. BIRAD: ASSESSMENT: 1 Negative. RECOMMENDATION: RECOMMENDED FOLLOW UP: Clinical follow-up bilaterally SPECIFIC INTERVENTION/IMAGING/CONSULTATION RECOMMENDED:No additional intervention/ imaging/consultati on needed at this time. COMMUNICATION:Patient notified by letter COMMENT: The patient has been notified of the results by letter per SA requirements. Additional no tification policies are in place for contacting patient with suspicious or incomplete findings. Quality ID #225: The [employer] recommends an annual screening mammogram for women aged 40 years or over. This facility utilizes a reminder system to ensure that all patients receive reminder letters, and/or direct phone calls for appointments. This includes reminders for routine scr eening mammograms, diagnostic mammograms, or other Breast Imaging Interventions when appropriate. Th is patient will be placed in the appropriate reminder system. TECHNICAL DOCUMENTATION: FINDING NUMBER: (1) ASSESSMENT: (1) JOB ID: [id number] [employer]- All Rights Reserved Reading location - IP/workstation name: [email or web address]
== END ==
LOC: WI 10:22
PROVIDERS: ATTEND Physician Assistant
DX: N63.10 Unspecified lump in the right breast, unspecified quadrant (principal); N63.20 Unspecified lump in the left breast, unspecified quadrant
CPT/HCPCS: 77066; G0279; 77062

== ENCOUNTER → 2019-08-29 | Outpatient (CLI) | payer MEDICARE, OTHER ==
[2019-08-29 10:44] LABS: ABSOLUTE EOSINOPHILS # (AUTO) 0.1 10^3/uL (0.0-0.6); ABSOLUTE MONOCYTES (AUTO) 0.5 10^3/uL (0.1-1.4); ABSOLUTE NEUT (AUTO) 2.5 10^3/uL (1.7-8.2); BASOPHILS % (AUTO) 0.5 % (0-2); EOSINOPHILS % (AUTO) 1.8 % (0-6); HEMATOCRIT 33.2 % (37.9-51.0); HEMOGLOBIN 10.9 g/dL (13.5-17.0); LYMPHOCYTES % (AUTO) 24.8 % (13-45); MEAN CORPUSCULAR HEMOGLOBIN 28.5 pg (27.0-33.4); MEAN CORPUSCULAR HGB CONC 32.9 g/dL (32.0-36.0); MEAN CORPUSCULAR VOLUME 87 fl (80-97); MONOCYTES % (AUTO) 12.2 % (3-13); PLATELET COUNT 180 10^3/uL (150-450); RED BLOOD COUNT 3.83 10^6/uL (4.35-5.55); RED CELL DISTRIBUTION WIDTH 17.5 % (11.5-14.0); SEGMENTED NEUTROPHILS % (AUTO) 60.7 % (42-78); TOTAL CELLS COUNTED % (AUTO) 100 %; WHITE BLOOD COUNT 4.1 10^3/uL (4.0-10.5)
[2019-08-29 11:24] LABS: ALBUMIN 3.8 g/dL (3.5-5.0); ANION GAP 13 (5-19); BLOOD UREA NITROGEN 43 mg/dL (7-20); CALCIUM 9.7 mg/dL (8.4-10.2); CARBON DIOXIDE 31 mmol/L (22-30); CHLORIDE 96 mmol/L (98-107); GLUCOSE 155 mg/dL (75-110); IRON(TIBC) 67.1 ug/dL (49-181); POTASSIUM 3.9 mmol/L (3.6-5.0)
== END ==
LOC: OD 10:09
PROVIDERS: ATTEND Internal Medicine Nephrology
DX: E11.22 Type 2 diabetes mellitus with diabetic chronic kidney disease (principal); I12.9 Hypertensive chronic kidney disease with stage 1 through stage 4 chronic kidney disease, or unspecified chronic kidney disease; N18.3 Chronic kidney disease, stage 3 (moderate); D63.1 Anemia in chronic kidney disease; N25.81 Secondary hyperparathyroidism of renal origin; E55.9 Vitamin D deficiency, unspecified
CPT/HCPCS: 36415; 80048; 82040; 82306; 82728; 83540; 83550; 83970; 85025

== ENCOUNTER → 2019-09-19 | Outpatient (CLI) | payer MEDICARE, OTHER ==
[2019-09-19 11:08] LABS: ABSOLUTE EOSINOPHILS # (AUTO) 0.1 10^3/uL (0.0-0.6); ABSOLUTE LYMPHOCYTES (AUTO) 0.7 10^3/uL (0.5-4.7); ABSOLUTE MONOCYTES (AUTO) 0.3 10^3/uL (0.1-1.4); ABSOLUTE NEUT (AUTO) 2.2 10^3/uL (1.7-8.2); BASOPHILS % (AUTO) 0.6 % (0-2); EOSINOPHILS % (AUTO) 2.8 % (0-6); HEMATOCRIT 31.4 % (37.9-51.0); HEMOGLOBIN 10.2 g/dL (13.5-17.0); LYMPHOCYTES % (AUTO) 21.9 % (13-45); MEAN CORPUSCULAR HEMOGLOBIN 28.5 pg (27.0-33.4); MEAN CORPUSCULAR HGB CONC 32.6 g/dL (32.0-36.0); MEAN CORPUSCULAR VOLUME 87 fl (80-97); MONOCYTES % (AUTO) 9.3 % (3-13); PLATELET COUNT 203 10^3/uL (150-450); RED BLOOD COUNT 3.59 10^6/uL (4.35-5.55); RED CELL DISTRIBUTION WIDTH 18.3 % (11.5-14.0); SEGMENTED NEUTROPHILS % (AUTO) 65.4 % (42-78); TOTAL CELLS COUNTED % (AUTO) 100 %; WHITE BLOOD COUNT 3.4 10^3/uL (4.0-10.5)
[2019-09-19 11:40] LABS: ANION GAP 11 (5-19); BLOOD UREA NITROGEN 47 mg/dL (7-20); CALCIUM 9.3 mg/dL (8.4-10.2); CARBON DIOXIDE 29 mmol/L (22-30); CHLORIDE 97 mmol/L (98-107); GLUCOSE 121 mg/dL (75-110)
== END ==
LOC: OD 09:39
PROVIDERS: ATTEND Family Medicine
DX: N18.3 Chronic kidney disease, stage 3 (moderate) (principal)
CPT/HCPCS: 36415; 80048; 85025

== ENCOUNTER 2019-10-21 11:20 | Inpatient (IN) | payer MEDICARE, OTHER ==
--- NOTE | 2019-10-21 11:43 | ER Document Report ---
ED Medical Screen (RME) - General Chief Complaint: Fall Injury Stated Complaint: FALL/HEAD INJURY Time Seen by Provider: 10/21/19 11:30 Primary Care Provider: DANA TUTTLE MD [Primary Care Provider] - Follow up as needed TRAVEL OUTSIDE OF THE [place] IN LAST 30 DAYS: No - HPI Notes: 10/21/19 11:38 Patient is an 84-year-old male with an extensive medical history including but not limited to being on coumadin, diabetes, lymphedema, recurrent cellulitis with complaining of left leg redness, swelling that began over the past day with generalized weakness and fall at 0130 this morning. states that he was standing up next his walker trying to use urinal when somehow he fell onto his left side and hit the back of his head as well. He was sent by Dr. Tuttle's office for eval. No JOEL, fever, CP, SOB, dyspnea. Pt states that he does not have any significant pain anywhere. I have treated and performed a rapid initial assessment of this patient. A comprehensive ED assessment and evaluation of the patient, analysis of test results and completion of medical decision making process will be conducted by additional ED providers. PHYSICAL EXAMINATION:--- Patient will need further evaluation when he is in a bed/gown. GENERAL: Well-appearing, well-nourished and in no acute distress. A&Ox4. Answers questions appropriately. Head: Atraumatic without iglesias sign or hematoma Neck: No obvious midline tenderness. There is full range of motion. Pelvis: Stable at this time. Patient has been ambulatory. Skin: There are some skin tears noted to the upper extremities bilaterally into the left ear. Ext's: lymphedema b/l. LLE: there is significant erythema and warmth to the majority of the LLE. - Related Data Allergies/Adverse Reactions: nystatin Adverse Reaction (Verified 11/29/17 09:25) Past Medical History - Past Medical History Cardiac Medical History: Reports: Hx Atrial Fibrillation, Hx Congestive Heart Failure, Hx Coronary Artery Disease, Hx DVT, Hx Heart Attack - 1995, Hx Hypercholesterolemia, Hx Hypertension, Hx Pulmonary Embolism Pulmonary Medical History: Reports: Hx Sleep Apnea Denies: Hx Asthma, Hx Tuberculosis Neurological Medical History: Denies: Hx Cerebrovascular Accident, Hx Seizures Endocrine Medical History: Reports: Hx Diabetes Mellitus Type 2 Renal/ Medical History: Reports: Hx Kidney Stones - right side, renal cysts. Denies: Hx Peritoneal Dialysis GI Medical History: Reports: Hx Gastroesophageal Reflux Disease. 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, Reports Hx Gout Skin Medical History: Denies Hx Psoriasis Psychiatric Medical History: Reports: Hx Depression Traumatic Medical History: Denies: Hx Traumatic Brain Injury Infectious Medical History: Denies: Hx Hepatitis Past Surgical History: Reports: Hx Cardiac Surgery - open heart, pacer/defib, Hx Coronary Artery Bypass Graft - 3, Hx Coronary Stent, Hx Internal Defibrillator, Hx Open Heart Surgery - cabg x 3, Hx Pacemaker - upper left chest, Hx Vascular Surgery, Other - Bone graft in the left ankle, surgery of elbow fracture - Immunizations Hx Diphtheria, Pertussis, Tetanus Vaccination: Yes - not UTD Physical Exam - Vital signs Vitals: Temp Pulse Resp BP Pulse Ox 98.4 F 76 16 131/61 H 97 10/21/19 11:30 10/21/19 11:30 10/21/19 11:30 10/21/19 11:30 10/21/19 11:30 Course - Vital Signs Vital signs: Temp Pulse Resp BP Pulse Ox 98.4 F 76 16 131/61 H 97 10/21/19 11:30 10/21/19 11:30 10/21/19 11:30 10/21/19 11:30 10/21/19 11:30 Doctor's Discharge - Discharge Referrals: DANA TUTTLE MD [Primary Care Provider] - Follow up as needed
--- NOTE | 2019-10-21 13:15 | RADIOLOGY REPORT (SQ) ---
EXAM DESCRIPTION: CHEST SINGLE VIEW COMPLETED DATE/TIME: 10/21/2019 1:02 pm REASON FOR STUDY: weakness COMPARISON: 12/27/2018 EXAM PARAMETERS: NUMBER OF VIEWS: One view. TECHNIQUE: Single frontal radiographic view of the chest acquired. RADIATION DOSE: NA LIMITATIONS: None. FINDINGS: LUNGS AND PLEURA: No opacities, masses or pneumothorax. No pleural effusion. MEDIASTINUM AND HILAR STRUCTURES: No masses. Contour normal. HEART AND VASCULAR STRUCTURES: Enlarged, stable. Aortic atherosclerosis. BONES: No acute findings. HARDWARE: Stable cardiac pacer/ defibrillator. CABG hardware. OTHER: No other significant finding. IMPRESSION: No evidence of acute cardiopulmonary process. Evidence of prior CABG. TECHNICAL DOCUMENTATION: JOB ID: [id number] [employer]- All Rights Reserved Reading location - IP/workstation name: [email or web address]
--- NOTE | 2019-10-21 13:19 | RADIOLOGY REPORT (SQ) ---
EXAM DESCRIPTION: CT HEAD WITHOUT COMPLETED DATE/TIME: 10/21/2019 1:02 pm REASON FOR STUDY: fall, injury COMPARISON: 07/09/2018 TECHNIQUE: Axial images acquired through the brain without intravenous contrast. Images reviewed wi th bone, brain and subdural windows. Additional sagittal and coronal reconstructions were generated. Images stored on PACS. All CT scanners at this facility use dose modulation, iterative reconstruction, and/or weight based d osing when appropriate to reduce radiation dose to as low as reasonably achievable (ALARA). [facility]: Dose Right [facility]: CareDose [facility]: Dose Right [facility]: Teradose 4D [facility]: [employer] RADIATION DOSE: CT Rad equipment meets quality standard of care and radiation dose reduction techniq ues were employed. CTDIvol: 53.2 mGy. DLP: 964 mGy-cm.mGy. LIMITATIONS: None. FINDINGS: VENTRICLES: Prominent. CEREBRUM: No masses. No hemorrhage. No midline shift. Areas of low density in the white matter mos t likely due to chronic micro-vascular ischemic change. Unchanged more focal areas of hypoattenuatio n within the bilateral basal ganglia and left occipital and parietal lobes compatible with prior infa rcts No evidence for acute infarction. CEREBELLUM: No masses. No hemorrhage. No alteration of density. No evidence for acute infarction. EXTRAAXIAL SPACES: Age-related involutional change. No fluid collections. No masses. ORBITS AND GLOBE: No intra- or extraconal masses. Normal contour of globe without masses. CALVARIUM: No fracture. PARANASAL SINUSES: No fluid or mucosal thickening. SOFT TISSUES: No mass or hematoma. OTHER: No other significant finding. IMPRESSION: No evidence of acute intracranial process. Stable white matter changes, likely sequelae of microangiopathic disease and chronic infarcts as abov e. EVIDENCE OF ACUTE STROKE: NO. TECHNICAL DOCUMENTATION: JOB ID: [id number] Quality ID # [id number]: Final reports with documentation of one or more dose reduction techniques (e.g., Au tomated exposure control, adjustment of the mA and/or kV according to patient size, use of iterative reconstruction technique) 2010 [employer]- All Rights Reserved Reading location - IP/workstation name: [email or web address]
--- NOTE | 2019-10-21 13:22 | RADIOLOGY REPORT (SQ) ---
EXAM DESCRIPTION: CT CERVICAL SPINE WITHOUT COMPLETED DATE/TIME: 10/21/2019 1:03 pm REASON FOR STUDY: fall, injury COMPARISON: None. TECHNIQUE: Axial images acquired through the cervical spine without intravenous contrast. Images re viewed with lung, soft tissue and bone windows. Reconstructed coronal and sagittal MPR images review ed. Images stored on PACS. All CT scanners at this facility use dose modulation, iterative reconstruction, and/or weight based d osing when appropriate to reduce radiation dose to as low as reasonably achievable (ALARA). [facility]: Dose Right [facility]: CareDose [facility]: Dose Right [facility]: Teradose 4D [facility]: [employer] RADIATION DOSE: CT Rad equipment meets quality standard of care and radiation dose reduction techniq ues were employed. CTDIvol: 23.3 mGy. DLP: 568 mGy-cm. mGy. LIMITATIONS: Motion artifact. FINDINGS: ALIGNMENT: Reversed lower MINERALIZATION: Normal. VERTEBRAL BODIES: No fractures or dislocation. DISCS: Multilevel disc height loss throughout the cervical spine greatest at C5-6 and C6-7. Associat ed endplate change with uncovertebral hypertrophy and osteophytosis. FACETS, LATERAL MASSES, POSTERIOR ELEMENTS: No evidence of facet fracture or dislocation. Multilevel facet arthropathy, greatest at C4-5. HARDWARE: Partially visualized pacer hardware and sternotomy wires. VISUALIZED RIBS: No fractures. LUNG APICES AND SOFT TISSUES: No pneumothorax. Vascular calcifications. OTHER: No other significant finding. IMPRESSION: No evidence of acute bony abnormality of the cervical spine. Multilevel degenerative disc disease and facet arthropathy. TECHNICAL DOCUMENTATION: JOB ID: [id number] Quality ID # [id number]: Final reports with documentation of one or more dose reduction techniques (e.g., Au tomated exposure control, adjustment of the mA and/or kV according to patient size, use of iterative reconstruction technique) 2010 [employer]- All Rights Reserved Reading location - IP/workstation name: [email or web address]
[2019-10-21 14:20] LABS: ABSOLUTE LYMPHOCYTES (AUTO) 0.9 10^3/uL (0.5-4.7); ABSOLUTE MONOCYTES (AUTO) 0.4 10^3/uL (0.1-1.4); ABSOLUTE NEUT (AUTO) 12.3 10^3/uL (1.7-8.2); BASOPHILS % (AUTO) 0.2 % (0-2); EOSINOPHILS % (AUTO) 0.1 % (0-6); HEMATOCRIT 32.6 % (37.9-51.0); HEMOGLOBIN 10.7 g/dL (13.5-17.0); LYMPHOCYTES % (AUTO) 6.9 % (13-45); MEAN CORPUSCULAR HEMOGLOBIN 28.5 pg (27.0-33.4); MEAN CORPUSCULAR HGB CONC 32.8 g/dL (32.0-36.0); MEAN CORPUSCULAR VOLUME 87 fl (80-97); PLATELET COUNT 196 10^3/uL (150-450); RED BLOOD COUNT 3.75 10^6/uL (4.35-5.55); RED CELL DISTRIBUTION WIDTH 20.7 % (11.5-14.0); SEGMENTED NEUTROPHILS % (AUTO) 89.8 % (42-78); TOTAL CELLS COUNTED % (AUTO) 100 %; WHITE BLOOD COUNT 13.7 10^3/uL (4.0-10.5)
[2019-10-21 14:26] LABS: PROTHROMBIN TIME 24.8 SEC (11.4-15.4)
[2019-10-21 14:29] LABS: VENOUS BLOOD BASE EXCESS 0.8 mmol/L; VENOUS BLOOD HCO3 27.1 mmol/L (20-32); VENOUS BLOOD PCO2 51.2 mmHg (35-63); VENOUS BLOOD PH 7.34 (7.30-7.42)
[2019-10-21 14:42] LABS: ALBUMIN 3.7 g/dL (3.5-5.0); ALKALINE PHOSPHATASE 58 U/L (38-126); ANION GAP 9 (5-19); ASPARTATE AMINO TRANSFERASE 33 U/L (17-59); BILIRUBIN,DIRECT 0.3 mg/dL (0.0-0.4); BILIRUBIN,TOTAL 0.9 mg/dL (0.2-1.3); BLOOD UREA NITROGEN 45 mg/dL (7-20); CALCIUM 9.8 mg/dL (8.4-10.2); CARBON DIOXIDE 29 mmol/L (22-30); CHLORIDE 96 mmol/L (98-107); GLUCOSE 215 mg/dL (75-110); TOTAL PROTEIN 7.3 g/dL (6.3-8.2)
--- NOTE | 2019-10-21 14:49 | EKG REPORT ---
SEVERITY:- ABNORMAL ECG - FAILURE TO SENSE AND/OR CAPTURE (?MAGNET) : Confirmed by: Albertina Mays MD 21-Oct-2019 14:48:52
[2019-10-21] MEDS ORDERED: CEFEPIME 1 GM/D5W RTU 1 GM/50 ML RTUPB IV ONE (15:04)
[2019-10-21] MEDS ORDERED: OXYCODONE-ACETAMINOPHEN 5-325 MG TABLET PO PRN (15:52)
[2019-10-21] MEDS ORDERED: ACETAMINOPHEN 325 MG TABLET PO PRN (15:52)
--- NOTE | 2019-10-21 16:53 | PDOC H&P ---
History of Present Illness Admission Date/PCP: DANA RODRIGUEZ MD Patient complains of: Left leg cellulitis and the fall History of Present Illness: MARY SHEPHERD is a 84 year old male Mr. Shepherd is an 84-year-old male with past medical history of hypertension, A. fib, CAD, CKD, chronic cellulitis, diabetes who presents today with his and his son complaining of left lower extremity erythema as well as recent fall. Primary history is provided by and son. reports that yesterday patient's left lower extremity became red, swollen more than usual, and patient developed chills. She denies any fever, no upper respiratory symptoms. Patient with history of chronic cellulitis in the left lower extremity. reports that since the left lower extremity has been more red he was more loopy than usual last night, she reports that at 130 this morning he fell. He fell onto his left head, left arm and shoulder, and has had bruising since then. She reports she tried to take him to the ER this morning but he did not want to go. He denies any headache, no vision changes, admits he is fatigued. Patient is currently on Coumadin for A. fib, last INR check on Thursday was 3.5. held his Coumadin until today, he has not been taking it. In the emergency department patient CT head was negative for any acute finding but patient's white count was elevated and patient is consistent with the left lower extremity cellulitis And her ongoing problem with the cellulitis several hospital admissions including the here in the [facility] and seen by the vascular surgery also prescribed the compression foot device No significant history of the congestive heart failure's and chronic kidney disease and significant hospital admissions including the [facility] see a Dr. Rodriguez over there treatment the IV Lasix Also see a pain management Dr. Daryl Pathak with chronic back problems At this point decided to admit the patient to the hospital for the IV antibiotics and will be put some IV Lasix Past Medical History Cardiac Medical History: Reports: Atrial Fibrillation, Congestive Heart Failure, Coronary Artery Disease, DVT, Myocardial Infarction - 1995, Hyperlipidema, Hypertension, Pulmonary Embolism Pulmonary Medical History: Reports: Chronic Obstructive Pulmonary Disease (C OPD), Sleep Apnea Denies: Asthma, Tuberculosis Neurological Medical History: Denies: Seizures Endocrine Medical History: Reports: Diabetes Mellitus Type 2 Renal/ Medical History: Reports: Chronic Kidney Disease GI Medical History: Reports: Gastroesophageal Reflux Disease Denies: Cirrhosis, Crohn's Disease, Hepatitis, Ulcerative Colitis Musculoskeltal Medical History: Reports: Arthritis - gout, Gout Skin Medical History: Denies: Psoriasis Psychiatric Medical History: Reports: Depression Traumatic Medical History: Denies: Traumatic Brain Injury Hematology: Reports: Anemia Denies: Sickle Cell Disease Past Surgical History Past Surgical History: Reports: Coronary Artery Bypass Graft - 3, Coronary Stent, Internal Defibrillator, Pacemaker - upper left chest, Vascular Surgery, Other - Bone graft in the left ankle, surgery of elbow fracture Social History Information Source: Patient, Relative Smoking Status: Never Smoker Frequency of Alcohol Use: None Hx Recreational Drug Use: No Drugs: None Hx Prescription Drug Abuse: No Family History Family History: Reviewed & Not Pertinent, CAD, COPD, Hypertension, Malignancy Parental Family History Reviewed: Yes Children Family History Reviewed: Yes Sibling(s) Family History Reviewed.: Yes Medication/Allergy Allergies/Adverse Reactions: nystatin Adverse Reaction (Verified 11/29/17 09:25) Review of Systems Constitutional: PRESENT: fatigue, weakness. ABSENT: chills, fever(s), headache(s), weight gain, weight loss Eyes: ABSENT: visual disturbances Ears: ABSENT: hearing changes Cardiovascular: PRESENT: dyspnea on exertion. ABSENT: chest pain, edema, orthropnea, palpitations Respiratory: ABSENT: cough, hemoptysis Gastrointestinal: ABSENT: abdominal pain, constipation, diarrhea, hematemesis, hematochezia, nausea, vomiting Genitourinary: ABSENT: dysuria, hematuria Musculoskeletal: ABSENT: joint swelling Integumentary: PRESENT: erythema. ABSENT: rash, wounds Neurological: ABSENT: abnormal gait, abnormal speech, confusion, dizziness, focal weakness, syncope Psychiatric: ABSENT: anxiety, depression, homidical ideation, suicidal ideation Endocrine: ABSENT: cold intolerance, heat intolerance, menstrual abnormalities, polydipsia, polyuria Hematologic/Lymphatic: ABSENT: easy bleeding, easy bruising, lymphadenopathy Physical Exam Vital Signs: Temp Pulse Resp BP Pulse Ox 98.4 F 76 16 131/61 H 99 10/21/19 11:30 10/21/19 11:30 10/21/19 11:30 10/21/19 11:30 10/21/19 13:22 Intake & Output 10/20/19 10/21/19 10/22/19 06:59 06:59 06:59 Weight 112.037 kg General appearance: PRESENT: no acute distress, well-developed, well-nourished Head exam: PRESENT: atraumatic, normocephalic Eye exam: PRESENT: conjunctiva pink, EOMI, PERRLA. ABSENT: scleral icterus Ear exam: PRESENT: normal external ear exam Mouth exam: PRESENT: moist, tongue midline Neck exam: PRESENT: full ROM. ABSENT: carotid bruit, JVD, lymphadenopathy, thyromegaly Respiratory exam: PRESENT: decreased breath sounds Cardiovascular exam: PRESENT: RRR. ABSENT: diastolic murmur, rubs, systolic murmur Vascular exam: PRESENT: normal capillary refill GI/Abdominal exam: PRESENT: normal bowel sounds, soft. ABSENT: distended, guarding, mass, organolmegaly, rebound, tenderness Rectal exam: PRESENT: deferred Extremities exam: PRESENT: pedal edema Additional comments: Left lower extremity significant swelling and the redness is present Neurological exam: PRESENT: alert, awake, oriented to person, oriented to place. ABSENT: motor sensory deficit Psychiatric exam: PRESENT: appropriate affect, normal mood. ABSENT: homicidal ideation, suicidal ideation Skin exam: PRESENT: dry, intact, warm. ABSENT: cyanosis, rash Results Laboratory Results: 10/21/19 14:00 10/21/19 14:00 10/21/19 10/21/19 10/21/19 14:00 14:00 14:00 WBC 13.7 H RBC 3.75 L Hgb 10.7 L Hct 32.6 L MCV 87 MCH 28.5 MCHC 32.8 RDW 20.7 H Plt Count 196 Seg Neutrophils % 89.8 H VBG pH VBG pCO2 VBG HCO3 VBG Base Excess Sodium 134.3 L Potassium 4.0 Chloride 96 L Carbon Dioxide 29 Anion Gap 9 BUN 45 H Creatinine 1.58 H Est GFR ( Amer) 51 L Glucose 215 H Lactic Acid 1.7 Calcium 9.8 Total Bilirubin 0.9 AST 33 Alkaline Phosphatase 58 Total Protein 7.3 Albumin 3.7 10/21/19 14:20 WBC RBC Hgb Hct MCV MCH MCHC RDW Plt Count Seg Neutrophils % VBG pH 7.34 VBG pCO2 51.2 VBG HCO3 27.1 VBG Base Excess 0.8 Sodium Potassium Chloride Carbon Dioxide Anion Gap BUN Creatinine Est GFR ( Amer) Glucose Lactic Acid Calcium Total Bilirubin AST Alkaline Phosphatase Total Protein Albumin Impressions: Cervical Spine CT 10/21/19 11:36 IMPRESSION: No evidence of acute bony abnormality of the cervical spine. Multilevel degenerative disc disease and facet arthropathy. Head CT 10/21/19 11:36 IMPRESSION: No evidence of acute intracranial process. 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 EVIDENCE OF ACUTE STROKE: NO. Chest X-Ray 10/21/19 11:37 IMPRESSION: No evidence of acute cardiopulmonary process. Evidence of prior CABG. Assessment & Plan - Diagnosis (1) Cellulitis of left lower extremity Plan: Start the patient on a broad-spectrum IV antibiotic (2) Anemia in chronic kidney disease (CKD) Qualifiers: Chronic kidney disease stage: stage 3 (moderate) Qualified Code(s): N18.3 - Chronic kidney disease, stage 3 (moderate); D63.1 - Anemia in chronic kidney disease Is this a current diagnosis for this admission?: Yes Plan: Patient is currently see her Dr. Hutchison as outpatients (3) Atrial fibrillation Qualifiers: Atrial fibrillation type: unspecified Qualified Code(s): I48.91 - Unspecified atrial fibrillation Is this a current diagnosis for this admission?: Yes Plan: Patient is currently taking the CoumadinPatient also see a cardiology at [facility] (4) CAD (coronary artery disease) Qualifiers: Coronary Disease-Associated Artery/Lesion type: unspecified vessel or lesion type Is this a current diagnosis for this admission?: Yes Plan: Patient with significant coronary artery disease currently seeing cardiology at [place] will rule out acute coronary syndromes (5) CHF (congestive heart failure) Qualifiers: Heart failure type: combined systolic and diastolic Heart failure chroni city: acute on chronic Qualified Code(s): I50.43 - Acute on chronic combined systolic (congestive) and diastolic (congestive) heart failure Is this a current diagnosis for this admission?: Yes Plan: We will start the patient on IV Lasix (6) Cardiac defibrillator in situ Is this a current diagnosis for this admission?: Yes (7) Chronic kidney disease, stage 3 Is this a current diagnosis for this admission?: Yes (8) DVT (deep venous thrombosis) Qualifiers: DVT location: lower extremity Laterality: unspecified laterality Is this a current diagnosis for this admission?: Yes Plan: Continues to Coumadin (9) Diabetic nephropathy Qualifiers: Diabetes mellitus type: type 2 Qualified Code(s): E11.21 - Type 2 diabetes mellitus with diabetic nephropathy Is this a current diagnosis for this admission?: Yes (10) Hypertension Qualifiers: Hypertension type: essential hypertension Is this a current diagnosis for this admission?: Yes Plan: Currently all stable (11) Sleep disorder Plan: Continues to CPAP (13) Fall Qualifiers: Encounter type: initial encounter Qualified Code(s): W19.XXXA - Unspecified fall, initial encounter Is this a current diagnosis for this admission?: Yes Plan: Patient CT head is all negative Will rule out acute coronary syndromes will get the defibrillator interrogations - Time Time Spent: 50 to 70 Minutes Medications reviewed and adjusted accordingly: Yes Anticipated discharge: Home with Homehealth Within: Other - Inpatient Certification Based on my medical assessment, after consideration of the patient's comorbidities, presenting symptoms, or acuity I expect that the services needed warrant INPATIENT care.: Yes I certify that my determination is in accordance with my understanding of Medicare's requirements for reasonable and necessary INPATIENT services [42 CFR 412.3e].: Yes Medical Necessity: Failure to Improve With Outpatient Therapy, Significant Comorbidiites Make Outpatient Treatment Too Risky, Need Close Monitoring Due to Risk of Patient Decompensation, Need for IV Antibiotics Post Hospital Care: D/C Interlocker Documentation - Plan Summary Plan Summary: Admit the patient and telemetry bed discussed with the patient's The patient's current conditions
[2019-10-21 17:59] LABS: ANION GAP 11 (5-19); BLOOD UREA NITROGEN 41 mg/dL (7-20); CALCIUM 9.8 mg/dL (8.4-10.2); CARBON DIOXIDE 31 mmol/L (22-30); CHLORIDE 94 mmol/L (98-107); CREATINE KINASE 36 U/L (55-170); GLUCOSE 202 mg/dL (75-110); POTASSIUM 3.8 mmol/L (3.6-5.0)
[2019-10-21] MEDS ORDERED: CLINDAMYCIN 600 MG/D5W RTU 600 MG/50 ML RTUPB IV SCH (18:00)
[2019-10-21] MEDS ORDERED: FUROSEMIDE INJ/PF 40 MG/4 ML SDV IV SCH ×2 (18:00→22:00)
[2019-10-21 18:09] LABS: CREATINE KINASE MB 0.71 ng/mL (<4.55); TROPONIN I 0.032 ng/mL
[2019-10-21] MEDS: CEFEPIME 1 GM/D5W RTU 1 GM/50 ML RTUPB IV SCH (19:44)
[2019-10-21] MEDS: DOCUSATE SODIUM 100 MG CAPSULE PO SCH (21:10)
[2019-10-21] MEDS: CLINDAMYCIN 600 MG/D5W RTU 600 MG/50 ML RTUPB IV SCH (21:11)
[2019-10-21] MEDS: FUROSEMIDE INJ/PF 40 MG/4 ML SDV IV SCH (21:11)
[2019-10-21] MEDS ORDERED: CEFEPIME 1 GM/D5W RTU 1 GM/50 ML RTUPB IV SCH (22:00)
[2019-10-22 00:48] LABS: CREATINE KINASE MB 0.79 ng/mL (<4.55); TROPONIN I 0.028 ng/mL
[2019-10-22] MEDS: FUROSEMIDE INJ/PF 40 MG/4 ML SDV IV SCH ×4 (04:02→21:41)
[2019-10-22] MEDS: CEFEPIME 1 GM/D5W RTU 1 GM/50 ML RTUPB IV SCH ×2 (05:08→18:33)
[2019-10-22] MEDS: CLINDAMYCIN 600 MG/D5W RTU 600 MG/50 ML RTUPB IV SCH ×3 (05:08→21:40)
[2019-10-22 06:39] LABS: ABSOLUTE EOSINOPHILS # (AUTO) 0.2 10^3/uL (0.0-0.6); ABSOLUTE LYMPHOCYTES (AUTO) 0.8 10^3/uL (0.5-4.7); ABSOLUTE MONOCYTES (AUTO) 0.4 10^3/uL (0.1-1.4); BASOPHILS % (AUTO) 0.3 % (0-2); EOSINOPHILS % (AUTO) 1.8 % (0-6); HEMATOCRIT 31.4 % (37.9-51.0); HEMOGLOBIN 10.5 g/dL (13.5-17.0); MEAN CORPUSCULAR HEMOGLOBIN 29.1 pg (27.0-33.4); MEAN CORPUSCULAR HGB CONC 33.4 g/dL (32.0-36.0); MEAN CORPUSCULAR VOLUME 87 fl (80-97); MONOCYTES % (AUTO) 4.5 % (3-13); PLATELET COUNT 184 10^3/uL (150-450); RED CELL DISTRIBUTION WIDTH 20.7 % (11.5-14.0); SEGMENTED NEUTROPHILS % (AUTO) 83.4 % (42-78); TOTAL CELLS COUNTED % (AUTO) 100 %; WHITE BLOOD COUNT 8.4 10^3/uL (4.0-10.5)
[2019-10-22 06:44] LABS: INTERNATIONAL RATION (INR) 2.01; PROTHROMBIN TIME 23.1 SEC (11.4-15.4)
[2019-10-22 07:08] LABS: CREATINE KINASE MB 0.72 ng/mL (<4.55); TROPONIN I 0.027 ng/mL
[2019-10-22] MEDS: DOCUSATE SODIUM 100 MG CAPSULE PO SCH ×2 (09:34→18:33)
[2019-10-22] MEDS ORDERED: DEXTROSE 50%-WATER SYRINGE 12.5 GM/25 ML DOSE IV PRN (20:30)
[2019-10-22] MEDS ORDERED: DEXTROSE 40% GEL 15 GM TUBE X 2 PO PRN (20:30)
[2019-10-22] MEDS ORDERED: GLUCAGON,HUMAN RECOMB 1 MG INJ IM PRN (20:30)
[2019-10-22] MEDS ORDERED: DEXTROSE 50%-WATER SYRINGE 25 GM/50 ML DOSE IV PRN (20:30)
[2019-10-22] MEDS ORDERED: DEXTROSE 40% GEL 15 GM TUBE PO PRN (20:30)
--- NOTE | 2019-10-22 20:54 | PDOC PROGRESS REPORT ---
Subjective Progress Note for:: 10/22/19 Subjective:: Patient seen by the bedside, he has no complaints Reason For Visit: LEFT LOWER EXTREMITY CELLULITIS Physical Exam Vital Signs: Temp Pulse Resp BP Pulse Ox 97.5 F 79 22 H 146/74 H 100 10/22/19 19:44 10/22/19 19:44 10/22/19 19:44 10/22/19 19:44 10/22/19 19:44 Intake & Output 10/21/19 10/22/19 10/23/19 06:59 06:59 06:59 Intake Total 200 1402 Output Total 1200 Balance 200 202 Weight 119.2 kg General appearance: PRESENT: no acute distress Eye exam: PRESENT: PERRLA Respiratory exam: PRESENT: clear to auscultation kavitha Cardiovascular exam: PRESENT: +S1, +S2 GI/Abdominal exam: PRESENT: soft Extremities exam: PRESENT: other - Cellulitis of the left leg Neurological exam: PRESENT: alert Results Laboratory Results: 10/22/19 06:15 10/21/19 17:02 10/22/19 10/22/19 10/22/19 06:15 06:15 06:15 WBC 8.4 RBC 3.60 L Hgb 10.5 L Hct 31.4 L MCV 87 MCH 29.1 MCHC 33.4 RDW 20.7 H Plt Count 184 Seg Neutrophils % 83.4 H Lactic Acid 1.2 Magnesium 2.6 H 10/21/19 10/21/19 10/21/19 17:02 17:02 23:44 Creatine Kinase 36 L 36 L CK-MB (CK-2) 0.71 Troponin I 0.032 NT-Pro-B Natriuret Pep 10/21/19 10/22/19 10/22/19 23:44 06:15 06:15 Creatine Kinase 32 L CK-MB (CK-2) 0.79 0.72 Troponin I 0.028 0.027 NT-Pro-B Natriuret Pep 4790 H Impressions: Cervical Spine CT 10/21/19 11:36 IMPRESSION: No evidence of acute bony abnormality of the cervical spine. Multilevel degenerative disc disease and facet arthropathy. Head CT 10/21/19 11:36 IMPRESSION: No evidence of acute intracranial process. 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 EVIDENCE OF ACUTE STROKE: NO. Chest X-Ray 10/21/19 11:37 IMPRESSION: No evidence of acute cardiopulmonary process. Evidence of prior CABG. Assessment & Plan - Diagnosis (1) Left leg cellulitis Is this a current diagnosis for this admission?: Yes Plan: Continue IV antibiotic (2) Diabetic nephropathy Qualifiers: Diabetes mellitus type: type 2 Qualified Code(s): E11.21 - Type 2 diabetes mellitus with diabetic nephropathy Is this a current diagnosis for this admission?: Yes Plan: The blood sugar is elevated start Accu-Chek QAC,&QHSUse ,sliding scale protocol (3) Fall Qualifiers: Encounter type: initial encounter Qualified Code(s): W19.XXXA - Unspecified fall, initial encounter Is this a current diagnosis for this admission?: Yes - Time Time Spent with patient: 15-24 minutes
[2019-10-22] MEDS: INSULIN LISPRO 100 UNIT/ML 3 ML VIAL SUBCUT SCH (21:41)
[2019-10-23] MEDS: FUROSEMIDE INJ/PF 40 MG/4 ML SDV IV SCH ×4 (03:59→21:29)
[2019-10-23] MEDS: CLINDAMYCIN 600 MG/D5W RTU 600 MG/50 ML RTUPB IV SCH ×3 (05:31→21:29)
[2019-10-23] MEDS: CEFEPIME 1 GM/D5W RTU 1 GM/50 ML RTUPB IV SCH ×2 (05:31→17:11)
[2019-10-23 06:22] LABS: INTERNATIONAL RATION (INR) 1.51; PROTHROMBIN TIME 18.4 SEC (11.4-15.4)
[2019-10-23 06:33] LABS: ABSOLUTE BASOPHILS # (AUTO) 0.1 10^3/uL (0.0-0.2); ABSOLUTE EOSINOPHILS # (AUTO) 0.2 10^3/uL (0.0-0.6); ABSOLUTE LYMPHOCYTES (AUTO) 0.9 10^3/uL (0.5-4.7); ABSOLUTE MONOCYTES (AUTO) 0.5 10^3/uL (0.1-1.4); ABSOLUTE NEUT (AUTO) 6.8 10^3/uL (1.7-8.2); BASOPHILS % (AUTO) 0.7 % (0-2); EOSINOPHILS % (AUTO) 1.9 % (0-6); HEMATOCRIT 37.3 % (37.9-51.0); HEMOGLOBIN 11.7 g/dL (13.5-17.0); LYMPHOCYTES % (AUTO) 10.8 % (13-45); MEAN CORPUSCULAR HEMOGLOBIN 27.7 pg (27.0-33.4); MEAN CORPUSCULAR HGB CONC 31.5 g/dL (32.0-36.0); MEAN CORPUSCULAR VOLUME 88 fl (80-97); MONOCYTES % (AUTO) 6.3 % (3-13); PLATELET COUNT 162 10^3/uL (150-450); RED BLOOD COUNT 4.24 10^6/uL (4.35-5.55); SEGMENTED NEUTROPHILS % (AUTO) 80.3 % (42-78); TOTAL CELLS COUNTED % (AUTO) 100 %; WHITE BLOOD COUNT 8.4 10^3/uL (4.0-10.5)
[2019-10-23] MEDS: INSULIN LISPRO 100 UNIT/ML 3 ML VIAL SUBCUT SCH ×4 (08:08→21:30)
[2019-10-23] MEDS: DOCUSATE SODIUM 100 MG CAPSULE PO SCH ×2 (09:13→17:11)
--- NOTE | 2019-10-23 19:14 | PDOC PROGRESS REPORT ---
Subjective Progress Note for:: 10/23/19 Subjective:: Patient seen by the bedside, no new complaints Reason For Visit: LEFT LOWER EXTREMITY CELLULITIS Physical Exam Vital Signs: Temp Pulse Resp BP Pulse Ox 98.1 F 82 19 176/73 H 96 10/23/19 15:49 10/23/19 15:49 10/23/19 15:49 10/23/19 15:49 10/23/19 15:49 Intake & Output 10/22/19 10/23/19 10/24/19 06:59 06:59 06:59 Intake Total 200 1552 1176 Output Total 2275 525 Balance 200 -723 651 Weight 119.2 kg 115.5 kg General appearance: PRESENT: no acute distress Eye exam: PRESENT: PERRLA Respiratory exam: PRESENT: clear to auscultation kavitha Cardiovascular exam: PRESENT: +S1, +S2 GI/Abdominal exam: PRESENT: soft Neurological exam: PRESENT: alert Results Laboratory Results: 10/23/19 05:42 10/21/19 17:02 10/23/19 10/23/19 10/23/19 05:42 05:42 07:32 WBC 8.4 RBC 4.24 L Hgb 11.7 L Hct 37.3 L MCV 88 MCH 27.7 MCHC 31.5 L RDW 21.0 H Plt Count 162 Seg Neutrophils % 80.3 H Magnesium Cancelled 2.4 H 10/21/19 10/21/19 10/21/19 17:02 17:02 23:44 Creatine Kinase 36 L 36 L CK-MB (CK-2) 0.71 Troponin I 0.032 NT-Pro-B Natriuret Pep 10/21/19 10/22/19 10/22/19 23:44 06:15 06:15 Creatine Kinase 32 L CK-MB (CK-2) 0.79 0.72 Troponin I 0.028 0.027 NT-Pro-B Natriuret Pep 4790 H 10/23/19 05:42 Creatine Kinase CK-MB (CK-2) Troponin I NT-Pro-B Natriuret Pep 7330 H Impressions: Cervical Spine CT 10/21/19 11:36 IMPRESSION: No evidence of acute bony abnormality of the cervical spine. Multilevel degenerative disc disease and facet arthropathy. Head CT 10/21/19 11:36 IMPRESSION: No evidence of acute intracranial process. 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 EVIDENCE OF ACUTE STROKE: NO. Chest X-Ray 10/21/19 11:37 IMPRESSION: No evidence of acute cardiopulmonary process. Evidence of prior CABG. Assessment & Plan - Diagnosis (1) Left leg cellulitis Is this a current diagnosis for this admission?: Yes Plan: Continue antibiotic (2) Diabetic nephropathy Qualifiers: Diabetes mellitus type: type 2 Qualified Code(s): E11.21 - Type 2 diabetes mellitus with diabetic nephropathy Is this a current diagnosis for this admission?: Yes (3) Fall Qualifiers: Encounter type: initial encounter Qualified Code(s): W19.XXXA - Unspecified fall, initial encounter Is this a current diagnosis for this admission?: Yes - Time Time Spent with patient: 15-24 minutes Level of Care: IMCU
[2019-10-24] MEDS: FUROSEMIDE INJ/PF 40 MG/4 ML SDV IV SCH ×4 (03:44→21:35)
[2019-10-24] MEDS: CEFEPIME 1 GM/D5W RTU 1 GM/50 ML RTUPB IV SCH ×2 (05:04→17:18)
[2019-10-24] MEDS: CLINDAMYCIN 600 MG/D5W RTU 600 MG/50 ML RTUPB IV SCH ×3 (05:04→21:36)
[2019-10-24 06:31] LABS: ABSOLUTE LYMPHOCYTES (AUTO) 0.7 10^3/uL (0.5-4.7); ABSOLUTE MONOCYTES (AUTO) 0.4 10^3/uL (0.1-1.4); ABSOLUTE NEUT (AUTO) 4.6 10^3/uL (1.7-8.2); BASOPHILS % (AUTO) 0.3 % (0-2); EOSINOPHILS % (AUTO) 0.8 % (0-6); HEMATOCRIT 30.1 % (37.9-51.0); HEMOGLOBIN 10.1 g/dL (13.5-17.0); LYMPHOCYTES % (AUTO) 11.8 % (13-45); MEAN CORPUSCULAR HEMOGLOBIN 29.4 pg (27.0-33.4); MEAN CORPUSCULAR HGB CONC 33.6 g/dL (32.0-36.0); MEAN CORPUSCULAR VOLUME 88 fl (80-97); MONOCYTES % (AUTO) 6.8 % (3-13); PLATELET COUNT 188 10^3/uL (150-450); RED BLOOD COUNT 3.44 10^6/uL (4.35-5.55); RED CELL DISTRIBUTION WIDTH 21.2 % (11.5-14.0); SEGMENTED NEUTROPHILS % (AUTO) 80.3 % (42-78); TOTAL CELLS COUNTED % (AUTO) 100 %; WHITE BLOOD COUNT 5.7 10^3/uL (4.0-10.5)
[2019-10-24 06:34] LABS: INTERNATIONAL RATION (INR) 1.56; PROTHROMBIN TIME 18.8 SEC (11.4-15.4)
[2019-10-24] MEDS: LEVALBUTEROL HCL NEB 1.25 MG/3 ML AMPUL NEB PRN ×2 (06:48→18:15)
[2019-10-24] MEDS ORDERED: (PENDING PHARMACY ID) (Warfarin Sodium 3 MG) PO SCH (07:00)
[2019-10-24] MEDS: INSULIN LISPRO 100 UNIT/ML 3 ML VIAL SUBCUT SCH ×4 (07:57→21:54)
[2019-10-24] MEDS ORDERED: (PENDING PHARMACY ID) (Metoprolol Succinate [Metoprolol Succinate] 100 MG) PO SCH (08:00)
[2019-10-24] MEDS ORDERED: LEVOTHYROXINE SODIUM 0.1 MG TABLET PO SCH (08:00)
[2019-10-24] MEDS ORDERED: LEVOTHYROXINE SODIUM 0.05 MG TABLET PO SCH (08:00)
[2019-10-24] MEDS ORDERED: [UNRECOGNIZED DRUG - MIXTURE] PO SCH (08:00)
[2019-10-24] MEDS ORDERED: (PENDING PHARMACY ID) (Cetirizine Hcl [Zyrtec] 10 MG) PO SCH (08:00)
[2019-10-24] MEDS: ALLOPURINOL 100 MG TABLET PO SCH (09:20)
[2019-10-24] MEDS: CLOPIDOGREL BISULFATE 75 MG TABLET PO SCH (09:20)
[2019-10-24] MEDS: DOCUSATE SODIUM 100 MG CAPSULE PO SCH ×2 (09:20→21:34)
[2019-10-24] MEDS: CETIRIZINE 10 MG TABLET PO SCH (09:21)
[2019-10-24] MEDS: LEVOTHYROXINE SODIUM 0.15 MG TABLET PO SCH (09:21)
[2019-10-24] MEDS: PANTOPRAZOLE SODIUM 40 MG TABLET.DR PO SCH (09:21)
[2019-10-24] MEDS: ISOSORBIDE DINITRATE 10 MG TABLET PO SCH (09:21)
[2019-10-24] MEDS: METOPROLOL SUCCINATE 50 MG TAB.SR.24H PO SCH (09:21)
[2019-10-24] MEDS: CALCIUM CARBONATE 250 MG/VITAMIN D3 125 UNIT TABLET PO SCH (09:21)
[2019-10-24] MEDS: FLUTICASONE/VILANTEROL 200-25 MCG/DOSE IH SCH (09:22)
[2019-10-24] MEDS: UMECLIDINIUM BROMIDE 62.5 MCG/DOSE IH SCH (09:22)
[2019-10-24] MEDS: POLYETHYLENE GLYCOL 3350 POWDER 17 GM/1 PACKET PO SCH (09:22)
--- NOTE | 2019-10-24 09:35 | RADIOLOGY REPORT (SQ) ---
EXAM DESCRIPTION: CHEST SINGLE VIEW COMPLETED DATE/TIME: 10/24/2019 9:13 am REASON FOR STUDY: CHF COMPARISON: AP view of the chest from 10/21/2019. EXAM PARAMETERS: NUMBER OF VIEWS: One view. TECHNIQUE: An AP view of the chest was obtained. RADIATION DOSE: NA LIMITATIONS: None. FINDINGS: LUNGS AND PLEURA: New patchy parenchymal opacities in the inferior right hemithorax. The costophrenic sulci are blunted. There is no pneumothorax MEDIASTINUM AND HILAR STRUCTURES: Stable mediastinal and hilar contours. HEART AND VASCULAR STRUCTURES: Stable cardiac silhouette. BONES: No acute findings. HARDWARE: Status post CABG. There is a triple lead left subclavian vein approach ICD in place. OTHER: No other finding. IMPRESSION: A new patchy parenchymal opacities in the inferior right hemithorax. Correlate with cli nical findings to exclude an infection. TECHNICAL DOCUMENTATION: JOB ID: [id number] 2010 [employer]- All Rights Reserved Reading location - IP/workstation name: [email or web address]
--- NOTE | 2019-10-24 09:51 | PDOC PROGRESS REPORT ---
Subjective Progress Note for:: 10/24/19 Subjective:: Patient is currently doing same actually getting better per patient still have a left lower extremity swelling and the redness No chest pain no short of breath Reason For Visit: LEFT LOWER EXTREMITY CELLULITIS Physical Exam Vital Signs: Temp Pulse Resp BP Pulse Ox 98.7 F 80 18 163/57 H 96 10/24/19 04:00 10/24/19 07:00 10/24/19 06:48 10/24/19 04:00 10/24/19 06:48 Intake & Output 10/23/19 10/24/19 10/25/19 06:59 06:59 06:59 Intake Total 1552 2071 Output Total 2275 2100 Balance -723 -29 Weight 115.5 kg 115.9 kg General appearance: PRESENT: no acute distress, well-developed, well-nourished Head exam: PRESENT: atraumatic, normocephalic Eye exam: PRESENT: conjunctiva pink, EOMI, PERRLA. ABSENT: scleral icterus Ear exam: PRESENT: normal external ear exam Mouth exam: PRESENT: moist, tongue midline Neck exam: PRESENT: full ROM. ABSENT: carotid bruit, JVD, lymphadenopathy, thyromegaly Respiratory exam: PRESENT: clear to auscultation kavitha Cardiovascular exam: PRESENT: RRR. ABSENT: diastolic murmur, rubs, systolic murmur Vascular exam: PRESENT: normal capillary refill GI/Abdominal exam: PRESENT: normal bowel sounds, soft. ABSENT: distended, guarding, mass, organolmegaly, rebound, tenderness Rectal exam: PRESENT: deferred Extremities exam: PRESENT: pedal edema Additional comments: Redness in the left lower extremities Neurological exam: PRESENT: alert, awake, oriented to person, oriented to place, oriented to time, oriented to situation, CN II-XII grossly intact. ABSENT: motor sensory deficit Psychiatric exam: PRESENT: appropriate affect, normal mood. ABSENT: homicidal ideation, suicidal ideation Skin exam: PRESENT: dry, intact, warm. ABSENT: cyanosis, rash Results Laboratory Results: 10/24/19 06:10 10/21/19 17:02 10/24/19 10/24/19 06:10 06:10 WBC 5.7 RBC 3.44 L Hgb 10.1 L Hct 30.1 L MCV 88 MCH 29.4 MCHC 33.6 RDW 21.2 H Plt Count 188 Seg Neutrophils % 80.3 H Magnesium 2.3 10/21/19 10/21/19 10/21/19 17:02 17:02 23:44 Creatine Kinase 36 L 36 L CK-MB (CK-2) 0.71 Troponin I 0.032 NT-Pro-B Natriuret Pep 10/21/19 10/22/19 10/22/19 23:44 06:15 06:15 Creatine Kinase 32 L CK-MB (CK-2) 0.79 0.72 Troponin I 0.028 0.027 NT-Pro-B Natriuret Pep 4790 H 10/23/19 10/24/19 05:42 06:10 Creatine Kinase CK-MB (CK-2) Troponin I NT-Pro-B Natriuret Pep 7330 H 8870 H Impressions: Cervical Spine CT 10/21/19 11:36 IMPRESSION: No evidence of acute bony abnormality of the cervical spine. Multilevel degenerative disc disease and facet arthropathy. Head CT 10/21/19 11:36 IMPRESSION: No evidence of acute intracranial process. 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 EVIDENCE OF ACUTE STROKE: NO. Chest X-Ray 10/24/19 00:00 IMPRESSION: A new patchy parenchymal opacities in the inferior right hemithorax. Correlate with clinical findings to exclude an infection. Assessment & Plan - Diagnosis (1) Cellulitis of left lower extremity Is this a current diagnosis for this admission?: Yes (2) Anemia in chronic kidney disease (CKD) Qualifiers: Chronic kidney disease stage: stage 3 (moderate) Qualified Code(s): N18.3 - Chronic kidney disease, stage 3 (moderate); D63.1 - Anemia in chronic kidney disease Is this a current diagnosis for this admission?: Yes (3) Atrial fibrillation Qualifiers: Atrial fibrillation type: unspecified Qualified Code(s): I48.91 - Unspecified atrial fibrillation Is this a current diagnosis for this admission?: Yes (4) CAD (coronary artery disease) Qualifiers: Coronary Disease-Associated Artery/Lesion type: unspecified vessel or lesion type Is this a current diagnosis for this admission?: Yes (5) CHF (congestive heart failure) Qualifiers: Heart failure type: combined systolic and diastolic Heart failure chronici ty: acute on chronic Qualified Code(s): I50.43 - Acute on chronic combined systolic (congestive) and diastolic (congestive) heart failure Is this a current diagnosis for this admission?: Yes (6) Cardiac defibrillator in situ Is this a current diagnosis for this admission?: Yes (7) Chronic kidney disease, stage 3 Is this a current diagnosis for this admission?: Yes (8) DVT (deep venous thrombosis) Qualifiers: DVT location: lower extremity Laterality: unspecified laterality Is this a current diagnosis for this admission?: Yes (9) Diabetic nephropathy Qualifiers: Diabetes mellitus type: type 2 Qualified Code(s): E11.21 - Type 2 diabetes mellitus with diabetic nephropathy Is this a current diagnosis for this admission?: Yes (10) Hypertension Qualifiers: Hypertension type: essential hypertension Is this a current diagnosis for this admission?: Yes (11) Sleep disorder Is this a current diagnosis for this admission?: Yes (13) Fall Qualifiers: Encounter type: initial encounter Qualified Code(s): W19.XXXA - Unspecified fall, initial encounter Is this a current diagnosis for this admission?: Yes - Time Time Spent with patient: 15-24 minutes Level of Care: TELE Medications reviewed and adjusted accordingly: Yes Anticipated discharge: Other Within: Other - Plan Summary Plan Summary: Will continues IV Lasix and IV antibiotics Saw the local cardiology for ongoing multiple cardiac history for further evaluations patient usually see a [place] cardiology Dr. Rodriguez group
--- NOTE | 2019-10-24 09:56 | CDI QUERY ---
CDI Query CDI Review: Dr. Carrillo, To better reflect your patients severity of illness, morbidity, and resource utilization Please LINK any condition to present on admission, if applicable. The terms probable, suspected, likely, possible or still to be ruled ou t may be used. If you agree, please add to the Progress Notes and Discharge Summary Query Clinical indicators PLEASE SPECIFY TYPE AFIB documented in progress notes CHRONIC A FIB PERMANENT A FIB PERSISTENT A FIB PAROXYSMAL (3) Atrial fibrillation Qualifiers: Atrial fibrillation type: unspecified Qualified Code(s): I48.91 - Unspecified atrial fibrillation Is this a current diagnosis for this admission?: Yes Patient is currently taking the Coumadin Thank you, Clinical Documentation Physician Advisors BENEDICTO [email or web address] Office [phone]
[2019-10-24] MEDS ORDERED: (PENDING PHARMACY ID) (Tiotropium Bromide [Spiriva Respimat] 4 GM) IH SCH (10:00)
[2019-10-24] MEDS ORDERED: POTASSIUM CHLORIDE 10 MEQ TABLET.ER PO SCH (10:00)
[2019-10-24] MEDS ORDERED: SALMETEROL IH SCH (10:00)
[2019-10-24] MEDS ORDERED: FLUTICASONE IH SCH (10:00)
[2019-10-24 11:54] LABS: ANION GAP 10 (5-19); BLOOD UREA NITROGEN 31 mg/dL (7-20); CALCIUM 9.5 mg/dL (8.4-10.2); CARBON DIOXIDE 28 mmol/L (22-30); CHLORIDE 101 mmol/L (98-107); GLUCOSE 263 mg/dL (75-110); POTASSIUM 3.2 mmol/L (3.6-5.0)
[2019-10-24 12:26] LABS: APPEARANCE,URINE CLEAR; BILIRUBIN,URINE NEGATIVE (NEGATIVE); COLOR,URINE YELLOW; GLUCOSE, URINE >=500 mg/dL (NEGATIVE); KETONES,URINE NEGATIVE (NEGATIVE); LEUKOCYTE ESTERASE,URINE NEGATIVE (NEGATIVE); NITRITE,URINE NEGATIVE (NEGATIVE); PROTEIN,URINE 30 mg/dL (NEGATIVE); URINE SPECIFIC GRAVITY 1.009; UROBILINOGEN,URINE NEGATIVE mg/dL (<2.0)
[2019-10-24] MEDS ORDERED: POTASSIUM CHLORIDE 20 MEQ PACKET PO ONE (13:15)
[2019-10-24] MEDS: HYDRALAZINE HCL 10 MG TABLET PO SCH ×2 (13:52→21:34)
[2019-10-24] MEDS ORDERED: DEXTROSE 50%-WATER 25 GM/50 ML DISP.SYRIN IV PRN ×2 (15:46)
[2019-10-24] MEDS ORDERED: GLUCAGON,HUMAN RECOMB 1 MG INJ IM PRN (15:46)
[2019-10-24] MEDS ORDERED: DEXTROSE 40% GEL 15 GM TUBE PO PRN ×2 (15:46)
--- NOTE | 2019-10-24 16:55 | PDOC CONSULTATION ---
Consultation Consult Date: 10/24/19 Attending physician:: DANA TUTTLE Provider Consulted: KRISSY GAYTAN Consult reason:: Congestive heart failure History of Present Illness Admission Date/PCP: 10/21/19 16:11 DANA TUTTLE MD Patient complains of: Left lower extremity redness and swelling History of Present Illness: MARY MANDUJANO is a 84 year old male With the following active problems 1. Coronary artery disease 2. CABG 3. Left-sided BIV-ICD 4. Systemic hypertension 5. Dyslipidemia 6. Atrial fibrillation 7. Systemic anticoagulation-warfarin 8. Deep vein thrombosis 9. Congestive heart failure-systolic Patient has been admitted with left lower extremity cellulitis. He has had chronic bilateral lower extremity edema. Presently he does not endorse any dyspnea or chest pain. He appears to have congestive heart failure. Per the p atient he is somewhat fairly compensated but he has had frequent admissions for lower extremity edema. Presently he is seems to be responding to intravenous antibiotics and the redness and swelling have improved since admission. Does not smoke cigarettes. Past medical history as above. Past Medical History Cardiac Medical History: Reports: Atrial Fibrillation, Congestive Heart Failure, Coronary Artery Disease, DVT, Myocardial Infarction - 1995, Hyperlipidema, Hypertension, Pulmonary Embolism Pulmonary Medical History: Reports: Chronic Obstructive Pulmonary Disease (COPD), Sleep Apnea Denies: Asthma, Tuberculosis Neurological Medical History: Denies: Seizures Endocrine Medical History: Reports: Diabetes Mellitus Type 2 Renal/ Medical History: Reports: Chronic Kidney Disease GI Medical History: Reports: Gastroesophageal Reflux Disease Denies: Cirrhosis, Crohn's Disease, Hepatitis, Ulcerative Colitis Musculoskeltal Medical History: Reports: Arthritis - gout, Gout Skin Medical History: Denies: Psoriasis Psychiatric Medical History: Reports: Depression Traumatic Medical History: Denies: Traumatic Brain Injury Hematology: Reports: Anemia Denies: Sickle Cell Disease Past Surgical History Past Surgical History: Reports: Coronary Artery Bypass Graft - 3, Coronary Stent, Internal Defibrillator, Pacemaker - upper left chest, Vascular Surgery, Other - Bone graft in the left ankle, surgery of elbow fracture Social History Smoking Status: Never Smoker Frequency of Alcohol Use: None Hx Recreational Drug Use: No Drugs: None Hx Prescription Drug Abuse: No - Advance Directive Resuscitation Status: Do Not Resuscitate Family History Family History: Reviewed & Not Pertinent, CAD, COPD, Hypertension, Malignancy Parental Family History Reviewed: No - No familial illnesses. Children Family History Reviewed: NA Sibling(s) Family History Reviewed.: NA Medication/Allergy Home Medications: Albuterol Sulfate [Proair Hfa Inhalation Aerosol 8.5 gm Mdi] 1 puff IH ASDIR PRN 10/21/19 Albuterol Sulfate [Proair Hfa Inhalation Aerosol 8.5 gm Mdi] 1 puff IH Q4HP PRN 10/21/19 Allopurinol [Zyloprim 100 mg Tablet] 100 mg PO QAM 10/21/19 Atorvastatin Calcium [Lipitor 80 mg Tablet] 80 mg PO QHS 10/21/19 Calcitriol [Rocaltrol 0.25 Mcg Capsule] 1 cap PO QAM 10/21/19 Calcium Crb,Cit/D3/Min34/Andry [Citracal + Bone Density Tablet] 1 tab PO QAM 10/21/19 Cetirizine HCl [Zyrtec] 10 mg PO QAM 10/21/19 Cholecalciferol (Vitamin D3) [Vitamin D3] 2,000 unit PO QAM 10/21/19 Clopidogrel Bisulfate [Plavix 75 mg Tablet] 75 mg PO QAM 10/21/19 Docusate Sodium [Colace 100 mg Capsule] 100 mg PO Q12 10/21/19 Fenofibrate Nanocrystallized [Tricor 145 mg Tablet] 145 mg PO QAM 10/21/19 Ferrous Sulfate [Feosol 325 mg Tablet] 325 mg PO QAM 10/21/19 Finasteride [Proscar 5 mg Tablet] 5 mg PO QPM 10/21/19 Fluticasone/Salmeterol [Advair 250-50 Diskus 14 Dose/Diskus] 14 inh IH DAILY 10/21/19 Furosemide [Lasix 20 mg Tablet] 20 mg PO Q6 10/21/19 Gabapentin [Neurontin 100 mg Capsule] 100 mg PO Q12 10/21/19 Hydralazine HCl [Apresoline 10 mg Tablet] 10 mg PO Q8 10/21/19 Isosorbide Dinitrate [Isordil Titradose 10 Mg Tablet] 10 mg PO QAM 10/21/19 Levothyroxine Sodium [Synthroid 0.1 mg Tablet] 0.1 mg PO QAM 10/21/19 Levothyroxine Sodium [Synthroid 50 Mcg Tablet] 50 mcg PO QAM 10/21/19 Metoprolol Succinate 100 mg PO QAM 10/21/19 Pantoprazole Sodium [Protonix [address] Tablet] 40 mg PO QAM 10/21/19 Polyethylene Glycol 3350 [Miralax Powder 17 gm/Packet] 1 packet PO DAILY 10/21/19 Potassium Chloride 20 meq PO Q12 10/21/19 Sertraline HCl [Zoloft 50 mg Tablet] 50 mg PO QPM 10/21/19 Tamsulosin HCl [Flomax] 0.4 mg PO QPM 10/21/19 Tiotropium [place] [Spiriva Respimat] 4 gm IH DAILY 10/21/19 Warfarin Sodium [Coumadin 3 mg Tablet] 3 mg PO .[id number] 10/22/19 Warfarin Sodium [Coumadin 5 mg Tablet] 5 mg PO TUFR 10/22/19 Allergies/Adverse Reactions: nystatin Adverse Reaction (Verified 11/29/17 09:25) Review of Systems Constitutional: PRESENT: as per HPI Eyes: ABSENT: as per HPI, visual disturbances, other Cardiovascular: PRESENT: as per HPI, edema Respiratory: PRESENT: dyspnea Neurological: ABSENT: as per HPI, abnormal gait, abnormal movements, abnormal speech, confusion, convulsions, dizziness, focal weakness, frequent falls, lack of coordination, memory loss, numbness, paresthesias, restless legs, syncope, tingling, tremor(s), vertigo, weakness, other Psychiatric: PRESENT: as per HPI Endocrine: PRESENT: as per HPI Hematologic/Lymphatic: PRESENT: as per HPI Physical Exam Vital Signs: Temp Pulse Resp BP Pulse Ox 98.5 F 79 18 147/64 H 100 10/24/19 15:07 10/24/19 15:07 10/24/19 15:07 10/24/19 15:07 10/24/19 15:07 Intake & Output 10/23/19 10/24/19 10/25/19 06:59 06:59 06:59 Intake Total 1552 2071 Output Total 3809 2100 Balance -723 -29 Weight 115.5 kg 115.9 kg General appearance: PRESENT: cooperative, obese, well-developed Head exam: PRESENT: atraumatic, normocephalic Eye exam: PRESENT: conjunctiva pink, EOMI - Seen actually to do a ADRIANA okay looks like different early okay but the information is exactly the same okay alright and then in with you have a ADRIANA tomorrow afternoon there is a.m. there correct Thanks treatment area 3-day after explaining I mean I just Respiratory exam: PRESENT: crackles - you after you develop you need to do me know what he should do, symmetrical Cardiovascular exam: PRESENT: +S1, +S2 Pulses: PRESENT: normal radial pulses - There is a GI/Abdominal exam: PRESENT: soft Rectal exam: PRESENT: deferred - GERD Musculoskeletal exam: PRESENT: normal inspection Neurological exam: PRESENT: alert, awake, oriented to person, oriented to place, oriented to time Psychiatric exam: PRESENT: appropriate affect - Days 1 days with wound care Skin exam: PRESENT: dry - syndrome, rash, skin tears Results Laboratory Results: 10/24/19 06:10 10/24/19 06:10 10/24/19 10/24/19 10/24/19 06:10 06:10 06:10 WBC 5.7 RBC 3.44 L Hgb 10.1 L Hct 30.1 L MCV 88 MCH 29.4 MCHC 33.6 RDW 21.2 H Plt Count 188 Seg Neutrophils % 80.3 H Sodium 138.7 Potassium 3.2 L Chloride 101 Carbon Dioxide 28 Anion Gap 10 BUN 31 H Creatinine 1.21 Est GFR ( Amer) > 60 Glucose 263 H Calcium 9.5 Magnesium 2.3 Urine Color Urine Appearance Urine pH Ur Specific [place] Urine Protein Urine Glucose (UA) Urine Ketones Urine Blood Urine Nitrite Ur Leukocyte Esterase Urine WBC (Auto) Urine RBC (Auto) 10/24/19 11:55 WBC RBC Hgb Hct MCV MCH MCHC RDW Plt Count Seg Neutrophils % Sodium Potassium Chloride Carbon Dioxide Anion Gap BUN Creatinine Est GFR ( Amer) Glucose Calcium Magnesium Urine Color YELLOW Urine Appearance CLEAR Urine pH 5.0 Ur Specific [place] 1.009 Urine Protein 30 H Urine Glucose (UA) >=500 H Urine Ketones NEGATIVE Urine Blood MODERATE H Urine Nitrite NEGATIVE Ur Leukocyte Esterase NEGATIVE Urine WBC (Auto) 2 Urine RBC (Auto) 16 10/22/19 03:07 Clean Catch Midstream Urine Culture - Final Mixed Urogenital [place] 10/21/19 10/21/19 10/21/19 17:02 17:02 23:44 Creatine Kinase 36 L 36 L CK-MB (CK-2) 0.71 Troponin I 0.032 NT-Pro-B Natriuret Pep 10/21/19 10/22/19 10/22/19 23:44 06:15 06:15 Creatine Kinase 32 L CK-MB (CK-2) 0.79 0.72 Troponin I 0.028 0.027 NT-Pro-B Natriuret Pep 4790 H 10/23/19 10/24/19 05:42 06:10 Creatine Kinase CK-MB (CK-2) Troponin I NT-Pro-B Natriuret Pep 7330 H 8870 H Impressions: Cervical Spine CT 10/21/19 11:36 IMPRESSION: No evidence of acute bony abnormality of the cervical spine. Multilevel degenerative disc disease and facet arthropathy. Head CT 10/21/19 11:36 IMPRESSION: No evidence of acute intracranial process. 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 EVIDENCE OF ACUTE STROKE: NO. Chest X-Ray 10/24/19 00:00 IMPRESSION: A new patchy parenchymal opacities in the inferior right hemithorax. Correlate with clinical findings to exclude an infection. Assessment & Plan - Diagnosis (1) CHF (congestive heart failure) Qualifiers: Heart failure type: combined systolic and diastolic Heart failure chronicity: acute on chronic Qualified Code(s): I50.43 - Acute on chronic combined systolic (congestive) and diastolic (congestive) heart failure Is this a current diagnosis for this admission?: Yes Plan: Patient seems volume overloaded. We will continue therapy for congestive heart failure. Recommend continuing present dose of furosemide especially managed with urine output. May need escalation of dosing. (2) DVT (deep venous thrombosis) Qualifiers: DVT location: lower extremity Laterality: unspecified laterality Is this a current diagnosis for this admission?: Yes Plan: Continue systemic anticoagulation. Warfarin therapy. (3) Cardiac defibrillator in situ Is this a current diagnosis for this admission?: Yes Plan: Radiography shows likely a biventricular dual coil ICD on the left chest wall. Patient reports no shocks or therapies. EKG shows appropriate by V pacing with underlying atrial fibrillation. (4) Cellulitis of lower limb Qualifiers: Laterality: left Qualified Code(s): L03.116 - Cellulitis of left lower limb Is this a current diagnosis for this admission?: Yes Plan: Intravenous antibiotics. Patient seems to be responding to therapy.
[2019-10-24] MEDS: TAMSULOSIN HCL 0.4 MG CAP.SR.24H PO SCH (17:18)
[2019-10-24] MEDS: POTASSIUM CHLORIDE 10 MEQ TABLET.ER PO SCH (21:34)
[2019-10-24] MEDS: SERTRALINE HCL 50 MG TABLET PO SCH (21:34)
[2019-10-24] MEDS: ATORVASTATIN CALCIUM 80 MG TABLET PO SCH (21:34)
[2019-10-24] MEDS: INSULIN GLARGINE,HUM.REC.ANLOG 1,000 UNIT/10 ML VIAL SUBCUT SCH (21:54)
[2019-10-24] MEDS ORDERED: WARFARIN SODIUM 5 MG TABLET PO ONE (22:00)
[2019-10-24] MEDS ORDERED: WARFARIN SODIUM 3 MG TABLET PO SCH (22:00)
[2019-10-24 23:11] LABS: APPEARANCE,URINE CLEAR; BILIRUBIN,URINE NEGATIVE (NEGATIVE); COLOR,URINE YELLOW; GLUCOSE, URINE >=500 mg/dL (NEGATIVE); KETONES,URINE NEGATIVE (NEGATIVE); PROTEIN,URINE NEGATIVE (NEGATIVE); URINE SPECIFIC GRAVITY 1.008; UROBILINOGEN,URINE NEGATIVE mg/dL (<2.0)
--- NOTE | 2019-10-25 01:26 | PDOC CONSULTATION ---
Consultation Consult Date: 10/24/19 Provider Consulted: REINALDO LLOYD Consult reason:: Chronic kidney disease. History of Present Illness Admission Date/PCP: 10/21/19 16:11 DANA TUTTLE MD History of Present Illness: MARY MANDUJANO is a 84 year old male known to me with history of chronic kidney disease stage III secondary to diabetic nephropathy, Beatties mellitus type II, attention, atrial fibrillation, coronary artery disease with pacemaker/AICD, COPD and sleep apnea who was admitted on Monday, October 21, 2019 for left lower leg cellulitis and fall. During the soil checker of admission the reports that the patient fell. There was also an acute onset of worsening left lower e xtremity swelling and redness with altered mental status so the patient was brought to the emergency room. Since that admission the patient was being treated with IV antibiotics and IV furosemide 40 mg every 6. On admission the patient also presented with a BUN of 45, creatinine of 1.58. The patient's baseline creatinine ranges anywhere between 1.6-1.9. I repeated the patient's basic metabolic panel today and he has a BUN of 39, creatinine of 1.21 and EGFR 57 today. He is passing adequate amount of urine output around 2+ liters daily since admission. Patient's at bedside tells me that the patient's lower extremity edema is significantly improved for the past 2 days compared to ad mission. and sons at bedside admit that the patient looks much better time. He does not really verbalize any other complaints today. Past Medical History Cardiac Medical History: Reports: Atrial Fibrillation, CHF-Systolic, Coronary Artery Disease, DVT, Hyperlipidemia, Hypertension-primary, Myocardial Infarction - 1995, Pulmonary Embolism Pulmonary Medical History: Reports: Chronic Obstructive Pulmonary Disease (COPD), Sleep Apnea Neurological Medical History: Reports: Other - TIA Endocrine Medical History: Reports: Diabetes Mellitus Type 2 Complications of Diabetes: Reports: Autonomic Neuropathy, Nephropathy, Retinopathy Renal/ Medical History: Reports: Chronic Kidney Disease Stage III, Nephrolithiasis, Proteinuria, Secondary Hyperparathyroidism, Other - Horseshoe kidney GI Medical History: Reports: Gastroesophageal Reflux Disease Musculoskeltal Medical History: Reports: Arthritis - gout, Gout Psychiatric Medical History: Reports: Depression Hematology Medical History: Reports Anemia of Chronic Kidney Disease Past Surgical History Past Surgical History: Reports: Coronary Artery Bypass Graft - 3, Coronary Stent, Internal Defibrillator, Pacemaker - upper left chest, Vascular Surgery, Other - Bone graft in the left ankle, surgery of elbow fracture Social History Information Source: Dr. Rodas, [facility] Records Smoking Status: Never Smoker Electronic Cigarette use?: No Frequency of Alcohol Use: None Hx Recreational Drug Use: No Drugs: None Hx Prescription Drug Abuse: No - Advance Directive Resuscitation Status: Do Not Resuscitate Family History Family History: CAD - Father, DM - Father, Hypertension - Mother Parental Family History Reviewed: Yes Children Family History Reviewed: Yes Sibling(s) Family History Reviewed.: Yes Medication/Allergy Home Medications: Albuterol Sulfate [Proair Hfa Inhalation Aerosol 8.5 gm Mdi] 1 puff IH ASDIR PRN 10/21/19 Albuterol Sulfate [Proair Hfa Inhalation Aerosol 8.5 gm Mdi] 1 puff IH Q4HP PRN 10/21/19 Allopurinol [Zyloprim 100 mg Tablet] 100 mg PO QAM 10/21/19 Atorvastatin Calcium [Lipitor 80 mg Tablet] 80 mg PO QHS 10/21/19 Calcitriol [Rocaltrol 0.25 Mcg Capsule] 1 cap PO QAM 10/21/19 Calcium Crb,Cit/D3/Min34/Andry [Citracal + Bone Density Tablet] 1 tab PO QAM 10/21/19 Cetirizine HCl [Zyrtec] 10 mg PO QAM 10/21/19 Cholecalciferol (Vitamin D3) [Vitamin D3] 2,000 unit PO QAM 10/21/19 Clopidogrel Bisulfate [Plavix 75 mg Tablet] 75 mg PO QAM 10/21/19 Docusate Sodium [Colace 100 mg Capsule] 100 mg PO Q12 10/21/19 Fenofibrate Nanocrystallized [Tricor 145 mg Tablet] 145 mg PO QAM 10/21/19 Ferrous Sulfate [Feosol 325 mg Tablet] 325 mg PO QAM 10/21/19 Finasteride [Proscar 5 mg Tablet] 5 mg PO QPM 10/21/19 Fluticasone/Salmeterol [Advair 250-50 Diskus 14 Dose/Diskus] 14 inh IH DAILY 10/21/19 Furosemide [Lasix 20 mg Tablet] 20 mg PO Q6 10/21/19 Gabapentin [Neurontin 100 mg Capsule] 100 mg PO Q12 10/21/19 Hydralazine HCl [Apresoline 10 mg Tablet] 10 mg PO Q8 10/21/19 Isosorbide Dinitrate [Isordil Titradose 10 Mg Tablet] 10 mg PO QAM 10/21/19 Levothyroxine Sodium [Synthroid 0.1 mg Tablet] 0.1 mg PO QAM 10/21/19 Levothyroxine Sodium [Synthroid 50 Mcg Tablet] 50 mcg PO QAM 10/21/19 Metoprolol Succinate 100 mg PO QAM 10/21/19 Pantoprazole Sodium [Protonix [address] Tablet] 40 mg PO QAM 10/21/19 Polyethylene Glycol 3350 [Miralax Powder 17 gm/Packet] 1 packet PO DAILY 10/21/19 Potassium Chloride 20 meq PO Q12 10/21/19 Sertraline HCl [Zoloft 50 mg Tablet] 50 mg PO QPM 10/21/19 Tamsulosin HCl [Flomax] 0.4 mg PO QPM 10/21/19 Tiotropium [place] [Spiriva Respimat] 4 gm IH DAILY 10/21/19 Warfarin Sodium [Coumadin 3 mg Tablet] 3 mg PO .[id number] 10/22/19 Warfarin Sodium [Coumadin 5 mg Tablet] 5 mg PO TUFR 10/22/19 Allergies/Adverse Reactions: nystatin Adverse Reaction (Verified 11/29/17 09:25) Review of Systems All systems: reviewed and no additional remarkable complaints except as stated Review of Systems: Constitutional: ABSENT: chills, fatigue, fever(s), headache(s), weight gain, weight loss Eyes: ABSENT: visual disturbances Ears: ABSENT: hearing changes Cardiovascular: ABSENT: chest pain, dyspnea on exertion, orthropnea, palpitations; admits lower extremity edema, left greater than the right Respiratory: ABSENT: cough, dyspnea, hemoptysis Gastrointestinal: ABSENT: abdominal pain, constipation, diarrhea, hematemesis, hematochezia, nausea, vomiting Genitourinary: ABSENT: dysuria, hematuria Musculoskeletal: ABSENT: joint swelling Integumentary: ABSENT: rash, wounds; lower extremity cellulitis Neurological: ABSENT: abnormal gait, abnormal speech, confusion, dizziness, focal weakness, numbness, syncope Psychiatric: ABSENT: anxiety, depression Endocrine: ABSENT: cold intolerance, heat intolerance, polydipsia, polyuria Hematologic/Lymphatic: ABSENT: easy bleeding, easy bruising, lymphadenopathy Physical Exam Vital Signs: Temp Pulse Resp BP Pulse Ox 98.1 F 83 18 183/64 H 94 10/24/19 08:07 10/24/19 08:07 10/24/19 08:07 10/24/19 08:07 10/24/19 08:07 Intake & Output 10/23/19 10/24/19 10/25/19 06:59 06:59 06:59 Intake Total 1552 2071 Output Total 2275 2100 Balance -723 -29 Weight 115.5 kg 115.9 kg Exam: General appearance: No acute distress, cooperative, well-developed, well- nourished Head exam: PRESENT: atraumatic, normocephalic Eye exam: PRESENT: Conjunctiva slightly pale, EOMI, PERRLA. ABSENT: conjunctival injection, scleral icterus Mouth exam: PRESENT: moist, neck supple, tongue midline Neck exam: PRESENT: full ROM. ABSENT: carotid bruit, JVD, lymphadenopathy, thyromegaly Respiratory exam: PRESENT: clear to auscultation bilaterally. ABSENT: rales, rhonchi, stridor, wheezes Cardiovascular exam: PRESENT: RRR, +S1, +S2. ABSENT: systolic murmur Pulses: PRESENT: normal radial pulses, normal dorsalis pedis pulses GI/Abdominal exam: PRESENT: normal bowel sounds, soft. ABSENT: guarding, mass, tenderness Rectal exam: Deferred Extremities exam: PRESENT: full ROM. Grade 3 bilateral lower extremity pitting pedal edema with the left greater than the right Musculoskeletal: PRESENT: full ROM. ABSENT: deformity Neurological exam: PRESENT: alert, Awake, Oriented to person, Oriented to place, Oriented to time, reflexes normal, CN II-XII grossly intact. ABSENT: motor sensory deficit Psychiatric exam: PRESENT: appropriate affect, normal mood. ABSENT: homicidal ideation, suicidal ideation Skin exam: PRESENT: intact, dry, warm. Left extremity erythema ABSENT: rash Results Laboratory Results: 10/24/19 06:10 10/24/19 06:10 10/24/19 10/24/19 10/24/19 06:10 06:10 06:10 WBC 5.7 RBC 3.44 L Hgb 10.1 L Hct 30.1 L MCV 88 MCH 29.4 MCHC 33.6 RDW 21.2 H Plt Count 188 Seg Neutrophils % 80.3 H Sodium 138.7 Potassium 3.2 L Chloride 101 Carbon Dioxide 28 Anion Gap 10 BUN 31 H Creatinine 1.21 Est GFR ( Amer) > 60 Glucose 263 H Calcium 9.5 Magnesium 2.3 Urine Color Urine Appearance Urine pH Ur Specific [place] Urine Protein Urine Glucose (UA) Urine Ketones Urine Blood Urine Nitrite Ur Leukocyte Esterase Urine WBC (Auto) Urine RBC (Auto) 10/24/19 11:55 WBC RBC Hgb Hct MCV MCH MCHC RDW Plt Count Seg Neutrophils % Sodium Potassium Chloride Carbon Dioxide Anion Gap BUN Creatinine Est GFR ( Amer) Glucose Calcium Magnesium Urine Color YELLOW Urine Appearance CLEAR Urine pH 5.0 Ur Specific [place] 1.009 Urine Protein 30 H Urine Glucose (UA) >=500 H Urine Ketones NEGATIVE Urine Blood MODERATE H Urine Nitrite NEGATIVE Ur Leukocyte Esterase NEGATIVE Urine WBC (Auto) 2 Urine RBC (Auto) 16 10/22/19 03:07 Clean Catch Midstream Urine Culture - Final Mixed Urogenital Ruma 10/21/19 10/21/19 10/21/19 17:02 17:02 23:44 Creatine Kinase 36 L 36 L CK-MB (CK-2) 0.71 Troponin I 0.032 NT-Pro-B Natriuret Pep 10/21/19 10/22/19 10/22/19 23:44 06:15 06:15 Creatine Kinase 32 L CK-MB (CK-2) 0.79 0.72 Troponin I 0.028 0.027 NT-Pro-B Natriuret Pep 4790 H 10/23/19 10/24/19 05:42 06:10 Creatine Kinase CK-MB (CK-2) Troponin I NT-Pro-B Natriuret Pep 7330 H 8870 H Impressions: Cervical Spine CT 10/21/19 11:36 IMPRESSION: No evidence of acute bony abnormality of the cervical spine. Multilevel degenerative disc disease and facet arthropathy. Head CT 10/21/19 11:36 IMPRESSION: No evidence of acute intracranial process. 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 EVIDENCE OF ACUTE STROKE: NO. Chest X-Ray 10/24/19 00:00 IMPRESSION: A new patchy parenchymal opacities in the inferior right hemithorax. Correlate with clinical findings to exclude an infection. Assessment & Plan - Diagnosis (1) Cellulitis of left lower extremity Is this a current diagnosis for this admission?: Yes Plan: Currently being treated with IV antibiotics. (2) Chronic kidney disease, stage 3 Is this a current diagnosis for this admission?: Yes Plan: Secondary to diabetic nephropathy. Currently at baseline kidney function. No intervention or changes needed at this time. (3) Diabetic nephropathy Qualifiers: Diabetes mellitus type: type 2 Qualified Code(s): E11.21 - Type 2 diabetes mellitus with diabetic nephropathy Is this a current diagnosis for this admission?: Yes (4) Diabetes mellitus type 2 in obese Is this a current diagnosis for this admission?: Yes (5) Anemia in chronic kidney disease (CKD) Qualifiers: Chronic kidney disease stage: stage 3 (moderate) Qualified Code(s): N18.3 - Chronic kidney disease, stage 3 (moderate); D63.1 - Anemia in chronic kidney disease Is this a current diagnosis for this admission?: Yes (6) Atrial fibrillation Qualifiers: Atrial fibrillation type: unspecified Qualified Code(s): I48.91 - U nspecified atrial fibrillation Is this a current diagnosis for this admission?: Yes Plan: On anticoagulation (7) Hypertension Qualifiers: Hypertension type: essential hypertension Is this a current diagnosis for this admission?: Yes (8) Fall Qualifiers: Encounter type: initial encounter Qualified Code(s): W19.XXXA - Unspecified fall, initial encounter Is this a current diagnosis for this admission?: Yes - Notes Notes: Thank you very much for this consultation. I will be happy to see the patient in follow-up visit in my office during routine visit. - Time Time Spent: 50 to 70 Minutes
[2019-10-25] MEDS: FUROSEMIDE INJ/PF 40 MG/4 ML SDV IV SCH ×4 (02:27→21:33)
[2019-10-25] MEDS: PANTOPRAZOLE SODIUM 40 MG TABLET.DR PO SCH (05:14)
[2019-10-25] MEDS: LEVOTHYROXINE SODIUM 0.15 MG TABLET PO SCH (05:14)
[2019-10-25] MEDS: CEFEPIME 1 GM/D5W RTU 1 GM/50 ML RTUPB IV SCH ×2 (05:14→17:35)
[2019-10-25] MEDS: HYDRALAZINE HCL 10 MG TABLET PO SCH ×3 (05:14→21:33)
[2019-10-25] MEDS: CLINDAMYCIN 600 MG/D5W RTU 600 MG/50 ML RTUPB IV SCH ×3 (05:48→21:34)
[2019-10-25 06:34] LABS: ABSOLUTE EOSINOPHILS # (AUTO) 0.1 10^3/uL (0.0-0.6); ABSOLUTE LYMPHOCYTES (AUTO) 0.7 10^3/uL (0.5-4.7); ABSOLUTE MONOCYTES (AUTO) 0.4 10^3/uL (0.1-1.4); ABSOLUTE NEUT (AUTO) 3.5 10^3/uL (1.7-8.2); HEMOGLOBIN 10.4 g/dL (13.5-17.0); LYMPHOCYTES % (AUTO) 13.9 % (13-45); MEAN CORPUSCULAR HEMOGLOBIN 28.7 pg (27.0-33.4); MEAN CORPUSCULAR HGB CONC 32.6 g/dL (32.0-36.0); MEAN CORPUSCULAR VOLUME 88 fl (80-97); MONOCYTES % (AUTO) 8.8 % (3-13); PLATELET COUNT 187 10^3/uL (150-450); RED BLOOD COUNT 3.63 10^6/uL (4.35-5.55); RED CELL DISTRIBUTION WIDTH 20.6 % (11.5-14.0); SEGMENTED NEUTROPHILS % (AUTO) 73.3 % (42-78); TOTAL CELLS COUNTED % (AUTO) 100 %; WHITE BLOOD COUNT 4.8 10^3/uL (4.0-10.5)
[2019-10-25 06:38] LABS: INTERNATIONAL RATION (INR) 1.58
[2019-10-25] MEDS ORDERED: (PENDING PHARMACY ID) (Warfarin Sodium 5 MG) PO SCH (06:46)
[2019-10-25 06:51] LABS: ANION GAP 9 (5-19); BLOOD UREA NITROGEN 27 mg/dL (7-20); CALCIUM 9.7 mg/dL (8.4-10.2); CARBON DIOXIDE 30 mmol/L (22-30); CHLORIDE 102 mmol/L (98-107); GLUCOSE 222 mg/dL (75-110); POTASSIUM 3.8 mmol/L (3.6-5.0)
[2019-10-25] MEDS: INSULIN LISPRO 100 UNIT/ML 3 ML VIAL SUBCUT SCH ×4 (07:57→21:33)
[2019-10-25] MEDS: CALCIUM CARBONATE 250 MG/VITAMIN D3 125 UNIT TABLET PO SCH (07:58)
--- NOTE | 2019-10-25 08:19 | PDOC PROGRESS REPORT ---
Subjective Progress Note for:: 10/25/19 Subjective:: Patient is currently doing well Left leg redness and swelling is much improved Patient seen by the cardiology and nephrology No chest pain no short of breath using the CPAP Reason For Visit: LEFT LOWER EXTREMITY CELLULITIS Physical Exam Vital Signs: Temp Pulse Resp BP Pulse Ox 98.1 F 80 18 147/59 H 98 10/25/19 03:38 10/25/19 07:00 10/25/19 03:38 10/25/19 03:38 10/25/19 03:38 Intake & Output 10/24/19 10/25/19 10/26/19 06:59 06:59 06:59 Intake Total 2071 1693 50 Output Total 2100 1050 Balance -29 643 50 Weight 115.9 kg 115 kg General appearance: PRESENT: no acute distress, well-developed, well-nourished Head exam: PRESENT: atraumatic, normocephalic Eye exam: PRESENT: conjunctiva pink, EOMI, PERRLA. ABSENT: scleral icterus Ear exam: PRESENT: normal external ear exam Mouth exam: PRESENT: moist, tongue midline Neck exam: PRESENT: full ROM. ABSENT: carotid bruit, JVD, lymphadenopathy, thyromegaly Respiratory exam: PRESENT: clear to auscultation kavitha Cardiovascular exam: PRESENT: RRR. ABSENT: diastolic murmur, rubs, systolic murmur Vascular exam: PRESENT: normal capillary refill GI/Abdominal exam: PRESENT: normal bowel sounds, soft. ABSENT: distended, guarding, mass, organolmegaly, rebound, tenderness Rectal exam: PRESENT: deferred Extremities exam: PRESENT: pedal edema Additional comments: Left lower extremity redness is present Neurological exam: PRESENT: alert, awake, oriented to person, oriented to place, oriented to time, oriented to situation, CN II-XII grossly intact. ABSENT: motor sensory deficit Psychiatric exam: PRESENT: appropriate affect, normal mood. ABSENT: homicidal ideation, suicidal ideation Skin exam: PRESENT: dry, intact, warm. ABSENT: cyanosis, rash Results Laboratory Results: 10/25/19 06:09 10/25/19 06:09 10/24/19 10/24/19 10/24/19 06:10 11:55 22:57 WBC RBC Hgb Hct MCV MCH MCHC RDW Plt Count Seg Neutrophils % Sodium 138.7 Potassium 3.2 L Chloride 101 Carbon Dioxide 28 Anion Gap 10 BUN 31 H Creatinine 1.21 Est GFR ( Amer) > 60 Glucose 263 H Calcium 9.5 Urine Color YELLOW YELLOW Urine Appearance CLEAR CLEAR Urine pH 5.0 6.0 Ur Specific [place] 1.009 1.008 Urine Protein 30 H NEGATIVE Urine Glucose (UA) >=500 H >=500 H Urine Ketones NEGATIVE NEGATIVE Urine Blood MODERATE H SMALL H Urine Nitrite NEGATIVE Ur Leukocyte Esterase NEGATIVE Urine WBC (Auto) 2 Urine RBC (Auto) 16 12 10/25/19 10/25/19 06:09 06:09 WBC 4.8 RBC 3.63 L Hgb 10.4 L Hct 32.0 L MCV 88 MCH 28.7 MCHC 32.6 RDW 20.6 H Plt Count 187 Seg Neutrophils % 73.3 Sodium 141.4 Potassium 3.8 Chloride 102 Carbon Dioxide 30 Anion Gap 9 BUN 27 H Creatinine 1.16 Est GFR ( Amer) > 60 Glucose 222 H Calcium 9.7 Urine Color Urine Appearance Urine pH Ur Specific [place] Urine Protein Urine Glucose (UA) Urine Ketones Urine Blood Urine Nitrite Ur Leukocyte Esterase Urine WBC (Auto) Urine RBC (Auto) 10/22/19 03:07 Clean Catch Midstream Urine Culture - Final Mixed Urogenital Ruma 10/21/19 10/21/19 10/21/19 17:02 17:02 23:44 Creatine Kinase 36 L 36 L CK-MB (CK-2) 0.71 Troponin I 0.032 NT-Pro-B Natriuret Pep 10/21/19 10/22/19 10/22/19 23:44 06:15 06:15 Creatine Kinase 32 L CK-MB (CK-2) 0.79 0.72 Troponin I 0.028 0.027 NT-Pro-B Natriuret Pep 4790 H 10/23/19 10/24/19 05:42 06:10 Creatine Kinase CK-MB (CK-2) Troponin I NT-Pro-B Natriuret Pep 7330 H 8870 H Impressions: Cervical Spine CT 10/21/19 11:36 IMPRESSION: No evidence of acute bony abnormality of the cervical spine. Multilevel degenerative disc disease and facet arthropathy. Head CT 10/21/19 11:36 IMPRESSION: No evidence of acute intracranial process. 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 EVIDENCE OF ACUTE STROKE: NO. Chest X-Ray 10/24/19 00:00 IMPRESSION: A new patchy parenchymal opacities in the inferior right hemithorax. Correlate with clinical findings to exclude an infection. Assessment & Plan - Diagnosis (1) Cellulitis of left lower extremity Is this a current diagnosis for this admission?: Yes Plan: Continues the IV antibiotics currently all improving (2) Anemia in chronic kidney disease (CKD) Qualifiers: Chronic kidney disease stage: stage 3 (moderate) Qualified Code(s): N18.3 - Chronic kidney disease, stage 3 (moderate); D63.1 - Anemia in chronic kidney disease Is this a current diagnosis for this admission?: Yes Plan: Currently all stable (3) Atrial fibrillation Qualifiers: Atrial fibrillation type: unspecified Qualified Code(s): I48.91 - Unspecified atrial fibrillation Is this a current diagnosis for this admission?: Yes Plan: Continues to Coumadin rate under control (4) CAD (coronary artery disease) Qualifiers: Coronary Disease-Associated Artery/Lesion type: unspecified vessel or lesion type Is this a current diagnosis for this admission?: Yes Plan: Currently all stable (5) CHF (congestive heart failure) Qualifiers: Heart failure type: combined systolic and diastolic Heart failure chronicity: acute on chronic Qualified Code(s): I50.43 - Acute on chronic combined systolic (congestive) and diastolic (congestive) heart failure Is this a current diagnosis for this admission?: Yes Plan: Continues to IV Lasix (6) Cardiac defibrillator in situ Is this a current diagnosis for this admission?: Yes (7) Chronic kidney disease, stage 3 Is this a current diagnosis for this admission?: Yes Plan: Currently all well controlled follow with the nephrology (8) DVT (deep venous thrombosis) Qualifiers: DVT location: lower extremity Laterality: unspecified laterality Is this a current diagnosis for this admission?: Yes Plan: Adjust the Coumadin dose per INR (9) Diabetic nephropathy Qualifiers: Diabetes mellitus type: type 2 Qualified Code(s): E11.21 - Type 2 diabetes mellitus with diabetic nephropathy Is this a current diagnosis for this admission?: Yes (10) Hypertension Qualifiers: Hypertension type: essential hypertension Is this a current diagnosis for this admission?: Yes Plan: Currently all stable (11) Sleep disorder Is this a current diagnosis for this admission?: Yes Plan: Continues to CPAP (13) Fall Qualifiers: Encounter type: initial encounter Qualified Code(s): W19.XXXA - Unspecified fall, initial encounter Is this a current diagnosis for this admission?: Yes - Time Time Spent with patient: 25-34 minutes Level of Care: TELE Medications reviewed and adjusted accordingly: Yes Anticipated discharge: Home with Homehealth Within: Other - Plan Summary Plan Summary: Continues to IV antibiotics Continues to current medications Also seen by the vascular surgeon in the past prescribed a pneumatic compressions discussed with the nursing staff and patients to bring from the home and may be currently start using
[2019-10-25] MEDS: CETIRIZINE 10 MG TABLET PO SCH (09:07)
[2019-10-25] MEDS: ALLOPURINOL 100 MG TABLET PO SCH (09:08)
[2019-10-25] MEDS: POTASSIUM CHLORIDE 10 MEQ TABLET.ER PO SCH ×2 (09:08→21:33)
[2019-10-25] MEDS: DOCUSATE SODIUM 100 MG CAPSULE PO SCH ×2 (09:08→21:33)
[2019-10-25] MEDS: CLOPIDOGREL BISULFATE 75 MG TABLET PO SCH (09:08)
[2019-10-25] MEDS: METOPROLOL SUCCINATE 50 MG TAB.SR.24H PO SCH (09:08)
[2019-10-25] MEDS: ISOSORBIDE DINITRATE 10 MG TABLET PO SCH (09:09)
[2019-10-25] MEDS: POLYETHYLENE GLYCOL 3350 POWDER 17 GM/1 PACKET PO SCH (09:09)
[2019-10-25] MEDS: UMECLIDINIUM BROMIDE 62.5 MCG/DOSE IH SCH (09:09)
[2019-10-25] MEDS: FLUTICASONE/VILANTEROL 200-25 MCG/DOSE IH SCH (09:09)
--- NOTE | 2019-10-25 13:23 | PDOC PROGRESS REPORT ---
Subjective Progress Note for:: 10/25/19 Subjective:: Patient seen and examined. Sitting at the edge of the bed. Family at bedside. Reports improvement in left lower extremity swelling pain and discomfort. No dyspnea reported. Reason For Visit: LEFT LOWER EXTREMITY CELLULITIS Physical Exam Vital Signs: Temp Pulse Resp BP Pulse Ox 98.1 F 83 19 141/60 H 98 10/25/19 11:31 10/25/19 11:31 10/25/19 11:31 10/25/19 11:31 10/25/19 11:31 Intake & Output 10/24/19 10/25/19 10/26/19 06:59 06:59 06:59 Intake Total 2071 1693 530 Output Total 2100 1050 250 Balance -29 643 280 Weight 115.9 kg 115 kg General appearance: PRESENT: no acute distress, cooperative, obese Head exam: PRESENT: atraumatic, normocephalic Eye exam: PRESENT: EOMI Mouth exam: PRESENT: moist Neck exam: PRESENT: JVD Respiratory exam: PRESENT: crackles, decreased breath sounds, symmetrical, unlabored Cardiovascular exam: PRESENT: irregular rhythm, +S1, +S2 Pulses: PRESENT: normal radial pulses GI/Abdominal exam: PRESENT: soft Musculoskeletal exam: PRESENT: normal inspection, other - Bilateral lower extremity edema. Some amount of pitting. Redness in the left lower extremity is improved. Neurological exam: PRESENT: alert, awake, oriented to person, oriented to place, oriented to time, oriented to situation Psychiatric exam: PRESENT: appropriate affect Skin exam: PRESENT: dry, skin tears Results Laboratory Results: 10/25/19 06:09 10/25/19 06:09 10/24/19 10/25/19 10/25/19 22:57 06:09 06:09 WBC 4.8 RBC 3.63 L Hgb 10.4 L Hct 32.0 L MCV 88 MCH 28.7 MCHC 32.6 RDW 20.6 H Plt Count 187 Seg Neutrophils % 73.3 Sodium 141.4 Potassium 3.8 Chloride 102 Carbon Dioxide 30 Anion Gap 9 BUN 27 H Creatinine 1.16 Est GFR ( Amer) > 60 Glucose 222 H Calcium 9.7 Urine Color YELLOW Urine Appearance CLEAR Urine pH 6.0 Ur Specific [place] 1.008 Urine Protein NEGATIVE Urine Glucose (UA) >=500 H Urine Ketones NEGATIVE Urine Blood SMALL H Urine RBC (Auto) 12 10/22/19 03:07 Clean Catch Midstream Urine Culture - Final Mixed Urogenital Ruma 10/21/19 10/21/19 10/21/19 17:02 17:02 23:44 Creatine Kinase 36 L 36 L CK-MB (CK-2) 0.71 Troponin I 0.032 NT-Pro-B Natriuret Pep 10/21/19 10/22/19 10/22/19 23:44 06:15 06:15 Creatine Kinase 32 L CK-MB (CK-2) 0.79 0.72 Troponin I 0.028 0.027 NT-Pro-B Natriuret Pep 4790 H 10/23/19 10/24/19 05:42 06:10 Creatine Kinase CK-MB (CK-2) Troponin I NT-Pro-B Natriuret Pep 7330 H 8870 H Impressions: Cervical Spine CT 10/21/19 11:36 IMPRESSION: No evidence of acute bony abnormality of the cervical spine. Multilevel degenerative disc disease and facet arthropathy. Head CT 10/21/19 11:36 IMPRESSION: No evidence of acute intracranial process. 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 EVIDENCE OF ACUTE STROKE: NO. Chest X-Ray 10/24/19 00:00 IMPRESSION: A new patchy parenchymal opacities in the inferior right hemithorax. Correlate with clinical findings to exclude an infection. Assessment & Plan - Diagnosis (1) CHF (congestive heart failure) Qualifiers: Heart failure type: combined systolic and diastolic Heart failure chronicity: acute on chronic Qualified Code(s): I50.43 - Acute on chronic combined systolic (congestive) and diastolic (congestive) heart failure Is this a current diagnosis for this admission?: Yes Plan: Congestive heart failure. Likely biventricular dysfunction Continue diuretic therapy Continue guideline directed medical therapy for congestive heart failure as tolerable. He appears to be somewhat euvolemic (2) DVT (deep venous thrombosis) Qualifiers: DVT location: lower extremity Laterality: unspecified laterality Is this a current diagnosis for this admission?: Yes Plan: On maintenance warfarin therapy for DVT as well as atrial fibrillation. To be continued. No active bleeding. (3) Cardiac defibrillator in situ Is this a current diagnosis for this admission?: Yes Plan: Biventricular ICD left chest wall. Site looks okay (4) Cellulitis of lower limb Qualifiers: Laterality: left Qualified Code(s): L03.116 - Cellulitis of left lower limb Is this a current diagnosis for this admission?: Yes Plan: Seems to be responding intravenous antibiotic therapy. Continue.
[2019-10-25] MEDS: TAMSULOSIN HCL 0.4 MG CAP.SR.24H PO SCH (17:35)
[2019-10-25] MEDS: WARFARIN SODIUM 5 MG TABLET PO SCH (21:33)
[2019-10-25] MEDS: ATORVASTATIN CALCIUM 80 MG TABLET PO SCH (21:33)
[2019-10-25] MEDS: SERTRALINE HCL 50 MG TABLET PO SCH (21:33)
[2019-10-25] MEDS: INSULIN GLARGINE,HUM.REC.ANLOG 1,000 UNIT/10 ML VIAL SUBCUT SCH (21:34)
[2019-10-25] MEDS ORDERED: WARFARIN SODIUM 5 MG TABLET PO SCH (22:00)
[2019-10-26] MEDS: FUROSEMIDE INJ/PF 40 MG/4 ML SDV IV SCH ×4 (04:00→20:09)
[2019-10-26] MEDS: PANTOPRAZOLE SODIUM 40 MG TABLET.DR PO SCH (05:28)
[2019-10-26] MEDS: HYDRALAZINE HCL 10 MG TABLET PO SCH ×3 (05:28→22:36)
[2019-10-26] MEDS: LEVOTHYROXINE SODIUM 0.15 MG TABLET PO SCH (05:28)
[2019-10-26] MEDS: CEFEPIME 1 GM/D5W RTU 1 GM/50 ML RTUPB IV SCH ×2 (05:29→17:20)
[2019-10-26] MEDS: CLINDAMYCIN 600 MG/D5W RTU 600 MG/50 ML RTUPB IV SCH ×3 (06:03→22:17)
[2019-10-26 06:26] LABS: HEMATOCRIT 29.9 % (37.9-51.0); MEAN CORPUSCULAR HEMOGLOBIN 29.2 pg (27.0-33.4); MEAN CORPUSCULAR HGB CONC 33.3 g/dL (32.0-36.0); MEAN CORPUSCULAR VOLUME 88 fl (80-97); PLATELET COUNT 190 10^3/uL (150-450); RED BLOOD COUNT 3.41 10^6/uL (4.35-5.55); RED CELL DISTRIBUTION WIDTH 20.6 % (11.5-14.0)
[2019-10-26 06:28] LABS: INTERNATIONAL RATION (INR) 1.84; PROTHROMBIN TIME 21.5 SEC (11.4-15.4)
[2019-10-26 06:55] LABS: ANION GAP 7 (5-19); BLOOD UREA NITROGEN 24 mg/dL (7-20); CALCIUM 9.5 mg/dL (8.4-10.2); CARBON DIOXIDE 31 mmol/L (22-30); CHLORIDE 101 mmol/L (98-107); GLUCOSE 166 mg/dL (75-110)
[2019-10-26] MEDS: INSULIN LISPRO 100 UNIT/ML 3 ML VIAL SUBCUT SCH ×4 (07:57→22:15)
[2019-10-26] MEDS: CALCIUM CARBONATE 250 MG/VITAMIN D3 125 UNIT TABLET PO SCH (08:04)
--- NOTE | 2019-10-26 08:26 | PDOC PROGRESS REPORT ---
Subjective Progress Note for:: 10/26/19 Subjective:: Patient is currently doing well Left leg redness and swelling is much improved Patient seen by the cardiology and nephrology No chest pain no short of breath using the CPAP Reason For Visit: LEFT LOWER EXTREMITY CELLULITIS Physical Exam Vital Signs: Temp Pulse Resp BP Pulse Ox 98.2 F 81 19 134/63 H 98 10/26/19 07:40 10/26/19 07:40 10/26/19 07:40 10/26/19 07:40 10/26/19 07:40 Intake & Output 10/25/19 10/26/19 10/27/19 06:59 06:59 06:59 Intake Total 1693 2263 Output Total 1050 2250 Balance 643 13 Weight 115 kg 116 kg General appearance: PRESENT: no acute distress, well-developed, well-nourished Head exam: PRESENT: atraumatic, normocephalic Eye exam: PRESENT: conjunctiva pink, EOMI, PERRLA. ABSENT: scleral icterus Ear exam: PRESENT: normal external ear exam Mouth exam: PRESENT: moist, tongue midline Additional comments: On the upper lip mild swelling is present Neck exam: PRESENT: full ROM. ABSENT: carotid bruit, JVD, lymphadenopathy, t hyromegaly Respiratory exam: PRESENT: clear to auscultation kavitha Cardiovascular exam: PRESENT: RRR. ABSENT: diastolic murmur, rubs, systolic murmur Pulses: PRESENT: normal dorsalis pedis pul, +2 pedal pulses bilateral Vascular exam: PRESENT: normal capillary refill GI/Abdominal exam: PRESENT: normal bowel sounds, soft. ABSENT: distended, guarding, mass, organolmegaly, rebound, tenderness Rectal exam: PRESENT: deferred Extremities exam: PRESENT: pedal edema Additional comments: Left lower extremity redness is still present but improving Neurological exam: PRESENT: alert, awake, oriented to person, oriented to place, oriented to time, oriented to situation, CN II-XII grossly intact. ABSENT: motor sensory deficit Psychiatric exam: PRESENT: appropriate affect, normal mood. ABSENT: homicidal ideation, suicidal ideation Skin exam: PRESENT: dry, intact, warm. ABSENT: cyanosis, rash Results Laboratory Results: 10/26/19 06:02 10/26/19 06:02 10/26/19 10/26/19 06:02 06:02 WBC 5.0 RBC 3.41 L Hgb 10.0 L Hct 29.9 L MCV 88 MCH 29.2 MCHC 33.3 RDW 20.6 H Plt Count 190 Sodium 139.0 Potassium 4.0 Chloride 101 Carbon Dioxide 31 H Anion Gap 7 BUN 24 H Creatinine 1.27 H Est GFR ( Amer) > 60 Glucose 166 H Calcium 9.5 10/21/19 10/21/19 10/21/19 17:02 17:02 23:44 Creatine Kinase 36 L 36 L CK-MB (CK-2) 0.71 Troponin I 0.032 NT-Pro-B Natriuret Pep 10/21/19 10/22/19 10/22/19 23:44 06:15 06:15 Creatine Kinase 32 L CK-MB (CK-2) 0.79 0.72 Troponin I 0.028 0.027 NT-Pro-B Natriuret Pep 4790 H 10/23/19 10/24/19 05:42 06:10 Creatine Kinase CK-MB (CK-2) Troponin I NT-Pro-B Natriuret Pep 7330 H 8870 H Impressions: Cervical Spine CT 10/21/19 11:36 IMPRESSION: No evidence of acute bony abnormality of the cervical spine. Multilevel degenerative disc disease and facet arthropathy. Head CT 10/21/19 11:36 IMPRESSION: No evidence of acute intracranial process. 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 EVIDENCE OF ACUTE STROKE: NO. Chest X-Ray 10/24/19 00:00 IMPRESSION: A new patchy parenchymal opacities in the inferior right hemithora x. Correlate with clinical findings to exclude an infection. Assessment & Plan - Diagnosis (1) Cellulitis of left lower extremity Is this a current diagnosis for this admission?: Yes (2) Anemia in chronic kidney disease (CKD) Qualifiers: Chronic kidney disease stage: stage 3 (moderate) Qualified Code(s): N18.3 - Chronic kidney disease, stage 3 (moderate); D63.1 - Anemia in chronic kidney disease Is this a current diagnosis for this admission?: Yes (3) Atrial fibrillation Qualifiers: Atrial fibrillation type: unspecified Qualified Code(s): I48.91 - Unspecified atrial fibrillation Is this a current diagnosis for this admission?: Yes (4) CAD (coronary artery disease) Qualifiers: Coronary Disease-Associated Artery/Lesion type: unspecified vessel or lesion type Is this a current diagnosis for this admission?: Yes (5) CHF (congestive heart failure) Qualifiers: Heart failure type: combined systolic and diastolic Heart failure chronicity: acute on chronic Qualified Code(s): I50.43 - Acute on chronic combined systolic (congestive) and diastolic (congestive) heart failure Is this a current diagnosis for this admission?: Yes (6) Cardiac defibrillator in situ Is this a current diagnosis for this admission?: Yes (7) Chronic kidney disease, stage 3 Is this a current diagnosis for this admission?: Yes (8) DVT (deep venous thrombosis) Qualifiers: DVT location: lower extremity Laterality: unspecified laterality Is this a current diagnosis for this admission?: Yes (9) Diabetic nephropathy Qualifiers: Diabetes mellitus type: type 2 Qualified Code(s): E11.21 - Type 2 diabetes mellitus with diabetic nephropathy Is this a current diagnosis for this admission?: Yes (10) Hypertension Qualifiers: Hypertension type: essential hypertension Is this a current diagnosis for this admission?: Yes (11) Sleep disorder Is this a current diagnosis for this admission?: Yes (13) Fall Qualifiers: Encounter type: initial encounter Qualified Code(s): W19.XXXA - Unspecified fall, initial encounter Is this a current diagnosis for this admission?: Yes - Time Time Spent with patient: 15-24 minutes Level of Care: TELE Medications reviewed and adjusted accordingly: Yes Anticipated discharge: Home with Homehealth Within: Other - Plan Summary Plan Summary: Continues to IV antibiotic
[2019-10-26] MEDS: CLOPIDOGREL BISULFATE 75 MG TABLET PO SCH (09:27)
[2019-10-26] MEDS: CETIRIZINE 10 MG TABLET PO SCH (09:27)
[2019-10-26] MEDS: POTASSIUM CHLORIDE 10 MEQ TABLET.ER PO SCH ×2 (09:27→22:15)
[2019-10-26] MEDS: DOCUSATE SODIUM 100 MG CAPSULE PO SCH ×2 (09:27→22:15)
[2019-10-26] MEDS: METOPROLOL SUCCINATE 50 MG TAB.SR.24H PO SCH (09:27)
[2019-10-26] MEDS: ALLOPURINOL 100 MG TABLET PO SCH (09:27)
[2019-10-26] MEDS: FLUTICASONE/VILANTEROL 200-25 MCG/DOSE IH SCH (09:28)
[2019-10-26] MEDS: ISOSORBIDE DINITRATE 10 MG TABLET PO SCH (09:28)
[2019-10-26] MEDS: UMECLIDINIUM BROMIDE 62.5 MCG/DOSE IH SCH (09:29)
[2019-10-26] MEDS: POLYETHYLENE GLYCOL 3350 POWDER 17 GM/1 PACKET PO SCH (09:30)
[2019-10-26 10:14] LABS: APPEARANCE,URINE CLEAR; BILIRUBIN,URINE NEGATIVE (NEGATIVE); COLOR,URINE YELLOW; GLUCOSE, URINE NEGATIVE (NEGATIVE); KETONES,URINE NEGATIVE (NEGATIVE); LEUKOCYTE ESTERASE,URINE NEGATIVE (NEGATIVE); NITRITE,URINE NEGATIVE (NEGATIVE); PROTEIN,URINE NEGATIVE (NEGATIVE); UROBILINOGEN,URINE NEGATIVE mg/dL (<2.0)
--- NOTE | 2019-10-26 14:14 | PDOC PROGRESS REPORT ---
Subjective Progress Note for:: 10/26/19 Subjective:: Patient seen and examined. Sitting at the edge of the bed. Reports improvement in left lower extremity swelling pain and discomfort. No dyspnea reported. Reason For Visit: LEFT LOWER EXTREMITY CELLULITIS Physical Exam Vital Signs: Temp Pulse Resp BP Pulse Ox 97.7 F 79 18 136/59 H 93 10/26/19 10:54 10/26/19 10:54 10/26/19 10:54 10/26/19 10:54 10/26/19 10:59 Intake & Output 10/25/19 10/26/19 10/27/19 06:59 06:59 06:59 Intake Total 1693 2263 290 Output Total 1050 2250 160 Balance 643 13 130 Weight 115 kg 116 kg General appearance: PRESENT: no acute distress, cooperative, obese Head exam: PRESENT: atraumatic, normocephalic Eye exam: PRESENT: EOMI Mouth exam: PRESENT: moist Neck exam: PRESENT: JVD Respiratory exam: PRESENT: decreased breath sounds, prolonged expiratory phas, symmetrical, unlabored Cardiovascular exam: PRESENT: irregular rhythm, +S1, +S2, other - ICD implant site left chest wall is healed. GI/Abdominal exam: PRESENT: soft Rectal exam: PRESENT: deferred Musculoskeletal exam: PRESENT: normal inspection Neurological exam: PRESENT: alert, awake, oriented to person, oriented to place, oriented to time, oriented to situation Psychiatric exam: PRESENT: appropriate affect Skin exam: PRESENT: dry, intact, normal color, skin tears Results Laboratory Results: 10/26/19 06:02 10/26/19 06:02 10/26/19 10/26/19 10/26/19 06:02 06:02 09:51 WBC 5.0 RBC 3.41 L Hgb 10.0 L Hct 29.9 L MCV 88 MCH 29.2 MCHC 33.3 RDW 20.6 H Plt Count 190 Sodium 139.0 Potassium 4.0 Chloride 101 Carbon Dioxide 31 H Anion Gap 7 BUN 24 H Creatinine 1.27 H Est GFR ( Amer) > 60 Glucose 166 H Calcium 9.5 Urine Color YELLOW Urine Appearance CLEAR Urine pH 6.0 Ur Specific [place] 1.010 Urine Protein NEGATIVE Urine Glucose (UA) NEGATIVE Urine Ketones NEGATIVE Urine Blood SMALL H Urine Nitrite NEGATIVE Ur Leukocyte Esterase NEGATIVE Urine WBC (Auto) 1 Urine RBC (Auto) 6 10/21/19 14:00 Blood Blood Culture - Final NO GROWTH IN 5 DAYS 10/21/19 12:20 Blood Blood Culture - Final NO GROWTH IN 5 DAYS 10/21/19 10/21/19 10/21/19 17:02 17:02 23:44 Creatine Kinase 36 L 36 L CK-MB (CK-2) 0.71 Troponin I 0.032 NT-Pro-B Natriuret Pep 10/21/19 10/22/19 10/22/19 23:44 06:15 06:15 Creatine Kinase 32 L CK-MB (CK-2) 0.79 0.72 Troponin I 0.028 0.027 NT-Pro-B Natriuret Pep 4790 H 10/23/19 10/24/19 05:42 06:10 Creatine Kinase CK-MB (CK-2) Troponin I NT-Pro-B Natriuret Pep 7330 H 8870 H Impressions: Cervical Spine CT 10/21/19 11:36 IMPRESSION: No evidence of acute bony abnormality of the cervical spine. Multilevel degenerative disc disease and facet arthropathy. Head CT 10/21/19 11:36 IMPRESSION: No evidence of acute intracranial process. 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 EVIDENCE OF ACUTE STROKE: NO. Chest X-Ray 10/24/19 00:00 IMPRESSION: A new patchy parenchymal opacities in the inferior right hemithorax. Correlate with clinical findings to exclude an infection. Assessment & Plan - Diagnosis (1) CHF (congestive heart failure) Qualifiers: Heart failure type: combined systolic and diastolic Heart failure chronicity: acute on chronic Qualified Code(s): I50.43 - Acute on chronic combined systolic (congestive) and diastolic (congestive) heart failure Is this a current diagnosis for this admission?: Yes Plan: Congestive heart failure. Likely biventricular dysfunction Continue diuretic therapy Continue guideline directed medical therapy for congestive heart failure as tolerable. Some of the edema is likely lymphedema. Volume status is difficult to gauge. Would recommend maintenance diuretics. (2) DVT (deep venous thrombosis) Qualifiers: DVT location: lower extremity Laterality: unspecified laterality Is this a current diagnosis for this admission?: Yes Plan: On maintenance warfarin therapy for DVT as well as atrial fibrillation. To be continued. No active bleeding. (3) Cardiac defibrillator in situ Is this a current diagnosis for this admission?: Yes Plan: Biventricular ICD left chest wall. Site looks okay (4) Cellulitis of lower limb Qualifiers: Laterality: left Qualified Code(s): L03.116 - Cellulitis of left lower limb Is this a current diagnosis for this admission?: Yes Plan: Good response to antibiotic therapy. Clinical improvement is noticeable..
[2019-10-26] MEDS: TAMSULOSIN HCL 0.4 MG CAP.SR.24H PO SCH (17:20)
[2019-10-26] MEDS: SERTRALINE HCL 50 MG TABLET PO SCH (22:00)
[2019-10-26] MEDS: ATORVASTATIN CALCIUM 80 MG TABLET PO SCH (22:11)
[2019-10-26] MEDS: WARFARIN SODIUM 5 MG TABLET PO SCH (22:15)
[2019-10-26] MEDS: INSULIN GLARGINE,HUM.REC.ANLOG 1,000 UNIT/10 ML VIAL SUBCUT SCH (22:17)
[2019-10-27 06:38] LABS: ANION GAP 7 (5-19); BLOOD UREA NITROGEN 28 mg/dL (7-20); CALCIUM 9.5 mg/dL (8.4-10.2); CARBON DIOXIDE 30 mmol/L (22-30); CHLORIDE 101 mmol/L (98-107); GLUCOSE 188 mg/dL (75-110); POTASSIUM 4.4 mmol/L (3.6-5.0)
[2019-10-27] MEDS: CLINDAMYCIN 600 MG/D5W RTU 600 MG/50 ML RTUPB IV SCH ×3 (07:31→21:33)
[2019-10-27] MEDS: PANTOPRAZOLE SODIUM 40 MG TABLET.DR PO SCH (07:32)
[2019-10-27] MEDS: CALCIUM CARBONATE 250 MG/VITAMIN D3 125 UNIT TABLET PO SCH (07:42)
[2019-10-27] MEDS: LEVOTHYROXINE SODIUM 0.15 MG TABLET PO SCH (07:42)
[2019-10-27] MEDS: FUROSEMIDE INJ/PF 40 MG/4 ML SDV IV SCH ×4 (07:42→21:33)
[2019-10-27] MEDS: HYDRALAZINE HCL 10 MG TABLET PO SCH ×3 (07:42→21:32)
[2019-10-27] MEDS: CEFEPIME 1 GM/D5W RTU 1 GM/50 ML RTUPB IV SCH ×2 (07:47→18:17)
[2019-10-27] MEDS: INSULIN LISPRO 100 UNIT/ML 3 ML VIAL SUBCUT SCH ×4 (08:07→21:33)
[2019-10-27] MEDS: DOCUSATE SODIUM 100 MG CAPSULE PO SCH ×2 (09:18→21:32)
[2019-10-27] MEDS: ALLOPURINOL 100 MG TABLET PO SCH (09:18)
[2019-10-27] MEDS: POTASSIUM CHLORIDE 10 MEQ TABLET.ER PO SCH ×2 (09:18→21:32)
[2019-10-27] MEDS: METOPROLOL SUCCINATE 50 MG TAB.SR.24H PO SCH (09:19)
[2019-10-27] MEDS: POLYETHYLENE GLYCOL 3350 POWDER 17 GM/1 PACKET PO SCH (09:19)
[2019-10-27] MEDS: FLUTICASONE/VILANTEROL 200-25 MCG/DOSE IH SCH (09:19)
[2019-10-27] MEDS: CETIRIZINE 10 MG TABLET PO SCH (09:19)
[2019-10-27] MEDS: CLOPIDOGREL BISULFATE 75 MG TABLET PO SCH (09:19)
[2019-10-27] MEDS: UMECLIDINIUM BROMIDE 62.5 MCG/DOSE IH SCH (09:19)
[2019-10-27] MEDS: ISOSORBIDE DINITRATE 10 MG TABLET PO SCH (09:19)
--- NOTE | 2019-10-27 10:22 | PDOC PROGRESS REPORT ---
Subjective Progress Note for:: 10/27/19 Subjective:: Patient is currently doing well Patient's denied any chest pain no short of breath Reason For Visit: LEFT LOWER EXTREMITY CELLULITIS Physical Exam Vital Signs: Temp Pulse Resp BP Pulse Ox 97.7 F 80 19 141/58 H 100 10/27/19 07:22 10/27/19 07:22 10/27/19 07:22 10/27/19 07:22 10/27/19 07:22 Intake & Output 10/26/19 10/27/19 10/28/19 06:59 06:59 06:59 Intake Total 2263 640 Output Total 2250 760 Balance 13 -120 Weight 116 kg 116 kg General appearance: PRESENT: no acute distress, well-developed, well-nourished Head exam: PRESENT: atraumatic, normocephalic Eye exam: PRESENT: conjunctiva pink, EOMI, PERRLA. ABSENT: scleral icterus Ear exam: PRESENT: normal external ear exam Mouth exam: PRESENT: moist, tongue midline Neck exam: PRESENT: full ROM. ABSENT: carotid bruit, JVD, lymphadenopathy, thyromegaly Respiratory exam: PRESENT: clear to auscultation kavitha Cardiovascular exam: PRESENT: RRR. ABSENT: diastolic murmur, rubs, systolic murmur Pulses: PRESENT: normal dorsalis pedis pul, +2 pedal pulses bilateral Vascular exam: PRESENT: normal capillary refill GI/Abdominal exam: PRESENT: normal bowel sounds, soft. ABSENT: distended, guarding, mass, organolmegaly, rebound, tenderness Rectal exam: PRESENT: deferred Extremities exam: PRESENT: pedal edema Additional comments: Redness is all improving Neurological exam: PRESENT: alert, awake, oriented to person, oriented to place, oriented to time, oriented to situation, CN II-XII grossly intact. ABSENT: motor sensory deficit Psychiatric exam: PRESENT: appropriate affect, normal mood. ABSENT: homicidal ideation, suicidal ideation Skin exam: PRESENT: dry, intact, warm. ABSENT: cyanosis, rash Results Laboratory Results: 10/26/19 06:02 10/27/19 05:20 10/27/19 05:20 Sodium 137.5 Potassium 4.4 Chloride 101 Carbon Dioxide 30 Anion Gap 7 BUN 28 H Creatinine 1.13 Est GFR ( Amer) > 60 Glucose 188 H Calcium 9.5 10/21/19 14:00 Blood Blood Culture - Final NO GROWTH IN 5 DAYS 10/21/19 12:20 Blood Blood Culture - Final NO GROWTH IN 5 DAYS 10/21/19 10/21/19 10/21/19 17:02 17:02 23:44 Creatine Kinase 36 L 36 L CK-MB (CK-2) 0.71 Troponin I 0.032 NT-Pro-B Natriuret Pep 10/21/19 10/22/19 10/22/19 23:44 06:15 06:15 Creatine Kinase 32 L CK-MB (CK-2) 0.79 0.72 Troponin I 0.028 0.027 NT-Pro-B Natriuret Pep 4790 H 10/23/19 10/24/19 05:42 06:10 Creatine Kinase CK-MB (CK-2) Troponin I NT-Pro-B Natriuret Pep 7330 H 8870 H Impressions: Cervical Spine CT 10/21/19 11:36 IMPRESSION: No evidence of acute bony abnormality of the cervical spine. Multilevel degenerative disc disease and facet arthropathy. Head CT 10/21/19 11:36 IMPRESSION: No evidence of acute intracranial process. 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 EVIDENCE OF ACUTE STROKE: NO. Chest X-Ray 10/24/19 00:00 IMPRESSION: A new patchy parenchymal opacities in the inferior right hemithorax. Correlate with clinical findings to exclude an infection. Assessment & Plan - Diagnosis (1) Cellulitis of left lower extremity Is this a current diagnosis for this admission?: Yes (2) Anemia in chronic kidney disease (CKD) Qualifiers: Chronic kidney disease stage: stage 3 (moderate) Qualified Code(s): N18.3 - Chronic kidney disease, stage 3 (moderate); D63.1 - Anemia in chronic kidney disease Is this a current diagnosis for this admission?: Yes (3) Atrial fibrillation Qualifiers: Atrial fibrillation type: unspecified Qualified Code(s): I48.91 - Unspecified atrial fibrillation Is this a current diagnosis for this admission?: Yes (4) CAD (coronary artery disease) Qualifiers: Coronary Disease-Associated Artery/Lesion type: unspecified vessel or lesion type Is this a current diagnosis for this admission?: Yes (5) CHF (congestive heart failure) Qualifiers: Heart failure type: combined systolic and diastolic Heart failure chronicity: acute on chronic Qualified Code(s): I50.43 - Acute on chronic combined systolic (congestive) and diastolic (congestive) heart failure Is this a current diagnosis for this admission?: Yes (6) Cardiac defibrillator in situ Is this a current diagnosis for this admission?: Yes (7) Chronic kidney disease, stage 3 Is this a current diagnosis for this admission?: Yes (8) DVT (deep venous thrombosis) Qualifiers: DVT location: lower extremity Laterality: unspecified laterality Is this a current diagnosis for this admission?: Yes (9) Diabetic nephropathy Qualifiers: Diabetes mellitus type: type 2 Qualified Code(s): E11.21 - Type 2 diabetes mellitus with diabetic nephropathy Is this a current diagnosis for this admission?: Yes (10) Hypertension Qualifiers: Hypertension type: essential hypertension Is this a current diagnosis for this admission?: Yes (11) Sleep disorder Is this a current diagnosis for this admission?: Yes (13) Fall Qualifiers: Encounter type: initial encounter Qualified Code(s): W19.XXXA - Unspecified fall, initial encounter Is this a current diagnosis for this admission?: Yes - Time Time Spent with patient: 15-24 minutes Level of Care: TELE Medications reviewed and adjusted accordingly: Yes Anticipated discharge: Home with Homehealth Within: Other - Plan Summary Plan Summary: Continues to IV antibiotic
--- NOTE | 2019-10-27 16:38 | PDOC PROGRESS REPORT ---
Subjective Progress Note for:: 10/27/19 Subjective:: Patient seen and examined. Sleeping comfortably. Reason For Visit: LEFT LOWER EXTREMITY CELLULITIS Physical Exam Vital Signs: Temp Pulse Resp BP Pulse Ox 98.2 F 79 18 136/61 H 98 10/27/19 15:52 10/27/19 15:52 10/27/19 15:52 10/27/19 15:52 10/27/19 15:52 Intake & Output 10/26/19 10/27/19 10/28/19 06:59 06:59 06:59 Intake Total 2263 640 562 Output Total 2250 760 200 Balance 13 -120 362 Weight 116 kg 116 kg General appearance: PRESENT: no acute distress, obese Head exam: PRESENT: atraumatic, normocephalic Eye exam: PRESENT: EOMI Respiratory exam: PRESENT: decreased breath sounds, symmetrical, unlabored Cardiovascular exam: PRESENT: irregular rhythm, +S1, +S2 GI/Abdominal exam: PRESENT: soft Rectal exam: PRESENT: deferred Skin exam: PRESENT: dry, intact, normal color, skin tears Results Laboratory Results: 10/26/19 06:02 10/27/19 05:20 10/27/19 05:20 Sodium 137.5 Potassium 4.4 Chloride 101 Carbon Dioxide 30 Anion Gap 7 BUN 28 H Creatinine 1.13 Est GFR ( Amer) > 60 Glucose 188 H Calcium 9.5 10/21/19 14:00 Blood Blood Culture - Final NO GROWTH IN 5 DAYS 10/21/19 12:20 Blood Blood Culture - Final NO GROWTH IN 5 DAYS 10/21/19 10/21/19 10/21/19 17:02 17:02 23:44 Creatine Kinase 36 L 36 L CK-MB (CK-2) 0.71 Troponin I 0.032 NT-Pro-B Natriuret Pep 10/21/19 10/22/19 10/22/19 23:44 06:15 06:15 Creatine Kinase 32 L CK-MB (CK-2) 0.79 0.72 Troponin I 0.028 0.027 NT-Pro-B Natriuret Pep 4790 H 10/23/19 10/24/19 05:42 06:10 Creatine Kinase CK-MB (CK-2) Troponin I NT-Pro-B Natriuret Pep 7330 H 8870 H EKG Comments: BIV Paced rhythm Impressions: Cervical Spine CT 10/21/19 11:36 IMPRESSION: No evidence of acute bony abnormality of the cervical spine. Multilevel degenerative disc disease and facet arthropathy. Head CT 10/21/19 11:36 IMPRESSION: No evidence of acute intracranial process. 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 EVIDENCE OF ACUTE STROKE: NO. Chest X-Ray 10/24/19 00:00 IMPRESSION: A new patchy parenchymal opacities in the inferior right hemithorax. Correlate with clinical findings to exclude an infection. Assessment & Plan - Diagnosis (1) CHF (congestive heart failure) Qualifiers: Heart failure type: combined systolic and diastolic Heart failure chronici ty: acute on chronic Qualified Code(s): I50.43 - Acute on chronic combined systolic (congestive) and diastolic (congestive) heart failure Is this a current diagnosis for this admission?: Yes Plan: Congestive heart failure. Likely biventricular dysfunction Continue diuretic therapy Continue guideline directed medical therapy for congestive heart failure as tolerable. Recommend maintenance diuretics. (2) DVT (deep venous thrombosis) Qualifiers: DVT location: lower extremity Laterality: unspecified laterality Is this a current diagnosis for this admission?: Yes Plan: On maintenance warfarin therapy for DVT as well as atrial fibrillation. To be continued. No active bleeding. (3) Cardiac defibrillator in situ Is this a current diagnosis for this admission?: Yes Plan: Biventricular ICD left chest wall. (4) Cellulitis of lower limb Qualifiers: Laterality: left Qualified Code(s): L03.116 - Cellulitis of left lower limb Is this a current diagnosis for this admission?: Yes Plan: Good response to antibiotic therapy.
[2019-10-27] MEDS: TAMSULOSIN HCL 0.4 MG CAP.SR.24H PO SCH (18:17)
[2019-10-27] MEDS: WARFARIN SODIUM 5 MG TABLET PO SCH (21:32)
[2019-10-27] MEDS: ATORVASTATIN CALCIUM 80 MG TABLET PO SCH (21:32)
[2019-10-27] MEDS: SERTRALINE HCL 50 MG TABLET PO SCH (21:32)
[2019-10-27] MEDS: INSULIN GLARGINE,HUM.REC.ANLOG 1,000 UNIT/10 ML VIAL SUBCUT SCH (21:33)
[2019-10-28] MEDS: FUROSEMIDE INJ/PF 40 MG/4 ML SDV IV SCH ×2 (02:42→08:18)
[2019-10-28] MEDS: PANTOPRAZOLE SODIUM 40 MG TABLET.DR PO SCH (05:02)
[2019-10-28] MEDS: HYDRALAZINE HCL 10 MG TABLET PO SCH ×3 (05:02→22:56)
[2019-10-28] MEDS: LEVOTHYROXINE SODIUM 0.15 MG TABLET PO SCH (05:02)
[2019-10-28] MEDS: CEFEPIME 1 GM/D5W RTU 1 GM/50 ML RTUPB IV SCH ×2 (05:02→18:12)
[2019-10-28 05:46] LABS: PROTHROMBIN TIME 25.7 SEC (11.4-15.4)
[2019-10-28] MEDS: CLINDAMYCIN 600 MG/D5W RTU 600 MG/50 ML RTUPB IV SCH ×3 (05:48→22:53)
[2019-10-28] MEDS: CALCIUM CARBONATE 250 MG/VITAMIN D3 125 UNIT TABLET PO SCH (08:14)
[2019-10-28] MEDS: INSULIN LISPRO 100 UNIT/ML 3 ML VIAL SUBCUT SCH ×4 (08:47→22:54)
--- NOTE | 2019-10-28 09:11 | PDOC PROGRESS REPORT ---
Subjective Progress Note for:: 10/28/19 Subjective:: Patient is currently doing well Patient is denied any chest pain no short of breath No fever no chills Reason For Visit: LEFT LOWER EXTREMITY CELLULITIS Physical Exam Vital Signs: Temp Pulse Resp BP Pulse Ox 97.5 F 86 16 139/70 H 97 10/28/19 08:00 10/28/19 08:00 10/28/19 08:00 10/28/19 08:00 10/28/19 08:00 Intake & Output 10/27/19 10/28/19 10/29/19 06:59 06:59 06:59 Intake Total 640 1552 Output Total 760 7512 Balance -120 -423 Weight 116 kg 129 kg General appearance: PRESENT: no acute distress, well-developed, well-nourished Head exam: PRESENT: atraumatic, normocephalic Eye exam: PRESENT: conjunctiva pink, EOMI, PERRLA. ABSENT: scleral icterus Ear exam: PRESENT: normal external ear exam Mouth exam: PRESENT: moist, tongue midline Neck exam: PRESENT: full ROM. ABSENT: carotid bruit, JVD, lymphadenopathy, thyromegaly Respiratory exam: PRESENT: clear to auscultation kavitha Cardiovascular exam: PRESENT: RRR. ABSENT: diastolic murmur, rubs, systolic murmur Pulses: PRESENT: normal dorsalis pedis pul, +2 pedal pulses bilateral Vascular exam: PRESENT: normal capillary refill GI/Abdominal exam: PRESENT: normal bowel sounds, soft. ABSENT: distended, guarding, mass, organolmegaly, rebound, tenderness Rectal exam: PRESENT: deferred Extremities exam: PRESENT: pedal edema Additional comments: Left lower extremity redness is all improving Neurological exam: PRESENT: alert, awake, oriented to person, oriented to place, oriented to time, oriented to situation, CN II-XII grossly intact. ABSENT: motor sensory deficit Psychiatric exam: PRESENT: appropriate affect, normal mood. ABSENT: homicidal ideation, suicidal ideation Skin exam: PRESENT: dry, intact, warm. ABSENT: cyanosis, rash Results Laboratory Results: 10/26/19 06:02 10/27/19 05:20 10/21/19 10/21/19 10/21/19 17:02 17:02 23:44 Creatine Kinase 36 L 36 L CK-MB (CK-2) 0.71 Troponin I 0.032 NT-Pro-B Natriuret Pep 10/21/19 10/22/19 10/22/19 23:44 06:15 06:15 Creatine Kinase 32 L CK-MB (CK-2) 0.79 0.72 Troponin I 0.028 0.027 NT-Pro-B Natriuret Pep 4790 H 10/23/19 10/24/19 05:42 06:10 Creatine Kinase CK-MB (CK-2) Troponin I NT-Pro-B Natriuret Pep 7330 H 8870 H Impressions: Cervical Spine CT 10/21/19 11:36 IMPRESSION: No evidence of acute bony abnormality of the cervical spine. Multilevel degenerative disc disease and facet arthropathy. Head CT 10/21/19 11:36 IMPRESSION: No evidence of acute intracranial process. 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 EVIDENCE OF ACUTE STROKE: NO. Chest X-Ray 10/24/19 00:00 IMPRESSION: A new patchy parenchymal opacities in the inferior right hemithorax. Correlate with clinical findings to exclude an infection. Assessment & Plan - Diagnosis (1) Cellulitis of left lower extremity Is this a current diagnosis for this admission?: Yes (2) Anemia in chronic kidney disease (CKD) Qualifiers: Chronic kidney disease stage: stage 3 (moderate) Qualified Code(s): N18.3 - Chronic kidney disease, stage 3 (moderate); D63.1 - Anemia in chronic kidney disease Is this a current diagnosis for this admission?: Yes (3) Atrial fibrillation Qualifiers: Atrial fibrillation type: unspecified Qualified Code(s): I48.91 - Unspecified atrial fibrillation Is this a current diagnosis for this admission?: Yes (4) CAD (coronary artery disease) Qualifiers: Coronary Disease-Associated Artery/Lesion type: unspecified vessel or lesion type Is this a current diagnosis for this admission?: Yes (5) CHF (congestive heart failure) Qualifiers: Heart failure type: combined systolic and diastolic Heart failure chronicit y: acute on chronic Qualified Code(s): I50.43 - Acute on chronic combined systolic (congestive) and diastolic (congestive) heart failure Is this a current diagnosis for this admission?: Yes (6) Cardiac defibrillator in situ Is this a current diagnosis for this admission?: Yes (7) Chronic kidney disease, stage 3 Is this a current diagnosis for this admission?: Yes (8) DVT (deep venous thrombosis) Qualifiers: DVT location: lower extremity Laterality: unspecified laterality Is this a current diagnosis for this admission?: Yes (9) Diabetic nephropathy Qualifiers: Diabetes mellitus type: type 2 Qualified Code(s): E11.21 - Type 2 diabetes mellitus with diabetic nephropathy Is this a current diagnosis for this admission?: Yes (10) Hypertension Qualifiers: Hypertension type: essential hypertension Is this a current diagnosis for this admission?: Yes (11) Sleep disorder Is this a current diagnosis for this admission?: Yes (13) Fall Qualifiers: Encounter type: initial encounter Qualified Code(s): W19.XXXA - Unspecified fall, initial encounter Is this a current diagnosis for this admission?: Yes - Time Time Spent with patient: 15-24 minutes Level of Care: TELE Medications reviewed and adjusted accordingly: Yes Anticipated discharge: Home Within: Other - Plan Summary Plan Summary: Continues IV antibiotics Discontinues the IV Lasix and start on a p.o. Lasix Plan to discharge if the patient is remained stable on Thursday
[2019-10-28] MEDS: UMECLIDINIUM BROMIDE 62.5 MCG/DOSE IH SCH (10:12)
[2019-10-28] MEDS: FLUTICASONE/VILANTEROL 200-25 MCG/DOSE IH SCH (10:12)
[2019-10-28] MEDS: ALLOPURINOL 100 MG TABLET PO SCH (10:16)
[2019-10-28] MEDS: POTASSIUM CHLORIDE 10 MEQ TABLET.ER PO SCH ×2 (10:16→22:53)
[2019-10-28] MEDS: DOCUSATE SODIUM 100 MG CAPSULE PO SCH ×2 (10:16→22:54)
[2019-10-28] MEDS: ISOSORBIDE DINITRATE 10 MG TABLET PO SCH (10:17)
[2019-10-28] MEDS: CLOPIDOGREL BISULFATE 75 MG TABLET PO SCH (10:17)
[2019-10-28] MEDS: CETIRIZINE 10 MG TABLET PO SCH (10:17)
[2019-10-28] MEDS: METOPROLOL SUCCINATE 50 MG TAB.SR.24H PO SCH (10:17)
[2019-10-28] MEDS: POLYETHYLENE GLYCOL 3350 POWDER 17 GM/1 PACKET PO SCH (10:18)
[2019-10-28] MEDS: FUROSEMIDE 80 MG TABLET PO SCH ×2 (13:40→22:53)
[2019-10-28 14:40] LABS: APPEARANCE,URINE CLEAR; BILIRUBIN,URINE NEGATIVE (NEGATIVE); COLOR,URINE YELLOW; GLUCOSE, URINE NEGATIVE (NEGATIVE); KETONES,URINE NEGATIVE (NEGATIVE); LEUKOCYTE ESTERASE,URINE NEGATIVE (NEGATIVE); NITRITE,URINE NEGATIVE (NEGATIVE); PROTEIN,URINE NEGATIVE (NEGATIVE); URINE SPECIFIC GRAVITY 1.011; UROBILINOGEN,URINE NEGATIVE mg/dL (<2.0)
--- NOTE | 2019-10-28 16:19 | PDOC PROGRESS REPORT ---
Subjective Progress Note for:: 10/28/19 Subjective:: Patient seen and examined. Sleeping comfortably. Son and spouse at bedside. Patient endorses that he is feeling much better. Reason For Visit: LEFT LOWER EXTREMITY CELLULITIS Physical Exam Vital Signs: Temp Pulse Resp BP Pulse Ox 97.4 F 82 20 131/60 H 98 10/28/19 11:19 10/28/19 14:00 10/28/19 11:19 10/28/19 11:19 10/28/19 11:19 Intake & Output 10/27/19 10/28/19 10/29/19 06:59 06:59 06:59 Intake Total 640 1602 240 Output Total 760 1975 150 Balance -120 -373 90 Weight 116 kg 129 kg 129 kg General appearance: PRESENT: no acute distress, cooperative, obese Head exam: PRESENT: atraumatic, normocephalic Eye exam: PRESENT: conjunctiva pink, EOMI Mouth exam: PRESENT: moist Neck exam: PRESENT: JVD Respiratory exam: PRESENT: crackles, decreased breath sounds, unlabored Cardiovascular exam: PRESENT: irregular rhythm, +S1, +S2 - Left-sided infraclavicular area. ICD implant site is well-healed. Skin is intact no edema, erythema or excoriation. Musculoskeletal exam: PRESENT: normal inspection - Bilateral lower extremities are significantly edematous. Lymphedema predominantly. Cellulitic changes in the left lower extremity are much improved with market reduction in erythema Neurological exam: PRESENT: alert, awake, oriented to person, oriented to place, oriented to time, oriented to situation Psychiatric exam: PRESENT: appropriate affect Skin exam: PRESENT: dry, intact, normal color, skin tears Results Laboratory Results: 10/26/19 06:02 10/27/19 05:20 10/28/19 14:00 Urine Color YELLOW Urine Appearance CLEAR Urine pH 5.0 Ur Specific [place] 1.011 Urine Protein NEGATIVE Urine Glucose (UA) NEGATIVE Urine Ketones NEGATIVE Urine Blood SMALL H Urine Nitrite NEGATIVE Ur Leukocyte Esterase NEGATIVE Urine WBC (Auto) 1 Urine RBC (Auto) 3 10/21/19 10/21/19 10/21/19 17:02 17:02 23:44 Creatine Kinase 36 L 36 L CK-MB (CK-2) 0.71 Troponin I 0.032 NT-Pro-B Natriuret Pep 10/21/19 10/22/19 10/22/19 23:44 06:15 06:15 Creatine Kinase 32 L CK-MB (CK-2) 0.79 0.72 Troponin I 0.028 0.027 NT-Pro-B Natriuret Pep 4790 H 10/23/19 10/24/19 05:42 06:10 Creatine Kinase CK-MB (CK-2) Troponin I NT-Pro-B Natriuret Pep 7330 H 8870 H Impressions: Cervical Spine CT 10/21/19 11:36 IMPRESSION: No evidence of acute bony abnormality of the cervical spine. Multilevel degenerative disc disease and facet arthropathy. Head CT 10/21/19 11:36 IMPRESSION: No evidence of acute intracranial process. 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 EVIDENCE OF ACUTE STROKE: NO. Chest X-Ray 10/24/19 00:00 IMPRESSION: A new patchy parenchymal opacities in the inferior right hemithorax. Correlate with clinical findings to exclude an infection. Assessment & Plan - Diagnosis (1) CHF (congestive heart failure) Qualifiers: Heart failure type: combined systolic and diastolic Heart failure chronicity: acute on chronic Qualified Code(s): I50.43 - Acute on chronic combined systolic (congestive) and diastolic (congestive) heart failure Is this a current diagnosis for this admission?: Yes Plan: Congestive heart failure. Likely biventricular dysfunction Continue diuretic therapy Patient appears to be improving albeit very slowly Continue maintenance diuretic therapy. (2) DVT (deep venous thrombosis) Qualifiers: DVT location: lower extremity Laterality: unspecified laterality Is this a current diagnosis for this admission?: Yes Plan: On maintenance warfarin therapy for DVT as well as atrial fibrillation. To be continued. No active bleeding. (3) Cardiac defibrillator in situ Is this a current diagnosis for this admission?: Yes Plan: Biventricular ICD left chest wall. Site was examined. Intact. (4) Cellulitis of lower limb Qualifiers: Laterality: left Qualified Code(s): L03.116 - Cellulitis of left lower limb Is this a current diagnosis for this admission?: Yes Plan: Good response to antibiotic therapy. Continue
[2019-10-28] MEDS: TAMSULOSIN HCL 0.4 MG CAP.SR.24H PO SCH (18:14)
[2019-10-28] MEDS: ATORVASTATIN CALCIUM 80 MG TABLET PO SCH (22:53)
[2019-10-28] MEDS: WARFARIN SODIUM 5 MG TABLET PO SCH (22:53)
[2019-10-28] MEDS: SERTRALINE HCL 50 MG TABLET PO SCH (22:53)
[2019-10-28] MEDS: INSULIN GLARGINE,HUM.REC.ANLOG 1,000 UNIT/10 ML VIAL SUBCUT SCH (22:54)
[2019-10-29 06:07] LABS: INTERNATIONAL RATION (INR) 2.48; PROTHROMBIN TIME 27.3 SEC (11.4-15.4)
[2019-10-29 06:08] LABS: HEMATOCRIT 31.5 % (37.9-51.0); HEMOGLOBIN 10.4 g/dL (13.5-17.0); MEAN CORPUSCULAR HEMOGLOBIN 28.9 pg (27.0-33.4); MEAN CORPUSCULAR HGB CONC 33.1 g/dL (32.0-36.0); MEAN CORPUSCULAR VOLUME 87 fl (80-97); PLATELET COUNT 211 10^3/uL (150-450); RED BLOOD COUNT 3.61 10^6/uL (4.35-5.55); RED CELL DISTRIBUTION WIDTH 20.2 % (11.5-14.0); WHITE BLOOD COUNT 4.2 10^3/uL (4.0-10.5)
[2019-10-29] MEDS: CEFEPIME 1 GM/D5W RTU 1 GM/50 ML RTUPB IV SCH ×2 (06:27→17:57)
[2019-10-29] MEDS: FUROSEMIDE 80 MG TABLET PO SCH ×3 (06:27→23:19)
[2019-10-29] MEDS: PANTOPRAZOLE SODIUM 40 MG TABLET.DR PO SCH (06:28)
[2019-10-29] MEDS: CLINDAMYCIN 600 MG/D5W RTU 600 MG/50 ML RTUPB IV SCH ×3 (06:28→23:20)
[2019-10-29] MEDS: HYDRALAZINE HCL 10 MG TABLET PO SCH ×3 (06:29→23:21)
[2019-10-29] MEDS: LEVOTHYROXINE SODIUM 0.15 MG TABLET PO SCH (06:29)
[2019-10-29 06:30] LABS: ANION GAP 8 (5-19); BLOOD UREA NITROGEN 28 mg/dL (7-20); CALCIUM 9.8 mg/dL (8.4-10.2); CARBON DIOXIDE 33 mmol/L (22-30); CHLORIDE 99 mmol/L (98-107); GLUCOSE 178 mg/dL (75-110); POTASSIUM 4.1 mmol/L (3.6-5.0)
[2019-10-29] MEDS: INSULIN LISPRO 100 UNIT/ML 3 ML VIAL SUBCUT SCH ×4 (10:42→23:18)
[2019-10-29] MEDS: POLYETHYLENE GLYCOL 3350 POWDER 17 GM/1 PACKET PO SCH (10:49)
[2019-10-29] MEDS: FLUTICASONE/VILANTEROL 200-25 MCG/DOSE IH SCH (10:49)
[2019-10-29] MEDS: METOPROLOL SUCCINATE 50 MG TAB.SR.24H PO SCH (10:50)
[2019-10-29] MEDS: DOCUSATE SODIUM 100 MG CAPSULE PO SCH ×2 (10:50→23:19)
[2019-10-29] MEDS: ALLOPURINOL 100 MG TABLET PO SCH (10:50)
[2019-10-29] MEDS: ISOSORBIDE DINITRATE 10 MG TABLET PO SCH (10:50)
[2019-10-29] MEDS: CALCIUM CARBONATE 250 MG/VITAMIN D3 125 UNIT TABLET PO SCH (10:50)
[2019-10-29] MEDS: POTASSIUM CHLORIDE 10 MEQ TABLET.ER PO SCH ×2 (10:51→23:19)
[2019-10-29] MEDS: CETIRIZINE 10 MG TABLET PO SCH (10:51)
[2019-10-29] MEDS: CLOPIDOGREL BISULFATE 75 MG TABLET PO SCH (10:51)
[2019-10-29] MEDS: UMECLIDINIUM BROMIDE 62.5 MCG/DOSE IH SCH (11:38)
--- NOTE | 2019-10-29 16:36 | PDOC PROGRESS REPORT ---
Subjective Progress Note for:: 10/29/19 Subjective:: No fever or chills. He denied any chest pain or difficulty with breathing. He continues to pick on scab wounds on his upper extremities with incident of bleeding due to Coumadin therapy for his chronic atrial fibrillation. No nausea, vomiting, or abdominal pain. Reason For Visit: LEFT LOWER EXTREMITY CELLULITIS Physical Exam Vital Signs: Temp Pulse Resp BP Pulse Ox 98.3 F 79 18 150/65 H 100 10/29/19 08:01 10/29/19 08:01 10/29/19 08:01 10/29/19 08:01 10/29/19 08:01 Intake & Output 10/28/19 10/29/19 10/30/19 06:59 06:59 06:59 Intake Total 1602 1712 300 Output Total 1975 7475 450 Balance -373 -413 -150 Weight 129 kg 116 kg General appearance: PRESENT: obese Head exam: PRESENT: atraumatic, normocephalic Ear exam: PRESENT: normal external ear exam Mouth exam: PRESENT: moist Respiratory exam: PRESENT: clear to auscultation kavitha Cardiovascular exam: PRESENT: irregular rhythm, +S1, +S2 Vascular exam: ABSENT: pallor GI/Abdominal exam: PRESENT: normal bowel sounds, soft. ABSENT: distended, guarding, mass, organolmegaly, rebound, tenderness Extremities exam: PRESENT: pedal edema - chronic left leg in view of his skin changes Musculoskeletal exam: PRESENT: tenderness - minimal to palpation Neurological exam: PRESENT: alert, awake Psychiatric exam: PRESENT: appropriate affect, normal mood. ABSENT: homicidal ideation, suicidal ideation Skin exam: PRESENT: dry, erythema - left leg, warm Results Laboratory Results: 10/29/19 05:41 10/29/19 05:41 10/29/19 10/29/19 05:41 05:41 WBC 4.2 RBC 3.61 L Hgb 10.4 L Hct 31.5 L MCV 87 MCH 28.9 MCHC 33.1 RDW 20.2 H Plt Count 211 Sodium 139.5 Potassium 4.1 Chloride 99 Carbon Dioxide 33 H Anion Gap 8 BUN 28 H Creatinine 1.23 Est GFR ( Amer) > 60 Glucose 178 H Calcium 9.8 10/21/19 10/21/19 10/21/19 17:02 17:02 23:44 Creatine Kinase 36 L 36 L CK-MB (CK-2) 0.71 Troponin I 0.032 NT-Pro-B Natriuret Pep 10/21/19 10/22/19 10/22/19 23:44 06:15 06:15 Creatine Kinase 32 L CK-MB (CK-2) 0.79 0.72 Troponin I 0.028 0.027 NT-Pro-B Natriuret Pep 4790 H 10/23/19 10/24/19 05:42 06:10 Creatine Kinase CK-MB (CK-2) Troponin I NT-Pro-B Natriuret Pep 7330 H 8870 H Impressions: Cervical Spine CT 10/21/19 11:36 IMPRESSION: No evidence of acute bony abnormality of the cervical spine. Multilevel degenerative disc disease and facet arthropathy. Head CT 10/21/19 11:36 IMPRESSION: No evidence of acute intracranial process. 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 EVIDENCE OF ACUTE STROKE: NO. Chest X-Ray 10/24/19 00:00 IMPRESSION: A new patchy parenchymal opacities in the inferior right hemithorax. Correlate with clinical findings to exclude an infection. Assessment & Plan - Diagnosis (1) Cellulitis of left lower extremity Is this a current diagnosis for this admission?: Yes Plan: Continue IV Clindamycin coverage. (2) Diabetes mellitus type 2 in obese Is this a current diagnosis for this admission?: Yes Plan: Continue current medication management. (3) Hypertension Qualifiers: Hypertension type: essential hypertension Is this a current diagnosis for this admission?: Yes Plan: Continue current medication management. - Time Time Spent with patient: 25-34 minutes Level of Care: TELE Anticipated discharge: Home with Homehealth Within: Other - Inpatient Certification Based on my medical assessment, after consideration of the patient's comorbid ities, presenting symptoms, or acuity I expect that the services needed warrant INPATIENT care.: Yes I certify that my determination is in accordance with my understanding of Medicare's requirements for reasonable and necessary INPATIENT services [42 CFR 412.3e].: Yes Medical Necessity: Significant Comorbidiites Make Outpatient Treatment Too Risky, Need Close Monitoring Due to Risk of Patient Decompensation, Need For Continuous Telemetry Monitoring, Need for IV Antibiotics, Risk of Complication if Not Cared For in Hospital, Risk of Diagnosis Which Will Require Inpatient Eval/Care/Monitoring Post Hospital Care: 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
[2019-10-29] MEDS: TAMSULOSIN HCL 0.4 MG CAP.SR.24H PO SCH (17:56)
[2019-10-29] MEDS: WARFARIN SODIUM 5 MG TABLET PO SCH (23:19)
[2019-10-29] MEDS: ATORVASTATIN CALCIUM 80 MG TABLET PO SCH (23:19)
[2019-10-29] MEDS: SERTRALINE HCL 50 MG TABLET PO SCH (23:19)
[2019-10-29] MEDS: INSULIN GLARGINE,HUM.REC.ANLOG 1,000 UNIT/10 ML VIAL SUBCUT SCH (23:20)
[2019-10-30 06:07] LABS: PROTHROMBIN TIME 28.4 SEC (11.4-15.4)
[2019-10-30 06:17] LABS: ANION GAP 7 (5-19); BLOOD UREA NITROGEN 22 mg/dL (7-20); CALCIUM 9.6 mg/dL (8.4-10.2); CARBON DIOXIDE 31 mmol/L (22-30); CHLORIDE 99 mmol/L (98-107); GLUCOSE 182 mg/dL (75-110)
[2019-10-30] MEDS: PANTOPRAZOLE SODIUM 40 MG TABLET.DR PO SCH (06:32)
[2019-10-30] MEDS: CEFEPIME 1 GM/D5W RTU 1 GM/50 ML RTUPB IV SCH ×2 (06:32→17:08)
[2019-10-30] MEDS: FUROSEMIDE 80 MG TABLET PO SCH ×3 (06:33→21:23)
[2019-10-30] MEDS: LEVOTHYROXINE SODIUM 0.15 MG TABLET PO SCH (06:33)
[2019-10-30] MEDS: HYDRALAZINE HCL 10 MG TABLET PO SCH ×3 (06:33→21:25)
[2019-10-30] MEDS: CLINDAMYCIN 600 MG/D5W RTU 600 MG/50 ML RTUPB IV SCH ×3 (07:34→21:23)
[2019-10-30] MEDS: INSULIN LISPRO 100 UNIT/ML 3 ML VIAL SUBCUT SCH ×4 (08:21→21:21)
[2019-10-30] MEDS: CALCIUM CARBONATE 250 MG/VITAMIN D3 125 UNIT TABLET PO SCH (08:22)
[2019-10-30] MEDS: UMECLIDINIUM BROMIDE 62.5 MCG/DOSE IH SCH (09:27)
[2019-10-30] MEDS: FLUTICASONE/VILANTEROL 200-25 MCG/DOSE IH SCH (09:27)
[2019-10-30] MEDS: POLYETHYLENE GLYCOL 3350 POWDER 17 GM/1 PACKET PO SCH (09:27)
[2019-10-30] MEDS: POTASSIUM CHLORIDE 10 MEQ TABLET.ER PO SCH ×2 (09:28→21:24)
[2019-10-30] MEDS: CETIRIZINE 10 MG TABLET PO SCH (09:28)
[2019-10-30] MEDS: METOPROLOL SUCCINATE 50 MG TAB.SR.24H PO SCH (09:28)
[2019-10-30] MEDS: CLOPIDOGREL BISULFATE 75 MG TABLET PO SCH (09:28)
[2019-10-30] MEDS: ALLOPURINOL 100 MG TABLET PO SCH (09:28)
[2019-10-30] MEDS: DOCUSATE SODIUM 100 MG CAPSULE PO SCH ×2 (09:28→21:23)
[2019-10-30] MEDS: ISOSORBIDE DINITRATE 10 MG TABLET PO SCH (09:28)
[2019-10-30] MEDS: TAMSULOSIN HCL 0.4 MG CAP.SR.24H PO SCH (17:08)
--- NOTE | 2019-10-30 18:10 | PDOC PROGRESS REPORT ---
Subjective Progress Note for:: 10/30/19 Subjective:: No fever or chills. No chest pain or difficulty with breathing. No nausea, vomiting, or abdominal pain. Reason For Visit: LEFT LOWER EXTREMITY CELLULITIS Physical Exam Vital Signs: Temp Pulse Resp BP Pulse Ox 98.1 F 83 18 117/65 96 10/30/19 11:00 10/30/19 11:00 10/30/19 11:00 10/30/19 11:00 10/30/19 11:00 Intake & Output 10/29/19 10/30/19 10/31/19 06:59 06:59 06:59 Intake Total 1712 911 340 Output Total 2120 1175 875 Balance -413 -264 -272 Weight 116 kg 116 kg Physical Exam: General appearance: PRESENT: obese Head exam: PRESENT: atraumatic, normocephalic EYE: Conjunctiva pink. ABSENT: pallor, sclera icterus Ear exam: PRESENT: normal external ear exam Mouth exam: PRESENT: moist Respiratory exam: PRESENT: clear to auscultation kavitha Cardiovascular exam: PRESENT: irregular rhythm, +S1, +S2 GI/Abdominal exam: PRESENT: normal bowel sounds, soft. ABSENT: distended, guarding, mass, organomegaly, rebound, tenderness Extremities exam: PRESENT: pedal edema - chronic left leg in view of his skin changes Musculoskeletal exam: PRESENT: tenderness - minimal to palpation Neurological exam: PRESENT: alert, awake Psychiatric exam: PRESENT: appropriate affect, normal mood. ABSENT: homicidal ideation, suicidal ideation Skin exam: PRESENT: dry, erythema - left leg, warm Results Laboratory Results: 10/29/19 05:41 10/30/19 05:44 10/30/19 05:44 Sodium 137.0 Potassium 4.0 Chloride 99 Carbon Dioxide 31 H Anion Gap 7 BUN 22 H Creatinine 1.01 Est GFR ( Amer) > 60 Glucose 182 H Calcium 9.6 10/21/19 10/21/19 10/21/19 17:02 17:02 23:44 Creatine Kinase 36 L 36 L CK-MB (CK-2) 0.71 Troponin I 0.032 NT-Pro-B Natriuret Pep 10/21/19 10/22/19 10/22/19 23:44 06:15 06:15 Creatine Kinase 32 L CK-MB (CK-2) 0.79 0.72 Troponin I 0.028 0.027 NT-Pro-B Natriuret Pep 4790 H 10/23/19 10/24/19 05:42 06:10 Creatine Kinase CK-MB (CK-2) Troponin I NT-Pro-B Natriuret Pep 7330 H 8870 H Impressions: Cervical Spine CT 10/21/19 11:36 IMPRESSION: No evidence of acute bony abnormality of the cervical spine. Multilevel degenerative disc disease and facet arthropathy. Head CT 10/21/19 11:36 IMPRESSION: No evidence of acute intracranial process. 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 EVIDENCE OF ACUTE STROKE: NO. Chest X-Ray 10/24/19 00:00 IMPRESSION: A new patchy parenchymal opacities in the inferior right hemithorax. Correlate with clinical findings to exclude an infection. Assessment & Plan - Diagnosis (1) Cellulitis of left lower extremity Is this a current diagnosis for this admission?: Yes (2) Diabetes mellitus type 2 in obese Is this a current diagnosis for this admission?: Yes (3) Hypertension Qualifiers: Hypertension type: essential hypertension Qualified Code(s): I10 - Essential (primary) hypertension Is this a current diagnosis for this admission?: Yes - Time Time Spent with patient: 25-34 minutes Level of Care: TELE Medications reviewed and adjusted accordingly: Yes Anticipated discharge: SNF Within: Other - Inpatient Certification Based on my medical assessment, after consideration of the patient's comorbidities, presenting symptoms, or acuity I expect that the services needed warrant INPATIENT care.: Yes I certify that my determination is in accordance with my understanding of Medicare's requirements for reasonable and necessary INPATIENT services [42 CFR 412.3e].: Yes Medical Necessity: Significant Comorbidiites Make Outpatient Treatment Too Risky, Need Close Monitoring Due to Risk of Patient Decompensation, Need For IV Fluids, Need For Continuous Telemetry Monitoring, Need for IV Antibiotics, Risk of Complication if Not Cared For in Hospital, Risk of Diagnosis Which Will R equire Inpatient Eval/Care/Monitoring Post Hospital Care: D/C or Transfer Summary - Plan Summary Plan Summary: Continue current medication management.
[2019-10-30] MEDS: INSULIN GLARGINE,HUM.REC.ANLOG 1,000 UNIT/10 ML VIAL SUBCUT SCH (21:22)
[2019-10-30] MEDS: WARFARIN SODIUM 5 MG TABLET PO SCH (21:23)
[2019-10-30] MEDS: SERTRALINE HCL 50 MG TABLET PO SCH (21:23)
[2019-10-30] MEDS: ATORVASTATIN CALCIUM 80 MG TABLET PO SCH (21:23)
[2019-10-31] MEDS: CEFEPIME 1 GM/D5W RTU 1 GM/50 ML RTUPB IV SCH (05:17)
[2019-10-31] MEDS: LEVOTHYROXINE SODIUM 0.15 MG TABLET PO SCH (05:17)
[2019-10-31] MEDS: HYDRALAZINE HCL 10 MG TABLET PO SCH (05:17)
[2019-10-31] MEDS: PANTOPRAZOLE SODIUM 40 MG TABLET.DR PO SCH (05:17)
[2019-10-31] MEDS: FUROSEMIDE 80 MG TABLET PO SCH (05:17)
[2019-10-31] MEDS: CLINDAMYCIN 600 MG/D5W RTU 600 MG/50 ML RTUPB IV SCH (06:14)
[2019-10-31 07:22] LABS: INTERNATIONAL RATION (INR) 2.97; PROTHROMBIN TIME 31.5 SEC (11.4-15.4)
[2019-10-31 07:39] LABS: ANION GAP 6 (5-19); BLOOD UREA NITROGEN 24 mg/dL (7-20); CALCIUM 9.7 mg/dL (8.4-10.2); CARBON DIOXIDE 32 mmol/L (22-30); CHLORIDE 100 mmol/L (98-107); GLUCOSE 184 mg/dL (75-110); POTASSIUM 3.8 mmol/L (3.6-5.0)
[2019-10-31] MEDS: CALCIUM CARBONATE 250 MG/VITAMIN D3 125 UNIT TABLET PO SCH (08:13)
[2019-10-31] MEDS: INSULIN LISPRO 100 UNIT/ML 3 ML VIAL SUBCUT SCH ×2 (08:13→12:09)
[2019-10-31] MEDS: ALLOPURINOL 100 MG TABLET PO SCH (09:44)
[2019-10-31] MEDS: METOPROLOL SUCCINATE 50 MG TAB.SR.24H PO SCH (09:44)
[2019-10-31] MEDS: CLOPIDOGREL BISULFATE 75 MG TABLET PO SCH (09:44)
[2019-10-31] MEDS: DOCUSATE SODIUM 100 MG CAPSULE PO SCH (09:44)
[2019-10-31] MEDS: CETIRIZINE 10 MG TABLET PO SCH (09:44)
[2019-10-31] MEDS: UMECLIDINIUM BROMIDE 62.5 MCG/DOSE IH SCH (09:45)
[2019-10-31] MEDS: POTASSIUM CHLORIDE 10 MEQ TABLET.ER PO SCH (09:45)
[2019-10-31] MEDS: ISOSORBIDE DINITRATE 10 MG TABLET PO SCH (09:45)
[2019-10-31] MEDS: FLUTICASONE/VILANTEROL 200-25 MCG/DOSE IH SCH (09:45)
[2019-10-31] MEDS: POLYETHYLENE GLYCOL 3350 POWDER 17 GM/1 PACKET PO SCH (09:45)
--- NOTE | 2019-10-31 09:58 | PDOC DISCHARGE SUMMARY ---
Impression - Admit/DC Date/PCP Admission Date/Primary Care Provider: 10/21/19 16:11 DANA RODRIGUEZ MD Discharge Date: 10/31/19 - Discharge Diagnosis (1) Cellulitis of left lower extremity Is this a current diagnosis for this admission?: Yes (2) Anemia in chronic kidney disease (CKD) Is this a current diagnosis for this admission?: Yes (3) Atrial fibrillation Is this a current diagnosis for this admission?: Yes (4) CAD (coronary artery disease) Is this a current diagnosis for this admission?: Yes (5) CHF (congestive heart failure) Is this a current diagnosis for this admission?: Yes (6) Cardiac defibrillator in situ Is this a current diagnosis for this admission?: Yes (7) Chronic kidney disease, stage 3 Is this a current diagnosis for this admission?: Yes (8) DVT (deep venous thrombosis) Is this a current diagnosis for this admission?: Yes (9) Diabetic nephropathy Is this a current diagnosis for this admission?: Yes (10) Hypertension Is this a current diagnosis for this admission?: Yes (11) Sleep disorder Is this a current diagnosis for this admission?: Yes (13) Fall Is this a current diagnosis for this admission?: Yes - Additional Information Resuscitation Status: Do Not Resuscitate Discharge Diet: Cardiac, Diabetic Discharge Activity: Activity As Tolerated, Balance Activity w/Rest, Weigh Daily Referrals: KRISSY GAYTAN MD [ACTIVE STAFF] - 11/09/19 11:00 am (THIS IS FIRST AVAILABLE APPT. PLEASE BRING PHOTO ID,INSURANCE CARD AND D/C PAPERWORK FROM HOSPITAL STAY.) DANA RODRIGUEZ MD [Primary Care Provider] - 11/04/19 10:45 am () Prescriptions: Clindamycin HCl 300 mg PO Q6 #28 capsule Furosemide [Lasix 80 mg Tablet] 80 mg PO Q8 #90 tablet Home Medications: Albuterol Sulfate [Proair HFA Inhalation Aerosol 8.5 gm MDI] 1 puff IH ASDIR PRN 10/21/19 Albuterol Sulfate [Proair HFA Inhalation Aerosol 8.5 gm MDI] 1 puff IH Q4HP PRN 10/21/19 Allopurinol [Zyloprim 100 mg Tablet] 100 mg PO QAM 10/21/19 Atorvastatin Calcium [Lipitor 80 mg Tablet] 80 mg PO QHS 10/21/19 Calcitriol [Rocaltrol 0.25 mcg Capsule] 1 cap PO QAM 10/21/19 Calcium Crb,Cit/D3/Min34/Andry [Citracal + Bone Density Tablet] 1 tab PO QAM 10/21/19 Cetirizine HCl [Zyrtec] 10 mg PO QAM 10/21/19 Cholecalciferol (Vitamin D3) [Vitamin D3] 2,000 unit PO QAM 10/21/19 Clopidogrel Bisulfate [Plavix 75 mg Tablet] 75 mg PO QAM 10/21/19 Docusate Sodium [Colace 100 mg Capsule] 100 mg PO Q12 10/21/19 Fenofibrate Nanocrystallized [Tricor 145 mg Tablet] 145 mg PO QAM 10/21/19 Ferrous Sulfate [Feosol 325 mg Tablet] 325 mg PO QAM 10/21/19 Finasteride [Proscar 5 mg Tablet] 5 mg PO QPM 10/21/19 Fluticasone/Salmeterol [Advair 250-50 Diskus 14 Dose/Diskus] 14 inh IH DAILY 10/21/19 Hydralazine HCl [Apresoline 10 mg Tablet] 10 mg PO Q8 10/21/19 Isosorbide Dinitrate [Isordil Titradose 10 mg Tablet] 10 mg PO QAM 10/21/19 Levothyroxine Sodium [Synthroid 0.05 mg Tablet] 50 mcg PO QAM 10/21/19 Levothyroxine Sodium [Synthroid 0.1 mg Tablet] 0.1 mg PO QAM 10/21/19 Metoprolol Succinate 100 mg PO QAM 10/21/19 Pantoprazole Sodium [Protonix [address] Tablet] 40 mg PO QAM 10/21/19 Polyethylene Glycol 3350 [Miralax Powder 17 gm/Packet] 1 packet PO DAILY 10/21/19 Potassium Chloride 20 meq PO Q12 10/21/19 Sertraline HCl [Zoloft 50 mg Tablet] 50 mg PO QPM 10/21/19 Tamsulosin HCl [Flomax] 0.4 mg PO QPM 10/21/19 Tiotropium Brutus [Spiriva Respimat] 4 gm IH DAILY 10/21/19 Warfarin Sodium [Coumadin 3 mg Tablet] 3 mg PO .[id number] 10/22/19 Warfarin Sodium [Coumadin 5 mg Tablet] 5 mg PO TUFR 10/22/19 Clindamycin HCl 300 mg PO Q6 #28 capsule 10/31/19 Furosemide [Lasix 80 mg Tablet] 80 mg PO Q8 #90 tablet 10/31/19 History of Present Illiness History of Present Illness: MARY SHEPHERD is a 84 year old male Mr. Shepherd is an 84-year-old male with past medical history of hypertension, A. fib, CAD, CKD, chronic cellulitis, diabetes who presents today with his and his son complaining of left lower extremity erythema as well as recent fall. Primary history is provided by and son. reports that yesterday patient's left lower extremity became red, swollen more than usual, and patient developed chills. She denies any fever, no upper respiratory symptoms. Patient with history of chronic cellulitis in the left lower extremity. reports that since the left lower extremity has been more red he was more loopy than usual last night, she reports that at 130 this morning he fell. He fell onto his left head, left arm and shoulder, and has had bruising since then. She reports she tried to take him to the ER this morning but he did not want to go. He denies any headache, no vision changes, admits he is fatigued. Patient is currently on Coumadin for A. fib, last INR check on Thursday was 3.5. held his Coumadin until today, he has not been taking it. In the emergency department patient CT head was negative for any acute finding but patient's white count was elevated and patient is consistent with the left lower extremity cellulitis And her ongoing problem with the cellulitis several hospital admissions including the here in the [facility] and seen by the vascular surgery also prescribed the compression foot device No significant history of the congestive heart failure's and chronic kidney disease and significant hospital admissions including the [facility] see a Dr. Rodriguez over there treatment the IV Lasix Also see a pain management Dr. Daryl Pathak with chronic back problems At this point decided to admit the patient to the hospital for the IV antibiotics and will be put some IV Lasix Hospital Course Hospital Course: This is a 84-year-old male difficult medical problem as above presented in the office with the left lower extremity swelling and the redness and diagnosed with the cellulitis and patient was admitting in the hospitals for IV antibiotics Patient was started on IV cefepime and clindamycin and patient responds very well Also have multiple other comorbidity including the chronic congestive heart failure chronic kidney failures chronic sleep apnea and multiple other comorbidity Patient seen by the education supervisor and seen by the cardiology Dr. Gaytan He was initially given IV Lasix with ongoing chronic congestive heart failure's and switch to the p.o. Lasix 80 mg p.o. every 8 Patient also have a chronic embolisms and A. fib chronic Coumadin INR was 2.9 on discharge patient home machines to check the Coumadin discussed with the Patient's otherwise back to the baseline's patient see a cardiology clinic in [place] Patient's other than that denied any other symptoms discharged home with stable conditions Physical Exam Vital Signs: Temp Pulse Resp BP Pulse Ox 97.8 F 80 19 138/63 H 95 10/31/19 07:47 10/31/19 07:47 10/31/19 07:47 10/31/19 07:47 10/31/19 07:47 Intake & Output 10/30/19 10/31/19 11/01/19 06:59 06:59 06:59 Intake Total 911 1685 Output Total 1175 2875 Balance -264 -1190 Weight 116 kg 106.7 kg General appearance: PRESENT: no acute distress, well-developed, well-nourished Head exam: PRESENT: atraumatic, normocephalic Eye exam: PRESENT: conjunctiva pink, EOMI, PERRLA. ABSENT: scleral icterus Ear exam: PRESENT: normal external ear exam Mouth exam: PRESENT: moist, tongue midline Neck exam: ABSENT: carotid bruit, JVD, lymphadenopathy, thyromegaly Respiratory exam: PRESENT: clear to auscultation kavitha. ABSENT: rales, rhonchi, wheezes Cardiovascular exam: PRESENT: RRR. ABSENT: diastolic murmur, rubs, systolic murmur Pulses: PRESENT: normal dorsalis pedis pul Vascular exam: PRESENT: normal capillary refill GI/Abdominal exam: PRESENT: normal bowel sounds, soft. ABSENT: distended, guarding, mass, organolmegaly, rebound, tenderness Rectal exam: PRESENT: deferred Extremities exam: PRESENT: full ROM, pedal edema. ABSENT: calf tenderness, clubbing Neurological exam: PRESENT: alert, awake, oriented to person, oriented to place, oriented to time, oriented to situation, CN II-XII grossly intact. ABSENT: motor sensory deficit Psychiatric exam: PRESENT: appropriate affect, normal mood. ABSENT: homicidal ideation, suicidal ideation Skin exam: PRESENT: dry, intact, warm. ABSENT: cyanosis, rash Results Laboratory Results: WBC 4.2 10^3/uL (4.0-10.5) 10/29/19 05:41 RBC 3.61 10^6/uL (4.35-5.55) L 10/29/19 05:41 Hgb 10.4 g/dL (13.5-17.0) L 10/29/19 05:41 Hct 31.5 % (37.9-51.0) L 10/29/19 05:41 MCV 87 fl (80-97) 10/29/19 05:41 MCH 28.9 pg (27.0-33.4) 10/29/19 05:41 MCHC 33.1 g/dL (32.0-36.0) 10/29/19 05:41 RDW 20.2 % (11.5-14.0) H 10/29/19 05:41 Plt Count 211 10^3/uL (150-450) 10/29/19 05:41 Lymph % (Auto) 13.9 % (13-45) 10/25/19 06:09 Cameron % (Auto) 8.8 % (3-13) 10/25/19 06:09 Eos % (Auto) 3.0 % (0-6) 10/25/19 06:09 Baso % (Auto) 1.0 % (0-2) 10/25/19 06:09 Absolute Neuts (auto) 3.5 10^3/uL (1.7-8.2) 10/25/19 06:09 Absolute Lymphs (auto) 0.7 10^3/uL (0.5-4.7) 10/25/19 06:09 Absolute Monos (auto) 0.4 10^3/uL (0.1-1.4) 10/25/19 06:09 Absolute Eos (auto) 0.1 10^3/uL (0.0-0.6) 10/25/19 06:09 Absolute Basos (auto) 0.0 10^3/uL (0.0-0.2) 10/25/19 06:09 Seg Neutrophils % 73.3 % (42-78) 10/25/19 06:09 PT 31.5 SEC (11.4-15.4) H 10/31/19 06:58 INR 2.97 10/31/19 06:58 VBG pH 7.34 (7.30-7.42) 10/21/19 14:20 VBG pCO2 51.2 mmHg (35-63) 10/21/19 14:20 VBG HCO3 27.1 mmol/L (20-32) 10/21/19 14:20 VBG Base Excess 0.8 mmol/L 10/21/19 14:20 Sodium 137.9 mmol/L (137-145) 10/31/19 06:58 Potassium 3.8 mmol/L (3.6-5.0) 10/31/19 06:58 Chloride 100 mmol/L (98-107) 10/31/19 06:58 Carbon Dioxide 32 mmol/L (22-30) H 10/31/19 06:58 Anion Gap 6 (5-19) 10/31/19 06:58 BUN 24 mg/dL (7-20) H 10/31/19 06:58 Creatinine 1.12 mg/dL (0.52-1.25) 10/31/19 06:58 Est GFR ( Amer) > 60 (>60) 10/31/19 06:58 Est GFR (MDRD) Non-Af > 60 (>60) 10/31/19 06:58 Glucose 184 mg/dL (75-110) H 10/31/19 06:58 POC Glucose 169 mg/dL (70-110) H 10/31/19 06:53 Lactic Acid 1.2 mmol/L (0.7-2.1) 10/22/19 06:15 Calcium 9.7 mg/dL (8.4-10.2) 10/31/19 06:58 Magnesium 2.3 mg/dL (1.6-2.3) 10/24/19 06:10 Total Bilirubin 0.9 mg/dL (0.2-1.3) 10/21/19 14:00 Direct Bilirubin 0.3 mg/dL (0.0-0.4) 10/21/19 14:00 Neonat Total Bilirubin Not Reportable 10/21/19 14:00 Neonat Direct Bilirubin Not Reportable 10/21/19 14:00 Neonat Indirect Bili Not Reportable 10/21/19 14:00 AST 33 U/L (17-59) 10/21/19 14:00 ALT 16 U/L (<50) 10/21/19 14:00 Alkaline Phosphatase 58 U/L (38-126) 10/21/19 14:00 Creatine Kinase 32 U/L (55-170) L 10/22/19 06:15 CK-MB (CK-2) 0.72 ng/mL (<4.55) 10/22/19 06:15 Troponin I 0.027 ng/mL 10/22/19 06:15 NT-Pro-B Natriuret Pep 8870 pg/mL (<450) H 10/24/19 06:10 Total Protein 7.3 g/dL (6.3-8.2) 10/21/19 14:00 Albumin 3.7 g/dL (3.5-5.0) 10/21/19 14:00 Urine Color YELLOW 10/28/19 14:00 Urine Appearance CLEAR 10/28/19 14:00 Urine pH 5.0 (5.0-9.0) 10/28/19 14:00 Ur Specific [place] 1.011 10/28/19 14:00 Urine Protein NEGATIVE mg/dL (NEGATIVE) 10/28/19 14:00 Urine Glucose (UA) NEGATIVE mg/dL (NEGATIVE) 10/28/19 14:00 Urine Ketones NEGATIVE mg/dL (NEGATIVE) 10/28/19 14:00 Urine Blood SMALL (NEGATIVE) H 10/28/19 14:00 Urine Nitrite NEGATIVE (NEGATIVE) 10/28/19 14:00 Urine Nitrite (Reflex) NEGATIVE (NEGATIVE) 10/24/19 22:57 Urine Bilirubin NEGATIVE (NEGATIVE) 10/28/19 14:00 Urine Urobilinogen NEGATIVE mg/dL (<2.0) 10/28/19 14:00 Ur Leukocyte Esterase NEGATIVE (NEGATIVE) 10/28/19 14:00 Leukocyte Esterase Rfl NEGATIVE (NEGATIVE) 10/24/19 22:57 Urine WBC (Auto) 1 /HPF 10/28/19 14:00 Urine RBC (Auto) 3 /HPF 10/28/19 14:00 U Hyaline Cast (Auto) 5 /LPF 10/28/19 14:00 Urine WBC (Reflex) 1 /HPF 10/24/19 22:57 Squamous Epi Cells Auto 2 /HPF 10/28/19 14:00 Urine Mucus (Auto) RARE /LPF 10/28/19 14:00 Urine Ascorbic Acid NEGATIVE (NEGATIVE) 10/28/19 14:00 10/21/19 10/21/19 10/22/19 17:02 23:44 06:15 CK-MB (CK-2) 0.71 0.79 0.72 Troponin I 0.032 0.028 0.027 NT-Pro-B Natriuret Pep 4790 H 10/23/19 10/24/19 05:42 06:10 CK-MB (CK-2) Troponin I NT-Pro-B Natriuret Pep 7330 H 8870 H Impressions: Cervical Spine CT 10/21/19 11:36 IMPRESSION: No evidence of acute bony abnormality of the cervical spine. Multilevel degenerative disc disease and facet arthropathy. Head CT 10/21/19 11:36 IMPRESSION: No evidence of acute intracranial process. 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 EVIDENCE OF ACUTE STROKE: NO. Chest X-Ray 10/21/19 11:37 IMPRESSION: No evidence of acute cardiopulmonary process. Evidence of prior CABG. Chest X-Ray 10/24/19 00:00 IMPRESSION: A new patchy parenchymal opacities in the inferior right hemithorax. Correlate with clinical findings to exclude an infection. Plan Time Spent: Greater than 30 Minutes - Follow in office 1 week repeat the CBC and Chem-7 follow-up with the cardiology office Stroke Is this a Stroke Patient?: No Acute Heart Failure - Is this a Heart Failure Patient?: No
[2019-10-31 10:13] LABS: APPEARANCE,URINE CLEAR; BILIRUBIN,URINE NEGATIVE (NEGATIVE); COLOR,URINE YELLOW; GLUCOSE, URINE NEGATIVE (NEGATIVE); KETONES,URINE NEGATIVE (NEGATIVE); LEUKOCYTE ESTERASE,URINE NEGATIVE (NEGATIVE); NITRITE,URINE NEGATIVE (NEGATIVE); PROTEIN,URINE NEGATIVE (NEGATIVE); URINE SPECIFIC GRAVITY 1.008; UROBILINOGEN,URINE NEGATIVE mg/dL (<2.0)
[2019-10-31 11:40] VITALS: BP 137/62
[2019-10-31] MEDS ORDERED: WARFARIN SODIUM 4 MG TABLET PO SCH (22:00)
== END 2019-10-31 12:20 | disposition home health service (06) | DRG 602 ==
LOC: ER 11:20 → EH 16:11 → 4S 18:29
PROVIDERS: ADMIT Family Medicine; ATTEND Family Medicine
DX: L03.116 Cellulitis of left lower limb (principal); I50.43 Acute on chronic combined systolic (congestive) and diastolic (congestive) heart failure; I13.0 Hypertensive heart and chronic kidney disease with heart failure and stage 1 through stage 4 chronic kidney disease, or unspecified chronic kidney disease; N25.81 Secondary hyperparathyroidism of renal origin; I82.5Z9 Chronic embolism and thrombosis of unspecified deep veins of unspecified distal lower extremity; D63.1 Anemia in chronic kidney disease; E11.319 Type 2 diabetes mellitus with unspecified diabetic retinopathy without macular edema; E11.22 Type 2 diabetes mellitus with diabetic chronic kidney disease; E11.43 Type 2 diabetes mellitus with diabetic autonomic (poly)neuropathy; N18.3 Chronic kidney disease, stage 3 (moderate); I48.91 Unspecified atrial fibrillation; I25.10 Atherosclerotic heart disease of native coronary artery without angina pectoris; Z66 Do not resuscitate; G47.30 Sleep apnea, unspecified; J44.9 Chronic obstructive pulmonary disease, unspecified; E78.5 Hyperlipidemia, unspecified; K21.9 Gastro-esophageal reflux disease without esophagitis; M19.90 Unspecified osteoarthritis, unspecified site; M10.9 Gout, unspecified; F32.9 Major depressive disorder, single episode, unspecified; W19.XXXA Unspecified fall, initial encounter; E66.9 Obesity, unspecified; Z79.01 Long term (current) use of anticoagulants; Z95.810 Presence of automatic (implantable) cardiac defibrillator; I25.2 Old myocardial infarction; Z86.73 Personal history of transient ischemic attack (TIA), and cerebral infarction without residual deficits; Q63.1 Lobulated, fused and horseshoe kidney; Z95.1 Presence of aortocoronary bypass graft; Z79.02 Long term (current) use of antithrombotics/antiplatelets; Z88.8 Allergy status to other drugs, medicaments and biological substances; Z95.5 Presence of coronary angioplasty implant and graft; Z68.36 Body mass index [BMI] 36.0-36.9, adult; Z83.3 Family history of diabetes mellitus; Z82.49 Family history of ischemic heart disease and other diseases of the circulatory system
CPT/HCPCS: 36415; 70450; 71045; 72125; 80048; 80053; 81001; 82550; 82553; 82803; 82962; 83605; 83735; 83880; 84484; 85025; 85027; 85610; 87040; 87086; 93005; 93010; 94640; 94660; 99285; J0692; J1815; J1940; J3490

== ENCOUNTER 2020-01-14 22:11 | Inpatient (IN) | payer MEDICARE, OTHER ==
--- NOTE | 2020-01-15 00:10 | ER Document Report ---
ED General - General Chief Complaint: Arm Pain Stated Complaint: RIGHT ARM INJURY Time Seen by Provider: 01/14/20 23:58 Notes: Patient is an 85-year-old male that comes emergency department for chief complaint of bleeding from multiple skin tears on both of his arms and also an intermittent nosebleed. When asked patient does note that he is on Coumadin for atrial fibrillation, he states the last time he had it checked it was 5.5. He is also on Plavix. He denies headache, chest pain, abdominal pain, fall, injuries, or any other complaints. He states that he is constantly getting skin abrasions, he has had these a while and has been simply placing bacitracin on them, and they simply started bleeding. His tetanus is up-to-date. He lives at home with his . TRAVEL OUTSIDE OF THE [place] IN LAST 30 DAYS: No - Related Data Allergies/Adverse Reactions: nystatin Adverse Reaction (Verified 11/29/17 09:25) Home Medications: MED LIST WITH PT IN NOTEBOOK Past Medical History - General Information source: Patient - Social History Smoking Status: Never Smoker Frequency of alcohol use: None Drug Abuse: None Lives with: Family Family History: Reviewed & Not Pertinent, CAD, COPD, Hypertension, Malignancy Patient has homicidal ideation: No - Past Medical History Cardiac Medical History: Reports: Hx Atrial Fibrillation, Hx Congestive Heart Failure, Hx Coronary Artery Disease, Hx DVT, Hx Heart Attack - 1995, Hx Hypercholesterolemia, Hx Hypertension, Hx Pulmonary Embolism Pulmonary Medical History: Reports: Hx COPD, Hx Sleep Apnea Denies: Hx Asthma, Hx Tuberculosis Neurological Medical History: Denies: Hx Cerebrovascular Accident, Hx Seizures Endocrine Medical History: Reports: Hx Diabetes Mellitus Type 2 Renal/ Medical History: Reports: Hx Kidney Stones - right side, renal cysts. Denies: Hx Peritoneal Dialysis GI Medical History: Reports: Hx Gastroesophageal Reflux Disease. Denies: Hx Cirrhosis, Hx Crohn's Disease, Hx Hepatitis, Hx Ulcer, Hx Ulcerative Colitis Musculoskeletal Medical History: Reports Hx Arthritis - gout, Reports Hx Gout Skin Medical History: Denies Hx Psoriasis Psychiatric Medical History: Reports: Hx Depression Traumatic Medical History: Denies: Hx Traumatic Brain Injury Infectious Medical History: Denies: Hx Hepatitis Past Surgical History: Reports: Hx Cardiac Surgery - open heart, pacer/defib, Hx Coronary Artery Bypass Graft - 3, Hx Coronary Stent, Hx Internal Defibrillator, Hx Open Heart Surgery - cabg x 3, Hx Pacemaker - upper left chest, Hx Vascular Surgery, Other - Bone graft in the left ankle, surgery of elbow fracture - Immunizations Hx Diphtheria, Pertussis, Tetanus Vaccination: Yes - not UTD Hx Pneumococcal Vaccination: 11/07/11 Review of Systems - Review of Systems Constitutional: No symptoms reported EENT: See HPI Cardiovascular: See HPI Respiratory: No symptoms reported Gastrointestinal: No symptoms reported Genitourinary: No symptoms reported Male Genitourinary: No symptoms reported Musculoskeletal: No symptoms reported Skin: See HPI Hematologic/Lymphatic: No symptoms reported Neurological/Psychological: No symptoms reported Physical Exam - Vital signs Vitals: Temp Pulse Resp BP Pulse Ox 97.6 F 87 14 149/78 H 98 01/14/20 22:17 01/14/20 22:17 01/14/20 22:17 01/14/20 22:17 01/14/20 22:17 - Notes Notes: GENERAL: Alert, interacts well. No acute distress. HEAD: Normocephalic, atraumatic. EYES: Pupils equal, round, and reactive to light. Extraocular movements intact. ENT: Oral mucosa moist, tongue midline. Oropharynx unremarkable. Airway patent. Dried epistaxis noted on the right side, no current bleeding noted, no signs of trauma. There is a small amount of dried blood in the posterior oropharynx as well. Unremarkable otherwise. NECK: Full range of motion. Supple. Trachea midline. No lymphadenopathy. LUNGS: Clear to auscultation bilaterally, no wheezes, rales, or rhonchi. No respiratory distress. Non-tender chest wall. HEART: Regular rate and rhythm. No murmur ABDOMEN: Soft, non-tender. Non-distended. EXTREMITIES: Moves all 4 extremities spontaneously. Bilateral swelling and bilateral pitting edema, normal radial and dorsalis pedis pulses bilaterally. No cyanosis. BACK: no cervical, thoracic, lumbar midline tenderness. No saddle anesthesia, normal distal neurovascular exam. Moves all extremities in full range of motion. NEUROLOGICAL: Alert and oriented x3. Normal speech. Cranial nerves II through XII grossly intact. Strength 5/5 in all extremities. PSYCH: Normal affect, normal mood. SKIN: There are multiple skin abrasions over the arms, forearms, and hands bilaterally. Multiple areas of these are slowly oozing blood. No significant wounds, unremarkable otherwise. Course - Re-evaluation Re-evalutation: On my evaluation patient has multiple slowly oozing skin abrasions, he appears to pick as a nervous habit. In addition to this patient appears to have recently dried epistaxis including a small amount of blood down the back of the throat which is dried and there is no current bleeding. Patient does not have a headache or any other complaints. CBC is comparable to prior without significant change. PT INR shows INR of 4.96. Chemistry does show some elevated BUN and creatinine but patient frequently has the same range for his creatinine. He does have some lower extremity swelling, however he states this is his baseline. Discussed with Dr. Jarquin. He recommends that if patient is currently bleeding admission with 2 mg p.o. vitamin K, if he is not currently bleeding he can hold his doses and follow-up tomorrow to have the levels rechecked. Unfortunately I went and discussed with patient again and he is started having slow oozing epistaxis again. As result the recommendation is admission. Discussed with the patient. He states full agreement. Spoke with Dr. Carrillo, on-call for Dr. Rodriguez (patient's provider). He accepts patient to observation, he is getting his p.o. vitamin K and will have his labs repeated. - Vital Signs Vital signs: Temp Pulse Resp BP Pulse Ox 97.6 F 87 14 149/78 H 98 01/14/20 22:23 01/14/20 22:17 01/14/20 22:17 01/14/20 22:17 01/14/20 22:17 - Laboratory Result Diagrams: 01/15/20 01:10 01/15/20 01:10 Laboratory results interpreted by me: 01/15/20 01/15/20 01/15/20 01:10 01:10 01:10 RBC 3.25 L Hgb 9.4 L Hct 28.1 L RDW 21.3 H PT 47.5 H Sodium 134.9 L BUN 62 H Creatinine 1.67 H Est GFR ( Amer) 48 L Est GFR (MDRD) Non-Af 39 L Glucose 145 H AST 107 H ALT 61 H Albumin 3.1 L Discharge - Discharge Clinical Impression: Over-anticoagulated, Epistaxis, Skin tear Condition: Stable Disposition: ADMITTED OBSERVATION Admitting Provider: Lorena - for Dr. Rodriguez Unit Admitted: Medical Floor
[2020-01-15 01:24] LABS: ABSOLUTE BASOPHILS # (AUTO) 0.1 10^3/uL (0.0-0.2); ABSOLUTE EOSINOPHILS # (AUTO) 0.1 10^3/uL (0.0-0.6); ABSOLUTE LYMPHOCYTES (AUTO) 0.9 10^3/uL (0.5-4.7); ABSOLUTE MONOCYTES (AUTO) 0.4 10^3/uL (0.1-1.4); ABSOLUTE NEUT (AUTO) 3.7 10^3/uL (1.7-8.2); HEMATOCRIT 28.1 % (37.9-51.0); HEMOGLOBIN 9.4 g/dL (13.5-17.0); LYMPHOCYTES % (AUTO) 18.4 % (13-45); MEAN CORPUSCULAR HEMOGLOBIN 28.8 pg (27.0-33.4); MEAN CORPUSCULAR HGB CONC 33.4 g/dL (32.0-36.0); MEAN CORPUSCULAR VOLUME 86 fl (80-97); MONOCYTES % (AUTO) 7.9 % (3-13); PLATELET COUNT 314 10^3/uL (150-450); RED BLOOD COUNT 3.25 10^6/uL (4.35-5.55); RED CELL DISTRIBUTION WIDTH 21.3 % (11.5-14.0); SEGMENTED NEUTROPHILS % (AUTO) 71.7 % (42-78); TOTAL CELLS COUNTED % (AUTO) 100 %; WHITE BLOOD COUNT 5.1 10^3/uL (4.0-10.5)
[2020-01-15 01:30] LABS: INTERNATIONAL RATION (INR) 4.96; PROTHROMBIN TIME 47.5 SEC (11.4-15.4)
[2020-01-15 01:58] LABS: ALBUMIN 3.1 g/dL (3.5-5.0); ALKALINE PHOSPHATASE 68 U/L (38-126); ANION GAP 10 (5-19); ASPARTATE AMINO TRANSFERASE 107 U/L (17-59); BILIRUBIN,DIRECT 0.4 mg/dL (0.0-0.4); BLOOD UREA NITROGEN 62 mg/dL (7-20); CALCIUM 9.7 mg/dL (8.4-10.2); CARBON DIOXIDE 27 mmol/L (22-30); CHLORIDE 98 mmol/L (98-107); GLUCOSE 145 mg/dL (75-110); POTASSIUM 4.2 mmol/L (3.6-5.0); TOTAL PROTEIN 7.2 g/dL (6.3-8.2)
[2020-01-15] MEDS ORDERED: PHYTONADIONE 5 MG TABLET PO ONE (02:25)
[2020-01-15] MEDS ORDERED: (PENDING PHARMACY ID) (Albuterol Sulfate 1 PUFF) IH PRN (14:32)
[2020-01-15] MEDS ORDERED: ALBUTEROL SULFATE HFA (90 MCG/PUFF) 200 PUFF/8.5 GM MDI IH PRN (14:44)
[2020-01-15] MEDS ORDERED: (PENDING PHARMACY ID) (Cholecalciferol (Vitamin D3) [Vitamin D3] 2,000 UNIT) PO SCH (14:45)
[2020-01-15] MEDS ORDERED: (PENDING PHARMACY ID) (Cetirizine Hcl [Zyrtec] 10 MG) PO SCH (14:45)
[2020-01-15] MEDS ORDERED: (PENDING PHARMACY ID) (Tiotropium Bromide [Spiriva Respimat] 2 PUFF) IH SCH (14:45)
[2020-01-15] MEDS ORDERED: (PENDING PHARMACY ID) (Fluticasone/Salmeterol 1 INH) IH SCH (14:45)
[2020-01-15] MEDS ORDERED: (PENDING PHARMACY ID) (Metoprolol Succinate [Metoprolol Succinate] 100 MG) PO SCH (14:45)
[2020-01-15] MEDS ORDERED: (PENDING PHARMACY ID) (Torsemide [Torsemide] 100 MG) PO SCH (14:45)
[2020-01-15 14:47] LABS: INTERNATIONAL RATION (INR) 4.31; PROTHROMBIN TIME 42.5 SEC (11.4-15.4)
--- NOTE | 2020-01-15 15:03 | PDOC H&P ---
History of Present Illness Admission Date/PCP: 01/15/20 02:36 DANA TUTTLE MD History of Present Illness: MARY MANDUJANO is a 85 year old male he came to the emergency room last night for evaluation of intermittent nosebleed, bleeding from multiple skin tears, patient is on Coumadin for atrial fibrillation in the emergency room, the blood work revealed elevated PT/INR, the INR was 4.96. Patient is a poor historian, it seems to me that he may have baseline dementia he does not answer question appropriately, I reviewed his medications he is also many medications, he has diabetes mellitus with complications Past Medical History Cardiac Medical History: Reports: Atrial Fibrillation, Congestive Heart Failure, Coronary Artery Disease, DVT, Myocardial Infarction - 1995, Hyperlipidema, Hypertension, Pulmonary Embolism Pulmonary Medical History: Reports: Chronic Obstructive Pulmonary Disease (COPD), Sleep Apnea Endocrine Medical History: Reports: Diabetes Mellitus Type 2 GI Medical History: Reports: Gastroesophageal Reflux Disease Musculoskeltal Medical History: Reports: Arthritis - gout, Gout Psychiatric Medical History: Reports: Depression Hematology: Reports: Anemia Past Surgical History Past Surgical History: Reports: Coronary Artery Bypass Graft - 3, Coronary Stent, Internal Defibrillator, Pacemaker - upper left chest, Vascular Surgery, Other - Bone graft in the left ankle, surgery of elbow fracture Social History Lives with: Family Smoking Status: Never Smoker Electronic Cigarette use?: No Frequency of Alcohol Use: None Hx Recreational Drug Use: No Drugs: None Hx Prescription Drug Abuse: No Family History Family History: Reviewed & Not Pertinent, CAD, COPD, Hypertension, Malignancy Parental Family History Reviewed: Yes Children Family History Reviewed: Yes Sibling(s) Family History Reviewed.: Yes Medication/Allergy Home Medications: RX: Albuterol Sulfate [Proair HFA Inhalation Aerosol 8.5 gm MDI] 1 puff IH Q4HP PRN 10/21/19 RX: Allopurinol [Zyloprim 100 mg Tablet] 100 mg PO QAM 10/21/19 RX: Atorvastatin Calcium [Lipitor 80 mg Tablet] 80 mg PO QHS 10/21/19 RX: Calcitriol [Rocaltrol 0.25 mcg Capsule] 0.25 mcg PO QAM 10/21/19 RX: Cetirizine HCl [Zyrtec] 10 mg PO QAM 10/21/19 RX: Cholecalciferol (Vitamin D3) [Vitamin D3] 2,000 unit PO QAM 10/21/19 RX: Clopidogrel Bisulfate [Plavix 75 mg Tablet] 75 mg PO QAM 10/21/19 RX: Docusate Sodium [Colace 100 mg Capsule] 100 mg PO QPM 10/21/19 RX: Fenofibrate Nanocrystallized [Tricor 145 mg Tablet] 145 mg PO QAM 10/21/19 RX: Ferrous Sulfate [Feosol 325 mg Tablet] 325 mg PO QAM 10/21/19 RX: Finasteride [Proscar 5 mg Tablet] 5 mg PO QPM 10/21/19 RX: Fluticasone/Salmeterol [Advair 250-50 Diskus 14 Dose/Diskus] 1 inh IH Q12 10/21/19 RX: Hydralazine HCl [Apresoline 10 mg Tablet] 10 mg PO Q8 10/21/19 RX: Isosorbide Dinitrate [Isordil Titradose 10 mg Tablet] 10 mg PO QAM 10/21/19 RX: Metoprolol Succinate 100 mg PO QAM 10/21/19 RX: Pantoprazole Sodium [Protonix [address] Tablet] 40 mg PO QAM 10/21/19 RX: Potassium Chloride 20 meq PO Q12 10/21/19 RX: Sertraline HCl [Zoloft 50 mg Tablet] 50 mg PO QPM 10/21/19 RX: Tamsulosin HCl [Flomax] 0.4 mg PO QPM 10/21/19 RX: Tiotropium [place] [Spiriva Respimat] 2 puff IH DAILY 10/21/19 RX: Warfarin Sodium [Coumadin 3 mg Tablet] 3 mg PO SUMOWETHSA@219910/22/19 RX: Warfarin Sodium [Coumadin 5 mg Tablet] 5 mg PO TUFR@219910/22/19 Insulin Aspart [Novolog] 0 unit SQ .SLIDING SCALE 01/15/20 Insulin Glargine,Hum.rec.anlog [Lantus Insulin 100 Unit/1 ml 10 ml] 30 unit SUBCUT QHS MDD VARIES DEPENDING ON SUGAR LEVE 01/15/20 Levothyroxine Sodium [Synthroid 0.15 mg Tablet] 0.15 mg PO Q6AM 01/15/20 Torsemide 100 mg PO Q12 01/15/20 Allergies/Adverse Reactions: nystatin Adverse Reaction (Verified 11/29/17 09:25) Review of Systems ROS unobtainable: Due to mental status Physical Exam Vital Signs: Temp Pulse Resp BP Pulse Ox 98.2 F 81 17 133/56 H 100 01/15/20 11:51 01/15/20 11:51 01/15/20 11:51 01/15/20 11:51 01/15/20 11:51 Intake & Output 01/14/20 01/15/20 01/16/20 06:59 06:59 06:59 Intake Total 860 Output Total 750 Balance 110 Weight 96.5 kg General appearance: PRESENT: no acute distress Head exam: PRESENT: atraumatic, normocephalic Eye exam: PRESENT: conjunctiva pink, EOMI, PERRLA Ear exam: PRESENT: normal external ear exam Mouth exam: PRESENT: moist, tongue midline Neck exam: PRESENT: full ROM Respiratory exam: PRESENT: clear to auscultation kavitha Cardiovascular exam: PRESENT: RRR, +S1, +S2 Vascular exam: PRESENT: normal capillary refill GI/Abdominal exam: PRESENT: normal bowel sounds, soft Rectal exam: PRESENT: deferred Neurological exam: PRESENT: alert, CN II-XII grossly intact Psychiatric exam: PRESENT: appropriate affect, normal mood Skin exam: PRESENT: skin tears - He has multiple skin tears in both upper extremities Results Laboratory Results: 01/15/20 01:10 01/15/20 01:10 01/15/20 01/15/20 01:10 01:10 WBC 5.1 RBC 3.25 L Hgb 9.4 L Hct 28.1 L MCV 86 MCH 28.8 MCHC 33.4 RDW 21.3 H Plt Count 314 Seg Neutrophils % 71.7 Sodium 134.9 L Potassium 4.2 Chloride 98 Carbon Dioxide 27 Anion Gap 10 BUN 62 H Creatinine 1.67 H Est GFR ( Amer) 48 L Glucose 145 H Calcium 9.7 Total Bilirubin 1.0 AST 107 H Alkaline Phosphatase 68 Total Protein 7.2 Albumin 3.1 L Assessment & Plan - Diagnosis (1) Warfarin-induced coagulopathy Is this a current diagnosis for this admission?: Yes Plan: Patient received a dose of vitamin K, continue to watch closely (2) Chronic atrial fibrillation Is this a current diagnosis for this admission?: Yes (3) Type 2 diabetes mellitus with diabetic chronic kidney disease Qualifiers: Diabetes mellitus power and recovery shift engineer insulin use: with mcc use Chronic kidney disease stage: unspecified stage Qualified Code(s): E11.22 - Type 2 diabetes mellitus with diabetic chronic kidney disease; Z79.4 - remediation consultant (current) use of insulin Is this a current diagnosis for this admission?: Yes Plan: Continue present treatment
[2020-01-15] MEDS: UMECLIDINIUM BROMIDE 62.5 MCG/DOSE IH SCH (17:37)
[2020-01-15] MEDS: FERROUS SULFATE 325 MG TABLET PO SCH (17:38)
[2020-01-15] MEDS: FLUTICASONE/VILANTEROL 200-25 MCG/DOSE IH SCH (17:38)
[2020-01-15] MEDS: CALCITRIOL 0.25 MCG CAPSULE PO SCH (17:39)
[2020-01-15] MEDS: PANTOPRAZOLE SODIUM 40 MG TABLET.DR PO SCH (17:39)
[2020-01-15] MEDS: METOPROLOL SUCCINATE 50 MG TAB.SR.24H PO SCH (17:39)
[2020-01-15] MEDS: FENOFIBRATE NANOCRYSTALLIZED 145 MG TABLET PO SCH (17:39)
[2020-01-15] MEDS: LEVOTHYROXINE SODIUM 0.15 MG TABLET PO SCH (17:39)
[2020-01-15] MEDS: CHOLECALCIFEROL (D3) 1,000 UNIT (25 MCG) TABLET PO SCH (17:39)
[2020-01-15] MEDS: ALLOPURINOL 100 MG TABLET PO SCH (17:39)
[2020-01-15] MEDS: SERTRALINE HCL 50 MG TABLET PO SCH (17:40)
[2020-01-15] MEDS: CETIRIZINE 10 MG TABLET PO SCH (17:40)
[2020-01-15] MEDS: TAMSULOSIN HCL 0.4 MG CAP.SR.24H PO SCH (17:40)
[2020-01-15] MEDS: TORSEMIDE 20 MG TABLET PO SCH (17:40)
[2020-01-15] MEDS: POTASSIUM CHLORIDE 10 MEQ TABLET.ER PO SCH (17:40)
[2020-01-15] MEDS: INSULIN GLARGINE,HUM.REC.ANLOG 1,000 UNIT/10 ML VIAL SUBCUT SCH (22:21)
[2020-01-15] MEDS: ATORVASTATIN CALCIUM 80 MG TABLET PO SCH (22:21)
[2020-01-16] MEDS: LEVOTHYROXINE SODIUM 0.15 MG TABLET PO SCH (05:29)
[2020-01-16 06:29] LABS: ABSOLUTE EOSINOPHILS # (AUTO) 0.1 10^3/uL (0.0-0.6); ABSOLUTE MONOCYTES (AUTO) 0.6 10^3/uL (0.1-1.4); EOSINOPHILS % (AUTO) 1.6 % (0-6); HEMATOCRIT 26.3 % (37.9-51.0); LYMPHOCYTES % (AUTO) 21.1 % (13-45); MEAN CORPUSCULAR HEMOGLOBIN 28.6 pg (27.0-33.4); MEAN CORPUSCULAR HGB CONC 34.1 g/dL (32.0-36.0); MEAN CORPUSCULAR VOLUME 84 fl (80-97); MONOCYTES % (AUTO) 11.9 % (3-13); PLATELET COUNT 270 10^3/uL (150-450); RED BLOOD COUNT 3.13 10^6/uL (4.35-5.55); RED CELL DISTRIBUTION WIDTH 21.5 % (11.5-14.0); SEGMENTED NEUTROPHILS % (AUTO) 64.4 % (42-78); TOTAL CELLS COUNTED % (AUTO) 100 %; WHITE BLOOD COUNT 4.7 10^3/uL (4.0-10.5)
[2020-01-16 06:38] LABS: INTERNATIONAL RATION (INR) 3.25; PROTHROMBIN TIME 33.9 SEC (11.4-15.4)
[2020-01-16 06:55] LABS: ANION GAP 9 (5-19); BLOOD UREA NITROGEN 54 mg/dL (7-20); CALCIUM 9.3 mg/dL (8.4-10.2); CARBON DIOXIDE 27 mmol/L (22-30); CHLORIDE 98 mmol/L (98-107); GLUCOSE 103 mg/dL (75-110); POTASSIUM 3.8 mmol/L (3.6-5.0)
--- NOTE | 2020-01-16 08:31 | PDOC PROGRESS REPORT ---
Subjective Progress Note for:: 01/16/20 Subjective:: Patient was admittedFor elevated INR and nosebleed Patient is currently doing well no nosebleed anymore patient INR is 3.2 Patient's denied any chest pain no short of breath Reason For Visit: OVER ANTICOAGULATION Physical Exam Vital Signs: Temp Pulse Resp BP Pulse Ox 98.0 F 81 18 127/63 H 99 01/16/20 07:18 01/16/20 07:18 01/16/20 07:18 01/16/20 07:18 01/16/20 07:18 Intake & Output 01/15/20 01/16/20 01/17/20 06:59 06:59 06:59 Intake Total 1660 Output Total 1900 Balance -240 Weight 96.5 kg 84.1 kg General appearance: PRESENT: no acute distress, well-developed, well-nourished Head exam: PRESENT: atraumatic, normocephalic Eye exam: PRESENT: conjunctiva pink, EOMI, PERRLA. ABSENT: scleral icterus Ear exam: PRESENT: normal external ear exam Mouth exam: PRESENT: moist, tongue midline Neck exam: PRESENT: full ROM. ABSENT: carotid bruit, JVD, lymphadenopathy, thyromegaly Respiratory exam: PRESENT: clear to auscultation kavitha Cardiovascular exam: PRESENT: RRR. ABSENT: diastolic murmur, rubs, systolic murmur Pulses: PRESENT: normal dorsalis pedis pul, +2 pedal pulses bilateral Vascular exam: PRESENT: normal capillary refill GI/Abdominal exam: PRESENT: normal bowel sounds, soft. ABSENT: distended, guarding, mass, organolmegaly, rebound, tenderness Rectal exam: PRESENT: deferred Extremities exam: ABSENT: pedal edema Musculoskeletal exam: PRESENT: ambulatory Neurological exam: PRESENT: alert, awake, oriented to person, oriented to place, oriented to time, oriented to situation, CN II-XII grossly intact. ABSENT: motor sensory deficit Psychiatric exam: PRESENT: appropriate affect, normal mood. ABSENT: homicidal ideation, suicidal ideation Skin exam: PRESENT: dry, intact, warm. ABSENT: cyanosis, rash Results Laboratory Results: 01/16/20 05:58 01/16/20 05:58 01/16/20 01/16/20 05:58 05:58 WBC 4.7 RBC 3.13 L Hgb 9.0 L Hct 26.3 L MCV 84 MCH 28.6 MCHC 34.1 RDW 21.5 H Plt Count 270 Seg Neutrophils % 64.4 Sodium 134.4 L Potassium 3.8 Chloride 98 Carbon Dioxide 27 Anion Gap 9 BUN 54 H Creatinine 1.51 H Est GFR ( Amer) 54 L Glucose 103 Calcium 9.3 Assessment & Plan - Diagnosis (1) Chronic atrial fibrillation Is this a current diagnosis for this admission?: Yes (2) Epistaxis Is this a current diagnosis for this admission?: Yes Plan: Currently all resolved (3) Over-anticoagulated Is this a current diagnosis for this admission?: Yes (4) Type 2 diabetes mellitus with diabetic chronic kidney disease Qualifiers: Diabetes mellitus halfway insulin use: with rat exterminator use Chronic kidney disease stage: unspecified stage Qualified Code(s): E11.22 - Type 2 diabetes mellitus with diabetic chronic kidney disease; Z79.4 - ferry terminal agent (current) use of insulin Is this a current diagnosis for this admission?: Yes (5) Anemia in chronic kidney disease (CKD) Qualifiers: Chronic kidney disease stage: stage 3 (moderate) Qualified Code(s): N18.3 - Chronic kidney disease, stage 3 (moderate); D63.1 - Anemia in chronic kidney disease Is this a current diagnosis for this admission?: Yes (6) CAD (coronary artery disease) Qualifiers: Coronary Disease-Associated Artery/Lesion type: unspecified vessel or lesion type Is this a current diagnosis for this admission?: Yes (7) CHF (congestive heart failure) Qualifiers: Heart failure type: combined systolic and diastolic Heart failure chronicity: acute on chronic Qualified Code(s): I50.43 - Acute on chronic combined systolic (congestive) and diastolic (congestive) heart failure Is this a current diagnosis for this admission?: Yes (8) Cardiac defibrillator in situ Is this a current diagnosis for this admission?: Yes (9) Hypertension Qualifiers: Hypertension type: essential hypertension Qualified Code(s): I10 - Essential (primary) hypertension Is this a current diagnosis for this admission?: Yes (10) Venous (peripheral) insufficiency Is this a current diagnosis for this admission?: Yes - Time Time Spent with patient: 15-24 minutes Level of Care: TELE Medications reviewed and adjusted accordingly: Yes Anticipated discharge: Home, Home with Homehealth Within: within 24 hours - Plan Summary Plan Summary: Continues to current medications follow outpatient ENT
[2020-01-16] MEDS: CALCITRIOL 0.25 MCG CAPSULE PO SCH (09:06)
[2020-01-16] MEDS: ALLOPURINOL 100 MG TABLET PO SCH (09:06)
[2020-01-16] MEDS: FERROUS SULFATE 325 MG TABLET PO SCH (09:06)
[2020-01-16] MEDS: CHOLECALCIFEROL (D3) 1,000 UNIT (25 MCG) TABLET PO SCH (09:06)
[2020-01-16] MEDS: PANTOPRAZOLE SODIUM 40 MG TABLET.DR PO SCH (09:06)
[2020-01-16] MEDS: CETIRIZINE 10 MG TABLET PO SCH (09:06)
[2020-01-16] MEDS: TORSEMIDE 20 MG TABLET PO SCH ×2 (09:06→21:59)
[2020-01-16] MEDS: POTASSIUM CHLORIDE 10 MEQ TABLET.ER PO SCH ×2 (09:06→21:59)
[2020-01-16] MEDS: FENOFIBRATE NANOCRYSTALLIZED 145 MG TABLET PO SCH (09:07)
[2020-01-16] MEDS: FLUTICASONE/VILANTEROL 200-25 MCG/DOSE IH SCH (09:07)
[2020-01-16] MEDS: METOPROLOL SUCCINATE 50 MG TAB.SR.24H PO SCH (09:07)
[2020-01-16] MEDS: UMECLIDINIUM BROMIDE 62.5 MCG/DOSE IH SCH (09:07)
[2020-01-16] MEDS: TAMSULOSIN HCL 0.4 MG CAP.SR.24H PO SCH (17:24)
[2020-01-16] MEDS: SERTRALINE HCL 50 MG TABLET PO SCH (17:24)
[2020-01-16] MEDS: ATORVASTATIN CALCIUM 80 MG TABLET PO SCH (21:59)
[2020-01-16] MEDS: INSULIN GLARGINE,HUM.REC.ANLOG 1,000 UNIT/10 ML VIAL SUBCUT SCH (22:00)
[2020-01-17] MEDS: LEVOTHYROXINE SODIUM 0.15 MG TABLET PO SCH (05:45)
[2020-01-17 06:16] LABS: INTERNATIONAL RATION (INR) 2.54; PROTHROMBIN TIME 27.8 SEC (11.4-15.4)
[2020-01-17 06:23] LABS: ANION GAP 7 (5-19); BLOOD UREA NITROGEN 58 mg/dL (7-20); CALCIUM 9.5 mg/dL (8.4-10.2); CARBON DIOXIDE 27 mmol/L (22-30); CHLORIDE 101 mmol/L (98-107); POTASSIUM 3.8 mmol/L (3.6-5.0)
[2020-01-17 06:28] LABS: GLUCOSE 61 mg/dL (75-110)
[2020-01-17] MEDS: CHOLECALCIFEROL (D3) 1,000 UNIT (25 MCG) TABLET PO SCH (08:10)
[2020-01-17] MEDS: ALLOPURINOL 100 MG TABLET PO SCH (08:11)
[2020-01-17] MEDS: PANTOPRAZOLE SODIUM 40 MG TABLET.DR PO SCH (08:11)
[2020-01-17] MEDS: METOPROLOL SUCCINATE 50 MG TAB.SR.24H PO SCH (08:11)
[2020-01-17] MEDS: FERROUS SULFATE 325 MG TABLET PO SCH (08:12)
[2020-01-17] MEDS: CETIRIZINE 10 MG TABLET PO SCH (08:12)
[2020-01-17] MEDS: CALCITRIOL 0.25 MCG CAPSULE PO SCH (08:13)
[2020-01-17] MEDS: FENOFIBRATE NANOCRYSTALLIZED 145 MG TABLET PO SCH (08:13)
[2020-01-17] MEDS: TORSEMIDE 20 MG TABLET PO SCH (09:26)
[2020-01-17] MEDS: POTASSIUM CHLORIDE 10 MEQ TABLET.ER PO SCH (09:27)
[2020-01-17] MEDS: UMECLIDINIUM BROMIDE 62.5 MCG/DOSE IH SCH (09:27)
--- NOTE | 2020-01-17 09:42 | PDOC DISCHARGE SUMMARY ---
Impression - Admit/DC Date/PCP Admission Date/Primary Care Provider: 01/16/20 12:37 DANA TUTTLE MD Discharge Date: 01/17/20 - Discharge Diagnosis (1) Chronic atrial fibrillation Is this a current diagnosis for this admission?: Yes (2) Epistaxis Is this a current diagnosis for this admission?: Yes (3) Over-anticoagulated Is this a current diagnosis for this admission?: Yes (4) Type 2 diabetes mellitus with diabetic chronic kidney disease Is this a current diagnosis for this admission?: Yes (5) Anemia in chronic kidney disease (CKD) Is this a current diagnosis for this admission?: Yes (6) CAD (coronary artery disease) Is this a current diagnosis for this admission?: Yes (7) CHF (congestive heart failure) Is this a current diagnosis for this admission?: Yes (8) Cardiac defibrillator in situ Is this a current diagnosis for this admission?: Yes (9) Hypertension Is this a current diagnosis for this admission?: Yes (10) Venous (peripheral) insufficiency Is this a current diagnosis for this admission?: Yes - Additional Information Discharge Diet: Diabetic Discharge Activity: Activity As Tolerated Referrals: DANA TUTTLE MD [Primary Care Provider] - 01/24/20 11:00 am (f/u ent ) Home Medications: Albuterol Sulfate [Proair HFA Inhalation Aerosol 8.5 gm MDI] 1 puff IH Q4HP PRN 10/21/19 Allopurinol [Zyloprim 100 mg Tablet] 100 mg PO QAM 10/21/19 Atorvastatin Calcium [Lipitor 80 mg Tablet] 80 mg PO QHS 10/21/19 Calcitriol [Rocaltrol 0.25 mcg Capsule] 0.25 mcg PO QAM 10/21/19 Cetirizine HCl [Zyrtec] 10 mg PO QAM 10/21/19 Cholecalciferol (Vitamin D3) [Vitamin D3] 2,000 unit PO QAM 10/21/19 Docusate Sodium [Colace 100 mg Capsule] 100 mg PO QPM 10/21/19 Fenofibrate Nanocrystallized [Tricor 145 mg Tablet] 145 mg PO QAM 10/21/19 Ferrous Sulfate [Feosol 325 mg Tablet] 325 mg PO QAM 10/21/19 Finasteride [Proscar 5 mg Tablet] 5 mg PO QPM 10/21/19 Fluticasone/Salmeterol [Advair 250-50 Diskus 14 Dose/Diskus] 1 inh IH Q12 10/21/19 Hydralazine HCl [Apresoline 10 mg Tablet] 10 mg PO Q8 10/21/19 Isosorbide Dinitrate [Isordil Titradose 10 mg Tablet] 10 mg PO QAM 10/21/19 Metoprolol Succinate 100 mg PO QAM 10/21/19 Pantoprazole Sodium [Protonix [address] Tablet] 40 mg PO QAM 10/21/19 Potassium Chloride 20 meq PO Q12 10/21/19 Sertraline HCl [Zoloft 50 mg Tablet] 50 mg PO QPM 10/21/19 Tamsulosin HCl [Flomax] 0.4 mg PO QPM 10/21/19 Tiotropium [place] [Spiriva Respimat] 2 puff IH DAILY 10/21/19 Warfarin Sodium [Coumadin 3 mg Tablet] 3 mg PO SUMOWETHSA@219910/22/19 Warfarin Sodium [Coumadin 5 mg Tablet] 5 mg PO TUFR@219910/22/19 Insulin Aspart [Novolog] 0 unit SQ .SLIDING SCALE 01/15/20 Insulin Glargine,Hum.rec.anlog [Lantus Insulin 100 Unit/1 ml 10 ml] 30 unit SUBCUT QHS MDD VARIES DEPENDING ON SUGAR LEVE 01/15/20 Levothyroxine Sodium [Synthroid 0.15 mg Tablet] 0.15 mg PO Q6AM 01/15/20 Torsemide 100 mg PO Q12 01/15/20 History of Present Illiness History of Present Illness: MARY MANDUJANO is a 85 year old male Patient's brought to the emergency department because of a nosebleed and elevated INR and patient was given 1 dose of vitamin K patient's nosebleed was stopped due to holding the Coumadin and Plavix Hospital Course Hospital Course: This is a 85-year-old male's with a multiple medical problems chronic Coumadin Plavix multiple other comorbidity brought to the emergency department because of the nosebleed and patient INR was about 5 Patient's other blood work was all stable patient's Plavix and Coumadin was hold patient's was given 1 dose of vitamin K p.o. patient INR was 2.2 on the discharge Patient having no nosebleed anymore patient other medical problem was all stable Discussed with the patient and the regarding the current conditions currently hold the Plavix hold the Coumadin recheck the Coumadin level on and then will decide the dose of the medications Also make an appointment to see outpatient ENT for further evaluations by patient on a chronic anticoagulations Physical Exam Vital Signs: Temp Pulse Resp BP Pulse Ox 97.8 F 80 18 117/53 L 99 01/17/20 07:11 01/17/20 07:11 01/17/20 07:11 01/17/20 07:11 01/17/20 07:11 Intake & Output 01/16/20 01/17/20 01/18/20 06:59 06:59 06:59 Intake Total 1660 1041 Output Total 1900 1000 Balance -240 41 Weight 84.1 kg 100.6 kg General appearance: PRESENT: no acute distress, well-developed, well-nourished Head exam: PRESENT: atraumatic, normocephalic Eye exam: PRESENT: conjunctiva pink, EOMI, PERRLA. ABSENT: scleral icterus Ear exam: PRESENT: normal external ear exam Mouth exam: PRESENT: moist, tongue midline Neck exam: ABSENT: carotid bruit, JVD, lymphadenopathy, thyromegaly Respiratory exam: PRESENT: clear to auscultation kavitha. ABSENT: rales, rhonchi, wheezes Cardiovascular exam: PRESENT: RRR. ABSENT: diastolic murmur, rubs, systolic murmur Pulses: PRESENT: normal dorsalis pedis pul Vascular exam: PRESENT: normal capillary refill GI/Abdominal exam: PRESENT: normal bowel sounds, soft. ABSENT: distended, guarding, mass, organolmegaly, rebound, tenderness Rectal exam: PRESENT: deferred Extremities exam: PRESENT: full ROM. ABSENT: calf tenderness, clubbing, pedal edema Neurological exam: PRESENT: alert, awake, oriented to person, oriented to place, oriented to time, oriented to situation, CN II-XII grossly intact. ABSENT: motor sensory deficit Psychiatric exam: PRESENT: appropriate affect, normal mood. ABSENT: homicidal ideation, suicidal ideation Skin exam: PRESENT: dry, intact, warm. ABSENT: cyanosis, rash Results Laboratory Results: WBC 4.7 10^3/uL (4.0-10.5) 01/16/20 05:58 RBC 3.13 10^6/uL (4.35-5.55) L 01/16/20 05:58 Hgb 9.0 g/dL (13.5-17.0) L 01/16/20 05:58 Hct 26.3 % (37.9-51.0) L 01/16/20 05:58 MCV 84 fl (80-97) 01/16/20 05:58 MCH 28.6 pg (27.0-33.4) 01/16/20 05:58 MCHC 34.1 g/dL (32.0-36.0) 01/16/20 05:58 RDW 21.5 % (11.5-14.0) H 01/16/20 05:58 Plt Count 270 10^3/uL (150-450) 01/16/20 05:58 Lymph % (Auto) 21.1 % (13-45) 01/16/20 05:58 Brown % (Auto) 11.9 % (3-13) 01/16/20 05:58 Eos % (Auto) 1.6 % (0-6) 01/16/20 05:58 Baso % (Auto) 1.0 % (0-2) 01/16/20 05:58 Absolute Neuts (auto) 3.0 10^3/uL (1.7-8.2) 01/16/20 05:58 Absolute Lymphs (auto) 1.0 10^3/uL (0.5-4.7) 01/16/20 05:58 Absolute Monos (auto) 0.6 10^3/uL (0.1-1.4) 01/16/20 05:58 Absolute Eos (auto) 0.1 10^3/uL (0.0-0.6) 01/16/20 05:58 Absolute Basos (auto) 0.0 10^3/uL (0.0-0.2) 01/16/20 05:58 Seg Neutrophils % 64.4 % (42-78) 01/16/20 05:58 PT 27.8 SEC (11.4-15.4) H 01/17/20 05:30 INR 2.54 01/17/20 05:30 Sodium 135.3 mmol/L (137-145) L 01/17/20 05:30 Potassium 3.8 mmol/L (3.6-5.0) 01/17/20 05:30 Chloride 101 mmol/L (98-107) 01/17/20 05:30 Carbon Dioxide 27 mmol/L (22-30) 01/17/20 05:30 Anion Gap 7 (5-19) 01/17/20 05:30 BUN 58 mg/dL (7-20) H 01/17/20 05:30 Creatinine 1.62 mg/dL (0.52-1.25) H 01/17/20 05:30 Est GFR ( Amer) 49 (>60) L 01/17/20 05:30 Est GFR (MDRD) Non-Af 41 (>60) L 01/17/20 05:30 Glucose 61 mg/dL (75-110) L 01/17/20 05:30 POC Glucose 93 mg/dL (70-110) 01/17/20 08:11 Calcium 9.5 mg/dL (8.4-10.2) 01/17/20 05:30 Total Bilirubin 1.0 mg/dL (0.2-1.3) 01/15/20 01:10 Direct Bilirubin 0.4 mg/dL (0.0-0.4) 01/15/20 01:10 Neonat Total Bilirubin Not Reportable 01/15/20 01:10 Neonat Direct Bilirubin Not Reportable 01/15/20 01:10 Neonat Indirect Bili Not Reportable 01/15/20 01:10 AST 107 U/L (17-59) H 01/15/20 01:10 ALT 61 U/L (<50) H 01/15/20 01:10 Alkaline Phosphatase 68 U/L (38-126) 01/15/20 01:10 Total Protein 7.2 g/dL (6.3-8.2) 01/15/20 01:10 Albumin 3.1 g/dL (3.5-5.0) L 01/15/20 01:10 Plan Time Spent: Greater than 30 Minutes - Follow INR in 2 days hold the Plavix and Coumadin until further instructions Stroke Is this a Stroke Patient?: No Acute Heart Failure - Is this a Heart Failure Patient?: No
[2020-01-17] MEDS: FLUTICASONE/VILANTEROL 200-25 MCG/DOSE IH SCH (10:30)
[2020-01-17 10:39] VITALS: BP 115/49
== END 2020-01-17 11:00 | disposition home or self-care (01) | DRG 151 ==
LOC: ER 22:11 → EH 01-15 02:36 → 4S 01-15 03:20 → OBSVTOIN 01-16 12:37
PROVIDERS: ADMIT Family Medicine; ATTEND Family Medicine
DX: R04.0 Epistaxis (principal); D68.32 Hemorrhagic disorder due to extrinsic circulating anticoagulants; I13.0 Hypertensive heart and chronic kidney disease with heart failure and stage 1 through stage 4 chronic kidney disease, or unspecified chronic kidney disease; I48.20 Chronic atrial fibrillation, unspecified; I50.42 Chronic combined systolic (congestive) and diastolic (congestive) heart failure; Z79.01 Long term (current) use of anticoagulants; T45.515A Adverse effect of anticoagulants, initial encounter; I25.2 Old myocardial infarction; I25.10 Atherosclerotic heart disease of native coronary artery without angina pectoris; Z86.718 Personal history of other venous thrombosis and embolism; Z86.711 Personal history of pulmonary embolism; E78.5 Hyperlipidemia, unspecified; J44.9 Chronic obstructive pulmonary disease, unspecified; K21.9 Gastro-esophageal reflux disease without esophagitis; M19.90 Unspecified osteoarthritis, unspecified site; F32.9 Major depressive disorder, single episode, unspecified; Z95.5 Presence of coronary angioplasty implant and graft; Z95.810 Presence of automatic (implantable) cardiac defibrillator; Z79.51 Long term (current) use of inhaled steroids; Z79.4 Long term (current) use of insulin; Z88.8 Allergy status to other drugs, medicaments and biological substances; S41.112A Laceration without foreign body of left upper arm, initial encounter; S41.111A Laceration without foreign body of right upper arm, initial encounter; X58.XXXA Exposure to other specified factors, initial encounter; D63.1 Anemia in chronic kidney disease; E11.22 Type 2 diabetes mellitus with diabetic chronic kidney disease; N18.3 Chronic kidney disease, stage 3 (moderate); I87.2 Venous insufficiency (chronic) (peripheral); Z79.02 Long term (current) use of antithrombotics/antiplatelets; Z86.73 Personal history of transient ischemic attack (TIA), and cerebral infarction without residual deficits
CPT/HCPCS: 36415; 80048; 80053; 82962; 85025; 85610; 99284; J1815; J3490